=== PATIENT | male | born 1955 | race African-American/Black ===

== ENCOUNTER 2020-11-06 08:32 | Inpatient (IN) | payer MEDICARE ==
--- NOTE | 2020-11-06 08:45 | Emergency Department Report ---
Blank Doc - Documentation Documentation: 65-year-old male that presents with generalized weakness with nausea vomiting. Tachycardia, febrile with low O2 sats in triage. Recently diagnosed with Covid. 1- This initial assessment/diagnostic orders/clinical plan/ treatment(s) is/are subject to change based on pt's health status, clinical progression and re- assessment by fellow clinical providers in the ED. Further treatment and workup at subsequent clinical provers discretion. Patient/guardians urged not to elope from ED as their condition may be serious if not clinically assessed and managed. 2-cardiac work-up
[2020-11-06] MEDS ORDERED: ONDANSETRON 4 MG/2 ML INJ IV ONE (09:10)
[2020-11-06] MEDS ORDERED: SODIUM CHLORIDE 0.9% 1000 ML 1,000 ML IV ONE (09:10)
[2020-11-06] MEDS ORDERED: PANTOPRAZOLE 40 MG INJ IV ONE (09:10)
--- NOTE | 2020-11-06 09:10 | XRay Report ---
CHEST 1 VIEW 11/06/2020 8:40 AM INDICATION / CLINICAL INFORMATION: Chest Pain. COMPARISON: None available. FINDINGS: SUPPORT DEVICES: None. HEART / MEDIASTINUM: Normal-sized cardiac silhouette. Tortuous aorta with mild atherosclerotic calcif ication. Hilar contours demonstrate no significant abnormality. LUNGS / PLEURA: Prominent interstitial lung markings with linear opacities in the midlungs. No pneumo thorax. ADDITIONAL FINDINGS: No significant additional findings. IMPRESSION: 1. Prominent interstitial markings with linear midlung opacities are suggestive of chronic interstiti al lung disease with atelectasis, however mild superimposed acute airspace disease is not excluded. C onsider further follow-up, as warranted. Signer Name: Mehdi Villafana MD Signed: 11/06/2020 9:06 AM Workstation Name: [id number]
--- NOTE | 2020-11-06 09:16 | Emergency Department Report ---
ED General Adult HPI - General Chief complaint: Nausea/Vomiting/Diarrhea Stated complaint: N/V Time Seen by Provider: 11/06/20 08:42 Source: patient, family Mode of arrival: Ambulatory Limitations: Language Barrier - History of Present Illness Initial comments: This is a 65-year-old man with limited Lao capability resenting with most likely his grandson to translate. He has been ill for several days. He received a Covid vaccine (more during) approximately 10 days ago. He has been apparently hiccuping although the family describes this as "dry heaving" for the past 2 days. He has been nauseated and occasionally coughing. He was found to be hypoxic in triage with a saturation as low as the low 80s. He has been complaining of shortness of breath for the last 24 hours. Apparently he has gone to a alternative medicine provider as he has evidence of suction cup candling of both the shoulders. He has history of hypertension. The grandson said he was admitted for a small stroke in the past. He has had no prior surgery. He has no history of diabetes or cardiopulmonary issues otherwise to the knowledge of the grandson. He only takes medications for high blood pressure. -: Gradual, days(s) Quality: other ("Dry heaving") Associated Symptoms: denies other symptoms, cough (Occasional), nausea/vomiting, shortness of breath Treatments Prior to Arrival: other (Cupping) - Related Data Allergies Allergy/AdvReac Type Severity Reaction Status Date / Time No Known Allergies Allergy Unverified 11/06/20 08:32 ED Review of Systems ROS: Stated complaint: N/V Other details as noted in HPI Constitutional: malaise Eyes: denies: eye pain, eye discharge, vision change ENT: denies: ear pain, throat pain Respiratory: cough, shortness of breath Cardiovascular: denies: chest pain, palpitations Endocrine: no symptoms reported Gastrointestinal: denies: nausea, vomiting Genitourinary: denies: urgency, dysuria Musculoskeletal: arthralgia. denies: joint swelling Skin: denies: rash, lesions Neurological: denies: headache, weakness, paresthesias Psychiatric: denies: anxiety, depression Hematological/Lymphatic: denies: easy bleeding, easy bruising ED Past Medical Hx - Past Medical History Previous Medical History?: Yes Hx Hypertension: Yes - Surgical History Past Surgical History?: No - Social History Smoking Status: Former Smoker Substance Use Type: Alcohol ED Physical Exam - General Limitations: Language Barrier General appearance: alert, in no apparent distress - Head Head exam: Present: atraumatic, normocephalic - Eye Eye exam: Present: normal appearance. Absent: scleral icterus - ENT ENT exam: Present: mucous membranes moist - Neck Neck exam: Present: normal inspection - Respiratory Respiratory exam: Present: normal lung sounds bilaterally. Absent: respiratory distress - Cardiovascular Cardiovascular Exam: Present: regular rate, normal rhythm. Absent: systolic murmur, diastolic murmur, rubs, gallop - GI/Abdominal GI/Abdominal exam: Present: soft, normal bowel sounds. Absent: distended, tenderness, guarding, rebound, rigid - Rectal Rectal exam: Present: deferred - Extremities Exam Extremities exam: Present: normal capillary refill. Absent: normal inspection (Bilateral cupping deluca on the shoulders), pedal edema, calf tenderness - Back Exam Back exam: Present: normal inspection - Neurological Exam Neurological exam: Present: alert, oriented X3, CN II-XII intact. Absent: motor sensory deficit - Psychiatric Psychiatric exam: Present: normal affect, normal mood - Skin Skin exam: Present: warm, dry, intact, normal color. Absent: rash ED Course Vital Signs 11/06/20 11/06/20 11/06/20 08:36 08:56 08:57 Temperature 99.9 F H Pulse Rate 95 H 85 87 Respiratory 22 28 H 36 H Rate Blood Pressure 112/79 Blood Pressure 128/83 [Left] O2 Sat by Pulse 82 L 93 94 Oximetry 11/06/20 11/06/20 11/06/20 09:01 09:31 10:01 Temperature Pulse Rate 88 87 84 Respiratory 22 19 36 H Rate Blood Pressure 128/83 133/75 120/71 Blood Pressure [Left] O2 Sat by Pulse 94 94 93 Oximetry 11/06/20 11/06/20 10:31 11:01 Temperature Pulse Rate 79 78 Respiratory 31 H 17 Rate Blood Pressure 121/72 132/77 Blood Pressure [Left] O2 Sat by Pulse 96 94 Oximetry - Reevaluation(s) Reevaluation #1: Discussed with hospitalist. The patient will be admitted on continuous pulse oximetry/telemetry and Covid precautions. 11/06/20 12:27 ED Medical Decision Making - Lab Data Result diagrams: 11/06/20 08:57 11/06/20 09:11 Laboratory Results - last 24 hr 11/06/20 11/06/20 11/06/20 08:57 08:57 08:57 WBC 4.5 RBC 4.74 Hgb 14.9 Hct 42.2 MCV 89 MCH 32 MCHC 35 H RDW 12.8 L Plt Count 131 L Lymph % (Auto) 17.7 [place] % (Auto) 11.4 H Eos % (Auto) 0.0 Baso % (Auto) 0.9 Lymph # (Auto) 0.8 L [place] # (Auto) 0.5 Eos # (Auto) 0.0 Baso # (Auto) 0.0 Seg Neutrophils % 70.0 Seg Neutrophils # 3.1 PT 12.4 INR 0.94 APTT 33.5 D-Dimer 661.18 H Glucose Lactic Acid Magnesium 2.40 H Ferritin Lactate Dehydrogenase Troponin T < 0.010 C-Reactive Protein Lipase 39 11/06/20 11/06/20 11/06/20 08:57 09:11 09:11 WBC RBC Hgb Hct MCV MCH MCHC RDW Plt Count Lymph % (Auto) [place] % (Auto) Eos % (Auto) Baso % (Auto) Lymph # (Auto) [place] # (Auto) Eos # (Auto) Baso # (Auto) Seg Neutrophils % Seg Neutrophils # PT INR APTT D-Dimer 600.32 H Glucose 112 H Lactic Acid 2.20 H* Magnesium Ferritin Lactate Dehydrogenase 509 H Troponin T C-Reactive Protein 8.90 H Lipase 11/06/20 09:11 WBC RBC Hgb Hct MCV MCH MCHC RDW Plt Count Lymph % (Auto) [place] % (Auto) Eos % (Auto) Baso % (Auto) Lymph # (Auto) [place] # (Auto) Eos # (Auto) Baso # (Auto) Seg Neutrophils % Seg Neutrophils # PT INR APTT D-Dimer Glucose Lactic Acid Magnesium Ferritin 3934.0 H Lactate Dehydrogenase Troponin T C-Reactive Protein Lipase Laboratory Results - last 24 hr 11/06/20 11/06/20 11/06/20 08:57 08:57 08:57 WBC 4.5 RBC 4.74 Hgb 14.9 Hct 42.2 MCV 89 MCH 32 MCHC 35 H RDW 12.8 L Plt Count 131 L Lymph % (Auto) 17.7 [place] % (Auto) 11.4 H Eos % (Auto) 0.0 Baso % (Auto) 0.9 Lymph # (Auto) 0.8 L [place] # (Auto) 0.5 Eos # (Auto) 0.0 Baso # (Auto) 0.0 Seg Neutrophils % 70.0 Seg Neutrophils # 3.1 PT 12.4 INR 0.94 APTT 33.5 D-Dimer 661.18 H Sodium Potassium Chloride Carbon Dioxide Anion Gap BUN Creatinine Estimated GFR BUN/Creatinine Ratio Glucose Lactic Acid Calcium Magnesium 2.40 H Ferritin Total Bilirubin Direct Bilirubin Indirect Bilirubin AST ALT Alkaline Phosphatase Lactate Dehydrogenase Troponin T < 0.010 C-Reactive Protein Total Protein Albumin Albumin/Globulin Ratio Lipase 39 Procalcitonin 11/06/20 11/06/20 11/06/20 08:57 09:11 09:11 WBC RBC Hgb Hct MCV MCH MCHC RDW Plt Count Lymph % (Auto) [place] % (Auto) Eos % (Auto) Baso % (Auto) Lymph # (Auto) [place] # (Auto) Eos # (Auto) Baso # (Auto) Seg Neutrophils % Seg Neutrophils # PT INR APTT D-Dimer 600.32 H Sodium Potassium Chloride Carbon Dioxide Anion Gap BUN Creatinine Estimated GFR BUN/Creatinine Ratio Glucose 112 H Lactic Acid 2.20 H* Calcium Magnesium Ferritin Total Bilirubin Direct Bilirubin Indirect Bilirubin AST ALT Alkaline Phosphatase Lactate Dehydrogenase 509 H Troponin T C-Reactive Protein 8.90 H Total Protein Albumin Albumin/Globulin Ratio Lipase Procalcitonin 11/06/20 11/06/20 11/06/20 09:11 09:11 09:11 WBC RBC Hgb Hct MCV MCH MCHC RDW Plt Count Lymph % (Auto) [place] % (Auto) Eos % (Auto) Baso % (Auto) Lymph # (Auto) [place] # (Auto) Eos # (Auto) Baso # (Auto) Seg Neutrophils % Seg Neutrophils # PT INR APTT D-Dimer Sodium 133 L Potassium 3.2 L Chloride 93.3 L Carbon Dioxide 23 Anion Gap 20 BUN 22 H Creatinine 1.0 Estimated GFR > 60 BUN/Creatinine Ratio 22 Glucose 113 H Lactic Acid Calcium 8.2 L Magnesium Ferritin 3934.0 H Total Bilirubin 0.80 Direct Bilirubin 0.3 H Indirect Bilirubin 0.5 AST 69 H ALT 26 Alkaline Phosphatase 30 L Lactate Dehydrogenase Troponin T C-Reactive Protein Total Protein 7.4 Albumin 3.4 L Albumin/Globulin Ratio 0.9 Lipase Procalcitonin < 0.05 - EKG Data -: EKG Interpreted by Me EKG shows normal: axis (Left axis deviation/LAFB) Rate: normal - EKG Data Interpretation: no acute changes - Radiology Data Radiology results: report reviewed, image reviewed Looks like there is likely to be bilateral interstitial infiltrate on a background of chronic lung Critical care attestation.: If time is entered above; I have spent that time in minutes in the direct care of this critically ill patient, excluding procedure time. ED Disposition Clinical Impression: Bilateral interstitial pneumonia, Hypoxia, Person under investigation for COVID-19, Hypokalemia Disposition: OP ADMIT IP TO THIS HOSP Is pt being admited?: Yes Does the pt Need Aspirin: No Condition: Stable Instructions: Bacterial Pneumonia (ED) Referrals: PRIMARY CAREMD [Primary Care Provider] - 3-5 Days Time of Disposition: 11:53
[2020-11-06 09:27] LABS: Basophils % (Auto) 0.9 % (0.0-1.8); Hematocrit 42.2 % (35.5-45.6); Hemoglobin 14.9 gm/dl (11.8-15.2); Lymphocytes # (Auto) 0.8 K/mm3 (1.2-5.4); Lymphocytes % (Auto) 17.7 % (13.4-35.0); Mean Corpuscular HGB Conc 35 % (32-34); Mean Corpuscular Volume 89 fl (84-94); Monocytes # (Auto) 0.5 K/mm3 (0.0-0.8); Monocytes % (Auto) 11.4 % (0.0-7.3); Platelet Count 131 K/mm3 (140-440); Red Blood Count 4.74 M/mm3 (3.65-5.03); Red Cell Distribution Width 12.8 % (13.2-15.2)
[2020-11-06 09:41] LABS: INR 0.94 (0.87-1.13); Partial Thromboplastin Time 33.5 Sec. (24.2-36.6)
[2020-11-06 09:55] LABS: C-Reactive Protein 8.9 mg/dL (0.00-1.30)
[2020-11-06] MEDS ORDERED: cefTRIAXone/NS 1 GM/50 ML 1 GM/50 ML BAG IV ONE (10:03)
[2020-11-06] MEDS ORDERED: AZITHROMYCIN/NS 500 MG/250 ML 500 MG/250 ML BAG IV ONE (10:03)
[2020-11-06] MEDS ORDERED: HYDROCORTISONE SOD SUCC 100 MG/2 ML VIAL IV ONE (10:04)
[2020-11-06 11:31] LABS: Alanine Aminotransferase 26 units/L (7-56); Albumin 3.4 g/dL (3.9-5); BUN/Creatinine Ratio 22; Bilirubin,Direct 0.3 mg/dL (0-0.2); Blood Urea Nitrogen 22 mg/dL (9-20); Calcium 8.2 mg/dL (8.4-10.2); Hemolysis Index 12
[2020-11-06] MEDS ORDERED: POTASSIUM CHLORIDE ER 20 MEQ TAB PO ONE (11:51)
[2020-11-06 17:26] LABS: Bilirubin,Urine NEG (Negative); Blood,Urine SM (Negative); Color,Urine Amber (Yellow); Mucus,Urine FEW /HPF; Urobilinogen,Urine < 2.0 mg/dL (<2.0)
[2020-11-06] MEDS ORDERED: ONDANSETRON 4 MG/2 ML INJ IV PRN (18:32)
[2020-11-06] MEDS ORDERED: ACETAMINOPHEN 325 MG TAB PO PRN (18:32)
--- NOTE | 2020-11-06 22:23 | History and Physical Report ---
History of Present Illness Date of examination: 11/06/20 Date of admission: 11/06/20 14:13 Chief complaint: Shortness of breath for 2 days History of present illness: 65 yuear old male with hx of Htn redieved covid vaccine 10 days ago.Since then patient has been havong malaise and dry heaving.Not feeling well.Cough and SOB for one day,.Was found hypoxic in ED triage area .O2 sats in low 80's.No chest pain .Mo loss of smell.Or taste.Had alternative treatment from a central african person.Suction cup candling on both shoulders. - Past Medical History Previous Medical History?: Yes Hx Hypertension: Yes - Surgical History Past Surgical History?: No - Social History Smoking Status: Former Smoker Substance Use Type: Alcohol Review of Systems ROS: Stated complaint: N/V Other details as noted in HPI Constitutional: malaise Eyes: denies: eye pain, eye discharge, vision change ENT: denies: ear pain, throat pain Respiratory: cough, shortness of breath Cardiovascular: denies: chest pain, palpitations Endocrine: no symptoms reported Gastrointestinal: denies: nausea, vomiting Genitourinary: denies: urgency, dysuria Musculoskeletal: arthralgia. denies: joint swelling Skin: denies: rash, lesions Neurological: denies: headache, weakness, paresthesias Psychiatric: denies: anxiety, depression Hematological/Lymphatic: denies: easy bleeding, easy bruising Medications and Allergies Allergies Allergy/AdvReac Type Severity Reaction Status Date / Time No Known Allergies Allergy Verified 11/06/20 12:32 Active Meds: Active Medications Acetaminophen (Acetaminophen 325 Mg Tab) 650 mg PO Q4H PRN PRN Reason: Pain, Mild (1-3) Guaifenesin (Guaifenesin 100 Mg/5 Ml Oral Liqd) 200 mg PO Q4H PRN PRN Reason: Cough Ondansetron HCl (Ondansetron 4 Mg/2 Ml Inj) 4 mg IV Q8H PRN PRN Reason: Nausea Exam - Constitutional Vitals: Temp Pulse Resp BP Pulse Ox 99.9 F H 67 21 114/70 92 11/06/20 08:36 11/06/20 16:00 11/06/20 16:00 11/06/20 16:00 11/06/20 20:04 General appearance: Present: mild distress, well-nourished - EENT Eyes: Present: PERRL ENT: hearing intact, clear oral mucosa - Neck Neck: Present: supple, normal ROM - Respiratory Respiratory effort: normal Respiratory: bilateral: CTA - Cardiovascular Heart rate: 78 Rhythm: regular Heart Sounds: Present: S1 & S2. Absent: rub, click - Extremities Extremities: no ischemia, pulses intact, pulses symmetrical, No edema Peripheral Pulses: within normal limits - Abdominal General gastrointestinal: Present: soft, non-tender, non-distended, normal bowel sounds Male genitourinary: Present: normal - Integumentary Integumentary: Present: clear, warm, dry - Musculoskeletal Musculoskeletal: gait normal, strength equal bilaterally - Psychiatric Psychiatric: appropriate mood/affect, intact judgment & insight - Neurologic Neurologic: CNII-XII intact, moves all extremities - Allied Health Allied health notes reviewed: nursing, case management HEART Score - HEART Score Troponin: Troponin T < 0.010 ng/mL (0.00-0.029) 11/06/20 11:26 Results - Labs CBC & Chem 7: 11/06/20 08:57 11/06/20 09:11 Labs: Laboratory Last Values WBC 4.5 K/mm3 (4.5-11.0) 11/06/20 08:57 RBC 4.74 M/mm3 (3.65-5.03) 11/06/20 08:57 Hgb 14.9 gm/dl (11.8-15.2) 11/06/20 08:57 Hct 42.2 % (35.5-45.6) 11/06/20 08:57 MCV 89 fl (84-94) 11/06/20 08:57 MCH 32 pg (28-32) 11/06/20 08:57 MCHC 35 % (32-34) H 11/06/20 08:57 RDW 12.8 % (13.2-15.2) L 11/06/20 08:57 Plt Count 131 K/mm3 (140-440) L 11/06/20 08:57 Lymph % (Auto) 17.7 % (13.4-35.0) 11/06/20 08:57 [place] % (Auto) 11.4 % (0.0-7.3) H 11/06/20 08:57 Eos % (Auto) 0.0 % (0.0-4.3) 11/06/20 08:57 Baso % (Auto) 0.9 % (0.0-1.8) 11/06/20 08:57 Lymph # (Auto) 0.8 K/mm3 (1.2-5.4) L 11/06/20 08:57 [place] # (Auto) 0.5 K/mm3 (0.0-0.8) 11/06/20 08:57 Eos # (Auto) 0.0 K/mm3 (0.0-0.4) 11/06/20 08:57 Baso # (Auto) 0.0 K/mm3 (0.0-0.1) 11/06/20 08:57 Seg Neutrophils % 70.0 % (40.0-70.0) 11/06/20 08:57 Seg Neutrophils # 3.1 K/mm3 (1.8-7.7) 11/06/20 08:57 PT 12.4 Sec. (12.2-14.9) 11/06/20 08:57 INR 0.94 (0.87-1.13) 11/06/20 08:57 APTT 33.5 Sec. (24.2-36.6) 11/06/20 08:57 D-Dimer 600.32 ng/mlDDU (0-234) H 11/06/20 09:11 Sodium 133 mmol/L (137-145) L 11/06/20 09:11 Potassium 3.2 mmol/L (3.6-5.0) L 11/06/20 09:11 Chloride 93.3 mmol/L (98-107) L 11/06/20 09:11 Carbon Dioxide 23 mmol/L (22-30) 11/06/20 09:11 Anion Gap 20 mmol/L 11/06/20 09:11 BUN 22 mg/dL (9-20) H 11/06/20 09:11 Creatinine 1.0 mg/dL (0.8-1.3) 11/06/20 09:11 Estimated GFR > 60 ml/min 11/06/20 09:11 BUN/Creatinine Ratio 22 % 11/06/20 09:11 Glucose 112 mg/dL (75-100) H 11/06/20 09:11 Glucose 113 mg/dL (75-100) H 11/06/20 09:11 Lactic Acid 1.50 mmol/L (0.7-2.0) 11/06/20 11:26 Calcium 8.2 mg/dL (8.4-10.2) L 11/06/20 09:11 Magnesium 2.40 mg/dL (1.7-2.3) H 11/06/20 08:57 Ferritin 3934.0 ng/mL (30.0-300.0) H 11/06/20 09:11 Total Bilirubin 0.80 mg/dL (0.1-1.2) 11/06/20 09:11 Direct Bilirubin 0.3 mg/dL (0-0.2) H 11/06/20 09:11 Indirect Bilirubin 0.5 mg/dL 11/06/20 09:11 AST 69 units/L (5-40) H 11/06/20 09:11 ALT 26 units/L (7-56) 11/06/20 09:11 Alkaline Phosphatase 30 units/L (35-129) L 11/06/20 09:11 Lactate Dehydrogenase 509 units/L (91-180) H 11/06/20 09:11 Troponin T < 0.010 ng/mL (0.00-0.029) 11/06/20 11:26 C-Reactive Protein 8.90 mg/dL (0.00-1.30) H 11/06/20 09:11 Total Protein 7.4 g/dL (6.3-8.2) 11/06/20 09:11 Albumin 3.4 g/dL (3.9-5) L 11/06/20 09:11 Albumin/Globulin Ratio 0.9 % 11/06/20 09:11 Lipase 39 units/L (13-60) 11/06/20 08:57 Procalcitonin < 0.05 ng/mL (<0.15) 11/06/20 09:11 Urine Color [place] (Yellow) 11/06/20 17:14 Urine Turbidity Clear (Clear) 11/06/20 17:14 Urine pH 6.0 (5.0-7.0) 11/06/20 17:14 Ur Specific [place] 1.024 (1.003-1.030) 11/06/20 17:14 Urine Protein 100 mg/dl mg/dL (Negative) 11/06/20 17:14 Urine Glucose (UA) Neg mg/dL (Negative) 11/06/20 17:14 Urine Ketones Neg mg/dL (Negative) 11/06/20 17:14 Urine Blood Sm (Negative) 11/06/20 17:14 Urine Nitrite Neg (Negative) 11/06/20 17:14 Urine Bilirubin Neg (Negative) 11/06/20 17:14 Urine Urobilinogen < 2.0 mg/dL (<2.0) 11/06/20 17:14 Ur Leukocyte Esterase Neg (Negative) 11/06/20 17:14 Urine WBC (Auto) 3.0 /HPF (0.0-6.0) 11/06/20 17:14 Urine RBC (Auto) 3.0 /HPF (0.0-6.0) 11/06/20 17:14 Urine Mucus Few /HPF 11/06/20 17:14 Short CBC 11/06/20 Range/Units 08:57 WBC 4.5 (4.5-11.0) K/mm3 Hgb 14.9 (11.8-15.2) gm/dl Hct 42.2 (35.5-45.6) % Plt Count 131 L (140-440) K/mm3 BMP 11/06/20 11/06/20 09:11 09:11 Sodium 133 L Potassium 3.2 L Chloride 93.3 L Carbon Dioxide 23 BUN 22 H Creatinine 1.0 Glucose 112 H 113 H Calcium 8.2 L Cardiac Enzymes 11/06/20 11/06/20 Range/Units 08:57 11:26 Troponin T < 0.010 < 0.010 (0.00-0.029) ng/mL Liver Function 11/06/20 Range/Units 09:11 Total Bilirubin 0.80 (0.1-1.2) mg/dL Direct Bilirubin 0.3 H (0-0.2) mg/dL AST 69 H (5-40) units/L ALT 26 (7-56) units/L Alkaline Phosphatase 30 L (35-129) units/L Albumin 3.4 L (3.9-5) g/dL Urine 11/06/20 Range/Units 17:14 Urine Color [place] (Yellow) Urine pH 6.0 (5.0-7.0) Ur Specific [place] 1.024 (1.003-1.030) Urine Protein 100 mg/dl (Negative) mg/dL Urine Glucose (UA) Neg (Negative) mg/dL Microbiology: Microbiology 11/06/20 08:57 Peripheral/Venous Blood Culture - Preliminary Culture in Progress 11/06/20 08:57 Peripheral/Venous Blood Culture - Preliminary Culture in Progress - Imaging and Cardiology Chest x-ray: report reviewed Imaging and Cardiology: Chest x-ray Prominent interstitial markings with linear midlung opacities are suggestive of chronic interstitial lung disease with atelectasis, however mild superimposed acute airspace disease is not excluded. Consider further follow-up as war ranted. Assessment and Plan Advance Directives: Yes (Full code) VTE prophylaxis?: Chemical Plan of care discussed with patient/family: Yes - Patient Problems (1) Acute respiratory failure with hypoxia Current Visit: Yes Status: Acute Plan to address problem: Cont oxygen supplementation High flow oxygen as necessary Covid work up. (2) Bilateral pneumonia Current Visit: Yes Status: Acute Qualifiers: Pneumonia type: due to unspecified organism Plan to address problem: Treat as community acquires pneumonia for now Will defer to ID regarding continuation/discontinuation of abx (3) Person under investigation for COVID-19 Current Visit: Yes Status: Acute Plan to address problem: IV Decasron Covid pcr in am (4) Hypokalemia Current Visit: Yes Status: Acute Plan to address problem: Supplemented (5) Hyponatremia Current Visit: Yes Status: Acute Plan to address problem: Mild (6) HTN (hypertension) Current Visit: Yes Status: Chronic Qualifiers: Hypertension type: essential hypertension Qualified Code(s): I10 - Essential (primary) hypertension Plan to address problem: Cont antihypertensivesx and adjust meds as necessary (7) Malnutrition Current Visit: Yes Status: Acute Qualifiers: Protein-calorie malnutrition severity: mild Plan to address problem: Dietary supplements (8) Transaminitis Current Visit: Yes Status: Acute Plan to address problem: Mild Sec to Covid (9) Elevated d-dimer Current Visit: Yes Status: Acute Plan to address problem: CTA chest pending Lovenox SQ 40 qd (10) DVT prophylaxis Current Visit: Yes Status: Acute Plan to address problem: On Lovenox and GI prophylaxis
[2020-11-06] MEDS ORDERED: ENOXAPARIN 60 MG/0.6 ML INJ SUB-Q SCH (23:00)
[2020-11-06] MEDS ORDERED: dexAMETHasone 4 MG/ML VIAL IV SCH (23:00)
[2020-11-06] MEDS: ZINC SULFATE 220 MG CAP PO SCH (23:43)
[2020-11-06] MEDS: ASCORBIC ACID 500 MG TAB PO SCH (23:43)
[2020-11-06] MEDS: FAMOTIDINE 20 MG TAB PO SCH (23:44)
[2020-11-06] MEDS: ENOXAPARIN 80 MG/0.8 ML INJ SUB-Q SCH (23:44)
[2020-11-07] MEDS ORDERED: POTASSIUM CHLORIDE ER 20 MEQ TAB PO ONE (01:09)
[2020-11-07] MEDS: oxyCODONE /ACETAMINOPHEN 5-325MG TAB PO PRN (02:07)
[2020-11-07] MEDS: guaiFENesin 100 MG/5 ML ORAL LIQD PO PRN (02:07)
[2020-11-07 08:21] LABS: Alanine Aminotransferase 23 units/L (7-56); Albumin 3.1 g/dL (3.9-5); Blood Urea Nitrogen 19 mg/dL (9-20); Calcium 7.8 mg/dL (8.4-10.2); Hemolysis Index 3
[2020-11-07 08:28] LABS: Basophils % (Auto) 0.2 % (0.0-1.8); Hemoglobin 14.8 gm/dl (11.8-15.2); Lymphocytes # (Auto) 0.5 K/mm3 (1.2-5.4); Lymphocytes % (Auto) 14.4 % (13.4-35.0); Mean Corpuscular HGB Conc 35 % (32-34); Mean Corpuscular Volume 90 fl (84-94); Monocytes # (Auto) 0.3 K/mm3 (0.0-0.8); Monocytes % (Auto) 7.3 % (0.0-7.3); Platelet Count 139 K/mm3 (140-440); Red Blood Count 4.68 M/mm3 (3.65-5.03); Red Cell Distribution Width 12.9 % (13.2-15.2)
[2020-11-07 08:39] LABS: BUN/Creatinine Ratio 32
[2020-11-07] MEDS: AZITHROMYCIN/NS 500 MG/250 ML 500 MG/250 ML BAG IV SCH ×2 (08:49→20:42)
[2020-11-07] MEDS: cefTRIAXone/NS 2 GM/100 ML 2 GM/100 ML BAG IV SCH ×2 (08:49→20:43)
[2020-11-07] MEDS: ASCORBIC ACID 500 MG TAB PO SCH ×3 (08:50→21:51)
[2020-11-07] MEDS: ZINC SULFATE 220 MG CAP PO SCH ×3 (08:50→21:50)
[2020-11-07] MEDS: CHOLECALCIFEROL (VIT D3) 5,000 UNIT TAB PO SCH ×2 (08:50→18:14)
[2020-11-07] MEDS: FAMOTIDINE 20 MG TAB PO SCH ×3 (08:51→21:50)
--- NOTE | 2020-11-07 11:14 | Electrocardiograph Report ---
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
--- NOTE | 2020-11-07 13:36 | Progress Note ---
Assessment and Plan Assessment and plan: 65-year-old male who presents with acute respiratory failure with hypoxia. Patient under investigation for Covid infection. Patient has been vaccinated with return vaccine about 10 days ago Assessment and Plan Advance Directives: Yes (Full code) VTE prophylaxis?: Chemical Plan of care discussed with patient/family: Yes (1) Acute respiratory failure with hypoxia Current Visit: Yes Status: Acute Plan to address problem: Cont oxygen supplementation Patient currently on high flow oxygen Chest x-ray with interstitial opacities Pulmonology consulted (2) Bilateral pneumonia Current Visit: Yes Status: Acute Qualifiers: Pneumonia type: due to unspecified organism Plan to address problem: Azithromycin and ceftriaxone Infectious disease consulted ProCal is normal (3) Person under investigation for COVID-19 Current Visit: Yes Status: Acute Plan to address problem: IV Decadron, zinc, vitamin D, vitamin C Covid PCR pending Infectious disease consulted (4) Hypokalemia Current Visit: Yes Status: Acute Plan to address problem: Supplemented as needed (5) Hyponatremia Current Visit: Yes Status: Acute Plan to address problem: Mild (6) HTN (hypertension) Current Visit: Yes Status: Chronic Qualifiers: Hypertension type: essential hypertension Qualified Code(s): I10 - Essential (primary) hypertension Plan to address problem: IV hydralazine as needed (7) Malnutrition Current Visit: Yes Status: Acute Qualifiers: Protein-calorie malnutrition severity: mild Plan to address problem: Dietary supplements (8) Transaminitis Current Visit: Yes Status: Acute Plan to address problem: Continue to monitor (9) Elevated d-dimer Current Visit: Yes Status: Acute Plan to address problem: CTA chest pending Therapeutic Lovenox (10) DVT prophylaxis Current Visit: Yes Status: Acute Plan to address problem: On Lovenox therapeutic dose and GI prophylaxis Disposition: Continue treatment for PUI Covid, continue high flow oxygen, follow-up on CTA, infectious disease and pulmonology consulted. Please call the son to update him daily. History Interval history: 11/07/2020: Patient seen and examined, on high flow oxygen, continues to have labored respiratory effort. Spoke with the son, updated him on the patient's condition. Hospitalist Physical - Physical exam Narrative exam: General appearance: no acute distress, well-nourished EENT: PERRL, EOM intact, hearing intact, clear oral mucosa, dentition normal Neck: Present: supple, normal ROM Respiratory: Minimal bilateral wheezes, no rales or rhonchi heard, seesaw breathing from the belly Cardiovascular: Regular rate/rhythm, Normal S1 & S2. No gallop, rub Extremities: no ischemia, No edema, normal temperature, normal color, Full ROM Abdominal: soft, non-tender, non-distended, normal bowel sounds Integumentary: Present: clear, warm, dry Neurologic: CNII-XII intact, moves all extremities - Constitutional Vitals: Temp Pulse Resp BP Pulse Ox 98.5 F 56 L 20 175/71 93 11/07/20 05:44 11/07/20 05:44 11/07/20 05:44 11/07/20 05:44 11/07/20 08:00 General appearance: Present: mild distress, well-nourished HEART Score - HEART Score Troponin: Troponin T < 0.010 ng/mL (0.00-0.029) 11/06/20 11:26 Results - Labs CBC & Chem 7: 11/07/20 07:26 11/07/20 07:26 Labs: Laboratory Last Values WBC 3.6 K/mm3 (4.5-11.0) L 11/07/20 07:26 RBC 4.68 M/mm3 (3.65-5.03) 11/07/20 07:26 Hgb 14.8 gm/dl (11.8-15.2) 11/07/20 07:26 Hct 42.0 % (35.5-45.6) 11/07/20 07:26 MCV 90 fl (84-94) 11/07/20 07:26 MCH 32 pg (28-32) 11/07/20 07:26 MCHC 35 % (32-34) H 11/07/20 07:26 RDW 12.9 % (13.2-15.2) L 11/07/20 07:26 Plt Count 139 K/mm3 (140-440) L 11/07/20 07:26 Lymph % (Auto) 14.4 % (13.4-35.0) 11/07/20 07:26 [place] % (Auto) 7.3 % (0.0-7.3) 11/07/20 07:26 Eos % (Auto) 0.0 % (0.0-4.3) 11/07/20 07:26 Baso % (Auto) 0.2 % (0.0-1.8) 11/07/20 07:26 Lymph # (Auto) 0.5 K/mm3 (1.2-5.4) L 11/07/20 07:26 [place] # (Auto) 0.3 K/mm3 (0.0-0.8) 11/07/20 07:26 Eos # (Auto) 0.0 K/mm3 (0.0-0.4) 11/07/20 07:26 Baso # (Auto) 0.0 K/mm3 (0.0-0.1) 11/07/20 07:26 Seg Neutrophils % 78.1 % (40.0-70.0) H 11/07/20 07:26 Seg Neutrophils # 2.8 K/mm3 (1.8-7.7) 11/07/20 07:26 PT 12.4 Sec. (12.2-14.9) 11/06/20 08:57 INR 0.94 (0.87-1.13) 11/06/20 08:57 APTT 33.5 Sec. (24.2-36.6) 11/06/20 08:57 D-Dimer 600.32 ng/mlDDU (0-234) H 11/06/20 09:11 Sodium 137 mmol/L (137-145) 11/07/20 07:26 Potassium 4.1 mmol/L (3.6-5.0) D 11/07/20 07:26 Chloride 100.7 mmol/L (98-107) 11/07/20 07:26 Carbon Dioxide 25 mmol/L (22-30) 11/07/20 07:26 Anion Gap 15 mmol/L 11/07/20 07:26 BUN 19 mg/dL (9-20) 11/07/20 07:26 Creatinine 0.6 mg/dL (0.8-1.3) L 11/07/20 07:26 Estimated GFR > 60 ml/min 11/07/20 07:26 BUN/Creatinine Ratio 32 % 11/07/20 07:26 Glucose 143 mg/dL (75-100) H 11/07/20 07:26 Hemoglobin A1c 5.6 % (4-6) 11/07/20 07:26 Lactic Acid 1.50 mmol/L (0.7-2.0) 11/06/20 11:26 Calcium 7.8 mg/dL (8.4-10.2) L 11/07/20 07:26 Magnesium 2.40 mg/dL (1.7-2.3) H 11/06/20 08:57 Ferritin 3934.0 ng/mL (30.0-300.0) H 11/06/20 09:11 Total Bilirubin 0.50 mg/dL (0.1-1.2) 11/07/20 07:26 Direct Bilirubin 0.3 mg/dL (0-0.2) H 11/06/20 09:11 Indirect Bilirubin 0.5 mg/dL 11/06/20 09:11 AST 55 units/L (5-40) H 11/07/20 07:26 ALT 23 units/L (7-56) 11/07/20 07:26 Alkaline Phosphatase 29 units/L (35-129) L 11/07/20 07:26 Lactate Dehydrogenase 509 units/L (91-180) H 11/06/20 09:11 Troponin T < 0.010 ng/mL (0.00-0.029) 11/06/20 11:26 C-Reactive Protein 8.90 mg/dL (0.00-1.30) H 11/06/20 09:11 Total Protein 6.6 g/dL (6.3-8.2) 11/07/20 07:26 Albumin 3.1 g/dL (3.9-5) L 11/07/20 07:26 Albumin/Globulin Ratio 0.9 % 11/07/20 07:26 Lipase 39 units/L (13-60) 11/06/20 08:57 Procalcitonin < 0.05 ng/mL (<0.15) 11/06/20 09:11 Urine Color [place] (Yellow) 11/06/20 17:14 Urine Turbidity Clear (Clear) 11/06/20 17:14 Urine pH 6.0 (5.0-7.0) 11/06/20 17:14 Ur Specific [place] 1.024 (1.003-1.030) 11/06/20 17:14 Urine Protein 100 mg/dl mg/dL (Negative) 11/06/20 17:14 Urine Glucose (UA) Neg mg/dL (Negative) 11/06/20 17:14 Urine Ketones Neg mg/dL (Negative) 11/06/20 17:14 Urine Blood Sm (Negative) 11/06/20 17:14 Urine Nitrite Neg (Negative) 11/06/20 17:14 Urine Bilirubin Neg (Negative) 11/06/20 17:14 Urine Urobilinogen < 2.0 mg/dL (<2.0) 11/06/20 17:14 Ur Leukocyte Esterase Neg (Negative) 11/06/20 17:14 Urine WBC (Auto) 3.0 /HPF (0.0-6.0) 11/06/20 17:14 Urine RBC (Auto) 3.0 /HPF (0.0-6.0) 11/06/20 17:14 Urine Mucus Few /HPF 11/06/20 17:14 Coronavirus (PCR) Positive (Negative) A 11/06/20 09:57 Microbiology: Microbiology 11/06/20 08:57 Peripheral/Venous Blood Culture - Preliminary NO GROWTH AFTER 24 HOURS 11/06/20 08:57 Peripheral/Venous Blood Culture - Preliminary NO GROWTH AFTER 24 HOURS Holt/IV: Voiding Method Urinal Active Medications - Current Medications Current Medications: Generic Name Dose Route Start Last Admin Trade Name Freq PRN Reason Stop Dose Admin Acetaminophen 650 mg 11/06/20 22:23 Acetaminophen 325 Mg Tab PO Q4H PRN Pain MILD(1-3)/Fever >100.5/CALVILLO Ascorbic Acid 1,000 mg 11/06/20 23:00 11/07/20 08:50 Ascorbic Acid 500 Mg Tab PO 1,000 mg BID BOBBY Administration Cholecalciferol 5,000 unit 11/07/20 10:00 11/07/20 08:50 Cholecalciferol (Vit D3) 5,000 Unit Tab PO 5,000 unit DAILY BOBBY Administration Dexamethasone 6 mg 11/07/20 22:00 Dexamethasone 4 Mg/Ml Vial IV 11/15/20 22:01 Q24HR@2200 BOBBY Enoxaparin Sodium 70 mg 11/06/20 23:00 11/06/20 23:44 Enoxaparin 80 Mg/0.8 Ml Inj SUB-Q 70 mg Q12H BOBBY Administration Protocol Famotidine 20 mg 11/06/20 23:00 11/07/20 08:51 Famotidine 20 Mg Tab PO 20 mg BID BOBBY Administration Guaifenesin 200 mg 11/06/20 18:33 11/07/20 02:07 Guaifenesin 100 Mg/5 Ml Oral Liqd PO 200 mg Q4H PRN Administration Cough Azithromycin 500 mg in 250 mls @ 250 mls/hr 11/07/20 10:00 11/07/20 08:49 Zithromax/Ns IV 250 mls/hr Q24H BOBBY Administration Ceftriaxone Sodium 2 gm in 100 mls @ 200 mls/hr 11/07/20 10:00 11/07/20 08:49 Rocephin/Ns 2 Gm/100 Ml IV 200 mls/hr Q24HR BOBBY Administration Protocol Metoclopramide HCl 10 mg 11/06/20 22:23 Metoclopramide 10 Mg/2 Ml Inj IV Q6H PRN Nausea And Vomiting Morphine Sulfate 2 mg 11/06/20 22:23 Morphine 2 Mg/1 Ml Inj IV Q4H PRN Pain, Moderate (4-6) Ondansetron HCl 4 mg 11/06/20 22:23 Ondansetron 4 Mg/2 Ml Inj IV Q8H PRN Nausea And Vomiting Oxycodone/Acetaminophen 1 tab 11/06/20 22:23 11/07/20 02:07 Oxycodone /Acetaminophen 5-325mg Tab PO 1 tab Q6H PRN Administration Pain, Moderate (4-6) Sodium Chloride 10 ml 11/06/20 23:00 11/06/20 23:44 Sodium Chloride 0.9% 10 Ml Flush Syringe IV 10 ml BID BOBBY Administration Sodium Chloride 10 ml 11/06/20 22:23 Sodium Chloride 0.9% 10 Ml Flush Syringe IV PRN PRN LINE FLUSH Zinc Sulfate 220 mg 11/06/20 23:00 11/07/20 08:50 Zinc Sulfate 220 Mg Cap PO 220 mg BID BOBBY Administration
[2020-11-07] MEDS ORDERED: hydrALAZINE 20 MG/1 ML INJ IV PRN (13:38)
[2020-11-07] MEDS: ENOXAPARIN 80 MG/0.8 ML INJ SUB-Q SCH ×2 (15:00→22:00)
--- NOTE | 2020-11-07 15:59 | Consultation ---
History of Present Illness - Reason for Consult Consult date: 11/07/20 COVID-19 Requesting physician: CLEMENTE BRIZUELA - History of Present Illness 65-year-old male with history of hypertension, follows first dose of COVID-19 vaccine 10 days before admission, admitted on 11/06/2020 secondary to cough, shortness of breath generalized malaise for 48 hours. Patient was receiving cupping Syriac treatment without any improvement. On arrival, temperature 99.9, HR 95, RR 22, O2 sat 82%, blood pressure 112/79. Initial WBC 4.5. Platelets 131. D-dimer 661. CRP 8.9. Ferritin 3934. LDH 509. Lactate 2.2. Procalcitonin<0.05. SARS-CoV-2 PCR positive. Blood culture 11/06/2020 no growth today. Chest x-ray with prominent interstitial markings bilaterally with mild opacities. Review of Systems: positive in bold print General: Malaise, body aches Cutaneous: rash, pruritus Head: headaches or injury Eyes: changes in vision, eye pain, double vision Ears: ear pain, ear discharge, ringing or hearing loss Nose: nose bleeding, stuffiness Mouth & throat: bleeding gums, horseness, no dental problems, or swollen glands Neck: no pain, node enlargement/lumps, tyroid enlargement or tenderness Respiratory: SOB, cough, LANGLEY, wheezing, sputum, hemoptysis, pleuritic chest pain Cardiovascular: chest pain, leg edema, cyanosis, LANG[place], orthopnea Musculoskeletal: edema, deformities, pain Gastrointestinal: nausea, vomiting, hematemesis, diarrhea, constipation, melena, bright red blood in stools, fecal incontinence, jaundice Genitourinary/Reproductive: frequent urination, dysuria, hematuria, incontinence Neurogical: seizures, headaches, weakness, paresthesias, loss of speech or vision; memory loss, vertigo, tremors, numbness Psychiatric: stable mood; excessive anxiety, sadness or moodiness Medications and Allergies Allergies Allergy/AdvReac Type Severity Reaction Status Date / Time No Known Allergies Allergy Verified 11/06/20 12:32 Active Meds: Active Medications Acetaminophen (Acetaminophen 325 Mg Tab) 650 mg PO Q4H PRN PRN Reason: Pain MILD(1-3)/Fever >100.5/[place] Ascorbic Acid (Ascorbic Acid 500 Mg Tab) 1,000 mg PO BID BOBBY Last Admin: 11/07/20 08:50 Dose: 1,000 mg Documented by: Cholecalciferol (Cholecalciferol (Vit D3) 5,000 Unit Tab) 5,000 unit PO DAILY [facility] Last Admin: 11/07/20 08:50 Dose: 5,000 unit Documented by: Dexamethasone (Dexamethasone 4 Mg/Ml Vial) 6 mg IV Q24HR@2200 [facility] Stop: 11/15/20 22:01 Enoxaparin Sodium (Enoxaparin 80 Mg/0.8 Ml Inj) 70 mg SUB-Q Q12H [facility]; Protocol Last Admin: 11/06/20 23:44 Dose: 70 mg Documented by: Famotidine (Famotidine 20 Mg Tab) 20 mg PO BID [facility] Last Admin: 11/07/20 08:51 Dose: 20 mg Documented by: Guaifenesin (Guaifenesin 100 Mg/5 Ml Oral Liqd) 200 mg PO Q4H PRN PRN Reason: Cough Last Admin: 11/07/20 02:07 Dose: 200 mg Documented by: Hydralazine HCl (Hydralazine 20 Mg/1 Ml Inj) 10 mg IV Q4HR PRN PRN Reason: Blood Pressure Azithromycin (Zithromax/Ns) 500 mg in 250 mls @ 250 mls/hr IV Q24H [facility] Last Admin: 11/07/20 08:49 Dose: 250 mls/hr Documented by: Ceftriaxone Sodium (Rocephin/Ns 2 Gm/100 Ml) 2 gm in 100 mls @ 200 mls/hr IV Q24HR [facility]; Protocol Last Admin: 11/07/20 08:49 Dose: 200 mls/hr Documented by: Metoclopramide HCl (Metoclopramide 10 Mg/2 Ml Inj) 10 mg IV Q6H PRN PRN Reason: Nausea And Vomiting Morphine Sulfate (Morphine 2 Mg/1 Ml Inj) 2 mg IV Q4H PRN PRN Reason: Pain, Moderate (4-6) Ondansetron HCl (Ondansetron 4 Mg/2 Ml Inj) 4 mg IV Q8H PRN PRN Reason: Nausea And Vomiting Oxycodone/Acetaminophen (Oxycodone /Acetaminophen 5-325mg Tab) 1 tab PO Q6H PRN PRN Reason: Pain, Moderate (4-6) Last Admin: 11/07/20 02:07 Dose: 1 tab Documented by: Sodium Chloride (Sodium Chloride 0.9% 10 Ml Flush Syringe) 10 ml IV BID [facility] Last Admin: 11/06/20 23:44 Dose: 10 ml Documented by: Sodium Chloride (Sodium Chloride 0.9% 10 Ml Flush Syringe) 10 ml IV PRN PRN PRN Reason: LINE FLUSH Zinc Sulfate (Zinc Sulfate 220 Mg Cap) 220 mg PO BID [facility] Last Admin: 11/07/20 08:50 Dose: 220 mg Documented by: Physical Examination - Physical Exam Narrative exam: General appearance: Alert in NAD pleasant Eyes: anicteric sclerae, moist conjunctivae; no lid-lag; PERRLA HENT: Normocephalic, Atraumatic; normal external ears, nares open, oropharynx clear Neck: supple, tracheal midline, no JVD Lungs: Bilateral rhonchi CV: RRR no murmur Abdomen: Soft, non-tender; no masses or hepatosplenomegaly Extremities: no edema, no cyanosis Skin: Multiple round shaped ecchymoses from cupping therapy Psych: no agitated Neuro: alert and oriented x 3. Moving all extermities - - Constitutional Vitals: Vital Signs Temp Pulse Resp BP Pulse Ox 98.5 F 56 L 20 175/71 92 11/07/20 05:44 11/07/20 05:44 11/07/20 05:44 11/07/20 05:44 11/07/20 13:50 Temperature -Last 24 Hours Temperature 98.5 F Temperature 99.1 F Results - Labs CBC & Chem 7: 11/07/20 07:26 11/07/20 07:26 Labs: Abnormal lab results 11/06/20 11/07/20 11/07/20 Range/Units 09:57 07:26 07:26 WBC 3.6 L (4.5-11.0) K/mm3 MCHC 35 H (32-34) % RDW 12.9 L (13.2-15.2) % Plt Count 139 L (140-440) K/mm3 Lymph # (Auto) 0.5 L (1.2-5.4) K/mm3 Seg Neutrophils % 78.1 H (40.0-70.0) % Creatinine 0.6 L (0.8-1.3) mg/dL Glucose 143 H (75-100) mg/dL Calcium 7.8 L (8.4-10.2) mg/dL AST 55 H (5-40) units/L Alkaline Phosphatase 29 L (35-129) units/L Albumin 3.1 L (3.9-5) g/dL Coronavirus (PCR) Positive A (Negative) Assessment and Plan Cultures: SARS-CoV-2 PCR positive. Blood culture 11/06/2020 no growth today. Assessment: 65-year-old male with history of hypertension, follows first dose of COVID-19 vaccine 10 days before admission, admitted on 11/06/2020 secondary to cough, shortness of breath generalized malaise for 48 hours: #Acute sepsis: Present on admission with mild fever, tachycardia, hypoxia, elevated lactate; likely secondary to COVID-19 infection. #Severe COVID-19 pneumonia: Chest x-ray with bilateral infiltrates. Inflammatory markers elevated. D-dimer 661. CRP 8.9. Ferritin 3934. LDH 509. Procalcitonin is low. #Acute hypoxemic respiratory failure: Dropped to 82%. Patient currently on high flow nasal cannula 15 L, 75%. #Thrombocytopenia: Mild likely secondary to COVID-19 #Transaminitis: Likely due to COVID-19. Recommendations: -Obtain pulmonary consult -Continue dexamethasone 6 mg IV/PO daily for 10 days -Start remdesivir for 5 days -Start Tocilizumab x 1 dose due to rapidly progressive hypoxia and CRP>7.5, order sent to pharmacy for approval -Stop antibiotics, procalcitonin is normal -Prone positioning -Anticoagulation per protocol -Check inflammatory markers every 2 to 3 days Close monitoring, risk for decompensation requiring intubation Will follow. Lashonda Ang MD Infectious Diseases Quality Control Inspector [place] [facility] [phone] O [phone]
[2020-11-07] MEDS ORDERED: TOCILIZUMAB 600 MG in SODIUM CHLORIDE 0.9% 100 ML IV ONE (16:06)
--- NOTE | 2020-11-07 16:52 | Consultation ---
History of Present Illness Consult date: 11/07/20 Requesting physician: CHARMAINE JIMÉNEZ Reason for consult: dyspnea, pneumonia History of present illness: 65 yo admitted with increased SOB, cough, nausea, malaise. Found to be hypoxic in ED with Covid-19 positive PCR. No chest pain or hemoptysis. On 15LPM and 75% HFNC though when I saw him he was on NRB in order to have CTA chest done. Active Medications Acetaminophen (Acetaminophen 325 Mg Tab) 650 mg PO Q4H PRN PRN Reason: Pain MILD(1-3)/Fever >100.5/[place] Ascorbic Acid (Ascorbic Acid 500 Mg Tab) 1,000 mg PO BID [facility] Last Admin: 11/07/20 18:15 Dose: Not Given Documented by: Cholecalciferol (Cholecalciferol (Vit D3) 5,000 Unit Tab) 5,000 unit PO DAILY [facility] Last Admin: 11/07/20 18:14 Dose: Not Given Documented by: Dexamethasone (Dexamethasone 4 Mg/Ml Vial) 6 mg IV Q24HR@2200 [facility] Stop: 11/15/20 22:01 Enoxaparin Sodium (Enoxaparin 80 Mg/0.8 Ml Inj) 70 mg SUB-Q Q12H [facility]; Protocol Last Admin: 11/07/20 15:00 Dose: 70 mg Documented by: Famotidine (Famotidine 20 Mg Tab) 20 mg PO BID [facility] Last Admin: 11/07/20 18:15 Dose: Not Given Documented by: Guaifenesin (Guaifenesin 100 Mg/5 Ml Oral Liqd) 200 mg PO Q4H PRN PRN Reason: Cough Last Admin: 11/07/20 02:07 Dose: 200 mg Documented by: Hydralazine HCl (Hydralazine 20 Mg/1 Ml Inj) 10 mg IV Q4HR PRN PRN Reason: Blood Pressure REMDESIVIR 100 mg/ Sodium (Chloride) 250 mls @ 500 mls/hr IV Q24HR@2100 [facility] Stop: 11/11/20 21:29 TOCILIZUMAB 600 mg/ Sodium (Chloride) 130 mls @ 120 mls/hr IV ONCE ONE Stop: 11/07/20 17:10 Metoclopramide HCl (Metoclopramide 10 Mg/2 Ml Inj) 10 mg IV Q6H PRN PRN Reason: Nausea And Vomiting Morphine Sulfate (Morphine 2 Mg/1 Ml Inj) 2 mg IV Q4H PRN PRN Reason: Pain, Moderate (4-6) Ondansetron HCl (Ondansetron 4 Mg/2 Ml Inj) 4 mg IV Q8H PRN PRN Reason: Nausea And Vomiting Last Admin: 11/07/20 17:02 Dose: 4 mg Documented by: Oxycodone/Acetaminophen (Oxycodone /Acetaminophen 5-325mg Tab) 1 tab PO Q6H PRN PRN Reason: Pain, Moderate (4-6) Last Admin: 11/07/20 02:07 Dose: 1 tab Documented by: Sodium Chloride (Sodium Chloride 0.9% 10 Ml Flush Syringe) 10 ml IV BID [facility] Last Admin: 11/07/20 17:34 Dose: Not Given Documented by: Sodium Chloride (Sodium Chloride 0.9% 10 Ml Flush Syringe) 10 ml IV PRN PRN PRN Reason: LINE FLUSH Sodium Chloride (Sodium Chloride 0.9% 50 Ml Ivpb) 50 ml IV Q24HR@2100 [facility] Stop: 11/11/20 21:01 Zinc Sulfate (Zinc Sulfate 220 Mg Cap) 220 mg PO BID [facility] Last Admin: 11/07/20 18:15 Dose: Not Given Documented by: Past History Past Medical History: other (Unable to obtain due to language barrier) Social history: smoking (prior smoking per chart), full code. denies: prescription drug abuse, IV drug use Family history: no significant family history (No pulm issues reported) Medications and Allergies Allergies Allergy/AdvReac Type Severity Reaction Status Date / Time No Known Allergies Allergy Verified 11/06/20 12:32 Active Meds: Active Medications Acetaminophen (Acetaminophen 325 Mg Tab) 650 mg PO Q4H PRN PRN Reason: Pain MILD(1-3)/Fever >100.5/[place] Ascorbic Acid (Ascorbic Acid 500 Mg Tab) 1,000 mg PO BID [facility] Last Admin: 11/07/20 08:50 Dose: 1,000 mg Documented by: Cholecalciferol (Cholecalciferol (Vit D3) 5,000 Unit Tab) 5,000 unit PO DAILY [facility] Last Admin: 11/07/20 08:50 Dose: 5,000 unit Documented by: Dexamethasone (Dexamethasone 4 Mg/Ml Vial) 6 mg IV Q24HR@2200 [facility] Stop: 11/15/20 22:01 Enoxaparin Sodium (Enoxaparin 80 Mg/0.8 Ml Inj) 70 mg SUB-Q Q12H [facility]; Protocol Last Admin: 11/06/20 23:44 Dose: 70 mg Documented by: Famotidine (Famotidine 20 Mg Tab) 20 mg PO BID [facility] Last Admin: 11/07/20 08:51 Dose: 20 mg Documented by: Guaifenesin (Guaifenesin 100 Mg/5 Ml Oral Liqd) 200 mg PO Q4H PRN PRN Reason: Cough Last Admin: 11/07/20 02:07 Dose: 200 mg Documented by: Hydralazine HCl (Hydralazine 20 Mg/1 Ml Inj) 10 mg IV Q4HR PRN PRN Reason: Blood Pressure REMDESIVIR 200 mg/ Sodium (Chloride) 250 mls @ 500 mls/hr IV ONCE ONE Stop: 11/07/20 18:29 REMDESIVIR 100 mg/ Sodium (Chloride) 250 mls @ 500 mls/hr IV Q24HR@2100 [facility] Stop: 11/11/20 21:29 TOCILIZUMAB 600 mg/ Sodium (Chloride) 130 mls @ 120 mls/hr IV ONCE ONE Stop: 11/07/20 17:10 Metoclopramide HCl (Metoclopramide 10 Mg/2 Ml Inj) 10 mg IV Q6H PRN PRN Reason: Nausea And Vomiting Morphine Sulfate (Morphine 2 Mg/1 Ml Inj) 2 mg IV Q4H PRN PRN Reason: Pain, Moderate (4-6) Ondansetron HCl (Ondansetron 4 Mg/2 Ml Inj) 4 mg IV Q8H PRN PRN Reason: Nausea And Vomiting Oxycodone/Acetaminophen (Oxycodone /Acetaminophen 5-325mg Tab) 1 tab PO Q6H PRN PRN Reason: Pain, Moderate (4-6) Last Admin: 11/07/20 02:07 Dose: 1 tab Documented by: Sodium Chloride (Sodium Chloride 0.9% 10 Ml Flush Syringe) 10 ml IV BID [facility] Last Admin: 11/06/20 23:44 Dose: 10 ml Documented by: Sodium Chloride (Sodium Chloride 0.9% 10 Ml Flush Syringe) 10 ml IV PRN PRN PRN Reason: LINE FLUSH Sodium Chloride (Sodium Chloride 0.9% 50 Ml Ivpb) 50 ml IV Q24HR@2100 [facility] Stop: 11/11/20 21:01 Sodium Chloride (Sodium Chloride 0.9% 50 Ml Ivpb) 50 ml IV ONCE ONE Stop: 11/07/20 18:31 Zinc Sulfate (Zinc Sulfate 220 Mg Cap) 220 mg PO BID [facility] Last Admin: 11/07/20 08:50 Dose: 220 mg Documented by: Review of Systems All systems: negative Physical Examination Vital signs: Vital Signs Temp Pulse Resp BP Pulse Ox 99.9 F H 95 H 22 112/79 82 L 11/06/20 08:36 11/06/20 08:36 11/06/20 08:36 11/06/20 08:36 11/06/20 08:36 Vital Signs - 24 hr 11/06/20 11/07/20 11/07/20 22:54 02:26 05:44 Temperature 99.1 F 98.5 F Pulse Rate 69 56 L Respiratory 20 20 Rate Blood Pressure 123/77 175/71 Blood Pressure [Left] O2 Sat by Pulse 90 92 94 Oximetry 11/07/20 11/07/20 11/07/20 08:00 13:00 13:06 Temperature 97.9 F Pulse Rate 69 65 Respiratory 22 16 Rate Blood Pressure Blood Pressure 128/72 [Left] O2 Sat by Pulse 93 95 96 Oximetry 11/07/20 13:50 Temperature Pulse Rate Respiratory Rate Blood Pressure Blood Pressure [Left] O2 Sat by Pulse 92 Oximetry General appearance: no acute distress, alert Eyes: non-icteric ENT: oropharynx moist Neck: supple Effort: normal Ascultation: Bilateral: clear Cardiovascular: regular rate and rhythm (no mrg) Gastrointestinal: normoactive bowel sounds, soft, non-tender, non-distended Integumentary: normal Extremities: no cyanosis, no edema, pink and warm normal mental status, non-focal exam, pupils equal and round, CN II-XII normal mood appropriate, affect normal Results - Laboratory Findings CBC and BMP: 11/07/20 07:26 11/07/20 19:10 PT/INR, D-dimer PT 12.4 Sec. (12.2-14.9) 11/06/20 08:57 INR 0.94 (0.87-1.13) 11/06/20 08:57 D-Dimer 600.32 ng/mlDDU (0-234) H 11/06/20 09:11 Abnormal lab findings: Abnormal Labs 11/06/20 11/06/20 11/06/20 08:57 08:57 08:57 WBC MCHC 35 H RDW 12.8 L Plt Count 131 L [place] % (Auto) 11.4 H Lymph # (Auto) 0.8 L Seg Neutrophils % D-Dimer 661.18 H Sodium Potassium Chloride BUN Creatinine Glucose Lactic Acid Calcium Magnesium 2.40 H Ferritin Direct Bilirubin AST Alkaline Phosphatase Lactate Dehydrogenase C-Reactive Protein Albumin Coronavirus (PCR) 11/06/20 11/06/20 11/06/20 08:57 09:11 09:11 WBC MCHC RDW Plt Count [place] % (Auto) Lymph # (Auto) Seg Neutrophils % D-Dimer 600.32 H Sodium Potassium Chloride BUN Creatinine Glucose 112 H Lactic Acid 2.20 H* Calcium Magnesium Ferritin Direct Bilirubin AST Alkaline Phosphatase Lactate Dehydrogenase 509 H C-Reactive Protein 8.90 H Albumin Coronavirus (PCR) 11/06/20 11/06/20 11/06/20 09:11 09:11 09:57 WBC MCHC RDW Plt Count [place] % (Auto) Lymph # (Auto) Seg Neutrophils % D-Dimer Sodium 133 L Potassium 3.2 L Chloride 93.3 L BUN 22 H Creatinine Glucose 113 H Lactic Acid Calcium 8.2 L Magnesium Ferritin 3934.0 H Direct Bilirubin 0.3 H AST 69 H Alkaline Phosphatase 30 L Lactate Dehydrogenase C-Reactive Protein Albumin 3.4 L Coronavirus (PCR) Positive A 11/07/20 11/07/20 07:26 07:26 WBC 3.6 L MCHC 35 H RDW 12.9 L Plt Count 139 L [place] % (Auto) Lymph # (Auto) 0.5 L Seg Neutrophils % 78.1 H D-Dimer Sodium Potassium Chloride BUN Creatinine 0.6 L Glucose 143 H Lactic Acid Calcium 7.8 L Magnesium Ferritin Direct Bilirubin AST 55 H Alkaline Phosphatase 29 L Lactate Dehydrogenase C-Reactive Protein Albumin 3.1 L Coronavirus (PCR) - Diagnostic Findings Chest x-ray: report reviewed, image reviewed CT scan - chest: report reviewed, image reviewed Assessment and Plan Imp: 1. Covid-19 2. Viral pneumonia 2/2 #1 3. Acute respiratory failure, hypoxia 2/2 above 4. Centrilobular emphysema 5. Hyponatremia 6. Leukopenia/thrombocytopenia Rec: 1. Agree with Decadron, Remdesivir, therapeutic Lovenox; to receive Actemra per ID 2. Monitor inflammatory markers, sodium, CBC, and liver enzymes 3. Wean HFNC to keep sats 88% or > 4. Outpatient PFTs 5. Prognosis guarded; high complexity Thanks for the consult. Will follow closely with you. No family present.
[2020-11-07] MEDS: ONDANSETRON 4 MG/2 ML INJ IV PRN (17:02)
--- NOTE | 2020-11-07 17:42 | Cat Scan Report ---
CTA CHEST WITH IV CONTRAST INDICATION: Elevated d-dimer, chest pain CONTRAST: 100 cc Omnipaque 350 IV COMPARISON: Portable chest x-ray 11/06/2020 Three-plane MIP reconstructions were produced. All CT scans at this location are performed using CT d ose reduction for ALARA by means of automated exposure control. FINDINGS: No significant axillary or chest wall abnormalities are seen. Mild bilateral symmetric gyne comastia is noted. Visualized portions of the upper abdomen are blurred by motion but show no obvious acute abnormalities. No mediastinal or hilar masses are seen. Mild coronary artery calcifications ar e noted. No pneumothorax or pneumomediastinum are noted. No obvious endobronchial lesions are seen. N o pleural effusions are noted. The lung moody, particularly in the lung bases, are significantly blurred by motion. Prominent bilat eral patchy areas of increased interstitial markings are seen, and some areas with groundglass type p attern, of unclear chronicity. No dense areas of consolidation are seen. Emphysematous changes are no shyann bilaterally, mostly in the upper lobes and more on the right. No discrete pulmonary nodules or ma sses are seen. Aorta is not well opacified but shows no obvious evidence of dissection. The aorta is diffusely ectat ic and there is mild aneurysmal dilatation of the proximal segment with diameter of 4.2 cm in the mid portion. Mid aortic arch diameter is 3.3 cm and mid descending aortic diameter is 3 cm. Good opacification of the pulmonary arterial system was achieved. However, the smaller arteries, baldev cially in the lung bases, are difficult to evaluate well due to significant motion artifact. No centr al PTE is identified. IMPRESSION: 1. Limited study as above due to significant motion artifact. No obvious central PTE is identified. 2. Extensive bilateral patchy increased interstitial markings. Emphysematous changes are also noted. These markings are of unknown chronicity but certainly could include acute interstitial pneumonitis, including viral pneumonitis. Clinical correlation is suggested. Signer Name: Art Bravo MD Signed: 11/07/2020 5:37 PM Workstation Name: [id number]
[2020-11-07] MEDS ORDERED: REMDESIVIR 200 MG in SODIUM CHLORIDE 0.9% 250ML 250 ML IV ONE (18:00)
[2020-11-07] MEDS ORDERED: REMDESIVIR 100 MG VIAL IV ONE (18:00)
[2020-11-07] MEDS ORDERED: SODIUM CHLORIDE 0.9% 50 ML IVPB IV ONE (18:30)
[2020-11-07 19:40] LABS: Alanine Aminotransferase 23 units/L (7-56); Blood Urea Nitrogen 17 mg/dL (9-20); Calcium 7.7 mg/dL (8.4-10.2); Hemolysis Index 15
[2020-11-07 19:50] LABS: BUN/Creatinine Ratio 28
[2020-11-07] MEDS: dexAMETHasone 4 MG/ML VIAL IV SCH (21:50)
[2020-11-08] MEDS: guaiFENesin 100 MG/5 ML ORAL LIQD PO PRN ×2 (03:22→18:54)
[2020-11-08] MEDS: oxyCODONE /ACETAMINOPHEN 5-325MG TAB PO PRN ×2 (03:22→13:55)
[2020-11-08 06:33] LABS: Hemoglobin 14.4 gm/dl (11.8-15.2); Mean Corpuscular HGB Conc 35 % (32-34); Mean Corpuscular Volume 89 fl (84-94); Platelet Count 173 K/mm3 (140-440); Red Blood Count 4.59 M/mm3 (3.65-5.03); Red Cell Distribution Width 12.9 % (13.2-15.2)
[2020-11-08 06:49] LABS: Alanine Aminotransferase 22 units/L (7-56); Blood Urea Nitrogen 17 mg/dL (9-20); Calcium 7.5 mg/dL (8.4-10.2); Hemolysis Index 5
[2020-11-08 06:52] LABS: BUN/Creatinine Ratio 24
[2020-11-08] MEDS: ASCORBIC ACID 500 MG TAB PO SCH ×3 (08:56→22:48)
[2020-11-08] MEDS: FAMOTIDINE 20 MG TAB PO SCH ×3 (08:56→22:48)
[2020-11-08] MEDS: ZINC SULFATE 220 MG CAP PO SCH ×3 (08:56→22:48)
[2020-11-08] MEDS: CHOLECALCIFEROL (VIT D3) 5,000 UNIT TAB PO SCH ×2 (08:56→18:51)
--- NOTE | 2020-11-08 09:03 | Progress Note ---
Assessment and Plan - Patient Problems (1) Acute respiratory failure with hypoxia Current Visit: Yes Status: Acute (2) Bilateral pneumonia Current Visit: Yes Status: Acute Qualifiers: Pneumonia type: due to unspecified organism (3) Hypoxia Current Visit: Yes Status: Acute (4) COVID-19 Current Visit: Yes Status: Acute (5) HTN (hypertension) Current Visit: Yes Status: Chronic Qualifiers: Hypertension type: essential hypertension Qualified Code(s): I10 - Essential (primary) hypertension Subjective Interval history: reports hiccups and reflux Objective Vital Signs - 12hr 11/07/20 11/07/20 11/08/20 21:10 22:42 05:26 Temperature 98.8 F 98.1 F Pulse Rate 71 61 Respiratory 16 16 Rate Blood Pressure 131/66 127/70 O2 Sat by Pulse 93 92 95 Oximetry 11/08/20 11/08/20 05:35 08:19 Temperature Pulse Rate Respiratory Rate Blood Pressure O2 Sat by Pulse 95 95 Oximetry Constitutional: no acute distress, alert Eyes: non-icteric ENT: oropharynx moist Neck: supple Effort: normal Ascultation: Bilateral: clear Cardiovascular: regular rate and rhythm (no mrg) Gastrointestinal: normoactive bowel sounds, soft, non-tender, non-distended Integumentary: normal Extremities: no cyanosis, no edema, pink and warm Neurologic: normal mental status, non-focal exam, pupils equal and round, CN II- XII normal Psychiatric: mood appropriate, affect normal CBC and BMP: 11/08/20 06:02 11/08/20 06:02 ABG, PT/INR, D-dimer: PT/INR, D-dimer PT 12.4 Sec. (12.2-14.9) 11/06/20 08:57 INR 0.94 (0.87-1.13) 11/06/20 08:57 D-Dimer 600.32 ng/mlDDU (0-234) H 11/06/20 09:11 Abnormal lab findings: Abnormal Labs 11/06/20 11/06/20 11/06/20 08:57 08:57 08:57 WBC MCHC 35 H RDW 12.8 L Plt Count 131 L [place] % (Auto) 11.4 H Lymph # (Auto) 0.8 L Seg Neutrophils % D-Dimer 661.18 H Sodium Potassium Chloride BUN Creatinine Glucose Lactic Acid Calcium Magnesium 2.40 H Ferritin Direct Bilirubin AST Alkaline Phosphatase Lactate Dehydrogenase C-Reactive Protein Albumin Coronavirus (PCR) 11/06/20 11/06/20 11/06/20 08:57 09:11 09:11 WBC MCHC RDW Plt Count [place] % (Auto) Lymph # (Auto) Seg Neutrophils % D-Dimer 600.32 H Sodium Potassium Chloride BUN Creatinine Glucose 112 H Lactic Acid 2.20 H* Calcium Magnesium Ferritin Direct Bilirubin AST Alkaline Phosphatase Lactate Dehydrogenase 509 H C-Reactive Protein 8.90 H Albumin Coronavirus (PCR) 11/06/20 11/06/20 11/06/20 09:11 09:11 09:57 WBC MCHC RDW Plt Count [place] % (Auto) Lymph # (Auto) Seg Neutrophils % D-Dimer Sodium 133 L Potassium 3.2 L Chloride 93.3 L BUN 22 H Creatinine Glucose 113 H Lactic Acid Calcium 8.2 L Magnesium Ferritin 3934.0 H Direct Bilirubin 0.3 H AST 69 H Alkaline Phosphatase 30 L Lactate Dehydrogenase C-Reactive Protein Albumin 3.4 L Coronavirus (PCR) Positive A 11/07/20 11/07/20 11/07/20 07:26 07:26 19:10 WBC 3.6 L MCHC 35 H RDW 12.9 L Plt Count 139 L [place] % (Auto) Lymph # (Auto) 0.5 L Seg Neutrophils % 78.1 H D-Dimer Sodium 135 L Potassium Chloride BUN Creatinine 0.6 L 0.6 L Glucose 143 H 117 H Lactic Acid Calcium 7.8 L 7.7 L Magnesium Ferritin Direct Bilirubin AST 55 H 50 H Alkaline Phosphatase 29 L 31 L Lactate Dehydrogenase C-Reactive Protein Albumin 3.1 L 3.0 L Coronavirus (PCR) 11/08/20 11/08/20 06:02 06:02 WBC MCHC 35 H RDW 12.9 L Plt Count [place] % (Auto) Lymph # (Auto) Seg Neutrophils % D-Dimer Sodium 135 L Potassium Chloride BUN Creatinine 0.7 L Glucose 138 H Lactic Acid Calcium 7.5 L Magnesium Ferritin Direct Bilirubin AST 45 H Alkaline Phosphatase 30 L Lactate Dehydrogenase C-Reactive Protein Albumin 3.0 L Coronavirus (PCR)
--- NOTE | 2020-11-08 09:15 | Progress Note ---
Assessment and Plan Assessment and plan: Sepsis. Severe COVID-19 pneumonia. Acute hypoxemic respiratory failure. Thrombocytopenia. Transaminitis. 11/08/2020. Continue dexamethasone and remdesivir. Patient is s/p tocilizumab. Procalcitonin is normal. Therefore, abx discontinued. Prone positioning as possible. Continue to trend inflammatory markers. History Interval history: No new issues overnight Hospitalist Physical - Constitutional Vitals: Temp Pulse Resp BP Pulse Ox 98.1 F 61 16 127/70 95 11/08/20 05:26 11/08/20 05:26 11/08/20 05:26 11/08/20 05:26 11/08/20 08:19 General appearance: Present: mild distress, well-nourished - EENT Eyes: Present: PERRL, EOM intact ENT: hearing intact, clear oral mucosa, dentition normal - Neck Neck: Present: supple, normal ROM - Respiratory Respiratory effort: normal Respiratory: bilateral: CTA - Cardiovascular Rhythm: regular Heart Sounds: Present: S1 & S2. Absent: gallop, rub - Extremities Extremities: no ischemia, No edema, Full ROM - Abdominal General gastrointestinal: soft, non-tender, non-distended, normal bowel sounds - Integumentary Integumentary: Present: clear, warm, dry - Neurologic Neurologic: CNII-XII intact, moves all extremities HEART Score - HEART Score Troponin: Troponin T < 0.010 ng/mL (0.00-0.029) 11/06/20 11:26 Results - Labs CBC & Chem 7: 11/08/20 06:02 11/08/20 06:02 Labs: Laboratory Last Values WBC 6.2 K/mm3 (4.5-11.0) 11/08/20 06:02 RBC 4.59 M/mm3 (3.65-5.03) 11/08/20 06:02 Hgb 14.4 gm/dl (11.8-15.2) 11/08/20 06:02 Hct 41.0 % (35.5-45.6) 11/08/20 06:02 MCV 89 fl (84-94) 11/08/20 06:02 MCH 31 pg (28-32) 11/08/20 06:02 MCHC 35 % (32-34) H 11/08/20 06:02 RDW 12.9 % (13.2-15.2) L 11/08/20 06:02 Plt Count 173 K/mm3 (140-440) 11/08/20 06:02 Lymph % (Auto) 14.4 % (13.4-35.0) 11/07/20 07:26 [place] % (Auto) 7.3 % (0.0-7.3) 11/07/20 07:26 Eos % (Auto) 0.0 % (0.0-4.3) 11/07/20 07:26 Baso % (Auto) 0.2 % (0.0-1.8) 11/07/20 07:26 Lymph # (Auto) 0.5 K/mm3 (1.2-5.4) L 11/07/20 07:26 [place] # (Auto) 0.3 K/mm3 (0.0-0.8) 11/07/20 07:26 Eos # (Auto) 0.0 K/mm3 (0.0-0.4) 11/07/20 07:26 Baso # (Auto) 0.0 K/mm3 (0.0-0.1) 11/07/20 07:26 Seg Neutrophils % 78.1 % (40.0-70.0) H 11/07/20 07:26 Seg Neutrophils # 2.8 K/mm3 (1.8-7.7) 11/07/20 07:26 PT 12.4 Sec. (12.2-14.9) 11/06/20 08:57 INR 0.94 (0.87-1.13) 11/06/20 08:57 APTT 33.5 Sec. (24.2-36.6) 11/06/20 08:57 D-Dimer 600.32 ng/mlDDU (0-234) H 11/06/20 09:11 Sodium 135 mmol/L (137-145) L 11/08/20 06:02 Potassium 3.8 mmol/L (3.6-5.0) 11/08/20 06:02 Chloride 100.3 mmol/L (98-107) 11/08/20 06:02 Carbon Dioxide 26 mmol/L (22-30) 11/08/20 06:02 Anion Gap 13 mmol/L 11/08/20 06:02 BUN 17 mg/dL (9-20) 11/08/20 06:02 Creatinine 0.7 mg/dL (0.8-1.3) L 11/08/20 06:02 Estimated GFR > 60 ml/min 11/08/20 06:02 BUN/Creatinine Ratio 24 % 11/08/20 06:02 Glucose 138 mg/dL (75-100) H 11/08/20 06:02 Hemoglobin A1c 5.6 % (4-6) 11/07/20 07:26 Lactic Acid 1.50 mmol/L (0.7-2.0) 11/06/20 11:26 Calcium 7.5 mg/dL (8.4-10.2) L 11/08/20 06:02 Magnesium 2.40 mg/dL (1.7-2.3) H 11/06/20 08:57 Ferritin 3934.0 ng/mL (30.0-300.0) H 11/06/20 09:11 Total Bilirubin 0.50 mg/dL (0.1-1.2) 11/08/20 06:02 Direct Bilirubin 0.3 mg/dL (0-0.2) H 11/06/20 09:11 Indirect Bilirubin 0.5 mg/dL 11/06/20 09:11 AST 45 units/L (5-40) H 11/08/20 06:02 ALT 22 units/L (7-56) 11/08/20 06:02 Alkaline Phosphatase 30 units/L (35-129) L 11/08/20 06:02 Lactate Dehydrogenase 509 units/L (91-180) H 11/06/20 09:11 Troponin T < 0.010 ng/mL (0.00-0.029) 11/06/20 11:26 C-Reactive Protein 8.90 mg/dL (0.00-1.30) H 11/06/20 09:11 Total Protein 6.5 g/dL (6.3-8.2) 11/08/20 06:02 Albumin 3.0 g/dL (3.9-5) L 11/08/20 06:02 Albumin/Globulin Ratio 0.9 % 11/08/20 06:02 Lipase 39 units/L (13-60) 11/06/20 08:57 Procalcitonin < 0.05 ng/mL (<0.15) 11/06/20 09:11 Urine Color [place] (Yellow) 11/06/20 17:14 Urine Turbidity Clear (Clear) 11/06/20 17:14 Urine pH 6.0 (5.0-7.0) 11/06/20 17:14 Ur Specific [place] 1.024 (1.003-1.030) 11/06/20 17:14 Urine Protein 100 mg/dl mg/dL (Negative) 11/06/20 17:14 Urine Glucose (UA) Neg mg/dL (Negative) 11/06/20 17:14 Urine Ketones Neg mg/dL (Negative) 11/06/20 17:14 Urine Blood Sm (Negative) 11/06/20 17:14 Urine Nitrite Neg (Negative) 11/06/20 17:14 Urine Bilirubin Neg (Negative) 11/06/20 17:14 Urine Urobilinogen < 2.0 mg/dL (<2.0) 11/06/20 17:14 Ur Leukocyte Esterase Neg (Negative) 11/06/20 17:14 Urine WBC (Auto) 3.0 /HPF (0.0-6.0) 11/06/20 17:14 Urine RBC (Auto) 3.0 /HPF (0.0-6.0) 11/06/20 17:14 Urine Mucus Few /HPF 11/06/20 17:14 Coronavirus (PCR) Positive (Negative) A 11/06/20 09:57 Microbiology: Microbiology 11/06/20 08:57 Peripheral/Venous Blood Culture - Preliminary NO GROWTH AFTER 24 HOURS 11/06/20 08:57 Peripheral/Venous Blood Culture - Preliminary NO GROWTH AFTER 24 HOURS Holt/IV: Voiding Method Urinal Active Medications - Current Medications Current Medications: Generic Name Dose Route Start Last Admin Trade Name Freq PRN Reason Stop Dose Admin Acetaminophen 650 mg 11/06/20 22:23 Acetaminophen 325 Mg Tab PO Q4H PRN Pain MILD(1-3)/Fever >100.5/[place]O Ascorbic Acid 1,000 mg 11/06/20 23:00 11/08/20 08:56 Ascorbic Acid 500 Mg Tab PO 1,000 mg BID BOBBY Administration Cholecalciferol 5,000 unit 11/07/20 10:00 11/08/20 08:56 Cholecalciferol (Vit D3) 5,000 Unit Tab PO 5,000 unit DAILY BOBBY Administration Dexamethasone 6 mg 11/07/20 22:00 11/07/20 21:50 Dexamethasone 4 Mg/Ml Vial IV 11/15/20 22:01 6 mg Q24HR@2200 BOBBY Administration Enoxaparin Sodium 70 mg 11/06/20 23:00 11/07/20 22:00 Enoxaparin 80 Mg/0.8 Ml Inj SUB-Q 70 mg Q12H BOBBY Administration Protocol Famotidine 20 mg 11/06/20 23:00 11/08/20 08:56 Famotidine 20 Mg Tab PO 20 mg BID BOBBY Administration Guaifenesin 200 mg 11/06/20 18:33 11/08/20 03:22 Guaifenesin 100 Mg/5 Ml Oral Liqd PO 200 mg Q4H PRN Administration Cough Hydralazine HCl 10 mg 11/07/20 13:38 Hydralazine 20 Mg/1 Ml Inj IV Q4HR PRN Blood Pressure REMDESIVIR 100 mg/ Sodium 250 mls @ 500 mls/hr 11/08/20 21:00 Chloride IV 11/11/20 21:29 Q24HR@2100 [facility] TOCILIZUMAB 600 mg/ Sodium 130 mls @ 120 mls/hr 11/07/20 16:06 Chloride IV 11/07/20 17:10 ONCE ONE Metoclopramide HCl 10 mg 11/06/20 22:23 Metoclopramide 10 Mg/2 Ml Inj IV Q6H PRN Nausea And Vomiting Morphine Sulfate 2 mg 11/06/20 22:23 Morphine 2 Mg/1 Ml Inj IV Q4H PRN Pain, Moderate (4-6) Ondansetron HCl 4 mg 11/06/20 22:23 11/07/20 17:02 Ondansetron 4 Mg/2 Ml Inj IV 4 mg Q8H PRN Administration Nausea And Vomiting Oxycodone/Acetaminophen 1 tab 11/06/20 22:23 11/08/20 03:22 Oxycodone /Acetaminophen 5-325mg Tab PO 1 tab Q6H PRN Administration Pain, Moderate (4-6) Sodium Chloride 10 ml 11/06/20 23:00 11/08/20 08:57 Sodium Chloride 0.9% 10 Ml Flush Syringe IV 10 ml BID BOBBY Administration Sodium Chloride 10 ml 11/06/20 22:23 Sodium Chloride 0.9% 10 Ml Flush Syringe IV PRN PRN LINE FLUSH Sodium Chloride 50 ml 11/08/20 21:00 Sodium Chloride 0.9% 50 Ml Ivpb IV 11/11/20 21:01 Q24HR@2100 BOBBY Zinc Sulfate 220 mg 11/06/20 23:00 11/08/20 08:56 Zinc Sulfate 220 Mg Cap PO 220 mg BID BOBBY Administration
[2020-11-08] MEDS: ENOXAPARIN 80 MG/0.8 ML INJ SUB-Q SCH ×2 (11:00→23:01)
[2020-11-08] MEDS ORDERED: PANTOPRAZOLE 40 MG TAB PO NR (12:00)
--- NOTE | 2020-11-08 16:00 | Progress Note ---
Assessment and Plan Cultures: SARS-CoV-2 PCR positive. Blood culture 11/06/2020 no growth today. Assessment: 65-year-old male with history of hypertension, follows first dose of COVID-19 vaccine 10 days before admission, admitted on 11/06/2020 secondary to cough, shortness of breath generalized malaise for 48 hours: #Acute sepsis: Present on admission with mild fever, tachycardia, hypoxia, elevated lactate; likely secondary to COVID-19 infection. #Severe COVID-19 pneumonia: Chest x-ray with bilateral infiltrates. Inflamma tory markers elevated. D-dimer 661. CRP 8.9. Ferritin 3934. LDH 509. Procalcitonin is low. #Acute hypoxemic respiratory failure: Dropped to 82%. Patient currently on high flow nasal cannula 15 L, 75%. #Thrombocytopenia: Mild likely secondary to COVID-19 #Transaminitis: Likely due to COVID-19. Recommendations: -Pulmonary on board -Continue dexamethasone 6 mg IV/PO daily for 10 days -Continue remdesivir for 5 days -Ordered Tocilizumab x 1 dose due to rapidly progressive hypoxia and CRP>7.5, however system denied, patient has to be in MICU or ICU -No need for antibiotics, procalcitonin is normal -Prone positioning -Anticoagulation per protocol -Check inflammatory markers every 2 to 3 days, ordered Close monitoring, consider IMCU, risk for decompensation requiring intubation Will follow. Lashonda Ang MD Infectious Diseases Hand [employer] [facility] ([facility]) M [phone] O [phone] Subjective Date of service: 11/08/20 Principal diagnosis: COVID Interval history: Remains on high flow nasal cannula, no acute events overnight, no fever, no desaturations Objective - Constitutional Vitals: Vital Signs Temp Pulse Resp BP Pulse Ox 97.4 F L 60 19 122/67 91 11/08/20 12:15 11/08/20 12:15 11/08/20 12:15 11/08/20 12:15 11/08/20 12:15 Temperature -Last 24 Hours Temperature 97.4 F Temperature 98.1 F Temperature 98.8 F - Labs CBC & Chem 7: 11/08/20 06:02 11/08/20 06:02 Labs: Abnormal lab results 11/07/20 11/08/20 11/08/20 Range/Units 19:10 06:02 06:02 MCHC 35 H (32-34) % RDW 12.9 L (13.2-15.2) % Sodium 135 L 135 L (137-145) mmol/L Creatinine 0.6 L 0.7 L (0.8-1.3) mg/dL Glucose 117 H 138 H (75-100) mg/dL Calcium 7.7 L 7.5 L (8.4-10.2) mg/dL AST 50 H 45 H (5-40) units/L Alkaline Phosphatase 31 L 30 L (35-129) units/L Albumin 3.0 L 3.0 L (3.9-5) g/dL
[2020-11-08] MEDS: ACETAMINOPHEN 325 MG TAB PO PRN (19:02)
[2020-11-08] MEDS: REMDESIVIR 100 MG in SODIUM CHLORIDE 0.9% 250ML 250 ML IV SCH (22:47)
[2020-11-08] MEDS: SODIUM CHLORIDE 0.9% 50 ML IVPB IV SCH (22:48)
[2020-11-08] MEDS: dexAMETHasone 4 MG/ML VIAL IV SCH (22:48)
[2020-11-09 06:20] LABS: Alanine Aminotransferase 21 units/L (7-56); Albumin 3.3 g/dL (3.9-5); Blood Urea Nitrogen 16 mg/dL (9-20); Calcium 7.5 mg/dL (8.4-10.2); Hemolysis Index 9
[2020-11-09 06:22] LABS: BUN/Creatinine Ratio 32
[2020-11-09] MEDS: MORPHINE 2 MG/1 ML INJ IV PRN (07:59)
[2020-11-09] MEDS: ONDANSETRON 4 MG/2 ML INJ IV PRN ×2 (07:59→19:49)
[2020-11-09] MEDS: ZINC SULFATE 220 MG CAP PO SCH ×2 (09:51→21:00)
[2020-11-09] MEDS: FAMOTIDINE 20 MG TAB PO SCH ×2 (09:51→21:01)
[2020-11-09] MEDS: ASCORBIC ACID 500 MG TAB PO SCH ×2 (09:51→21:01)
[2020-11-09] MEDS: CHOLECALCIFEROL (VIT D3) 5,000 UNIT TAB PO SCH (09:52)
--- NOTE | 2020-11-09 10:56 | Progress Note ---
Assessment and Plan - Patient Problems (1) Acute respiratory failure with hypoxia Current Visit: Yes Status: Acute (2) Bilateral pneumonia Current Visit: Yes Status: Acute Qualifiers: Pneumonia type: due to unspecified organism (3) Hypoxia Current Visit: Yes Status: Acute (4) COVID-19 Current Visit: Yes Status: Acute (5) HTN (hypertension) Current Visit: Yes Status: Chronic Qualifiers: Hypertension type: essential hypertension Qualified Code(s): I10 - Essential (primary) hypertension Subjective Principal diagnosis: COVID Interval history: no gerd symptoms feels about the same still sob Objective Vital Signs - 12hr 11/09/20 11/09/20 02:50 05:55 Temperature 98.6 F Pulse Rate 63 Respiratory 25 H Rate Blood Pressure 119/73 O2 Sat by Pulse 91 91 Oximetry Constitutional: no acute distress, alert, other (on hiflo o2) Eyes: non-icteric ENT: oropharynx moist Neck: supple Effort: normal Ascultation: Bilateral: clear Cardiovascular: regular rate and rhythm (no mrg) Gastrointestinal: normoactive bowel sounds, soft, non-tender, non-distended Integumentary: normal Extremities: no cyanosis, no edema, pink and warm Neurologic: normal mental status, non-focal exam, pupils equal and round, CN II-XII normal Psychiatric: mood appropriate, affect normal CBC and BMP: 11/08/20 06:02 11/09/20 05:44 ABG, PT/INR, D-dimer: PT/INR, D-dimer PT 12.4 Sec. (12.2-14.9) 11/06/20 08:57 INR 0.94 (0.87-1.13) 11/06/20 08:57 D-Dimer 201.60 ng/mlDDU (0-234) 11/08/20 18:25 Abnormal lab findings: Abnormal Labs 11/06/20 11/06/20 11/06/20 08:57 08:57 08:57 WBC MCHC 35 H RDW 12.8 L Plt Count 131 L [place] % (Auto) 11.4 H Lymph # (Auto) 0.8 L Seg Neutrophils % D-Dimer 661.18 H Sodium Potassium Chloride BUN Creatinine Glucose Lactic Acid Calcium Magnesium 2.40 H Ferritin Direct Bilirubin AST Alkaline Phosphatase Lactate Dehydrogenase C-Reactive Protein Total Protein Albumin Coronavirus (PCR) 11/06/20 11/06/20 11/06/20 08:57 09:11 09:11 WBC MCHC RDW Plt Count [place] % (Auto) Lymph # (Auto) Seg Neutrophils % D-Dimer 600.32 H Sodium Potassium Chloride BUN Creatinine Glucose 112 H Lactic Acid 2.20 H* Calcium Magnesium Ferritin Direct Bilirubin AST Alkaline Phosphatase Lactate Dehydrogenase 509 H C-Reactive Protein 8.90 H Total Protein Albumin Coronavirus (PCR) 11/06/20 11/06/20 11/06/20 09:11 09:11 09:57 WBC MCHC RDW Plt Count [place] % (Auto) Lymph # (Auto) Seg Neutrophils % D-Dimer Sodium 133 L Potassium 3.2 L Chloride 93.3 L BUN 22 H Creatinine Glucose 113 H Lactic Acid Calcium 8.2 L Magnesium Ferritin 3934.0 H Direct Bilirubin 0.3 H AST 69 H Alkaline Phosphatase 30 L Lactate Dehydrogenase C-Reactive Protein Total Protein Albumin 3.4 L Coronavirus (PCR) Positive A 11/07/20 11/07/20 11/07/20 07:26 07:26 19:10 WBC 3.6 L MCHC 35 H RDW 12.9 L Plt Count 139 L [place] % (Auto) Lymph # (Auto) 0.5 L Seg Neutrophils % 78.1 H D-Dimer Sodium 135 L Potassium Chloride BUN Creatinine 0.6 L 0.6 L Glucose 143 H 117 H Lactic Acid Calcium 7.8 L 7.7 L Magnesium Ferritin Direct Bilirubin AST 55 H 50 H Alkaline Phosphatase 29 L 31 L Lactate Dehydrogenase C-Reactive Protein Total Protein Albumin 3.1 L 3.0 L Coronavirus (PCR) 11/08/20 11/08/20 11/08/20 06:02 06:02 18:25 WBC MCHC 35 H RDW 12.9 L Plt Count [place] % (Auto) Lymph # (Auto) Seg Neutrophils % D-Dimer Sodium 135 L Potassium Chloride BUN Creatinine 0.7 L Glucose 138 H Lactic Acid Calcium 7.5 L Magnesium Ferritin 2864.0 H Direct Bilirubin AST 45 H Alkaline Phosphatase 30 L Lactate Dehydrogenase C-Reactive Protein Total Protein Albumin 3.0 L Coronavirus (PCR) 11/08/20 11/09/20 18:25 05:44 WBC MCHC RDW Plt Count [place] % (Auto) Lymph # (Auto) Seg Neutrophils % D-Dimer Sodium Potassium Chloride BUN Creatinine 0.5 L Glucose 150 H Lactic Acid Calcium 7.5 L Magnesium Ferritin Direct Bilirubin AST Alkaline Phosphatase Lactate Dehydrogenase 538 H C-Reactive Protein 3.00 H Total Protein 6.1 L Albumin 3.3 L Coronavirus (PCR)
--- NOTE | 2020-11-09 11:21 | Progress Note ---
Assessment and Plan Assessment and plan: Sepsis. Severe COVID-19 pneumonia. Acute hypoxemic respiratory failure. Thrombocytopenia. Transaminitis. Nausea and vomiting. 11/08/2020. Continue dexamethasone and remdesivir. Patient is s/p tocilizumab. Procalcitonin is normal. Therefore, abx discontinued. Prone positioning as possible. Continue to trend inflammatory markers. 11/09/2020. Nurse reports patient with nausea vomiting this morning that resolved with Zofran. Continue dexamethasone and remdesivir. Patient is s/p tocilizumab. Procalcitonin is normal. Patient currently requiring high flow nasal cannula 15 L/min at 75% FiO2. Continue to wean oxygen as tolerated. History Interval history: No new issues overnight Hospitalist Physical - Constitutional Vitals: Temp Pulse Resp BP Pulse Ox 98.6 F 63 25 H 119/73 91 11/09/20 05:55 11/09/20 05:55 11/09/20 05:55 11/09/20 05:55 11/09/20 05:55 General appearance: Present: no acute distress, well-nourished - EENT Eyes: Present: PERRL, EOM intact ENT: hearing intact, clear oral mucosa, dentition normal - Neck Neck: Present: supple, normal ROM - Respiratory Respiratory effort: normal Respiratory: bilateral: CTA - Cardiovascular Rhythm: regular Heart Sounds: Present: S1 & S2. Absent: gallop, rub - Extremities Extremities: no ischemia, No edema, Full ROM - Abdominal General gastrointestinal: soft, non-tender, non-distended, normal bowel sounds - Integumentary Integumentary: Present: clear, warm, dry - Neurologic Neurologic: CNII-XII intact, moves all extremities HEART Score - HEART Score Troponin: Troponin T < 0.010 ng/mL (0.00-0.029) 11/06/20 11:26 Results - Labs CBC & Chem 7: 11/08/20 06:02 11/09/20 05:44 Labs: Laboratory Last Values WBC 6.2 K/mm3 (4.5-11.0) 11/08/20 06:02 RBC 4.59 M/mm3 (3.65-5.03) 11/08/20 06:02 Hgb 14.4 gm/dl (11.8-15.2) 11/08/20 06:02 Hct 41.0 % (35.5-45.6) 11/08/20 06:02 MCV 89 fl (84-94) 11/08/20 06:02 MCH 31 pg (28-32) 11/08/20 06:02 MCHC 35 % (32-34) H 11/08/20 06:02 RDW 12.9 % (13.2-15.2) L 11/08/20 06:02 Plt Count 173 K/mm3 (140-440) 11/08/20 06:02 Lymph % (Auto) 14.4 % (13.4-35.0) 11/07/20 07:26 [place] % (Auto) 7.3 % (0.0-7.3) 11/07/20 07:26 Eos % (Auto) 0.0 % (0.0-4.3) 11/07/20 07:26 Baso % (Auto) 0.2 % (0.0-1.8) 11/07/20 07:26 Lymph # (Auto) 0.5 K/mm3 (1.2-5.4) L 11/07/20 07:26 [place] # (Auto) 0.3 K/mm3 (0.0-0.8) 11/07/20 07:26 Eos # (Auto) 0.0 K/mm3 (0.0-0.4) 11/07/20 07:26 Baso # (Auto) 0.0 K/mm3 (0.0-0.1) 11/07/20 07:26 Seg Neutrophils % 78.1 % (40.0-70.0) H 11/07/20 07:26 Seg Neutrophils # 2.8 K/mm3 (1.8-7.7) 11/07/20 07:26 PT 12.4 Sec. (12.2-14.9) 11/06/20 08:57 INR 0.94 (0.87-1.13) 11/06/20 08:57 APTT 33.5 Sec. (24.2-36.6) 11/06/20 08:57 D-Dimer 201.60 ng/mlDDU (0-234) 11/08/20 18:25 Sodium 139 mmol/L (137-145) 11/09/20 05:44 Potassium 4.0 mmol/L (3.6-5.0) 11/09/20 05:44 Chloride 103.5 mmol/L (98-107) 11/09/20 05:44 Carbon Dioxide 27 mmol/L (22-30) 11/09/20 05:44 Anion Gap 13 mmol/L 11/09/20 05:44 BUN 16 mg/dL (9-20) 11/09/20 05:44 Creatinine 0.5 mg/dL (0.8-1.3) L 11/09/20 05:44 Estimated GFR > 60 ml/min 11/09/20 05:44 BUN/Creatinine Ratio 32 % 11/09/20 05:44 Glucose 150 mg/dL (75-100) H 11/09/20 05:44 Hemoglobin A1c 5.6 % (4-6) 11/07/20 07:26 Lactic Acid 1.50 mmol/L (0.7-2.0) 11/06/20 11:26 Calcium 7.5 mg/dL (8.4-10.2) L 11/09/20 05:44 Magnesium 2.40 mg/dL (1.7-2.3) H 11/06/20 08:57 Ferritin 2864.0 ng/mL (30.0-300.0) H 11/08/20 18:25 Total Bilirubin 0.50 mg/dL (0.1-1.2) 11/09/20 05:44 Direct Bilirubin 0.3 mg/dL (0-0.2) H 11/06/20 09:11 Indirect Bilirubin 0.5 mg/dL 11/06/20 09:11 AST 37 units/L (5-40) 11/09/20 05:44 ALT 21 units/L (7-56) 11/09/20 05:44 Alkaline Phosphatase 36 units/L (35-129) 11/09/20 05:44 Lactate Dehydrogenase 538 units/L (91-180) H 11/08/20 18:25 Troponin T < 0.010 ng/mL (0.00-0.029) 11/06/20 11:26 C-Reactive Protein 3.00 mg/dL (0.00-1.30) H 11/08/20 18:25 Total Protein 6.1 g/dL (6.3-8.2) L 11/09/20 05:44 Albumin 3.3 g/dL (3.9-5) L 11/09/20 05:44 Albumin/Globulin Ratio 1.2 % 11/09/20 05:44 Lipase 39 units/L (13-60) 11/06/20 08:57 Procalcitonin < 0.05 ng/mL (<0.15) 11/06/20 09:11 Urine Color [place] (Yellow) 11/06/20 17:14 Urine Turbidity Clear (Clear) 11/06/20 17:14 Urine pH 6.0 (5.0-7.0) 11/06/20 17:14 Ur Specific [place] 1.024 (1.003-1.030) 11/06/20 17:14 Urine Protein 100 mg/dl mg/dL (Negative) 11/06/20 17:14 Urine Glucose (UA) Neg mg/dL (Negative) 11/06/20 17:14 Urine Ketones Neg mg/dL (Negative) 11/06/20 17:14 Urine Blood Sm (Negative) 11/06/20 17:14 Urine Nitrite Neg (Negative) 11/06/20 17:14 Urine Bilirubin Neg (Negative) 11/06/20 17:14 Urine Urobilinogen < 2.0 mg/dL (<2.0) 11/06/20 17:14 Ur Leukocyte Esterase Neg (Negative) 11/06/20 17:14 Urine WBC (Auto) 3.0 /HPF (0.0-6.0) 11/06/20 17:14 Urine RBC (Auto) 3.0 /HPF (0.0-6.0) 11/06/20 17:14 Urine Mucus Few /HPF 11/06/20 17:14 Coronavirus (PCR) Positive (Negative) A 11/06/20 09:57 Microbiology: Microbiology 11/06/20 08:57 Peripheral/Venous Blood Culture - Preliminary NO GROWTH AFTER 48 HOURS 11/06/20 08:57 Peripheral/Venous Blood Culture - Preliminary NO GROWTH AFTER 48 HOURS Holt/IV: Voiding Method Urinal Active Medications - Current Medications Current Medications: Generic Name Dose Route Start Last Admin Trade Name Freq PRN Reason Stop Dose Admin Acetaminophen 650 mg 11/06/20 22:23 11/08/20 19:02 Acetaminophen 325 Mg Tab PO 650 mg Q4H PRN Administration Pain MILD(1-3)/Fever >100.5/CALVILLO Ascorbic Acid 1,000 mg 11/06/20 23:00 11/09/20 09:51 Ascorbic Acid 500 Mg Tab PO 1,000 mg BID BOBBY Administration Cholecalciferol 5,000 unit 11/07/20 10:00 11/09/20 09:52 Cholecalciferol (Vit D3) 5,000 Unit Tab PO 5,000 unit DAILY BOBBY Administration Dexamethasone 6 mg 11/07/20 22:00 11/08/20 22:48 Dexamethasone 4 Mg/Ml Vial IV 11/15/20 22:01 6 mg Q24HR@2200 BOBBY Administration Enoxaparin Sodium 70 mg 11/06/20 23:00 11/08/20 23:01 Enoxaparin 80 Mg/0.8 Ml Inj SUB-Q 70 mg Q12H [facility] Administration Protocol Famotidine 20 mg 11/06/20 23:00 11/09/20 09:51 Famotidine 20 Mg Tab PO 20 mg BID BOBBY Administration Guaifenesin 200 mg 11/06/20 18:33 11/08/20 18:54 Guaifenesin 100 Mg/5 Ml Oral Liqd PO 200 mg Q4H PRN Administration Cough Hydralazine HCl 10 mg 11/07/20 13:38 Hydralazine 20 Mg/1 Ml Inj IV Q4HR PRN Blood Pressure REMDESIVIR 100 mg/ Sodium 250 mls @ 500 mls/hr 11/08/20 21:00 11/08/20 22:47 Chloride IV 11/11/20 21:29 500 mls/hr Q24HR@2100 BOBBY Administration Metoclopramide HCl 10 mg 11/06/20 22:23 Metoclopramide 10 Mg/2 Ml Inj IV Q6H PRN Nausea And Vomiting Morphine Sulfate 2 mg 11/06/20 22:23 11/09/20 07:59 Morphine 2 Mg/1 Ml Inj IV 2 mg Q4H PRN Administration Pain, Moderate (4-6) Ondansetron HCl 4 mg 11/06/20 22:23 11/09/20 07:59 Ondansetron 4 Mg/2 Ml Inj IV 4 mg Q8H PRN Administration Nausea And Vomiting Oxycodone/Acetaminophen 1 tab 11/06/20 22:23 11/08/20 13:55 Oxycodone /Acetaminophen 5-325mg Tab PO 1 tab Q6H PRN Administration Pain, Moderate (4-6) Sodium Chloride 10 ml 11/06/20 23:00 11/09/20 09:53 Sodium Chloride 0.9% 10 Ml Flush Syringe IV 10 ml BID BOBBY Administration Sodium Chloride 10 ml 11/06/20 22:23 Sodium Chloride 0.9% 10 Ml Flush Syringe IV PRN PRN LINE FLUSH Sodium Chloride 50 ml 11/08/20 21:00 11/08/20 22:48 Sodium Chloride 0.9% 50 Ml Ivpb IV 11/11/20 21:01 50 ml Q24HR@2100 BOBBY Administration Zinc Sulfate 220 mg 11/06/20 23:00 11/09/20 09:51 Zinc Sulfate 220 Mg Cap PO 220 mg BID BOBBY Administration
[2020-11-09] MEDS: ENOXAPARIN 80 MG/0.8 ML INJ SUB-Q SCH ×3 (12:52→22:46)
--- NOTE | 2020-11-09 15:09 | Progress Note ---
Assessment and Plan Cultures: SARS-CoV-2 PCR positive. Blood culture 11/06/2020 no growth today. Assessment: 65-year-old male with history of hypertension, follows first dose of COVID-19 vaccine 10 days before admission, admitted on 11/06/2020 secondary to cough, shortness of breath generalized malaise for 48 hours: #Acute sepsis: Present on admission with mild fever, tachycardia, hypoxia, elevated lactate; likely secondary to COVID-19 infection. #Severe COVID-19 pneumonia: Chest x-ray with bilateral infiltrates. Inflamma tory markers elevated. Markers improving. #Acute hypoxemic respiratory failure: Dropped to 82%. Remains high flow nasal cannula 15 L, 75%. #Thrombocytopenia: Mild likely secondary to COVID-19, resolved. #Transaminitis: Likely due to COVID-19. Resolved. Recommendations: -Pulmonary on board -Continue dexamethasone 6 mg IV/PO daily for 10 days -Continue remdesivir D2 of 4 -Ordered Tocilizumab x 1 dose due to rapidly progressive hypoxia and CRP>7.5, however system denied, patient has to be in MICU or ICU -No need for antibiotics, procalcitonin is normal -Prone positioning -Anticoagulation per protocol -Check inflammatory markers every 2 to 3 days, ordered Close monitoring, consider IMCU, risk for decompensation requiring intubation Will follow. Lashonda Ang MD Infectious Diseases Conference Coordinator [facility] ([facility]) M [phone] O [phone] Subjective Date of service: 11/09/20 Principal diagnosis: COVID Interval history: Remains on high flow nasal cannula 75%, sats down to 90%. Objective - Constitutional Vitals: Vital Signs Temp Pulse Resp BP Pulse Ox 98.6 F 63 25 H 119/73 91 11/09/20 05:55 11/09/20 05:55 11/09/20 05:55 11/09/20 05:55 11/09/20 05:55 Temperature -Last 24 Hours Temperature 98.6 F Temperature 98.9 F Temperature 97.9 F - Labs CBC & Chem 7: 11/08/20 06:02 11/09/20 05:44 Labs: Abnormal lab results 11/08/20 11/08/20 11/09/20 Range/Units 18:25 18:25 05:44 Creatinine 0.5 L (0.8-1.3) mg/dL Glucose 150 H (75-100) mg/dL Calcium 7.5 L (8.4-10.2) mg/dL Ferritin 2864.0 H (30.0-300.0) ng/mL Lactate Dehydrogenase 538 H (91-180) units/L C-Reactive Protein 3.00 H (0.00-1.30) mg/dL Total Protein 6.1 L (6.3-8.2) g/dL Albumin 3.3 L (3.9-5) g/dL
[2020-11-09] MEDS: dexAMETHasone 4 MG/ML VIAL IV SCH (21:00)
[2020-11-09] MEDS: ALPRAZolam 0.25 MG TAB PO PRN (21:01)
[2020-11-09] MEDS: REMDESIVIR 100 MG in SODIUM CHLORIDE 0.9% 250ML 250 ML IV SCH (21:16)
[2020-11-09] MEDS: SODIUM CHLORIDE 0.9% 50 ML IVPB IV SCH (21:16)
[2020-11-10] MEDS: ALPRAZolam 0.25 MG TAB PO PRN ×3 (04:46→20:12)
[2020-11-10] MEDS: BACLOFEN 10 MG TAB PO PRN ×2 (04:47→20:12)
[2020-11-10 08:19] LABS: Alanine Aminotransferase 21 units/L (7-56); Albumin 2.9 g/dL (3.9-5); Blood Urea Nitrogen 17 mg/dL (9-20); Calcium 7.7 mg/dL (8.4-10.2); Hemolysis Index 12
--- NOTE | 2020-11-10 08:19 | Progress Note ---
Assessment and Plan Assessment and plan: Sepsis. Severe COVID-19 pneumonia. Acute hypoxemic respiratory failure. Thrombocytopenia. Transaminitis. Nausea and vomiting. 11/08/2020. Continue dexamethasone and remdesivir. Patient is s/p tocilizumab. Procalcitonin is normal. Therefore, abx discontinued. Prone positioning as possible. Continue to trend inflammatory markers. 11/09/2020. Nurse reports patient with nausea vomiting this morning that resolved with Zofran. Continue dexamethasone and remdesivir. Patient is s/p tocilizumab. Procalcitonin is normal. Patient currently requiring high flow nasal cannula 15 L/min at 75% FiO2. Continue to wean oxygen as tolerated. 11/10/2020. Patient's oxygen requirements have improved with high flow nasal cannula 20 L/min O2 with FiO2 of 70%. Continue dexamethasone and remdesivir. C ontinue to wean oxygen as tolerated. History Interval history: No new issues overnight Hospitalist Physical - Constitutional Vitals: Temp Pulse Resp BP Pulse Ox 97.6 F 71 22 131/73 92 11/10/20 04:43 11/10/20 04:43 11/10/20 04:43 11/10/20 04:43 11/10/20 07:57 General appearance: Present: no acute distress, well-nourished - EENT Eyes: Present: PERRL, EOM intact ENT: hearing intact, clear oral mucosa, dentition normal - Neck Neck: Present: supple, normal ROM - Respiratory Respiratory effort: normal Respiratory: bilateral: CTA - Cardiovascular Rhythm: regular Heart Sounds: Present: S1 & S2. Absent: gallop, rub - Extremities Extremities: no ischemia, No edema, Full ROM - Abdominal General gastrointestinal: soft, non-tender, non-distended, normal bowel sounds - Integumentary Integumentary: Present: clear, warm, dry - Neurologic Neurologic: CNII-XII intact, moves all extremities HEART Score - HEART Score Troponin: Troponin T < 0.010 ng/mL (0.00-0.029) 11/06/20 11:26 Results - Labs CBC & Chem 7: 11/08/20 06:02 11/09/20 05:44 Labs: Laboratory Last Values WBC 6.2 K/mm3 (4.5-11.0) 11/08/20 06:02 RBC 4.59 M/mm3 (3.65-5.03) 11/08/20 06:02 Hgb 14.4 gm/dl (11.8-15.2) 11/08/20 06:02 Hct 41.0 % (35.5-45.6) 11/08/20 06:02 MCV 89 fl (84-94) 11/08/20 06:02 MCH 31 pg (28-32) 11/08/20 06:02 MCHC 35 % (32-34) H 11/08/20 06:02 RDW 12.9 % (13.2-15.2) L 11/08/20 06:02 Plt Count 173 K/mm3 (140-440) 11/08/20 06:02 Lymph % (Auto) 14.4 % (13.4-35.0) 11/07/20 07:26 [place] % (Auto) 7.3 % (0.0-7.3) 11/07/20 07:26 Eos % (Auto) 0.0 % (0.0-4.3) 11/07/20 07:26 Baso % (Auto) 0.2 % (0.0-1.8) 11/07/20 07:26 Lymph # (Auto) 0.5 K/mm3 (1.2-5.4) L 11/07/20 07:26 [place] # (Auto) 0.3 K/mm3 (0.0-0.8) 11/07/20 07:26 Eos # (Auto) 0.0 K/mm3 (0.0-0.4) 11/07/20 07:26 Baso # (Auto) 0.0 K/mm3 (0.0-0.1) 11/07/20 07:26 Seg Neutrophils % 78.1 % (40.0-70.0) H 11/07/20 07:26 Seg Neutrophils # 2.8 K/mm3 (1.8-7.7) 11/07/20 07:26 PT 12.4 Sec. (12.2-14.9) 11/06/20 08:57 INR 0.94 (0.87-1.13) 11/06/20 08:57 APTT 33.5 Sec. (24.2-36.6) 11/06/20 08:57 D-Dimer 201.60 ng/mlDDU (0-234) 11/08/20 18:25 Sodium 139 mmol/L (137-145) 11/09/20 05:44 Potassium 4.0 mmol/L (3.6-5.0) 11/09/20 05:44 Chloride 103.5 mmol/L (98-107) 11/09/20 05:44 Carbon Dioxide 27 mmol/L (22-30) 11/09/20 05:44 Anion Gap 13 mmol/L 11/09/20 05:44 BUN 16 mg/dL (9-20) 11/09/20 05:44 Creatinine 0.5 mg/dL (0.8-1.3) L 11/09/20 05:44 Estimated GFR > 60 ml/min 11/09/20 05:44 BUN/Creatinine Ratio 32 % 11/09/20 05:44 Glucose 150 mg/dL (75-100) H 11/09/20 05:44 Hemoglobin A1c 5.6 % (4-6) 11/07/20 07:26 Lactic Acid 1.50 mmol/L (0.7-2.0) 11/06/20 11:26 Calcium 7.5 mg/dL (8.4-10.2) L 11/09/20 05:44 Magnesium 2.40 mg/dL (1.7-2.3) H 11/06/20 08:57 Ferritin 2864.0 ng/mL (30.0-300.0) H 11/08/20 18:25 Total Bilirubin 0.50 mg/dL (0.1-1.2) 11/09/20 05:44 Direct Bilirubin 0.3 mg/dL (0-0.2) H 11/06/20 09:11 Indirect Bilirubin 0.5 mg/dL 11/06/20 09:11 AST 37 units/L (5-40) 11/09/20 05:44 ALT 21 units/L (7-56) 11/09/20 05:44 Alkaline Phosphatase 36 units/L (35-129) 11/09/20 05:44 Lactate Dehydrogenase 538 units/L (91-180) H 11/08/20 18:25 Troponin T < 0.010 ng/mL (0.00-0.029) 11/06/20 11:26 C-Reactive Protein 3.00 mg/dL (0.00-1.30) H 11/08/20 18:25 Total Protein 6.1 g/dL (6.3-8.2) L 11/09/20 05:44 Albumin 3.3 g/dL (3.9-5) L 11/09/20 05:44 Albumin/Globulin Ratio 1.2 % 11/09/20 05:44 Lipase 39 units/L (13-60) 11/06/20 08:57 Procalcitonin < 0.05 ng/mL (<0.15) 11/06/20 09:11 Urine Color [place] (Yellow) 11/06/20 17:14 Urine Turbidity Clear (Clear) 11/06/20 17:14 Urine pH 6.0 (5.0-7.0) 11/06/20 17:14 Ur Specific [place] 1.024 (1.003-1.030) 11/06/20 17:14 Urine Protein 100 mg/dl mg/dL (Negative) 11/06/20 17:14 Urine Glucose (UA) Neg mg/dL (Negative) 11/06/20 17:14 Urine Ketones Neg mg/dL (Negative) 11/06/20 17:14 Urine Blood Sm (Negative) 11/06/20 17:14 Urine Nitrite Neg (Negative) 11/06/20 17:14 Urine Bilirubin Neg (Negative) 11/06/20 17:14 Urine Urobilinogen < 2.0 mg/dL (<2.0) 11/06/20 17:14 Ur Leukocyte Esterase Neg (Negative) 11/06/20 17:14 Urine WBC (Auto) 3.0 /HPF (0.0-6.0) 11/06/20 17:14 Urine RBC (Auto) 3.0 /HPF (0.0-6.0) 11/06/20 17:14 Urine Mucus Few /HPF 11/06/20 17:14 Coronavirus (PCR) Positive (Negative) A 11/06/20 09:57 Microbiology: Microbiology 11/06/20 08:57 Peripheral/Venous Blood Culture - Preliminary NO GROWTH AFTER 72 HOURS 11/06/20 08:57 Peripheral/Venous Blood Culture - Preliminary NO GROWTH AFTER 72 HOURS Holt/IV: Voiding Method Urinal Active Medications - Current Medications Current Medications: Generic Name Dose Route Start Last Admin Trade Name Freq PRN Reason Stop Dose Admin Acetaminophen 650 mg 11/06/20 22:23 11/08/20 19:02 Acetaminophen 325 Mg Tab PO 650 mg Q4H PRN Administration Pain MILD(1-3)/Fever >100.5/[place] Alprazolam 0.25 mg 11/09/20 20:07 11/10/20 04:46 Alprazolam 0.25 Mg Tab PO 0.25 mg Q8H PRN Administration Anxiety Ascorbic Acid 1,000 mg 11/06/20 23:00 11/09/20 21:01 Ascorbic Acid 500 Mg Tab PO 1,000 mg BID BOBBY Administration Baclofen 5 mg 11/09/20 20:11 11/10/20 04:47 Baclofen 10 Mg Tab PO 5 mg TID PRN Administration Hiccups Cholecalciferol 5,000 unit 11/07/20 10:00 11/09/20 09:52 Cholecalciferol (Vit D3) 5,000 Unit Tab PO 5,000 unit DAILY BOBBY Administration Dexamethasone 6 mg 11/07/20 22:00 11/09/20 21:00 Dexamethasone 4 Mg/Ml Vial IV 11/15/20 22:01 6 mg Q24HR@2200 BOBBY Administration Enoxaparin Sodium 70 mg 11/06/20 23:00 11/09/20 22:46 Enoxaparin 80 Mg/0.8 Ml Inj SUB-Q Not Given Q12H [facility] Protocol Famotidine 20 mg 11/06/20 23:00 11/09/20 21:01 Famotidine 20 Mg Tab PO 20 mg BID BOBBY Administration Guaifenesin 200 mg 11/06/20 18:33 11/08/20 18:54 Guaifenesin 100 Mg/5 Ml Oral Liqd PO 200 mg Q4H PRN Administration Cough Hydralazine HCl 10 mg 11/07/20 13:38 Hydralazine 20 Mg/1 Ml Inj IV Q4HR PRN Blood Pressure REMDESIVIR 100 mg/ Sodium 250 mls @ 500 mls/hr 11/08/20 21:00 11/09/20 21:16 Chloride IV 11/11/20 21:29 500 mls/hr Q24HR@2100 BOBBY Administration Metoclopramide HCl 10 mg 11/06/20 22:23 Metoclopramide 10 Mg/2 Ml Inj IV Q6H PRN Nausea And Vomiting Morphine Sulfate 2 mg 11/06/20 22:23 11/09/20 07:59 Morphine 2 Mg/1 Ml Inj IV 2 mg Q4H PRN Administration Pain, Moderate (4-6) Ondansetron HCl 4 mg 11/06/20 22:23 11/09/20 19:49 Ondansetron 4 Mg/2 Ml Inj IV 4 mg Q8H PRN Administration Nausea And Vomiting Oxycodone/Acetaminophen 1 tab 11/06/20 22:23 11/08/20 13:55 Oxycodone /Acetaminophen 5-325mg Tab PO 1 tab Q6H PRN Administration Pain, Moderate (4-6) Sodium Chloride 10 ml 11/06/20 23:00 11/09/20 21:18 Sodium Chloride 0.9% 10 Ml Flush Syringe IV 10 ml BID BOBBY Administration Sodium Chloride 10 ml 11/06/20 22:23 Sodium Chloride 0.9% 10 Ml Flush Syringe IV PRN PRN LINE FLUSH Sodium Chloride 50 ml 11/08/20 21:00 11/09/20 21:16 Sodium Chloride 0.9% 50 Ml Ivpb IV 11/11/20 21:01 50 ml Q24HR@2100 BOBBY Administration Zinc Sulfate 220 mg 11/06/20 23:00 11/09/20 21:00 Zinc Sulfate 220 Mg Cap PO 220 mg BID BOBBY Administration
[2020-11-10 08:20] LABS: BUN/Creatinine Ratio 34
[2020-11-10] MEDS: CHOLECALCIFEROL (VIT D3) 5,000 UNIT TAB PO SCH (09:55)
[2020-11-10] MEDS: FAMOTIDINE 20 MG TAB PO SCH ×2 (09:55→21:13)
[2020-11-10] MEDS: ASCORBIC ACID 500 MG TAB PO SCH ×2 (09:55→21:13)
[2020-11-10] MEDS: ZINC SULFATE 220 MG CAP PO SCH ×2 (09:55→21:13)
[2020-11-10] MEDS: ENOXAPARIN 80 MG/0.8 ML INJ SUB-Q SCH (11:00)
--- NOTE | 2020-11-10 15:35 | Progress Note ---
Assessment and Plan Cultures: SARS-CoV-2 PCR positive. Blood culture 11/06/2020 no growth today. Assessment: 65-year-old male with history of hypertension, follows first dose of COVID-19 vaccine 10 days before admission, admitted on 11/06/2020 secondary to cough, shortness of breath generalized malaise for 48 hours: #Acute sepsis: Present on admission with mild fever, tachycardia, hypoxia, elevated lactate; likely secondary to COVID-19 infection. #Severe COVID-19 pneumonia: Chest x-ray with bilateral infiltrates. Inflamma tory markers elevated. Markers improving. #Acute hypoxemic respiratory failure: Dropped to 82%. Remains high flow nasal cannula 15 L, 75%. #Thrombocytopenia: Mild likely secondary to COVID-19, resolved. #Transaminitis: Likely due to COVID-19. Resolved. Recommendations: -Pulmonary on board -Continue dexamethasone 6 mg IV/PO daily for 10 days -Continue remdesivir D3 of 4 -No need for antibiotics, procalcitonin is normal -Prone positioning -Anticoagulation per protocol -Check inflammatory markers every 2 to 3 days, ordered Close monitoring, consider IMCU, risk for decompensation requiring intubation Will follow. Lashonda Ang MD Infectious Diseases [employer] [facility] ([facility]) M [phone] O [phone] Subjective Date of service: 11/10/20 Principal diagnosis: COVID Interval history: Sats dropped to 89%, c/o hiccups, remains on high flow nasal cannula 75%, sats down to 90%. Objective - Exam Narrative Exam: Physical exam deferred to minimize COVID-19 transmission during pandemic. - - Constitutional Vitals: Vital Signs Temp Pulse Resp BP Pulse Ox 97.6 F 71 22 131/73 93 11/10/20 04:43 11/10/20 04:43 11/10/20 04:43 11/10/20 04:43 11/10/20 14:27 Temperature -Last 24 Hours Temperature 97.6 F Temperature 98.3 F Temperature 98.0 F - Labs CBC & Chem 7: 11/08/20 06:02 11/10/20 06:46 Labs: Abnormal lab results 11/10/20 Range/Units 06:46 Creatinine 0.5 L (0.8-1.3) mg/dL Glucose 140 H (75-100) mg/dL Calcium 7.7 L (8.4-10.2) mg/dL Albumin 2.9 L (3.9-5) g/dL
[2020-11-10] MEDS: METOCLOPRAMIDE 10 MG/2 ML INJ IV PRN ×2 (16:20→20:11)
[2020-11-10 17:31] LABS: C-Reactive Protein 1.5 mg/dL (0.00-1.30)
--- NOTE | 2020-11-10 18:12 | Progress Note ---
Assessment and Plan Imp: 1. Covid-19 2. Viral pneumonia 2/2 #1 3. Acute respiratory failure, hypoxia 2/2 above 4. Centrilobular emphysema 5. Hyponatremia 6. Leukopenia/thrombocytopenia Rec: 1. Agree with Decadron, Remdesivir, therapeutic Lovenox 2. Monitor inflammatory markers, sodium, CBC, and liver enzymes 3. Wean HFNC to keep sats 88% or > 4. Outpatient PFTs 5. Prognosis guarded; high complexity/critically ill due to Covid-19 No family present Subjective Date of service: 11/10/20 Principal diagnosis: COVID Interval history: Sleeping but arousable. + SOB. On 20LPM and 70% FiO2. Active Medications Acetaminophen (Acetaminophen 325 Mg Tab) 650 mg PO Q4H PRN PRN Reason: Pain MILD(1-3)/Fever >100.5/[place]O Last Admin: 11/08/20 19:02 Dose: 650 mg Documented by: Alprazolam (Alprazolam 0.25 Mg Tab) 0.25 mg PO Q8H PRN PRN Reason: Anxiety Last Admin: 11/10/20 20:12 Dose: 0.25 mg Documented by: Ascorbic Acid (Ascorbic Acid 500 Mg Tab) 1,000 mg PO BID [facility] Last Admin: 11/10/20 21:13 Dose: 1,000 mg Documented by: Baclofen (Baclofen 10 Mg Tab) 5 mg PO TID PRN PRN Reason: Hiccups Last Admin: 11/10/20 20:12 Dose: 5 mg Documented by: Cholecalciferol (Cholecalciferol (Vit D3) 5,000 Unit Tab) 5,000 unit PO DAILY [facility] Last Admin: 11/10/20 09:55 Dose: 5,000 unit Documented by: Dexamethasone (Dexamethasone 4 Mg/Ml Vial) 6 mg IV Q24HR@2200 [facility] Stop: 11/15/20 22:01 Last Admin: 11/10/20 21:12 Dose: 6 mg Documented by: Enoxaparin Sodium (Enoxaparin 80 Mg/0.8 Ml Inj) 70 mg SUB-Q Q12H [facility]; Protocol Last Admin: 11/10/20 11:00 Dose: 70 mg Documented by: Famotidine (Famotidine 20 Mg Tab) 20 mg PO BID [facility] Last Admin: 11/10/20 21:13 Dose: 20 mg Documented by: Guaifenesin (Guaifenesin 100 Mg/5 Ml Oral Liqd) 200 mg PO Q4H PRN PRN Reason: Cough Last Admin: 11/08/20 18:54 Dose: 200 mg Documented by: Hydralazine HCl (Hydralazine 20 Mg/1 Ml Inj) 10 mg IV Q4HR PRN PRN Reason: Blood Pressure REMDESIVIR 100 mg/ Sodium (Chloride) 250 mls @ 500 mls/hr IV Q24HR@2100 [facility] Stop: 11/11/20 21:29 Last Admin: 11/10/20 21:12 Dose: 500 mls/hr Documented by: Metoclopramide HCl (Metoclopramide 10 Mg/2 Ml Inj) 10 mg IV Q6HR [facility] Last Admin: 11/10/20 21:19 Dose: Not Given Documented by: Morphine Sulfate (Morphine 2 Mg/1 Ml Inj) 2 mg IV Q4H PRN PRN Reason: Pain, Moderate (4-6) Last Admin: 11/10/20 20:11 Dose: 2 mg Documented by: Ondansetron HCl (Ondansetron 4 Mg/2 Ml Inj) 4 mg IV Q8H PRN PRN Reason: Nausea And Vomiting Last Admin: 11/09/20 19:49 Dose: 4 mg Documented by: Oxycodone/Acetaminophen (Oxycodone /Acetaminophen 5-325mg Tab) 1 tab PO Q6H PRN PRN Reason: Pain, Moderate (4-6) Last Admin: 11/08/20 13:55 Dose: 1 tab Documented by: Sodium Chloride (Sodium Chloride 0.9% 10 Ml Flush Syringe) 10 ml IV BID [facility] Last Admin: 11/10/20 21:20 Dose: 10 ml Documented by: Sodium Chloride (Sodium Chloride 0.9% 10 Ml Flush Syringe) 10 ml IV PRN PRN PRN Reason: LINE FLUSH Sodium Chloride (Sodium Chloride 0.9% 50 Ml Ivpb) 50 ml IV Q24HR@2100 [facility] Stop: 11/11/20 21:01 Last Admin: 11/10/20 21:12 Dose: 50 ml Documented by: Zinc Sulfate (Zinc Sulfate 220 Mg Cap) 220 mg PO BID [facility] Last Admin: 11/10/20 21:13 Dose: 220 mg Documented by: Objective Vital Signs - 12hr 11/10/20 11/10/20 07:57 14:27 O2 Sat by Pulse 92 93 Oximetry Constitutional: no acute distress, alert, other (on hiflo o2) Eyes: non-icteric ENT: oropharynx moist Neck: supple Effort: normal Ascultation: Bilateral: clear Cardiovascular: regular rate and rhythm (no mrg) Gastrointestinal: normoactive bowel sounds, soft, non-tender, non-distended Integumentary: normal Extremities: no cyanosis, no edema, pink and warm Neurologic: normal mental status, non-focal exam, pupils equal and round, CN II- XII normal Psychiatric: mood appropriate, affect normal CBC and BMP: 11/08/20 06:02 11/10/20 06:46 ABG, PT/INR, D-dimer: PT/INR, D-dimer PT 12.4 Sec. (12.2-14.9) 11/06/20 08:57 INR 0.94 (0.87-1.13) 11/06/20 08:57 D-Dimer 136.73 ng/mlDDU (0-234) 11/10/20 16:09 Abnormal lab findings: Abnormal Labs 11/06/20 11/06/20 11/06/20 08:57 08:57 08:57 WBC MCHC 35 H RDW 12.8 L Plt Count 131 L [place] % (Auto) 11.4 H Lymph # (Auto) 0.8 L Seg Neutrophils % D-Dimer 661.18 H Sodium Potassium Chloride BUN Creatinine Glucose Lactic Acid Calcium Magnesium 2.40 H Ferritin Direct Bilirubin AST Alkaline Phosphatase Lactate Dehydrogenase C-Reactive Protein Total Protein Albumin Coronavirus (PCR) 11/06/20 11/06/20 11/06/20 08:57 09:11 09:11 WBC MCHC RDW Plt Count [place] % (Auto) Lymph # (Auto) Seg Neutrophils % D-Dimer 600.32 H Sodium Potassium Chloride BUN Creatinine Glucose 112 H Lactic Acid 2.20 H* Calcium Magnesium Ferritin Direct Bilirubin AST Alkaline Phosphatase Lactate Dehydrogenase 509 H C-Reactive Protein 8.90 H Total Protein Albumin Coronavirus (PCR) 11/06/20 11/06/20 11/06/20 09:11 09:11 09:57 WBC MCHC RDW Plt Count [place] % (Auto) Lymph # (Auto) Seg Neutrophils % D-Dimer Sodium 133 L Potassium 3.2 L Chloride 93.3 L BUN 22 H Creatinine Glucose 113 H Lactic Acid Calcium 8.2 L Magnesium Ferritin 3934.0 H Direct Bilirubin 0.3 H AST 69 H Alkaline Phosphatase 30 L Lactate Dehydrogenase C-Reactive Protein Total Protein Albumin 3.4 L Coronavirus (PCR) Positive A 11/07/20 11/07/20 11/07/20 07:26 07:26 19:10 WBC 3.6 L MCHC 35 H RDW 12.9 L Plt Count 139 L [place] % (Auto) Lymph # (Auto) 0.5 L Seg Neutrophils % 78.1 H D-Dimer Sodium 135 L Potassium Chloride BUN Creatinine 0.6 L 0.6 L Glucose 143 H 117 H Lactic Acid Calcium 7.8 L 7.7 L Magnesium Ferritin Direct Bilirubin AST 55 H 50 H Alkaline Phosphatase 29 L 31 L Lactate Dehydrogenase C-Reactive Protein Total Protein Albumin 3.1 L 3.0 L Coronavirus (PCR) 11/08/20 11/08/20 11/08/20 06:02 06:02 18:25 WBC MCHC 35 H RDW 12.9 L Plt Count [place] % (Auto) Lymph # (Auto) Seg Neutrophils % D-Dimer Sodium 135 L Potassium Chloride BUN Creatinine 0.7 L Glucose 138 H Lactic Acid Calcium 7.5 L Magnesium Ferritin 2864.0 H Direct Bilirubin AST 45 H Alkaline Phosphatase 30 L Lactate Dehydrogenase C-Reactive Protein Total Protein Albumin 3.0 L Coronavirus (PCR) 11/08/20 11/09/20 11/10/20 18:25 05:44 06:46 WBC MCHC RDW Plt Count [place] % (Auto) Lymph # (Auto) Seg Neutrophils % D-Dimer Sodium Potassium Chloride BUN Creatinine 0.5 L 0.5 L Glucose 150 H 140 H Lactic Acid Calcium 7.5 L 7.7 L Magnesium Ferritin Direct Bilirubin AST Alkaline Phosphatase Lactate Dehydrogenase 538 H C-Reactive Protein 3.00 H Total Protein 6.1 L Albumin 3.3 L 2.9 L Coronavirus (PCR) 11/10/20 11/10/20 16:09 16:09 WBC MCHC RDW Plt Count [place] % (Auto) Lymph # (Auto) Seg Neutrophils % D-Dimer Sodium Potassium Chloride BUN Creatinine Glucose Lactic Acid Calcium Magnesium Ferritin 2483.0 H Direct Bilirubin AST Alkaline Phosphatase Lactate Dehydrogenase 586 H C-Reactive Protein 1.50 H Total Protein Albumin Coronavirus (PCR) Chest x-ray: report reviewed, image reviewed (bilateral infiltrates)
[2020-11-10] MEDS: MORPHINE 2 MG/1 ML INJ IV PRN (20:11)
[2020-11-10] MEDS: dexAMETHasone 4 MG/ML VIAL IV SCH (21:12)
[2020-11-10] MEDS: REMDESIVIR 100 MG in SODIUM CHLORIDE 0.9% 250ML 250 ML IV SCH (21:12)
[2020-11-10] MEDS: SODIUM CHLORIDE 0.9% 50 ML IVPB IV SCH (21:12)
[2020-11-10] MEDS: METOCLOPRAMIDE 10 MG/2 ML INJ IV SCH (21:19)
[2020-11-10] MEDS ORDERED: LORazepam 2 MG/ML VIAL IV ONE (21:25)
[2020-11-11] MEDS: ENOXAPARIN 80 MG/0.8 ML INJ SUB-Q SCH ×3 (00:21→23:53)
[2020-11-11] MEDS: METOCLOPRAMIDE 10 MG/2 ML INJ IV SCH ×3 (05:07→17:58)
--- NOTE | 2020-11-11 08:19 | Progress Note ---
Assessment and Plan Assessment and plan: Sepsis. Severe COVID-19 pneumonia. Acute hypoxemic respiratory failure. Thrombocytopenia. Transaminitis. Nausea and vomiting. 11/08/2020. Continue dexamethasone and remdesivir. Patient is s/p tocilizumab. Procalcitonin is normal. Therefore, abx discontinued. Prone positioning as possible. Continue to trend inflammatory markers. 11/09/2020. Nurse reports patient with nausea vomiting this morning that resolved with Zofran. Continue dexamethasone and remdesivir. Patient is s/p tocilizumab. Procalcitonin is normal. Patient currently requiring high flow nasal cannula 15 L/min at 75% FiO2. Continue to wean oxygen as tolerated. 11/10/2020. Patient's oxygen requirements have improved with high flow nasal cannula 20 L/min O2 with FiO2 of 70%. Continue dexamethasone and remdesivir. C ontinue to wean oxygen as tolerated. 11/11/2020. Patient's oxygen requirements are worse high flow nasal cannula 40 L/min with FiO2 of 100%. Consider BiPAP if continues to worsen. Pulmonary following. Continue dexamethasone and remdesivir. Remdesivir completes today. Continue to trend inflammatory markers. Prone positioning as possible. History Interval history: No new issues overnight Hospitalist Physical - Constitutional Vitals: Temp Pulse Resp BP Pulse Ox 97.2 F L 69 20 132/59 94 11/11/20 04:11 11/11/20 04:11 11/11/20 04:11 11/11/20 04:11 11/11/20 08:10 General appearance: Present: no acute distress, well-nourished - EENT Eyes: Present: PERRL, EOM intact ENT: hearing intact, clear oral mucosa, dentition normal - Neck Neck: Present: supple, normal ROM - Respiratory Respiratory effort: normal Respiratory: bilateral: CTA - Cardiovascular Rhythm: regular Heart Sounds: Present: S1 & S2. Absent: gallop, rub - Extremities Extremities: no ischemia, No edema, Full ROM - Abdominal General gastrointestinal: soft, non-tender, non-distended, normal bowel sounds - Integumentary Integumentary: Present: clear, warm, dry - Neurologic Neurologic: CNII-XII intact, moves all extremities HEART Score - HEART Score Troponin: Troponin T < 0.010 ng/mL (0.00-0.029) 11/06/20 11:26 Results - Labs CBC & Chem 7: 11/08/20 06:02 11/10/20 06:46 Labs: Laboratory Last Values WBC 6.2 K/mm3 (4.5-11.0) 11/08/20 06:02 RBC 4.59 M/mm3 (3.65-5.03) 11/08/20 06:02 Hgb 14.4 gm/dl (11.8-15.2) 11/08/20 06:02 Hct 41.0 % (35.5-45.6) 11/08/20 06:02 MCV 89 fl (84-94) 11/08/20 06:02 MCH 31 pg (28-32) 11/08/20 06:02 MCHC 35 % (32-34) H 11/08/20 06:02 RDW 12.9 % (13.2-15.2) L 11/08/20 06:02 Plt Count 173 K/mm3 (140-440) 11/08/20 06:02 Lymph % (Auto) 14.4 % (13.4-35.0) 11/07/20 07:26 [place] % (Auto) 7.3 % (0.0-7.3) 11/07/20 07:26 Eos % (Auto) 0.0 % (0.0-4.3) 11/07/20 07:26 Baso % (Auto) 0.2 % (0.0-1.8) 11/07/20 07:26 Lymph # (Auto) 0.5 K/mm3 (1.2-5.4) L 11/07/20 07:26 [place] # (Auto) 0.3 K/mm3 (0.0-0.8) 11/07/20 07:26 Eos # (Auto) 0.0 K/mm3 (0.0-0.4) 11/07/20 07:26 Baso # (Auto) 0.0 K/mm3 (0.0-0.1) 11/07/20 07:26 Seg Neutrophils % 78.1 % (40.0-70.0) H 11/07/20 07:26 Seg Neutrophils # 2.8 K/mm3 (1.8-7.7) 11/07/20 07:26 PT 12.4 Sec. (12.2-14.9) 11/06/20 08:57 INR 0.94 (0.87-1.13) 11/06/20 08:57 APTT 33.5 Sec. (24.2-36.6) 11/06/20 08:57 D-Dimer 136.73 ng/mlDDU (0-234) 11/10/20 16:09 Sodium 139 mmol/L (137-145) 11/10/20 06:46 Potassium 3.9 mmol/L (3.6-5.0) 11/10/20 06:46 Chloride 102.5 mmol/L (98-107) 11/10/20 06:46 Carbon Dioxide 25 mmol/L (22-30) 11/10/20 06:46 Anion Gap 15 mmol/L 11/10/20 06:46 BUN 17 mg/dL (9-20) 11/10/20 06:46 Creatinine 0.5 mg/dL (0.8-1.3) L 11/10/20 06:46 Estimated GFR > 60 ml/min 11/10/20 06:46 BUN/Creatinine Ratio 34 % 11/10/20 06:46 Glucose 140 mg/dL (75-100) H 11/10/20 06:46 Hemoglobin A1c 5.6 % (4-6) 11/07/20 07:26 Lactic Acid 1.50 mmol/L (0.7-2.0) 11/06/20 11:26 Calcium 7.7 mg/dL (8.4-10.2) L 11/10/20 06:46 Magnesium 2.40 mg/dL (1.7-2.3) H 11/06/20 08:57 Ferritin 2483.0 ng/mL (30.0-300.0) H 11/10/20 16:09 Total Bilirubin 0.50 mg/dL (0.1-1.2) 11/10/20 06:46 Direct Bilirubin 0.3 mg/dL (0-0.2) H 11/06/20 09:11 Indirect Bilirubin 0.5 mg/dL 11/06/20 09:11 AST 34 units/L (5-40) 11/10/20 06:46 ALT 21 units/L (7-56) 11/10/20 06:46 Alkaline Phosphatase 35 units/L (35-129) 11/10/20 06:46 Lactate Dehydrogenase 586 units/L (91-180) H 11/10/20 16:09 Troponin T < 0.010 ng/mL (0.00-0.029) 11/06/20 11:26 C-Reactive Protein 1.50 mg/dL (0.00-1.30) H 11/10/20 16:09 Total Protein 6.3 g/dL (6.3-8.2) 11/10/20 06:46 Albumin 2.9 g/dL (3.9-5) L 11/10/20 06:46 Albumin/Globulin Ratio 0.9 % 11/10/20 06:46 Lipase 39 units/L (13-60) 11/06/20 08:57 Procalcitonin < 0.05 ng/mL (<0.15) 11/06/20 09:11 Urine Color [place] (Yellow) 11/06/20 17:14 Urine Turbidity Clear (Clear) 11/06/20 17:14 Urine pH 6.0 (5.0-7.0) 11/06/20 17:14 Ur Specific [place] 1.024 (1.003-1.030) 11/06/20 17:14 Urine Protein 100 mg/dl mg/dL (Negative) 11/06/20 17:14 Urine Glucose (UA) Neg mg/dL (Negative) 11/06/20 17:14 Urine Ketones Neg mg/dL (Negative) 11/06/20 17:14 Urine Blood Sm (Negative) 11/06/20 17:14 Urine Nitrite Neg (Negative) 11/06/20 17:14 Urine Bilirubin Neg (Negative) 11/06/20 17:14 Urine Urobilinogen < 2.0 mg/dL (<2.0) 11/06/20 17:14 Ur Leukocyte Esterase Neg (Negative) 11/06/20 17:14 Urine WBC (Auto) 3.0 /HPF (0.0-6.0) 11/06/20 17:14 Urine RBC (Auto) 3.0 /HPF (0.0-6.0) 11/06/20 17:14 Urine Mucus Few /HPF 11/06/20 17:14 Coronavirus (PCR) Positive (Negative) A 11/06/20 09:57 Microbiology: Microbiology 11/06/20 08:57 Peripheral/Venous Blood Culture - Preliminary NO GROWTH AFTER 4 DAYS 11/06/20 08:57 Peripheral/Venous Blood Culture - Preliminary NO GROWTH AFTER 4 DAYS Hotl/IV: Voiding Method Urinal Active Medications - Current Medications Current Medications: Generic Name Dose Route Start Last Admin Trade Name Freq PRN Reason Stop Dose Admin Acetaminophen 650 mg 11/06/20 22:23 11/08/20 19:02 Acetaminophen 325 Mg Tab PO 650 mg Q4H PRN Administration Pain MILD(1-3)/Fever >100.5/[place] Alprazolam 0.25 mg 11/09/20 20:07 11/10/20 20:12 Alprazolam 0.25 Mg Tab PO 0.25 mg Q8H PRN Administration Anxiety Ascorbic Acid 1,000 mg 11/06/20 23:00 11/10/20 21:13 Ascorbic Acid 500 Mg Tab PO 1,000 mg BID [facility] Administration Baclofen 5 mg 11/09/20 20:11 11/10/20 20:12 Baclofen 10 Mg Tab PO 5 mg TID PRN Administration Hiccups Cholecalciferol 5,000 unit 11/07/20 10:00 11/10/20 09:55 Cholecalciferol (Vit D3) 5,000 Unit Tab PO 5,000 unit DAILY [facility] Administration Dexamethasone 6 mg 11/07/20 22:00 11/10/20 21:12 Dexamethasone 4 Mg/Ml Vial IV 11/15/20 22:01 6 mg Q24HR@2200 [facility] Administration Enoxaparin Sodium 70 mg 11/06/20 23:00 11/11/20 00:21 Enoxaparin 80 Mg/0.8 Ml Inj SUB-Q 70 mg Q12H [facility] Administration Protocol Famotidine 20 mg 11/06/20 23:00 11/10/20 21:13 Famotidine 20 Mg Tab PO 20 mg BID [facility] Administration Guaifenesin 200 mg 11/06/20 18:33 11/08/20 18:54 Guaifenesin 100 Mg/5 Ml Oral Liqd PO 200 mg Q4H PRN Administration Cough Hydralazine HCl 10 mg 11/07/20 13:38 Hydralazine 20 Mg/1 Ml Inj IV Q4HR PRN Blood Pressure REMDESIVIR 100 mg/ Sodium 250 mls @ 500 mls/hr 11/08/20 21:00 11/10/20 21:12 Chloride IV 11/11/20 21:29 500 mls/hr Q24HR@2100 [facility] Administration Metoclopramide HCl 10 mg 11/10/20 21:00 11/11/20 05:07 Metoclopramide 10 Mg/2 Ml Inj IV 10 mg Q6HR [facility] Administration Morphine Sulfate 2 mg 11/06/20 22:23 11/10/20 20:11 Morphine 2 Mg/1 Ml Inj IV 2 mg Q4H PRN Administration Pain, Moderate (4-6) Ondansetron HCl 4 mg 11/06/20 22:23 11/09/20 19:49 Ondansetron 4 Mg/2 Ml Inj IV 4 mg Q8H PRN Administration Nausea And Vomiting Oxycodone/Acetaminophen 1 tab 11/06/20 22:23 11/08/20 13:55 Oxycodone /Acetaminophen 5-325mg Tab PO 1 tab Q6H PRN Administration Pain, Moderate (4-6) Sodium Chloride 10 ml 11/06/20 23:00 11/10/20 21:20 Sodium Chloride 0.9% 10 Ml Flush Syringe IV 10 ml BID [facility] Administration Sodium Chloride 10 ml 11/06/20 22:23 Sodium Chloride 0.9% 10 Ml Flush Syringe IV PRN PRN LINE FLUSH Sodium Chloride 50 ml 11/08/20 21:00 11/10/20 21:12 Sodium Chloride 0.9% 50 Ml Ivpb IV 11/11/20 21:01 50 ml Q24HR@2100 [facility] Administration Zinc Sulfate 220 mg 11/06/20 23:00 11/10/20 21:13 Zinc Sulfate 220 Mg Cap PO 220 mg BID [facility] Administration
[2020-11-11] MEDS: ZINC SULFATE 220 MG CAP PO SCH ×2 (09:37→21:36)
[2020-11-11] MEDS: CHOLECALCIFEROL (VIT D3) 5,000 UNIT TAB PO SCH (09:37)
[2020-11-11] MEDS: ASCORBIC ACID 500 MG TAB PO SCH ×2 (09:37→21:34)
[2020-11-11] MEDS: FAMOTIDINE 20 MG TAB PO SCH ×2 (09:38→21:36)
[2020-11-11] MEDS: ALPRAZolam 0.25 MG TAB PO PRN (10:07)
[2020-11-11] MEDS: MORPHINE 2 MG/1 ML INJ IV PRN (11:10)
[2020-11-11 12:02] LABS: C-Reactive Protein 4.3 mg/dL (0.00-1.30)
--- NOTE | 2020-11-11 13:52 | Progress Note ---
Assessment and Plan Cultures: SARS-CoV-2 PCR positive. Blood culture 11/06/2020 no growth today. Assessment: 65-year-old male with history of hypertension, follows first dose of COVID-19 vaccine 10 days before admission, admitted on 11/06/2020 secondary to cough, shortness of breath generalized malaise for 48 hours: #Acute sepsis: Present on admission with mild fever, tachycardia, hypoxia, elevated lactate; likely secondary to COVID-19 infection. #Severe COVID-19 pneumonia: Chest x-ray with bilateral infiltrates. Inflamma tory markers elevated. Markers worsening. #Acute hypoxemic respiratory failure: Dropped to 82%. Worsening, now on high flow nasal cannula 100%. #Thrombocytopenia: Mild likely secondary to COVID-19, resolved. #Transaminitis: Likely due to COVID-19. Resolved. #Acute encephalopathy: Patient is now lethargic likely due to hypoxia Recommendations: -Close monitoring, transfer to IMCU, patient is now lethargic 100% FiO2 -Check markers today if patient is transferred to IMCU on CRP>7.5 we will start Tocilizumab -Continue dexamethasone 6 mg IV/PO daily for 10 days -Continue remdesivir D4 of 5 -No need for antibiotics, procalcitonin is normal -Prone positioning -Anticoagulation per protocol Close monitoring, consider IMCU, risk for decompensation requiring intubation Will follow. Lashonda Ang MD Infectious Diseases [employer] [facility], [place], [facility] ([facility]) M [phone] O [phone] Subjective Date of service: 11/11/20 Principal diagnosis: COVID Interval history: Patient is on high flow nasal cannula 100%, currently lethargic, not following commands, no fever Objective - Exam Narrative Exam: General appearance: Lethargic in mild respiratory distress Eyes: anicteric sclerae, moist conjunctivae; no lid-lag; PERRLA HENT: Normocephalic, Atraumatic; normal external ears, nares open, oropharynx limited Neck: supple, tracheal midline, no JVD Lungs: Bilateral crackles CV: RRR no murmur Abdomen: Soft, non-tender; no masses or hepatosplenomegaly Extremities: no edema, no cyanosis Skin: No rash. Psych: Lethargic Neuro: Lethargic - - Constitutional Vitals: Vital Signs Temp Pulse Resp BP Pulse Ox 97.2 F L 69 20 132/59 94 11/11/20 04:11 11/11/20 04:11 11/11/20 04:11 11/11/20 04:11 11/11/20 08:10 Temperature -Last 24 Hours Temperature 97.2 F Temperature 97.9 F - Labs CBC & Chem 7: 11/08/20 06:02 11/11/20 10:51 Labs: Abnormal lab results 11/10/20 11/10/20 11/11/20 Range/Units 16:09 16:09 10:51 Glucose (75-100) mg/dL Ferritin 2483.0 H (30.0-300.0) ng/mL Lactate Dehydrogenase 586 H 624 H (91-180) units/L C-Reactive Protein 1.50 H 4.30 H (0.00-1.30) mg/dL 11/11/20 Range/Units 10:51 Glucose 149 H (75-100) mg/dL Ferritin (30.0-300.0) ng/mL Lactate Dehydrogenase (91-180) units/L C-Reactive Protein (0.00-1.30) mg/dL
--- NOTE | 2020-11-11 15:42 | Progress Note ---
Assessment and Plan Imp: 1. Covid-19 2. Viral pneumonia 2/2 #1 3. Acute respiratory failure, hypoxia 2/2 above 4. Centrilobular emphysema 5. Hyponatremia 6. Leukopenia/thrombocytopenia Rec: 1. Agree with Decadron, Remdesivir, therapeutic Lovenox 2. Monitor inflammatory markers, sodium, CBC, and liver enzymes 3. Wean HFNC to keep sats 88% or > 4. Outpatient PFTs 5. D/c sedating meds from AUG 6. Prognosis guarded; high complexity/critically ill due to Covid-19 No family present Subjective Date of service: 11/11/20 Principal diagnosis: COVID Interval history: Sleeping but arousable. + SOB. On 40LPM and 100% FiO2. Moved to [facility] b/c he was removing O2 + increased requirements. Active Medications Acetaminophen (Acetaminophen 325 Mg Tab) 650 mg PO Q4H PRN PRN Reason: Pain MILD(1-3)/Fever >100.5/[place] Last Admin: 11/08/20 19:02 Dose: 650 mg Documented by: Alprazolam (Alprazolam 0.25 Mg Tab) 0.25 mg PO Q8H PRN PRN Reason: Anxiety Last Admin: 11/11/20 10:07 Dose: 0.25 mg Documented by: Ascorbic Acid (Ascorbic Acid 500 Mg Tab) 1,000 mg PO BID [facility] Last Admin: 11/11/20 09:37 Dose: 1,000 mg Documented by: Baclofen (Baclofen 10 Mg Tab) 5 mg PO TID PRN PRN Reason: Hiccups Last Admin: 11/10/20 20:12 Dose: 5 mg Documented by: Cholecalciferol (Cholecalciferol (Vit D3) 5,000 Unit Tab) 5,000 unit PO DAILY [facility] Last Admin: 11/11/20 09:37 Dose: 5,000 unit Documented by: Dexamethasone (Dexamethasone 4 Mg/Ml Vial) 6 mg IV Q24HR@2200 [facility] Stop: 11/15/20 22:01 Last Admin: 11/10/20 21:12 Dose: 6 mg Documented by: Enoxaparin Sodium (Enoxaparin 80 Mg/0.8 Ml Inj) 70 mg SUB-Q Q12H [facility]; Protocol Last Admin: 11/11/20 11:06 Dose: 70 mg Documented by: Famotidine (Famotidine 20 Mg Tab) 20 mg PO BID [facility] Last Admin: 11/11/20 09:38 Dose: 20 mg Documented by: Guaifenesin (Guaifenesin 100 Mg/5 Ml Oral Liqd) 200 mg PO Q4H PRN PRN Reason: Cough Last Admin: 11/08/20 18:54 Dose: 200 mg Documented by: Hydralazine HCl (Hydralazine 20 Mg/1 Ml Inj) 10 mg IV Q4HR PRN PRN Reason: Blood Pressure REMDESIVIR 100 mg/ Sodium (Chloride) 250 mls @ 500 mls/hr IV Q24HR@2100 [facility] Stop: 11/11/20 21:29 Last Admin: 11/10/20 21:12 Dose: 500 mls/hr Documented by: Metoclopramide HCl (Metoclopramide 10 Mg/2 Ml Inj) 10 mg IV Q6HR [facility] Last Admin: 11/11/20 11:19 Dose: 10 mg Documented by: Morphine Sulfate (Morphine 2 Mg/1 Ml Inj) 2 mg IV Q4H PRN PRN Reason: Pain, Moderate (4-6) Last Admin: 11/11/20 11:10 Dose: 2 mg Documented by: Ondansetron HCl (Ondansetron 4 Mg/2 Ml Inj) 4 mg IV Q8H PRN PRN Reason: Nausea And Vomiting Last Admin: 11/09/20 19:49 Dose: 4 mg Documented by: Oxycodone/Acetaminophen (Oxycodone /Acetaminophen 5-325mg Tab) 1 tab PO Q6H PRN PRN Reason: Pain, Moderate (4-6) Last Admin: 11/08/20 13:55 Dose: 1 tab Documented by: Sodium Chloride (Sodium Chloride 0.9% 10 Ml Flush Syringe) 10 ml IV BID [facility] Last Admin: 11/11/20 09:37 Dose: 10 ml Documented by: Sodium Chloride (Sodium Chloride 0.9% 10 Ml Flush Syringe) 10 ml IV PRN PRN PRN Reason: LINE FLUSH Sodium Chloride (Sodium Chloride 0.9% 50 Ml Ivpb) 50 ml IV Q24HR@2100 [facility] Stop: 11/11/20 21:01 Last Admin: 11/10/20 21:12 Dose: 50 ml Documented by: Zinc Sulfate (Zinc Sulfate 220 Mg Cap) 220 mg PO BID [facility] Last Admin: 11/11/20 09:37 Dose: 220 mg Documented by: Objective Vital Signs - 12hr 11/11/20 11/11/20 11/11/20 04:11 04:33 08:10 Temperature 97.2 F L Pulse Rate 69 Respiratory 20 Rate Blood Pressure 132/59 O2 Sat by Pulse 87 90 94 Oximetry 11/11/20 15:26 Temperature Pulse Rate Respiratory Rate Blood Pressure O2 Sat by Pulse 94 Oximetry Constitutional: no acute distress, alert, other (on hiflo o2) Eyes: non-icteric ENT: oropharynx moist Neck: supple Effort: normal Ascultation: Bilateral: clear Cardiovascular: regular rate and rhythm (no mrg) Gastrointestinal: normoactive bowel sounds, soft, non-tender, non-distended Integumentary: normal Extremities: no cyanosis, no edema, pink and warm Neurologic: non-focal exam, pupils equal and round, CN II-XII normal, other (sleepy but arousable) Psychiatric: mood appropriate, affect normal CBC and BMP: 11/08/20 06:02 11/11/20 10:51 ABG, PT/INR, D-dimer: PT/INR, D-dimer PT 12.4 Sec. (12.2-14.9) 11/06/20 08:57 INR 0.94 (0.87-1.13) 11/06/20 08:57 D-Dimer 159.26 ng/mlDDU (0-234) 11/11/20 10:51 Abnormal lab findings: Abnormal Labs 11/06/20 11/06/20 11/06/20 08:57 08:57 08:57 WBC MCHC 35 H RDW 12.8 L Plt Count 131 L [place] % (Auto) 11.4 H Lymph # (Auto) 0.8 L Seg Neutrophils % D-Dimer 661.18 H Sodium Potassium Chloride BUN Creatinine Glucose Lactic Acid Calcium Magnesium 2.40 H Ferritin Direct Bilirubin AST Alkaline Phosphatase Lactate Dehydrogenase C-Reactive Protein Total Protein Albumin Coronavirus (PCR) 11/06/20 11/06/20 11/06/20 08:57 09:11 09:11 WBC MCHC RDW Plt Count [place] % (Auto) Lymph # (Auto) Seg Neutrophils % D-Dimer 600.32 H Sodium Potassium Chloride BUN Creatinine Glucose 112 H Lactic Acid 2.20 H* Calcium Magnesium Ferritin Direct Bilirubin AST Alkaline Phosphatase Lactate Dehydrogenase 509 H C-Reactive Protein 8.90 H Total Protein Albumin Coronavirus (PCR) 11/06/20 11/06/20 11/06/20 09:11 09:11 09:57 WBC MCHC RDW Plt Count [place] % (Auto) Lymph # (Auto) Seg Neutrophils % D-Dimer Sodium 133 L Potassium 3.2 L Chloride 93.3 L BUN 22 H Creatinine Glucose 113 H Lactic Acid Calcium 8.2 L Magnesium Ferritin 3934.0 H Direct Bilirubin 0.3 H AST 69 H Alkaline Phosphatase 30 L Lactate Dehydrogenase C-Reactive Protein Total Protein Albumin 3.4 L Coronavirus (PCR) Positive A 11/07/20 11/07/20 11/07/20 07:26 07:26 19:10 WBC 3.6 L MCHC 35 H RDW 12.9 L Plt Count 139 L [place] % (Auto) Lymph # (Auto) 0.5 L Seg Neutrophils % 78.1 H D-Dimer Sodium 135 L Potassium Chloride BUN Creatinine 0.6 L 0.6 L Glucose 143 H 117 H Lactic Acid Calcium 7.8 L 7.7 L Magnesium Ferritin Direct Bilirubin AST 55 H 50 H Alkaline Phosphatase 29 L 31 L Lactate Dehydrogenase C-Reactive Protein Total Protein Albumin 3.1 L 3.0 L Coronavirus (PCR) 11/08/20 11/08/20 11/08/20 06:02 06:02 18:25 WBC MCHC 35 H RDW 12.9 L Plt Count [place] % (Auto) Lymph # (Auto) Seg Neutrophils % D-Dimer Sodium 135 L Potassium Chloride BUN Creatinine 0.7 L Glucose 138 H Lactic Acid Calcium 7.5 L Magnesium Ferritin 2864.0 H Direct Bilirubin AST 45 H Alkaline Phosphatase 30 L Lactate Dehydrogenase C-Reactive Protein Total Protein Albumin 3.0 L Coronavirus (PCR) 11/08/20 11/09/20 11/10/20 18:25 05:44 06:46 WBC MCHC RDW Plt Count [place] % (Auto) Lymph # (Auto) Seg Neutrophils % D-Dimer Sodium Potassium Chloride BUN Creatinine 0.5 L 0.5 L Glucose 150 H 140 H Lactic Acid Calcium 7.5 L 7.7 L Magnesium Ferritin Direct Bilirubin AST Alkaline Phosphatase Lactate Dehydrogenase 538 H C-Reactive Protein 3.00 H Total Protein 6.1 L Albumin 3.3 L 2.9 L Coronavirus (PCR) 11/10/20 11/10/20 11/11/20 16:09 16:09 10:51 WBC MCHC RDW Plt Count [place] % (Auto) Lymph # (Auto) Seg Neutrophils % D-Dimer Sodium Potassium Chloride BUN Creatinine Glucose Lactic Acid Calcium Magnesium Ferritin 2483.0 H 2486.0 H Direct Bilirubin AST Alkaline Phosphatase Lactate Dehydrogenase 586 H C-Reactive Protein 1.50 H Total Protein Albumin Coronavirus (PCR) 11/11/20 11/11/20 10:51 10:51 WBC MCHC RDW Plt Count [place] % (Auto) Lymph # (Auto) Seg Neutrophils % D-Dimer Sodium Potassium Chloride BUN Creatinine Glucose 149 H Lactic Acid Calcium Magnesium Ferritin Direct Bilirubin AST Alkaline Phosphatase Lactate Dehydrogenase 624 H C-Reactive Protein 4.30 H Total Protein Albumin Coronavirus (PCR) Chest x-ray: report reviewed, image reviewed CT scan - chest: report reviewed, image reviewed
[2020-11-11 16:31] LABS: C-Reactive Protein 4.9 mg/dL (0.00-1.30)
[2020-11-11] MEDS: ACETAMINOPHEN 325 MG TAB PO PRN (17:58)
[2020-11-11] MEDS: guaiFENesin 100 MG/5 ML ORAL LIQD PO PRN (17:59)
[2020-11-11] MEDS: REMDESIVIR 100 MG in SODIUM CHLORIDE 0.9% 250ML 250 ML IV SCH (21:21)
[2020-11-11] MEDS: SODIUM CHLORIDE 0.9% 50 ML IVPB IV SCH (21:22)
[2020-11-11] MEDS: dexAMETHasone 4 MG/ML VIAL IV SCH (21:26)
[2020-11-12] MEDS: METOCLOPRAMIDE 10 MG/2 ML INJ IV SCH ×4 (00:03→18:21)
[2020-11-12] MEDS: ALPRAZolam 0.25 MG TAB PO PRN ×2 (00:36→18:22)
--- NOTE | 2020-11-12 09:00 | Progress Note ---
Assessment and Plan Assessment and plan: Sepsis. Severe COVID-19 pneumonia. Acute hypoxemic respiratory failure. Thrombocytopenia. Transaminitis. Nausea and vomiting. 11/08/2020. Continue dexamethasone and remdesivir. Patient is s/p tocilizumab. Procalcitonin is normal. Therefore, abx discontinued. Prone positioning as possible. Continue to trend inflammatory markers. 11/09/2020. Nurse reports patient with nausea vomiting this morning that resolved with Zofran. Continue dexamethasone and remdesivir. Patient is s/p tocilizumab. Procalcitonin is normal. Patient currently requiring high flow nasal cannula 15 L/min at 75% FiO2. Continue to wean oxygen as tolerated. 11/10/2020. Patient's oxygen requirements have improved with high flow nasal cannula 20 L/min O2 with FiO2 of 70%. Continue dexamethasone and remdesivir. C ontinue to wean oxygen as tolerated. 11/11/2020. Patient's oxygen requirements are worse high flow nasal cannula 40 L/min with FiO2 of 100%. Consider BiPAP if continues to worsen. Pulmonary following. Continue dexamethasone and remdesivir. Remdesivir completes today. Continue to trend inflammatory markers. Prone positioning as possible. 11/12/2020. Patient remains on high flow nasal cannula with 40 L/min O2 and FiO2 100%. Continue Decadron, remdesivir and therapeutic Lovenox. Continue to trend inflammatory markers. Wean oxygen to maintain sats greater than 92%. Prone positioning as possible. Prognosis remains guarded. History Interval history: No new issues overnight Hospitalist Physical - Constitutional Vitals: Temp Pulse Resp BP Pulse Ox 98.4 F 95 H 18 146/87 84 11/11/20 16:38 11/12/20 08:41 11/12/20 08:41 11/12/20 08:41 11/12/20 08:41 General appearance: Present: no acute distress, well-nourished - EENT Eyes: Present: PERRL, EOM intact ENT: hearing intact, clear oral mucosa, dentition normal - Neck Neck: Present: supple, normal ROM - Respiratory Respiratory effort: normal Respiratory: bilateral: CTA - Cardiovascular Rhythm: regular Heart Sounds: Present: S1 & S2. Absent: gallop, rub - Extremities Extremities: no ischemia, No edema, Full ROM - Abdominal General gastrointestinal: soft, non-tender, non-distended, normal bowel sounds - Integumentary Integumentary: Present: clear, warm, dry - Neurologic Neurologic: CNII-XII intact, moves all extremities HEART Score - HEART Score Troponin: Troponin T < 0.010 ng/mL (0.00-0.029) 11/06/20 11:26 Results - Labs CBC & Chem 7: 11/08/20 06:02 11/11/20 10:51 Labs: Laboratory Last Values WBC 6.2 K/mm3 (4.5-11.0) 11/08/20 06:02 RBC 4.59 M/mm3 (3.65-5.03) 11/08/20 06:02 Hgb 14.4 gm/dl (11.8-15.2) 11/08/20 06:02 Hct 41.0 % (35.5-45.6) 11/08/20 06:02 MCV 89 fl (84-94) 11/08/20 06:02 MCH 31 pg (28-32) 11/08/20 06:02 MCHC 35 % (32-34) H 11/08/20 06:02 RDW 12.9 % (13.2-15.2) L 11/08/20 06:02 Plt Count 173 K/mm3 (140-440) 11/08/20 06:02 Lymph % (Auto) 14.4 % (13.4-35.0) 11/07/20 07:26 [place] % (Auto) 7.3 % (0.0-7.3) 11/07/20 07:26 Eos % (Auto) 0.0 % (0.0-4.3) 11/07/20 07:26 Baso % (Auto) 0.2 % (0.0-1.8) 11/07/20 07:26 Lymph # (Auto) 0.5 K/mm3 (1.2-5.4) L 11/07/20 07:26 [place] # (Auto) 0.3 K/mm3 (0.0-0.8) 11/07/20 07:26 Eos # (Auto) 0.0 K/mm3 (0.0-0.4) 11/07/20 07:26 Baso # (Auto) 0.0 K/mm3 (0.0-0.1) 11/07/20 07:26 Seg Neutrophils % 78.1 % (40.0-70.0) H 11/07/20 07:26 Seg Neutrophils # 2.8 K/mm3 (1.8-7.7) 11/07/20 07:26 PT 12.4 Sec. (12.2-14.9) 11/06/20 08:57 INR 0.94 (0.87-1.13) 11/06/20 08:57 APTT 33.5 Sec. (24.2-36.6) 11/06/20 08:57 D-Dimer 211.55 ng/mlDDU (0-234) 11/11/20 15:45 Sodium 139 mmol/L (137-145) 11/10/20 06:46 Potassium 3.9 mmol/L (3.6-5.0) 11/10/20 06:46 Chloride 102.5 mmol/L (98-107) 11/10/20 06:46 Carbon Dioxide 25 mmol/L (22-30) 11/10/20 06:46 Anion Gap 15 mmol/L 11/10/20 06:46 BUN 17 mg/dL (9-20) 11/10/20 06:46 Creatinine 0.5 mg/dL (0.8-1.3) L 11/10/20 06:46 Estimated GFR > 60 ml/min 11/10/20 06:46 BUN/Creatinine Ratio 34 % 11/10/20 06:46 Glucose 149 mg/dL (75-100) H 11/11/20 10:51 Hemoglobin A1c 5.6 % (4-6) 11/07/20 07:26 Lactic Acid 1.50 mmol/L (0.7-2.0) 11/06/20 11:26 Calcium 7.7 mg/dL (8.4-10.2) L 11/10/20 06:46 Magnesium 2.40 mg/dL (1.7-2.3) H 11/06/20 08:57 Ferritin 2573.0 ng/mL (30.0-300.0) H 11/11/20 15:45 Total Bilirubin 0.50 mg/dL (0.1-1.2) 11/10/20 06:46 Direct Bilirubin 0.3 mg/dL (0-0.2) H 11/06/20 09:11 Indirect Bilirubin 0.5 mg/dL 11/06/20 09:11 AST 34 units/L (5-40) 11/10/20 06:46 ALT 21 units/L (7-56) 11/10/20 06:46 Alkaline Phosphatase 35 units/L (35-129) 11/10/20 06:46 Lactate Dehydrogenase 627 units/L (91-180) H 11/11/20 15:45 Troponin T < 0.010 ng/mL (0.00-0.029) 11/06/20 11:26 C-Reactive Protein 4.90 mg/dL (0.00-1.30) H 11/11/20 15:45 Total Protein 6.3 g/dL (6.3-8.2) 11/10/20 06:46 Albumin 2.9 g/dL (3.9-5) L 11/10/20 06:46 Albumin/Globulin Ratio 0.9 % 11/10/20 06:46 Lipase 39 units/L (13-60) 11/06/20 08:57 Procalcitonin < 0.05 ng/mL (<0.15) 11/11/20 15:45 Urine Color [place] (Yellow) 11/06/20 17:14 Urine Turbidity Clear (Clear) 11/06/20 17:14 Urine pH 6.0 (5.0-7.0) 11/06/20 17:14 Ur Specific [place] 1.024 (1.003-1.030) 11/06/20 17:14 Urine Protein 100 mg/dl mg/dL (Negative) 11/06/20 17:14 Urine Glucose (UA) Neg mg/dL (Negative) 11/06/20 17:14 Urine Ketones Neg mg/dL (Negative) 11/06/20 17:14 Urine Blood Sm (Negative) 11/06/20 17:14 Urine Nitrite Neg (Negative) 11/06/20 17:14 Urine Bilirubin Neg (Negative) 11/06/20 17:14 Urine Urobilinogen < 2.0 mg/dL (<2.0) 11/06/20 17:14 Ur Leukocyte Esterase Neg (Negative) 11/06/20 17:14 Urine WBC (Auto) 3.0 /HPF (0.0-6.0) 11/06/20 17:14 Urine RBC (Auto) 3.0 /HPF (0.0-6.0) 11/06/20 17:14 Urine Mucus Few /HPF 11/06/20 17:14 Coronavirus (PCR) Positive (Negative) A 11/06/20 09:57 Microbiology: Microbiology 11/06/20 08:57 Peripheral/Venous Blood Culture - Final NO GROWTH AFTER 5 DAYS 11/06/20 08:57 Peripheral/Venous Blood Culture - Final NO GROWTH AFTER 5 DAYS Holt/IV: Voiding Method Urinal Active Medications - Current Medications Current Medications: Generic Name Dose Route Start Last Admin Trade Name Freq PRN Reason Stop Dose Admin Acetaminophen 650 mg 11/06/20 22:23 11/11/20 17:58 Acetaminophen 325 Mg Tab PO 650 mg Q4H PRN Administration Pain MILD(1-3)/Fever >100.5/[place] Alprazolam 0.25 mg 11/09/20 20:07 11/12/20 00:36 Alprazolam 0.25 Mg Tab PO 0.25 mg Q8H PRN Administration Anxiety Ascorbic Acid 1,000 mg 11/06/20 23:00 11/11/20 21:34 Ascorbic Acid 500 Mg Tab PO 1,000 mg BID BOBBY Administration Cholecalciferol 5,000 unit 11/07/20 10:00 11/11/20 09:37 Cholecalciferol (Vit D3) 5,000 Unit Tab PO 5,000 unit DAILY [facility] Administration Dexamethasone 6 mg 11/07/20 22:00 11/11/20 21:26 Dexamethasone 4 Mg/Ml Vial IV 11/15/20 22:01 6 mg Q24HR@2200 [facility] Administration Enoxaparin Sodium 70 mg 11/06/20 23:00 11/11/20 23:53 Enoxaparin 80 Mg/0.8 Ml Inj SUB-Q 70 mg Q12H [facility] Administration Protocol Famotidine 20 mg 11/06/20 23:00 11/11/20 21:36 Famotidine 20 Mg Tab PO 20 mg BID BOBBY Administration Guaifenesin 200 mg 11/06/20 18:33 11/11/20 17:59 Guaifenesin 100 Mg/5 Ml Oral Liqd PO 200 mg Q4H PRN Administration Cough Hydralazine HCl 10 mg 11/07/20 13:38 Hydralazine 20 Mg/1 Ml Inj IV Q4HR PRN Blood Pressure Metoclopramide HCl 10 mg 11/10/20 21:00 11/12/20 06:16 Metoclopramide 10 Mg/2 Ml Inj IV 10 mg Q6HR [facility]OBBY Administration Ondansetron HCl 4 mg 11/06/20 22:23 11/09/20 19:49 Ondansetron 4 Mg/2 Ml Inj IV 4 mg Q8H PRN Administration Nausea And Vomiting Sodium Chloride 10 ml 11/06/20 23:00 11/11/20 21:29 Sodium Chloride 0.9% 10 Ml Flush Syringe IV 10 ml BID BOBBY Administration Sodium Chloride 10 ml 11/06/20 22:23 Sodium Chloride 0.9% 10 Ml Flush Syringe IV PRN PRN LINE FLUSH Zinc Sulfate 220 mg 11/06/20 23:00 11/11/20 21:36 Zinc Sulfate 220 Mg Cap PO 220 mg BID BOBBY Administration Nutrition/Malnutrition Assess - Dietary Evaluation Nutrition/Malnutrition Findings: Nutrition Notes Start: 11/11/20 09:00 Freq: Status: Active Protocol: Document 11/11/20 09:00 AT (Rec: 11/11/20 09:01 AT [id number]) Co-Sign 11/11/20 09:00 MK Nutrition Notes Need for Assessment generated from: LOS Initial or Follow up Assessment Current Diagnosis Hypertension,Respiratory Failure Other Pertinent Diagnosis SOB, Bilat pneu, COVID-19(+), Centrilobular Emphysema Current Diet Cardiac Diet Labs/Tests 11/10 Cr 0.5 BG 140 Ca 7.7 Pertinent Medications Reglan Zinc Sulfate Vitamin C Vitamin D3 Decadron Zofran Height 5 ft 4 in Weight 68.7 kg [place] Body Weight (kg) 59.09 BMI 25.9 Weight Status Appropriate Subjective/Other Information Screen for LOS. Unable to reach pt by phone x3. Per chart, pt consuming 38% of meals on average over the course of 4 days. Per chart, pt consumed 100% of breakfast and lunch yesterday. Per chart , pt had an episode of emesis last night. Will continue to follow for stable intakes. Percent of energy/protein needs met: 47%/47% Burn Absent Trauma Absent GI Symptoms Nausea,Vomiting Current % PO Poor (25-49%) Minimum of two criteria No physical signs of malnutrition #1 Nutrition Diagnosis Inadequate oral intake Etiology COVID-19 As Evidenced by Signs and Symptoms pt meeting 47% EER and 47% protein needs Is patient on ventilator? No Is Patient Ambulatory and/or Out of Bed Yes REE-([facility]-ambulatory/OOB) [ 1797.900 [id number]] Calculation Used for Recommendations [facility] Additional Notes PRO needs: 69-82g (1-1.2g/kg) Fluid needs: 1 mL/kcal or per MD Nutrition Intervention Change Diet Order: Continue diet as ordered Add Supplement/Snack (indicate name/kcal Ensure High Protein TID /protein ) Provides kCal: 480 Provides Protein (gm) 48 Goal #1 Meet at least 80% of EER and protein needs via diet and ONS Anticipated Discharge Needs: Cardiac Diet Follow-Up By: 11/15/20 Additional Comments F/U for stable intakes and ONS tolerance
[2020-11-12] MEDS: ZINC SULFATE 220 MG CAP PO SCH ×2 (10:47→21:01)
[2020-11-12] MEDS: FAMOTIDINE 20 MG TAB PO SCH ×2 (10:47→21:01)
[2020-11-12] MEDS: ASCORBIC ACID 500 MG TAB PO SCH ×2 (10:47→21:01)
[2020-11-12] MEDS ORDERED: CHOLECALCIFEROL (VIT D3) 5,000 UNIT TAB PO SCH (11:00)
--- NOTE | 2020-11-12 11:27 | Progress Note ---
Assessment and Plan - Patient Problems (1) Acute respiratory failure with hypoxia Current Visit: Yes Status: Acute (2) Bilateral pneumonia Current Visit: Yes Status: Acute Qualifiers: Pneumonia type: due to unspecified organism (3) Hypoxia Current Visit: Yes Status: Acute (4) COVID-19 Current Visit: Yes Status: Acute (5) HTN (hypertension) Current Visit: Yes Status: Chronic Qualifiers: Hypertension type: essential hypertension Qualified Code(s): I10 - Essential (primary) hypertension Subjective Principal diagnosis: COVID Interval history: awake. Positioned on his side. Still on hiflo at 100% Objective Vital Signs - 12hr 11/11/20 11/11/20 11/11/20 22:51 23:01 23:11 Temperature Pulse Rate 109 H 86 Pulse Rate [ From Monitor] Respiratory 18 31 H Rate Blood Pressure 125/77 125/77 161/93 O2 Sat by Pulse 77 L 64 L 90 Oximetry 11/11/20 11/11/20 11/11/20 23:21 23:30 23:41 Temperature Pulse Rate 86 93 H 85 Pulse Rate [ From Monitor] Respiratory 30 H 19 28 H Rate Blood Pressure 123/85 120/83 120/83 O2 Sat by Pulse 93 95 Oximetry 11/11/20 11/12/20 11/12/20 23:51 00:00 00:11 Temperature Pulse Rate 92 H 91 H 87 Pulse Rate [ From Monitor] Respiratory 29 H 27 H 30 H Rate Blood Pressure 120/83 102/74 102/74 O2 Sat by Pulse 93 100 93 Oximetry 11/12/20 11/12/20 11/12/20 00:21 00:30 00:37 Temperature Pulse Rate 107 H 90 Pulse Rate [ 92 H From Monitor] Respiratory 16 16 24 Rate Blood Pressure 102/74 141/87 O2 Sat by Pulse 87 86 93 Oximetry 11/12/20 11/12/20 11/12/20 00:41 00:51 01:00 Temperature Pulse Rate 81 84 80 Pulse Rate [ From Monitor] Respiratory 22 27 H 24 Rate Blood Pressure 141/87 141/87 98/57 O2 Sat by Pulse 94 97 97 Oximetry 11/12/20 11/12/20 11/12/20 01:11 01:21 01:30 Temperature Pulse Rate 106 H 84 81 Pulse Rate [ From Monitor] Respiratory 13 15 26 H Rate Blood Pressure 98/57 98/57 110/69 O2 Sat by Pulse 78 L 94 89 Oximetry 11/12/20 11/12/20 11/12/20 01:41 01:51 02:00 Temperature Pulse Rate 85 81 95 H Pulse Rate [ From Monitor] Respiratory 28 H 29 H 34 H Rate Blood Pressure 110/69 110/69 128/93 O2 Sat by Pulse 95 97 91 Oximetry 11/12/20 11/12/20 11/12/20 02:11 02:21 02:30 Temperature Pulse Rate 80 80 90 Pulse Rate [ From Monitor] Respiratory 27 H 30 H 24 Rate Blood Pressure 128/93 128/93 115/81 O2 Sat by Pulse 98 97 96 Oximetry 11/12/20 11/12/20 11/12/20 02:41 02:51 03:00 Temperature Pulse Rate 84 82 78 Pulse Rate [ From Monitor] Respiratory 26 H 26 H 29 H Rate Blood Pressure 115/81 115/81 99/70 O2 Sat by Pulse 97 97 93 Oximetry 11/12/20 11/12/20 11/12/20 03:11 03:21 03:30 Temperature Pulse Rate 75 75 80 Pulse Rate [ From Monitor] Respiratory 27 H 29 H 30 H Rate Blood Pressure 99/70 99/70 105/70 O2 Sat by Pulse 95 95 94 Oximetry 11/12/20 11/12/20 11/12/20 03:41 03:51 04:00 Temperature Pulse Rate 85 88 82 Pulse Rate [ 82 From Monitor] Respiratory 26 H 12 13 Rate Blood Pressure 105/70 105/70 O2 Sat by Pulse 96 93 98 Oximetry 11/12/20 11/12/20 11/12/20 04:01 04:09 04:11 Temperature Pulse Rate 101 H 84 Pulse Rate [ From Monitor] Respiratory 49 H 17 Rate Blood Pressure 43/15 120/87 O2 Sat by Pulse 94 92 Oximetry 11/12/20 11/12/20 11/12/20 04:21 04:31 04:41 Temperature Pulse Rate 81 78 Pulse Rate [ From Monitor] Respiratory 25 H 26 H Rate Blood Pressure 120/87 120/87 120/87 O2 Sat by Pulse 93 71 L 91 Oximetry 11/12/20 11/12/20 11/12/20 04:51 05:00 05:11 Temperature Pulse Rate 77 82 86 Pulse Rate [ From Monitor] Respiratory 24 27 H 30 H Rate Blood Pressure 120/87 100/68 100/68 O2 Sat by Pulse 91 90 91 Oximetry 11/12/20 11/12/20 11/12/20 05:21 05:31 05:41 Temperature Pulse Rate 76 84 97 H Pulse Rate [ From Monitor] Respiratory 26 H 29 H 19 Rate Blood Pressure 100/68 103/77 103/77 O2 Sat by Pulse 94 92 Oximetry 11/12/20 11/12/20 11/12/20 05:51 06:01 06:11 Temperature Pulse Rate 112 H 101 H 105 H Pulse Rate [ From Monitor] Respiratory 23 22 26 H Rate Blood Pressure 103/77 103/77 103/77 O2 Sat by Pulse 100 99 Oximetry 11/12/20 11/12/20 11/12/20 06:20 06:31 06:41 Temperature Pulse Rate 83 91 H Pulse Rate [ From Monitor] Respiratory 16 14 Rate Blood Pressure 103/77 103/77 146/87 O2 Sat by Pulse 95 89 90 Oximetry 11/12/20 11/12/20 11/12/20 06:51 07:01 07:11 Temperature Pulse Rate 88 88 76 Pulse Rate [ From Monitor] Respiratory 21 38 H 26 H Rate Blood Pressure 146/87 146/87 146/87 O2 Sat by Pulse 94 93 95 Oximetry 11/12/20 11/12/20 11/12/20 07:21 07:31 07:41 Temperature Pulse Rate 83 81 91 H Pulse Rate [ From Monitor] Respiratory 24 27 H 24 Rate Blood Pressure 146/87 146/87 146/87 O2 Sat by Pulse 93 90 91 Oximetry 11/12/20 11/12/20 11/12/20 07:51 08:00 08:01 Temperature Pulse Rate 91 H 79 90 Pulse Rate [ 90 From Monitor] Respiratory 24 17 32 H Rate Blood Pressure 146/87 146/87 O2 Sat by Pulse 90 91 89 Oximetry 11/12/20 11/12/20 11/12/20 08:11 08:21 08:31 Temperature Pulse Rate 86 80 88 Pulse Rate [ From Monitor] Respiratory 32 H 31 H 17 Rate Blood Pressure 146/87 146/87 146/87 O2 Sat by Pulse 87 88 87 Oximetry 11/12/20 11/12/20 08:41 09:00 Temperature 97.9 F Pulse Rate 95 H Pulse Rate [ From Monitor] Respiratory 18 Rate Blood Pressure 146/87 O2 Sat by Pulse 84 Oximetry Constitutional: no acute distress, alert, other (on hiflo o2) Eyes: non-icteric ENT: oropharynx moist Neck: supple Effort: normal Ascultation: Bilateral: clear Cardiovascular: regular rate and rhythm (no mrg) Gastrointestinal: normoactive bowel sounds, soft, non-tender, non-distended Integumentary: normal Extremities: no cyanosis, no edema, pink and warm Neurologic: non-focal exam, pupils equal and round, CN II-XII normal, other (sleepy but arousable) Psychiatric: mood appropriate, affect normal CBC and BMP: 11/08/20 06:02 11/11/20 10:51 ABG, PT/INR, D-dimer: PT/INR, D-dimer PT 12.4 Sec. (12.2-14.9) 11/06/20 08:57 INR 0.94 (0.87-1.13) 11/06/20 08:57 D-Dimer 211.55 ng/mlDDU (0-234) 11/11/20 15:45 Abnormal lab findings: Abnormal Labs 11/06/20 11/06/20 11/06/20 08:57 08:57 08:57 WBC MCHC 35 H RDW 12.8 L Plt Count 131 L [place] % (Auto) 11.4 H Lymph # (Auto) 0.8 L Seg Neutrophils % D-Dimer 661.18 H Sodium Potassium Chloride BUN Creatinine Glucose POC Glucose Lactic Acid Calcium Magnesium 2.40 H Ferritin Direct Bilirubin AST Alkaline Phosphatase Lactate Dehydrogenase C-Reactive Protein Total Protein Albumin Coronavirus (PCR) 11/06/20 11/06/20 11/06/20 08:57 09:11 09:11 WBC MCHC RDW Plt Count [place] % (Auto) Lymph # (Auto) Seg Neutrophils % D-Dimer 600.32 H Sodium Potassium Chloride BUN Creatinine Glucose 112 H POC Glucose Lactic Acid 2.20 H* Calcium Magnesium Ferritin Direct Bilirubin AST Alkaline Phosphatase Lactate Dehydrogenase 509 H C-Reactive Protein 8.90 H Total Protein Albumin Coronavirus (PCR) 11/06/20 11/06/20 11/06/20 09:11 09:11 09:57 WBC MCHC RDW Plt Count [place] % (Auto) Lymph # (Auto) Seg Neutrophils % D-Dimer Sodium 133 L Potassium 3.2 L Chloride 93.3 L BUN 22 H Creatinine Glucose 113 H POC Glucose Lactic Acid Calcium 8.2 L Magnesium Ferritin 3934.0 H Direct Bilirubin 0.3 H AST 69 H Alkaline Phosphatase 30 L Lactate Dehydrogenase C-Reactive Protein Total Protein Albumin 3.4 L Coronavirus (PCR) Positive A 11/07/20 11/07/20 11/07/20 07:26 07:26 19:10 WBC 3.6 L MCHC 35 H RDW 12.9 L Plt Count 139 L [place] % (Auto) Lymph # (Auto) 0.5 L Seg Neutrophils % 78.1 H D-Dimer Sodium 135 L Potassium Chloride BUN Creatinine 0.6 L 0.6 L Glucose 143 H 117 H POC Glucose Lactic Acid Calcium 7.8 L 7.7 L Magnesium Ferritin Direct Bilirubin AST 55 H 50 H Alkaline Phosphatase 29 L 31 L Lactate Dehydrogenase C-Reactive Protein Total Protein Albumin 3.1 L 3.0 L Coronavirus (PCR) 11/08/20 11/08/20 11/08/20 06:02 06:02 18:25 WBC MCHC 35 H RDW 12.9 L Plt Count [place] % (Auto) Lymph # (Auto) Seg Neutrophils % D-Dimer Sodium 135 L Potassium Chloride BUN Creatinine 0.7 L Glucose 138 H POC Glucose Lactic Acid Calcium 7.5 L Magnesium Ferritin 2864.0 H Direct Bilirubin AST 45 H Alkaline Phosphatase 30 L Lactate Dehydrogenase C-Reactive Protein Total Protein Albumin 3.0 L Coronavirus (PCR) 11/08/20 11/09/20 11/10/20 18:25 05:44 06:46 WBC MCHC RDW Plt Count [place] % (Auto) Lymph # (Auto) Seg Neutrophils % D-Dimer Sodium Potassium Chloride BUN Creatinine 0.5 L 0.5 L Glucose 150 H 140 H POC Glucose Lactic Acid Calcium 7.5 L 7.7 L Magnesium Ferritin Direct Bilirubin AST Alkaline Phosphatase Lactate Dehydrogenase 538 H C-Reactive Protein 3.00 H Total Protein 6.1 L Albumin 3.3 L 2.9 L Coronavirus (PCR) 11/10/20 11/10/20 11/11/20 16:09 16:09 10:51 WBC MCHC RDW Plt Count [place] % (Auto) Lymph # (Auto) Seg Neutrophils % D-Dimer Sodium Potassium Chloride BUN Creatinine Glucose POC Glucose Lactic Acid Calcium Magnesium Ferritin 2483.0 H 2486.0 H Direct Bilirubin AST Alkaline Phosphatase Lactate Dehydrogenase 586 H C-Reactive Protein 1.50 H Total Protein Albumin Coronavirus (PCR) 11/11/20 11/11/20 11/11/20 10:51 10:51 15:45 WBC MCHC RDW Plt Count [place] % (Auto) Lymph # (Auto) Seg Neutrophils % D-Dimer Sodium Potassium Chloride BUN Creatinine Glucose 149 H POC Glucose Lactic Acid Calcium Magnesium Ferritin 2573.0 H Direct Bilirubin AST Alkaline Phosphatase Lactate Dehydrogenase 624 H C-Reactive Protein 4.30 H Total Protein Albumin Coronavirus (PCR) 11/11/20 11/12/20 15:45 07:52 WBC MCHC RDW Plt Count [place] % (Auto) Lymph # (Auto) Seg Neutrophils % D-Dimer Sodium Potassium Chloride BUN Creatinine Glucose POC Glucose 147 H Lactic Acid Calcium Magnesium Ferritin Direct Bilirubin AST Alkaline Phosphatase Lactate Dehydrogenase 627 H C-Reactive Protein 4.90 H Total Protein Albumin Coronavirus (PCR)
[2020-11-12] MEDS: ENOXAPARIN 80 MG/0.8 ML INJ SUB-Q SCH ×2 (13:04→22:31)
[2020-11-12] MEDS: CHOLECALCIFEROL (VIT D3) 5,000 UNIT TAB PO SCH (16:33)
[2020-11-12] MEDS: ONDANSETRON 4 MG/2 ML INJ IV PRN (20:29)
[2020-11-12] MEDS: dexAMETHasone 4 MG/ML VIAL IV SCH (21:15)
[2020-11-12] MEDS ORDERED: LORazepam 2 MG/ML VIAL IV ONE (21:28)
[2020-11-13] MEDS: METOCLOPRAMIDE 10 MG/2 ML INJ IV SCH ×5 (00:31→23:58)
[2020-11-13] MEDS ORDERED: LORazepam 2 MG/ML VIAL IV ONE (06:45)
[2020-11-13] MEDS ORDERED: LORazepam 2 MG/ML VIAL ONE (06:48)
--- NOTE | 2020-11-13 08:24 | Progress Note ---
Assessment and Plan Assessment and plan: Sepsis. Severe COVID-19 pneumonia. Acute hypoxemic respiratory failure. Thrombocytopenia. Transaminitis. Nausea and vomiting. 11/08/2020. Continue dexamethasone and remdesivir. Patient is s/p tocilizumab. Procalcitonin is normal. Therefore, abx discontinued. Prone positioning as possible. Continue to trend inflammatory markers. 11/09/2020. Nurse reports patient with nausea vomiting this morning that resolved with Zofran. Continue dexamethasone and remdesivir. Patient is s/p tocilizumab. Procalcitonin is normal. Patient currently requiring high flow nasal cannula 15 L/min at 75% FiO2. Continue to wean oxygen as tolerated. 11/10/2020. Patient's oxygen requirements have improved with high flow nasal cannula 20 L/min O2 with FiO2 of 70%. Continue dexamethasone and remdesivir. C ontinue to wean oxygen as tolerated. 11/11/2020. Patient's oxygen requirements are worse high flow nasal cannula 40 L/min with FiO2 of 100%. Consider BiPAP if continues to worsen. Pulmonary following. Continue dexamethasone and remdesivir. Remdesivir completes today. Continue to trend inflammatory markers. Prone positioning as possible. 11/12/2020. Patient remains on high flow nasal cannula with 40 L/min O2 and FiO2 100%. Continue Decadron, remdesivir and therapeutic Lovenox. Continue to trend inflammatory markers. Wean oxygen to maintain sats greater than 92%. Prone positioning as possible. Prognosis remains guarded. 11/13/2020. Nurse reports patient is agitated this morning not improved with Ativan. Continue restraints for safety. Consider Precedex drip. Patient remains on high flow nasal cannula with 40 L/min O2 and FiO2 100%. Continue Decadron, remdesivir and therapeutic Lovenox. Continue to trend inflammatory markers. Wean oxygen to maintain sats greater than 92%. Prone positioning as possible. Prognosis remains guarded. History Interval history: No new issues overnight Hospitalist Physical - Constitutional Vitals: Temp Pulse Resp BP Pulse Ox 97.9 F 93 H 24 112/82 92 11/13/20 08:00 11/13/20 07:41 11/13/20 07:41 11/13/20 07:41 11/13/20 07:41 General appearance: Present: no acute distress, well-nourished - EENT Eyes: Present: PERRL, EOM intact ENT: hearing intact, clear oral mucosa, dentition normal - Neck Neck: Present: supple, normal ROM - Respiratory Respiratory effort: normal Respiratory: bilateral: CTA - Cardiovascular Rhythm: regular Heart Sounds: Present: S1 & S2. Absent: gallop, rub - Extremities Extremities: no ischemia, No edema, Full ROM - Abdominal General gastrointestinal: soft, non-tender, non-distended, normal bowel sounds - Integumentary Integumentary: Present: clear, warm, dry - Neurologic Neurologic: CNII-XII intact, moves all extremities HEART Score - HEART Score Troponin: Troponin T < 0.010 ng/mL (0.00-0.029) 11/06/20 11:26 Results - Labs CBC & Chem 7: 11/08/20 06:02 11/11/20 10:51 Labs: Laboratory Last Values WBC 6.2 K/mm3 (4.5-11.0) 11/08/20 06:02 RBC 4.59 M/mm3 (3.65-5.03) 11/08/20 06:02 Hgb 14.4 gm/dl (11.8-15.2) 11/08/20 06:02 Hct 41.0 % (35.5-45.6) 11/08/20 06:02 MCV 89 fl (84-94) 11/08/20 06:02 MCH 31 pg (28-32) 11/08/20 06:02 MCHC 35 % (32-34) H 11/08/20 06:02 RDW 12.9 % (13.2-15.2) L 11/08/20 06:02 Plt Count 173 K/mm3 (140-440) 11/08/20 06:02 Lymph % (Auto) 14.4 % (13.4-35.0) 11/07/20 07:26 [place] % (Auto) 7.3 % (0.0-7.3) 11/07/20 07:26 Eos % (Auto) 0.0 % (0.0-4.3) 11/07/20 07:26 Baso % (Auto) 0.2 % (0.0-1.8) 11/07/20 07:26 Lymph # (Auto) 0.5 K/mm3 (1.2-5.4) L 11/07/20 07:26 [place] # (Auto) 0.3 K/mm3 (0.0-0.8) 11/07/20 07:26 Eos # (Auto) 0.0 K/mm3 (0.0-0.4) 11/07/20 07:26 Baso # (Auto) 0.0 K/mm3 (0.0-0.1) 11/07/20 07:26 Seg Neutrophils % 78.1 % (40.0-70.0) H 11/07/20 07:26 Seg Neutrophils # 2.8 K/mm3 (1.8-7.7) 11/07/20 07:26 PT 12.4 Sec. (12.2-14.9) 11/06/20 08:57 INR 0.94 (0.87-1.13) 11/06/20 08:57 APTT 33.5 Sec. (24.2-36.6) 11/06/20 08:57 D-Dimer 211.55 ng/mlDDU (0-234) 11/11/20 15:45 Sodium 139 mmol/L (137-145) 11/10/20 06:46 Potassium 3.9 mmol/L (3.6-5.0) 11/10/20 06:46 Chloride 102.5 mmol/L (98-107) 11/10/20 06:46 Carbon Dioxide 25 mmol/L (22-30) 11/10/20 06:46 Anion Gap 15 mmol/L 11/10/20 06:46 BUN 17 mg/dL (9-20) 11/10/20 06:46 Creatinine 0.5 mg/dL (0.8-1.3) L 11/10/20 06:46 Estimated GFR > 60 ml/min 11/10/20 06:46 BUN/Creatinine Ratio 34 % 11/10/20 06:46 Glucose 149 mg/dL (75-100) H 11/11/20 10:51 POC Glucose 166 mg/dL (70-105) H 11/13/20 05:28 Hemoglobin A1c 5.6 % (4-6) 11/07/20 07:26 Lactic Acid 1.50 mmol/L (0.7-2.0) 11/06/20 11:26 Calcium 7.7 mg/dL (8.4-10.2) L 11/10/20 06:46 Magnesium 2.40 mg/dL (1.7-2.3) H 11/06/20 08:57 Ferritin 2573.0 ng/mL (30.0-300.0) H 11/11/20 15:45 Total Bilirubin 0.50 mg/dL (0.1-1.2) 11/10/20 06:46 Direct Bilirubin 0.3 mg/dL (0-0.2) H 11/06/20 09:11 Indirect Bilirubin 0.5 mg/dL 11/06/20 09:11 AST 34 units/L (5-40) 11/10/20 06:46 ALT 21 units/L (7-56) 11/10/20 06:46 Alkaline Phosphatase 35 units/L (35-129) 11/10/20 06:46 Lactate Dehydrogenase 627 units/L (91-180) H 11/11/20 15:45 Troponin T < 0.010 ng/mL (0.00-0.029) 11/06/20 11:26 C-Reactive Protein 4.90 mg/dL (0.00-1.30) H 11/11/20 15:45 Total Protein 6.3 g/dL (6.3-8.2) 11/10/20 06:46 Albumin 2.9 g/dL (3.9-5) L 11/10/20 06:46 Albumin/Globulin Ratio 0.9 % 11/10/20 06:46 Lipase 39 units/L (13-60) 11/06/20 08:57 Procalcitonin < 0.05 ng/mL (<0.15) 11/11/20 15:45 Urine Color [place] (Yellow) 11/06/20 17:14 Urine Turbidity Clear (Clear) 11/06/20 17:14 Urine pH 6.0 (5.0-7.0) 11/06/20 17:14 Ur Specific [place] 1.024 (1.003-1.030) 11/06/20 17:14 Urine Protein 100 mg/dl mg/dL (Negative) 11/06/20 17:14 Urine Glucose (UA) Neg mg/dL (Negative) 11/06/20 17:14 Urine Ketones Neg mg/dL (Negative) 11/06/20 17:14 Urine Blood Sm (Negative) 11/06/20 17:14 Urine Nitrite Neg (Negative) 11/06/20 17:14 Urine Bilirubin Neg (Negative) 11/06/20 17:14 Urine Urobilinogen < 2.0 mg/dL (<2.0) 11/06/20 17:14 Ur Leukocyte Esterase Neg (Negative) 11/06/20 17:14 Urine WBC (Auto) 3.0 /HPF (0.0-6.0) 11/06/20 17:14 Urine RBC (Auto) 3.0 /HPF (0.0-6.0) 11/06/20 17:14 Urine Mucus Few /HPF 11/06/20 17:14 Coronavirus (PCR) Positive (Negative) A 11/06/20 09:57 [place]/IV: Voiding Method Urinal Active Medications - Current Medications Current Medications: Generic Name Dose Route Start Last Admin Trade Name Freq PRN Reason Stop Dose Admin Acetaminophen 650 mg 11/06/20 22:23 11/11/20 17:58 Acetaminophen 325 Mg Tab PO 650 mg Q4H PRN Administration Pain MILD(1-3)/Fever >100.5/[place] Alprazolam 0.25 mg 11/09/20 20:07 11/12/20 18:22 Alprazolam 0.25 Mg Tab PO 0.25 mg Q8H PRN Administration Anxiety Ascorbic Acid 1,000 mg 11/06/20 23:00 11/12/20 21:01 Ascorbic Acid 500 Mg Tab PO Not Given BID BOBBY Cholecalciferol 5,000 unit 11/12/20 11:00 11/12/20 16:33 Cholecalciferol (Vit D3) 5,000 Unit Tab PO 5,000 unit QDAY BOBBY Administration Dexamethasone 6 mg 11/07/20 22:00 11/12/20 21:15 Dexamethasone 4 Mg/Ml Vial IV 11/15/20 22:01 6 mg Q24HR@2200 BOBBY Administration Enoxaparin Sodium 70 mg 11/06/20 23:00 11/12/20 22:31 Enoxaparin 80 Mg/0.8 Ml Inj SUB-Q 70 mg Q12H BOBBY Administration Protocol Famotidine 20 mg 11/06/20 23:00 11/12/20 21:01 Famotidine 20 Mg Tab PO Not Given BID [facility] Guaifenesin 200 mg 11/06/20 18:33 11/11/20 17:59 Guaifenesin 100 Mg/5 Ml Oral Liqd PO 200 mg Q4H PRN Administration Cough Hydralazine HCl 10 mg 11/07/20 13:38 Hydralazine 20 Mg/1 Ml Inj IV Q4HR PRN Blood Pressure Metoclopramide HCl 10 mg 11/10/20 21:00 11/13/20 05:51 Metoclopramide 10 Mg/2 Ml Inj IV 10 mg Q6HR BOBBY Administration Ondansetron HCl 4 mg 11/06/20 22:23 11/12/20 20:29 Ondansetron 4 Mg/2 Ml Inj IV 4 mg Q8H PRN Administration Nausea And Vomiting Sodium Chloride 10 ml 11/06/20 23:00 11/12/20 21:01 Sodium Chloride 0.9% 10 Ml Flush Syringe IV 10 ml BID BOBBY Administration Sodium Chloride 10 ml 11/06/20 22:23 Sodium Chloride 0.9% 10 Ml Flush Syringe IV PRN PRN LINE FLUSH Zinc Sulfate 220 mg 11/06/20 23:00 11/12/20 21:01 Zinc Sulfate 220 Mg Cap PO Not Given BID BOBBY Nutrition/Malnutrition Assess - Dietary Evaluation Nutrition/Malnutrition Findings: Nutrition Notes Start: 11/11/20 09:00 Freq: Status: Active Protocol: Document 11/11/20 09:00 AT (Rec: 11/11/20 09:01 AT [id number]) Co-Sign 11/11/20 09:00 MK Nutrition Notes Need for Assessment generated from: LOS Initial or Follow up Assessment Current Diagnosis Hypertension,Respiratory Failure Other Pertinent Diagnosis SOB, Bilat pneu, COVID-19(+), Centrilobular Emphysema Current Diet Cardiac Diet Labs/Tests 11/10 Cr 0.5 BG 140 Ca 7.7 Pertinent Medications Reglan Zinc Sulfate Vitamin C Vitamin D3 Decadron Zofran Height 5 ft 4 in Weight 68.7 kg [place] Body Weight (kg) 59.09 BMI 25.9 Weight Status Appropriate Subjective/Other Information Screen for LOS. Unable to reach pt by phone x3. Per chart, pt consuming 38% of meals on average over the course of 4 days. Per chart, pt consumed 100% of breakfast and lunch yesterday. Per chart , pt had an episode of emesis last night. Will continue to follow for stable intakes. Percent of energy/protein needs met: 47%/47% Burn Absent Trauma Absent GI Symptoms Nausea,Vomiting Current % PO Poor (25-49%) Minimum of two criteria No physical signs of malnutrition #1 Nutrition Diagnosis Inadequate oral intake Etiology COVID-19 As Evidenced by Signs and Symptoms pt meeting 47% EER and 47% protein needs Is patient on ventilator? No Is Patient Ambulatory and/or Out of Bed Yes REE-([facility]-ambulatory/OOB) [ 1797.900 [id number]] Calculation Used for Recommendations [facility] Additional Notes PRO needs: 69-82g (1-1.2g/kg) Fluid needs: 1 mL/kcal or per MD Nutrition Intervention Change Diet Order: Continue diet as ordered Add Supplement/Snack (indicate name/kcal Ensure High Protein TID /protein ) Provides kCal: 480 Provides Protein (gm) 48 Goal #1 Meet at least 80% of EER and protein needs via diet and ONS Anticipated Discharge Needs: Cardiac Diet Follow-Up By: 11/15/20 Additional Comments F/U for stable intakes and ONS tolerance
[2020-11-13] MEDS ORDERED: TOCILIZUMAB 800 MG in SODIUM CHLORIDE 0.9% 100 ML IV ONE (09:45)
[2020-11-13] MEDS: ZINC SULFATE 220 MG CAP PO SCH ×2 (09:55→21:35)
[2020-11-13] MEDS: ASCORBIC ACID 500 MG TAB PO SCH ×2 (09:55→21:35)
[2020-11-13] MEDS: FAMOTIDINE 20 MG TAB PO SCH ×2 (09:55→21:35)
[2020-11-13] MEDS: CHOLECALCIFEROL (VIT D3) 5,000 UNIT TAB PO SCH (09:55)
[2020-11-13] MEDS ORDERED: TOCILIZUMAB 600 MG in SODIUM CHLORIDE 0.9% 100 ML IV ONE (11:00)
[2020-11-13] MEDS: ENOXAPARIN 80 MG/0.8 ML INJ SUB-Q SCH ×2 (11:04→23:58)
[2020-11-13] MEDS: dexAMETHasone 4 MG/ML VIAL IV SCH ×2 (11:05→21:35)
--- NOTE | 2020-11-13 12:18 | Progress Note ---
Assessment and Plan - Patient Problems (1) Acute respiratory failure with hypoxia Current Visit: Yes Status: Acute (2) Bilateral pneumonia Current Visit: Yes Status: Acute Qualifiers: Pneumonia type: due to unspecified organism (3) Hypoxia Current Visit: Yes Status: Acute (4) COVID-19 Current Visit: Yes Status: Acute (5) HTN (hypertension) Current Visit: Yes Status: Chronic Qualifiers: Hypertension type: essential hypertension Qualified Code(s): I10 - Essential (primary) hypertension Subjective Principal diagnosis: COVID Interval history: sedated on hiflo Objective Vital Signs - 12hr 11/13/20 11/13/20 11/13/20 00:21 00:30 00:41 Temperature Pulse Rate 100 H 96 H 90 Pulse Rate [ From Monitor] Respiratory 17 32 H 27 H Rate Blood Pressure 126/82 125/80 125/80 O2 Sat by Pulse 96 92 93 Oximetry 11/13/20 11/13/20 11/13/20 00:51 01:00 01:10 Temperature Pulse Rate 93 H 88 87 Pulse Rate [ From Monitor] Respiratory 29 H 26 H 27 H Rate Blood Pressure 125/80 117/78 117/78 O2 Sat by Pulse 92 92 Oximetry 11/13/20 11/13/20 11/13/20 01:20 01:30 01:41 Temperature Pulse Rate 97 H 90 89 Pulse Rate [ From Monitor] Respiratory 28 H 29 H 28 H Rate Blood Pressure 117/78 117/78 O2 Sat by Pulse 92 93 91 Oximetry 11/13/20 11/13/20 11/13/20 01:51 02:00 02:11 Temperature Pulse Rate 97 H 95 H 96 H Pulse Rate [ From Monitor] Respiratory 24 20 26 H Rate Blood Pressure 122/87 109/73 109/73 O2 Sat by Pulse 91 91 94 Oximetry 11/13/20 11/13/20 11/13/20 02:21 02:30 02:41 Temperature Pulse Rate 102 H 81 93 H Pulse Rate [ From Monitor] Respiratory 41 H 21 21 Rate Blood Pressure 109/73 105/75 105/75 O2 Sat by Pulse 72 L 94 95 Oximetry 11/13/20 11/13/20 11/13/20 02:51 03:00 03:11 Temperature Pulse Rate 86 82 84 Pulse Rate [ From Monitor] Respiratory 32 H 25 H 25 H Rate Blood Pressure 109/73 114/74 114/74 O2 Sat by Pulse 96 94 96 Oximetry 11/13/20 11/13/20 11/13/20 03:21 03:30 03:41 Temperature Pulse Rate 86 90 71 Pulse Rate [ From Monitor] Respiratory 24 28 H 16 Rate Blood Pressure 114/74 113/77 113/77 O2 Sat by Pulse 94 89 87 Oximetry 11/13/20 11/13/20 11/13/20 03:51 04:00 04:11 Temperature 98.1 F Pulse Rate 82 75 89 Pulse Rate [ 85 From Monitor] Respiratory 25 H 28 H 24 Rate Blood Pressure 113/77 111/68 111/68 O2 Sat by Pulse 94 89 87 Oximetry 11/13/20 11/13/20 11/13/20 04:21 04:30 04:41 Temperature Pulse Rate 82 80 87 Pulse Rate [ From Monitor] Respiratory 29 H 28 H 28 H Rate Blood Pressure 111/68 94/68 94/68 O2 Sat by Pulse 91 96 95 Oximetry 11/13/20 11/13/20 11/13/20 04:51 05:00 05:11 Temperature Pulse Rate 81 76 78 Pulse Rate [ From Monitor] Respiratory 26 H 27 H 26 H Rate Blood Pressure 94/68 101/72 101/72 O2 Sat by Pulse 95 95 95 Oximetry 11/13/20 11/13/20 11/13/20 05:21 05:30 05:41 Temperature Pulse Rate 78 74 80 Pulse Rate [ From Monitor] Respiratory 28 H 25 H 16 Rate Blood Pressure 101/72 98/72 98/72 O2 Sat by Pulse 95 96 98 Oximetry 11/13/20 11/13/20 11/13/20 05:51 06:01 06:11 Temperature Pulse Rate 82 97 H 83 Pulse Rate [ From Monitor] Respiratory 25 H 37 H 28 H Rate Blood Pressure 98/72 113/80 113/80 O2 Sat by Pulse 96 75 L 95 Oximetry 11/13/20 11/13/20 11/13/20 06:21 06:30 06:41 Temperature Pulse Rate 83 90 101 H Pulse Rate [ From Monitor] Respiratory 26 H 19 19 Rate Blood Pressure 113/80 111/72 111/72 O2 Sat by Pulse 95 96 78 L Oximetry 11/13/20 11/13/20 11/13/20 06:51 07:01 07:11 Temperature Pulse Rate 89 101 H 84 Pulse Rate [ From Monitor] Respiratory 16 20 23 Rate Blood Pressure 111/72 111/72 111/72 O2 Sat by Pulse 87 86 Oximetry 11/13/20 11/13/20 11/13/20 07:21 07:31 07:41 Temperature Pulse Rate 90 90 93 H Pulse Rate [ From Monitor] Respiratory 15 22 24 Rate Blood Pressure 111/72 112/82 112/82 O2 Sat by Pulse 83 L 89 92 Oximetry 11/13/20 11/13/20 11/13/20 07:51 08:00 08:11 Temperature 97.9 F Pulse Rate 92 H 86 85 Pulse Rate [ 74 From Monitor] Respiratory 28 H 28 H 27 H Rate Blood Pressure 112/82 120/75 120/75 O2 Sat by Pulse 94 95 95 Oximetry 11/13/20 11/13/20 11/13/20 08:21 08:30 08:41 Temperature Pulse Rate 84 88 80 Pulse Rate [ From Monitor] Respiratory 27 H 28 H 27 H Rate Blood Pressure 120/75 118/81 118/81 O2 Sat by Pulse 94 90 93 Oximetry 11/13/20 11/13/20 11/13/20 08:51 09:00 09:11 Temperature Pulse Rate 77 76 73 Pulse Rate [ From Monitor] Respiratory 26 H 27 H 27 H Rate Blood Pressure 118/81 97/68 97/68 O2 Sat by Pulse 93 94 96 Oximetry 11/13/20 11/13/20 11/13/20 09:21 09:30 09:41 Temperature Pulse Rate 79 76 73 Pulse Rate [ From Monitor] Respiratory 26 H 25 H 24 Rate Blood Pressure 97/68 103/78 103/78 O2 Sat by Pulse 95 95 Oximetry 11/13/20 11/13/20 11/13/20 09:51 10:00 10:11 Temperature Pulse Rate 77 71 78 Pulse Rate [ From Monitor] Respiratory 26 H 25 H 26 H Rate Blood Pressure 103/78 109/75 109/75 O2 Sat by Pulse 98 97 98 Oximetry 11/13/20 11/13/20 10:21 10:30 Temperature Pulse Rate 85 78 Pulse Rate [ From Monitor] Respiratory 26 H 17 Rate Blood Pressure 109/75 108/75 O2 Sat by Pulse 97 90 Oximetry Constitutional: no acute distress, alert, other (on hiflo o2) Eyes: non-icteric ENT: oropharynx moist Neck: supple Effort: normal Ascultation: Bilateral: clear Cardiovascular: regular rate and rhythm (no mrg) Gastrointestinal: normoactive bowel sounds, soft, non-tender, non-distended Integumentary: normal Extremities: no cyanosis, no edema, pink and warm Neurologic: non-focal exam, pupils equal and round, CN II-XII normal, other (sleepy but arousable) Psychiatric: mood appropriate, affect normal CBC and BMP: 11/08/20 06:02 11/11/20 10:51 ABG, PT/INR, D-dimer: PT/INR, D-dimer PT 12.4 Sec. (12.2-14.9) 11/06/20 08:57 INR 0.94 (0.87-1.13) 11/06/20 08:57 D-Dimer 370.02 ng/mlDDU (0-234) H 11/13/20 10:59 Abnormal lab findings: Abnormal Labs 11/06/20 11/06/20 11/06/20 08:57 08:57 08:57 WBC MCHC 35 H RDW 12.8 L Plt Count 131 L [place] % (Auto) 11.4 H Lymph # (Auto) 0.8 L Seg Neutrophils % D-Dimer 661.18 H Sodium Potassium Chloride BUN Creatinine Glucose POC Glucose Lactic Acid Calcium Magnesium 2.40 H Ferritin Direct Bilirubin AST Alkaline Phosphatase Lactate Dehydrogenase C-Reactive Protein Total Protein Albumin Coronavirus (PCR) 11/06/20 11/06/20 11/06/20 08:57 09:11 09:11 WBC MCHC RDW Plt Count [place] % (Auto) Lymph # (Auto) Seg Neutrophils % D-Dimer 600.32 H Sodium Potassium Chloride BUN Creatinine Glucose 112 H POC Glucose Lactic Acid 2.20 H* Calcium Magnesium Ferritin Direct Bilirubin AST Alkaline Phosphatase Lactate Dehydrogenase 509 H C-Reactive Protein 8.90 H Total Protein Albumin Coronavirus (PCR) 11/06/20 11/06/20 11/06/20 09:11 09:11 09:57 WBC MCHC RDW Plt Count [place] % (Auto) Lymph # (Auto) Seg Neutrophils % D-Dimer Sodium 133 L Potassium 3.2 L Chloride 93.3 L BUN 22 H Creatinine Glucose 113 H POC Glucose Lactic Acid Calcium 8.2 L Magnesium Ferritin 3934.0 H Direct Bilirubin 0.3 H AST 69 H Alkaline Phosphatase 30 L Lactate Dehydrogenase C-Reactive Protein Total Protein Albumin 3.4 L Coronavirus (PCR) Positive A 11/07/20 11/07/20 11/07/20 07:26 07:26 19:10 WBC 3.6 L MCHC 35 H RDW 12.9 L Plt Count 139 L [place] % (Auto) Lymph # (Auto) 0.5 L Seg Neutrophils % 78.1 H D-Dimer Sodium 135 L Potassium Chloride BUN Creatinine 0.6 L 0.6 L Glucose 143 H 117 H POC Glucose Lactic Acid Calcium 7.8 L 7.7 L Magnesium Ferritin Direct Bilirubin AST 55 H 50 H Alkaline Phosphatase 29 L 31 L Lactate Dehydrogenase C-Reactive Protein Total Protein Albumin 3.1 L 3.0 L Coronavirus (PCR) 11/08/20 11/08/20 11/08/20 06:02 06:02 18:25 WBC MCHC 35 H RDW 12.9 L Plt Count [place] % (Auto) Lymph # (Auto) Seg Neutrophils % D-Dimer Sodium 135 L Potassium Chloride BUN Creatinine 0.7 L Glucose 138 H POC Glucose Lactic Acid Calcium 7.5 L Magnesium Ferritin 2864.0 H Direct Bilirubin AST 45 H Alkaline Phosphatase 30 L Lactate Dehydrogenase C-Reactive Protein Total Protein Albumin 3.0 L Coronavirus (PCR) 11/08/20 11/09/20 11/10/20 18:25 05:44 06:46 WBC MCHC RDW Plt Count [place] % (Auto) Lymph # (Auto) Seg Neutrophils % D-Dimer Sodium Potassium Chloride BUN Creatinine 0.5 L 0.5 L Glucose 150 H 140 H POC Glucose Lactic Acid Calcium 7.5 L 7.7 L Magnesium Ferritin Direct Bilirubin AST Alkaline Phosphatase Lactate Dehydrogenase 538 H C-Reactive Protein 3.00 H Total Protein 6.1 L Albumin 3.3 L 2.9 L Coronavirus (PCR) 11/10/20 11/10/20 11/11/20 16:09 16:09 10:51 WBC MCHC RDW Plt Count [place] % (Auto) Lymph # (Auto) Seg Neutrophils % D-Dimer Sodium Potassium Chloride BUN Creatinine Glucose POC Glucose Lactic Acid Calcium Magnesium Ferritin 2483.0 H 2486.0 H Direct Bilirubin AST Alkaline Phosphatase Lactate Dehydrogenase 586 H C-Reactive Protein 1.50 H Total Protein Albumin Coronavirus (PCR) 11/11/20 11/11/20 11/11/20 10:51 10:51 15:45 WBC MCHC RDW Plt Count [place] % (Auto) Lymph # (Auto) Seg Neutrophils % D-Dimer Sodium Potassium Chloride BUN Creatinine Glucose 149 H POC Glucose Lactic Acid Calcium Magnesium Ferritin 2573.0 H Direct Bilirubin AST Alkaline Phosphatase Lactate Dehydrogenase 624 H C-Reactive Protein 4.30 H Total Protein Albumin Coronavirus (PCR) 11/11/20 11/12/20 11/12/20 15:45 07:52 11:33 WBC MCHC RDW Plt Count [place] % (Auto) Lymph # (Auto) Seg Neutrophils % D-Dimer Sodium Potassium Chloride BUN Creatinine Glucose POC Glucose 147 H 120 H Lactic Acid Calcium Magnesium Ferritin Direct Bilirubin AST Alkaline Phosphatase Lactate Dehydrogenase 627 H C-Reactive Protein 4.90 H Total Protein Albumin Coronavirus (PCR) 11/12/20 11/13/20 11/13/20 15:40 05:28 10:59 WBC MCHC RDW Plt Count [place] % (Auto) Lymph # (Auto) Seg Neutrophils % D-Dimer 370.02 H Sodium Potassium Chloride BUN Creatinine Glucose POC Glucose 119 H 166 H Lactic Acid Calcium Magnesium Ferritin Direct Bilirubin AST Alkaline Phosphatase Lactate Dehydrogenase C-Reactive Protein Total Protein Albumin Coronavirus (PCR) 11/13/20 11/13/20 10:59 10:59 WBC MCHC RDW Plt Count [place] % (Auto) Lymph # (Auto) Seg Neutrophils % D-Dimer Sodium Potassium Chloride BUN Creatinine Glucose POC Glucose Lactic Acid Calcium Magnesium Ferritin 1996.0 H Direct Bilirubin AST Alkaline Phosphatase Lactate Dehydrogenase 535 H C-Reactive Protein 13.00 H Total Protein Albumin Coronavirus (PCR)
--- NOTE | 2020-11-13 12:48 | Progress Note ---
Assessment and Plan Cultures: SARS-CoV-2 PCR positive. Blood culture 11/06/2020 no growth today. Assessment: 65-year-old male with history of hypertension, follows first dose of COVID-19 vaccine 10 days before admission, admitted on 11/06/2020 secondary to cough, shortness of breath generalized malaise for 48 hours: #Acute sepsis: Present on admission with mild fever, tachycardia, hypoxia, elevated lactate; likely secondary to COVID-19 infection. #Severe COVID-19 pneumonia: Chest x-ray with bilateral infiltrates. Inflamma tory markers elevated. Markers worsening. #Acute hypoxemic respiratory failure: Worsening, now on high flow nasal cannula 100%, impending intubation #Thrombocytopenia: Mild likely secondary to COVID-19, resolved. #Transaminitis: Likely due to COVID-19. Resolved. #Acute encephalopathy: Patient is now lethargic likely due to hypoxia Recommendations: -Start tocilizumab 600 mg IV x 1 due to rapidly progressive hypoxia on HFNC 100%, impending intubation -Increase dexamethasone 10 mg IV bid x 5 days then 5 mg IV bid for 5 days, impending intubation -Completed remdesivir -No need for antibiotics, procalcitonin is normal -Prone positioning -Anticoagulation per protocol Close monitoring, risk for decompensation requiring intubation Will follow. Lashonda Ang MD Infectious Diseases [employer] [facility] M [phone] O [phone] Subjective Date of service: 11/13/20 Principal diagnosis: COVID Interval history: Patient is now on the IMCU on high flow 100%, remains lethargic, no fever. Objective - Exam Narrative Exam: General appearance: Lethargic in mild respiratory distress Eyes: anicteric sclerae, moist conjunctivae; no lid-lag; PERRLA HENT: Normocephalic, Atraumatic; normal external ears, nares open, oropharynx limited Neck: supple, tracheal midline, no JVD Lungs: Bilateral crackles CV: RRR no murmur Abdomen: Soft, non-tender; no masses or hepatosplenomegaly Extremities: no edema, no cyanosis Skin: No rash. Psych: Lethargic Neuro: Lethargic - - Constitutional Vitals: Vital Signs Temp Pulse Resp BP Pulse Ox 97.9 F 93 H 24 112/82 96 11/13/20 08:00 11/13/20 07:41 11/13/20 07:41 11/13/20 07:41 11/13/20 08:00 Temperature -Last 24 Hours Temperature 97.9 F Temperature 98.1 F Temperature 99.3 F Temperature 98.7 F Temperature 98.1 F Temperature 98.0 F - Labs CBC & Chem 7: 11/08/20 06:02 11/11/20 10:51 Labs: Abnormal lab results 11/12/20 11/12/20 11/13/20 Range/Units 11:33 15:40 05:28 POC Glucose 120 H 119 H 166 H (70-105) mg/dL
[2020-11-14] MEDS: ALPRAZolam 0.25 MG TAB PO PRN ×2 (04:39→22:30)
[2020-11-14] MEDS: METOCLOPRAMIDE 10 MG/2 ML INJ IV SCH ×4 (05:41→23:15)
--- NOTE | 2020-11-14 08:36 | Progress Note ---
Assessment and Plan Assessment and plan: Sepsis. Severe COVID-19 pneumonia. Acute hypoxemic respiratory failure. Thrombocytopenia. Transaminitis. Nausea and vomiting. 11/08/2020. Continue dexamethasone and remdesivir. Patient is s/p tocilizumab. Procalcitonin is normal. Therefore, abx discontinued. Prone positioning as possible. Continue to trend inflammatory markers. 11/09/2020. Nurse reports patient with nausea vomiting this morning that resolved with Zofran. Continue dexamethasone and remdesivir. Patient is s/p tocilizumab. Procalcitonin is normal. Patient currently requiring high flow nasal cannula 15 L/min at 75% FiO2. Continue to wean oxygen as tolerated. 11/10/2020. Patient's oxygen requirements have improved with high flow nasal cannula 20 L/min O2 with FiO2 of 70%. Continue dexamethasone and remdesivir. C ontinue to wean oxygen as tolerated. 11/11/2020. Patient's oxygen requirements are worse high flow nasal cannula 40 L/min with FiO2 of 100%. Consider BiPAP if continues to worsen. Pulmonary following. Continue dexamethasone and remdesivir. Remdesivir completes today. Continue to trend inflammatory markers. Prone positioning as possible. 11/12/2020. Patient remains on high flow nasal cannula with 40 L/min O2 and FiO2 100%. Continue Decadron, remdesivir and therapeutic Lovenox. Continue to trend inflammatory markers. Wean oxygen to maintain sats greater than 92%. Prone positioning as possible. Prognosis remains guarded. 11/13/2020. Nurse reports patient is agitated this morning not improved with Ativan. Continue restraints for safety. Consider Precedex drip. Patient remains on high flow nasal cannula with 40 L/min O2 and FiO2 100%. Continue Decadron, remdesivir and therapeutic Lovenox. Continue to trend inflammatory markers. Wean oxygen to maintain sats greater than 92%. Prone positioning as possible. Prognosis remains guarded. 11/14/2020. Patient remains on high flow nasal cannula with 40 L/min O2 and FiO2 100%. Continue Decadron, remdesivir and therapeutic Lovenox. Continue Ativan as needed for agitation. Continue to trend inflammatory markers. Wean oxygen to maintain sats greater than 92%. Prone positioning as possible. Prognosis remains guarded. History Interval history: No new issues overnight Hospitalist Physical - Constitutional Vitals: Temp Pulse Resp BP Pulse Ox 97.0 F L 74 25 H 109/77 98 11/14/20 04:00 11/14/20 07:30 11/14/20 07:30 11/14/20 07:30 11/14/20 07:00 General appearance: Present: mild distress, well-nourished - EENT Eyes: Present: PERRL, EOM intact ENT: hearing intact, clear oral mucosa, dentition normal - Neck Neck: Present: supple, normal ROM - Respiratory Respiratory effort: normal Respiratory: bilateral: CTA - Cardiovascular Rhythm: regular Heart Sounds: Present: S1 & S2. Absent: gallop, rub - Extremities Extremities: no ischemia, No edema, Full ROM - Abdominal General gastrointestinal: soft, non-tender, non-distended, normal bowel sounds - Integumentary Integumentary: Present: clear, warm, dry - Neurologic Neurologic: CNII-XII intact, moves all extremities HEART Score - HEART Score Troponin: Troponin T < 0.010 ng/mL (0.00-0.029) 11/06/20 11:26 Results - Labs CBC & Chem 7: 11/08/20 06:02 11/11/20 10:51 Labs: Laboratory Last Values WBC 6.2 K/mm3 (4.5-11.0) 11/08/20 06:02 RBC 4.59 M/mm3 (3.65-5.03) 11/08/20 06:02 Hgb 14.4 gm/dl (11.8-15.2) 11/08/20 06:02 Hct 41.0 % (35.5-45.6) 11/08/20 06:02 MCV 89 fl (84-94) 11/08/20 06:02 MCH 31 pg (28-32) 11/08/20 06:02 MCHC 35 % (32-34) H 11/08/20 06:02 RDW 12.9 % (13.2-15.2) L 11/08/20 06:02 Plt Count 173 K/mm3 (140-440) 11/08/20 06:02 Lymph % (Auto) 14.4 % (13.4-35.0) 11/07/20 07:26 [place] % (Auto) 7.3 % (0.0-7.3) 11/07/20 07:26 Eos % (Auto) 0.0 % (0.0-4.3) 11/07/20 07:26 Baso % (Auto) 0.2 % (0.0-1.8) 11/07/20 07:26 Lymph # (Auto) 0.5 K/mm3 (1.2-5.4) L 11/07/20 07:26 [place] # (Auto) 0.3 K/mm3 (0.0-0.8) 11/07/20 07:26 Eos # (Auto) 0.0 K/mm3 (0.0-0.4) 11/07/20 07:26 Baso # (Auto) 0.0 K/mm3 (0.0-0.1) 11/07/20 07:26 Seg Neutrophils % 78.1 % (40.0-70.0) H 11/07/20 07:26 Seg Neutrophils # 2.8 K/mm3 (1.8-7.7) 11/07/20 07:26 PT 12.4 Sec. (12.2-14.9) 11/06/20 08:57 INR 0.94 (0.87-1.13) 11/06/20 08:57 APTT 33.5 Sec. (24.2-36.6) 11/06/20 08:57 D-Dimer 370.02 ng/mlDDU (0-234) H 11/13/20 10:59 Sodium 139 mmol/L (137-145) 11/10/20 06:46 Potassium 3.9 mmol/L (3.6-5.0) 11/10/20 06:46 Chloride 102.5 mmol/L (98-107) 11/10/20 06:46 Carbon Dioxide 25 mmol/L (22-30) 11/10/20 06:46 Anion Gap 15 mmol/L 11/10/20 06:46 BUN 17 mg/dL (9-20) 11/10/20 06:46 Creatinine 0.5 mg/dL (0.8-1.3) L 11/10/20 06:46 Estimated GFR > 60 ml/min 11/10/20 06:46 BUN/Creatinine Ratio 34 % 11/10/20 06:46 Glucose 149 mg/dL (75-100) H 11/11/20 10:51 POC Glucose 166 mg/dL (70-105) H 11/13/20 05:28 Hemoglobin A1c 5.6 % (4-6) 11/07/20 07:26 Lactic Acid 1.50 mmol/L (0.7-2.0) 11/06/20 11:26 Calcium 7.7 mg/dL (8.4-10.2) L 11/10/20 06:46 Magnesium 2.40 mg/dL (1.7-2.3) H 11/06/20 08:57 Ferritin 1996.0 ng/mL (30.0-300.0) H 11/13/20 10:59 Total Bilirubin 0.50 mg/dL (0.1-1.2) 11/10/20 06:46 Direct Bilirubin 0.3 mg/dL (0-0.2) H 11/06/20 09:11 Indirect Bilirubin 0.5 mg/dL 11/06/20 09:11 AST 34 units/L (5-40) 11/10/20 06:46 ALT 21 units/L (7-56) 11/10/20 06:46 Alkaline Phosphatase 35 units/L (35-129) 11/10/20 06:46 Lactate Dehydrogenase 535 units/L (91-180) H 11/13/20 10:59 Troponin T < 0.010 ng/mL (0.00-0.029) 11/06/20 11:26 C-Reactive Protein 13.00 mg/dL (0.00-1.30) H 11/13/20 10:59 Total Protein 6.3 g/dL (6.3-8.2) 11/10/20 06:46 Albumin 2.9 g/dL (3.9-5) L 11/10/20 06:46 Albumin/Globulin Ratio 0.9 % 11/10/20 06:46 Lipase 39 units/L (13-60) 11/06/20 08:57 Procalcitonin 0.07 ng/mL (<0.15) 11/13/20 10:59 Urine Color [place] (Yellow) 11/06/20 17:14 Urine Turbidity Clear (Clear) 11/06/20 17:14 Urine pH 6.0 (5.0-7.0) 11/06/20 17:14 Ur Specific [place] 1.024 (1.003-1.030) 11/06/20 17:14 Urine Protein 100 mg/dl mg/dL (Negative) 11/06/20 17:14 Urine Glucose (UA) Neg mg/dL (Negative) 11/06/20 17:14 Urine Ketones Neg mg/dL (Negative) 11/06/20 17:14 Urine Blood Sm (Negative) 11/06/20 17:14 Urine Nitrite Neg (Negative) 11/06/20 17:14 Urine Bilirubin Neg (Negative) 11/06/20 17:14 Urine Urobilinogen < 2.0 mg/dL (<2.0) 11/06/20 17:14 Ur Leukocyte Esterase Neg (Negative) 11/06/20 17:14 Urine WBC (Auto) 3.0 /HPF (0.0-6.0) 11/06/20 17:14 Urine RBC (Auto) 3.0 /HPF (0.0-6.0) 11/06/20 17:14 Urine Mucus Few /HPF 11/06/20 17:14 Coronavirus (PCR) Positive (Negative) A 11/06/20 09:57 [place]/IV: Voiding Method Urinal Active Medications - Current Medications Current Medications: Generic Name Dose Route Start Last Admin Trade Name Freq PRN Reason Stop Dose Admin Acetaminophen 650 mg 11/06/20 22:23 11/11/20 17:58 Acetaminophen 325 Mg Tab PO 650 mg Q4H PRN Administration Pain MILD(1-3)/Fever >100.5/[place] Alprazolam 0.25 mg 11/09/20 20:07 11/14/20 04:39 Alprazolam 0.25 Mg Tab PO 0.25 mg Q8H PRN Administration Anxiety Ascorbic Acid 1,000 mg 11/06/20 23:00 11/13/20 21:35 Ascorbic Acid 500 Mg Tab PO 1,000 mg BID BOBBY Administration Cholecalciferol 5,000 unit 11/12/20 11:00 11/13/20 09:55 Cholecalciferol (Vit D3) 5,000 Unit Tab PO 5,000 unit QDAY BOBBY Administration Dexamethasone 10 mg 11/13/20 10:00 11/13/20 21:35 Dexamethasone 4 Mg/Ml Vial IV 11/18/20 09:59 10 mg Q12HR BOBBY Administration Enoxaparin Sodium 70 mg 11/06/20 23:00 11/13/20 23:58 Enoxaparin 80 Mg/0.8 Ml Inj SUB-Q 70 mg Q12H BOBBY Administration Protocol Famotidine 20 mg 11/06/20 23:00 11/13/20 21:35 Famotidine 20 Mg Tab PO 20 mg BID BOBBY Administration Guaifenesin 200 mg 11/06/20 18:33 11/11/20 17:59 Guaifenesin 100 Mg/5 Ml Oral Liqd PO 200 mg Q4H PRN Administration Cough Hydralazine HCl 10 mg 11/07/20 13:38 Hydralazine 20 Mg/1 Ml Inj IV Q4HR PRN Blood Pressure Metoclopramide HCl 10 mg 11/10/20 21:00 11/14/20 05:41 Metoclopramide 10 Mg/2 Ml Inj IV 10 mg Q6HR BOBBY Administration Ondansetron HCl 4 mg 11/06/20 22:23 11/12/20 20:29 Ondansetron 4 Mg/2 Ml Inj IV 4 mg Q8H PRN Administration Nausea And Vomiting Sodium Chloride 10 ml 11/06/20 23:00 11/13/20 21:35 Sodium Chloride 0.9% 10 Ml Flush Syringe IV 10 ml BID BOBBY Administration Sodium Chloride 10 ml 11/06/20 22:23 Sodium Chloride 0.9% 10 Ml Flush Syringe IV PRN PRN LINE FLUSH Zinc Sulfate 220 mg 11/06/20 23:00 11/13/20 21:35 Zinc Sulfate 220 Mg Cap PO 220 mg BID BOBBY Administration Nutrition/Malnutrition Assess - Dietary Evaluation Nutrition/Malnutrition Findings: Nutrition Notes Start: 11/11/20 09:00 Freq: Status: Active Protocol: Document 11/11/20 09:00 AT (Rec: 11/11/20 09:01 AT [id number]) Co-Sign 11/11/20 09:00 MK Nutrition Notes Need for Assessment generated from: LOS Initial or Follow up Assessment Current Diagnosis Hypertension,Respiratory Failure Other Pertinent Diagnosis SOB, Bilat pneu, COVID-19(+), Centrilobular Emphysema Current Diet Cardiac Diet Labs/Tests 11/10 Cr 0.5 BG 140 Ca 7.7 Pertinent Medications Reglan Zinc Sulfate Vitamin C Vitamin D3 Decadron Zofran Height 5 ft 4 in Weight 68.7 kg [place] Body Weight (kg) 59.09 BMI 25.9 Weight Status Appropriate Subjective/Other Information Screen for LOS. Unable to reach pt by phone x3. Per chart, pt consuming 38% of meals on average over the course of 4 days. Per chart, pt consumed 100% of breakfast and lunch yesterday. Per chart , pt had an episode of emesis last night. Will continue to follow for stable intakes. Percent of energy/protein needs met: 47%/47% Burn Absent Trauma Absent GI Symptoms Nausea,Vomiting Current % PO Poor (25-49%) Minimum of two criteria No physical signs of malnutrition #1 Nutrition Diagnosis Inadequate oral intake Etiology COVID-19 As Evidenced by Signs and Symptoms pt meeting 47% EER and 47% protein needs Is patient on ventilator? No Is Patient Ambulatory and/or Out of Bed Yes REE-([facility]-ambulatory/OOB) [ 1797.900 [id number]] Calculation Used for Recommendations [facility] Additional Notes PRO needs: 69-82g (1-1.2g/kg) Fluid needs: 1 mL/kcal or per MD Nutrition Intervention Change Diet Order: Continue diet as ordered Add Supplement/Snack (indicate name/kcal Ensure High Protein TID /protein ) Provides kCal: 480 Provides Protein (gm) 48 Goal #1 Meet at least 80% of EER and protein needs via diet and ONS Anticipated Discharge Needs: Cardiac Diet Follow-Up By: 11/15/20 Additional Comments F/U for stable intakes and ONS tolerance
[2020-11-14] MEDS: CHOLECALCIFEROL (VIT D3) 5,000 UNIT TAB PO SCH (09:00)
[2020-11-14] MEDS: ZINC SULFATE 220 MG CAP PO SCH ×2 (09:00→22:31)
[2020-11-14] MEDS: dexAMETHasone 4 MG/ML VIAL IV SCH ×2 (09:00→22:32)
[2020-11-14] MEDS: ASCORBIC ACID 500 MG TAB PO SCH ×2 (09:00→22:31)
[2020-11-14] MEDS: FAMOTIDINE 20 MG TAB PO SCH ×2 (09:13→22:31)
--- NOTE | 2020-11-14 11:21 | Progress Note ---
Assessment and Plan 65 y/o male with acute respiratory failure secondary to COVID 19 1. Will give lasix 40mg IV x1 today 2. Prone as tolerated during the day and sleep prone at night 3. Finished Remdesivir and got Actemra 4. Wean FiO2 for sats >88% 5. Daily net negative state 6. Guarded prognosis. Subjective Date of service: 11/14/20 Principal diagnosis: COVID Interval history: Remains on HFNC at 40 and 100%. Sat at 93%. BP stable. Remains on steroids. Objective Vital Signs - 12hr 11/13/20 11/14/20 11/14/20 23:30 00:00 00:31 Temperature 98.6 F Pulse Rate 65 70 59 L Pulse Rate [ From Monitor] Respiratory 24 16 24 Rate Blood Pressure 105/70 94/73 123/77 O2 Sat by Pulse 84 88 Oximetry 11/14/20 11/14/20 11/14/20 01:00 01:30 02:00 Temperature Pulse Rate 71 77 62 Pulse Rate [ From Monitor] Respiratory 24 0 L 24 Rate Blood Pressure 123/77 96/63 122/76 O2 Sat by Pulse 92 88 87 Oximetry 11/14/20 11/14/20 11/14/20 02:30 03:00 03:11 Temperature Pulse Rate 70 59 L Pulse Rate [ From Monitor] Respiratory 23 14 Rate Blood Pressure 119/79 114/77 O2 Sat by Pulse 89 85 90 Oximetry 11/14/20 11/14/20 11/14/20 03:30 04:00 04:30 Temperature 97.0 F L Pulse Rate 56 L 60 66 Pulse Rate [ From Monitor] Respiratory 23 20 16 Rate Blood Pressure 124/79 115/75 121/70 O2 Sat by Pulse 92 95 85 Oximetry 11/14/20 11/14/20 11/14/20 05:00 05:30 06:00 Temperature Pulse Rate 74 73 65 Pulse Rate [ From Monitor] Respiratory 19 32 H 22 Rate Blood Pressure 127/78 121/79 121/72 O2 Sat by Pulse 93 86 85 Oximetry 11/14/20 11/14/20 11/14/20 06:30 07:00 07:30 Temperature Pulse Rate 61 66 74 Pulse Rate [ From Monitor] Respiratory 29 H 20 25 H Rate Blood Pressure 137/80 105/69 109/77 O2 Sat by Pulse 90 98 Oximetry 11/14/20 11/14/20 11/14/20 08:00 08:30 09:00 Temperature 97.3 F L Pulse Rate 68 67 69 Pulse Rate [ 78 From Monitor] Respiratory 12 26 H 18 Rate Blood Pressure 117/76 113/73 121/81 O2 Sat by Pulse 89 86 Oximetry 11/14/20 11/14/20 11/14/20 09:30 10:00 10:11 Temperature Pulse Rate 64 73 Pulse Rate [ From Monitor] Respiratory 23 30 H Rate Blood Pressure 116/74 124/77 O2 Sat by Pulse 90 93 Oximetry Constitutional: no acute distress, alert, other (on hiflo o2) Eyes: non-icteric ENT: oropharynx moist Neck: supple Effort: normal Ascultation: Bilateral: clear Cardiovascular: regular rate and rhythm (no mrg) Gastrointestinal: normoactive bowel sounds, soft, non-tender, non-distended Integumentary: normal Extremities: no cyanosis, no edema, pink and warm Neurologic: non-focal exam, pupils equal and round, CN II-XII normal, other (sleepy but arousable) Psychiatric: mood appropriate, affect normal CBC and BMP: 11/08/20 06:02 11/11/20 10:51 ABG, PT/INR, D-dimer: PT/INR, D-dimer PT 12.4 Sec. (12.2-14.9) 11/06/20 08:57 INR 0.94 (0.87-1.13) 11/06/20 08:57 D-Dimer 370.02 ng/mlDDU (0-234) H 11/13/20 10:59 Abnormal lab findings: Abnormal Labs 11/06/20 11/06/20 11/06/20 08:57 08:57 08:57 WBC MCHC 35 H RDW 12.8 L Plt Count 131 L Power % (Auto) 11.4 H Lymph # (Auto) 0.8 L Seg Neutrophils % D-Dimer 661.18 H Sodium Potassium Chloride BUN Creatinine Glucose POC Glucose Lactic Acid Calcium Magnesium 2.40 H Ferritin Direct Bilirubin AST Alkaline Phosphatase Lactate Dehydrogenase C-Reactive Protein Total Protein Albumin Coronavirus (PCR) 11/06/20 11/06/20 11/06/20 08:57 09:11 09:11 WBC MCHC RDW Plt Count Power % (Auto) Lymph # (Auto) Seg Neutrophils % D-Dimer 600.32 H Sodium Potassium Chloride BUN Creatinine Glucose 112 H POC Glucose Lactic Acid 2.20 H* Calcium Magnesium Ferritin Direct Bilirubin AST Alkaline Phosphatase Lactate Dehydrogenase 509 H C-Reactive Protein 8.90 H Total Protein Albumin Coronavirus (PCR) 11/06/20 11/06/20 11/06/20 09:11 09:11 09:57 WBC MCHC RDW Plt Count Power % (Auto) Lymph # (Auto) Seg Neutrophils % D-Dimer Sodium 133 L Potassium 3.2 L Chloride 93.3 L BUN 22 H Creatinine Glucose 113 H POC Glucose Lactic Acid Calcium 8.2 L Magnesium Ferritin 3934.0 H Direct Bilirubin 0.3 H AST 69 H Alkaline Phosphatase 30 L Lactate Dehydrogenase C-Reactive Protein Total Protein Albumin 3.4 L Coronavirus (PCR) Positive A 11/07/20 11/07/20 11/07/20 07:26 07:26 19:10 WBC 3.6 L MCHC 35 H RDW 12.9 L Plt Count 139 L Power % (Auto) Lymph # (Auto) 0.5 L Seg Neutrophils % 78.1 H D-Dimer Sodium 135 L Potassium Chloride BUN Creatinine 0.6 L 0.6 L Glucose 143 H 117 H POC Glucose Lactic Acid Calcium 7.8 L 7.7 L Magnesium Ferritin Direct Bilirubin AST 55 H 50 H Alkaline Phosphatase 29 L 31 L Lactate Dehydrogenase C-Reactive Protein Total Protein Albumin 3.1 L 3.0 L Coronavirus (PCR) 11/08/20 11/08/20 11/08/20 06:02 06:02 18:25 WBC MCHC 35 H RDW 12.9 L Plt Count Power % (Auto) Lymph # (Auto) Seg Neutrophils % D-Dimer Sodium 135 L Potassium Chloride BUN Creatinine 0.7 L Glucose 138 H POC Glucose Lactic Acid Calcium 7.5 L Magnesium Ferritin 2864.0 H Direct Bilirubin AST 45 H Alkaline Phosphatase 30 L Lactate Dehydrogenase C-Reactive Protein Total Protein Albumin 3.0 L Coronavirus (PCR) 11/08/20 11/09/20 11/10/20 18:25 05:44 06:46 WBC MCHC RDW Plt Count Power % (Auto) Lymph # (Auto) Seg Neutrophils % D-Dimer Sodium Potassium Chloride BUN Creatinine 0.5 L 0.5 L Glucose 150 H 140 H POC Glucose Lactic Acid Calcium 7.5 L 7.7 L Magnesium Ferritin Direct Bilirubin AST Alkaline Phosphatase Lactate Dehydrogenase 538 H C-Reactive Protein 3.00 H Total Protein 6.1 L Albumin 3.3 L 2.9 L Coronavirus (PCR) 11/10/20 11/10/20 11/11/20 16:09 16:09 10:51 WBC MCHC RDW Plt Count Power % (Auto) Lymph # (Auto) Seg Neutrophils % D-Dimer Sodium Potassium Chloride BUN Creatinine Glucose POC Glucose Lactic Acid Calcium Magnesium Ferritin 2483.0 H 2486.0 H Direct Bilirubin AST Alkaline Phosphatase Lactate Dehydrogenase 586 H C-Reactive Protein 1.50 H Total Protein Albumin Coronavirus (PCR) 11/11/20 11/11/20 11/11/20 10:51 10:51 15:45 WBC MCHC RDW Plt Count Power % (Auto) Lymph # (Auto) Seg Neutrophils % D-Dimer Sodium Potassium Chloride BUN Creatinine Glucose 149 H POC Glucose Lactic Acid Calcium Magnesium Ferritin 2573.0 H Direct Bilirubin AST Alkaline Phosphatase Lactate Dehydrogenase 624 H C-Reactive Protein 4.30 H Total Protein Albumin Coronavirus (PCR) 11/11/20 11/12/20 11/12/20 15:45 07:52 11:33 WBC MCHC RDW Plt Count Power % (Auto) Lymph # (Auto) Seg Neutrophils % D-Dimer Sodium Potassium Chloride BUN Creatinine Glucose POC Glucose 147 H 120 H Lactic Acid Calcium Magnesium Ferritin Direct Bilirubin AST Alkaline Phosphatase Lactate Dehydrogenase 627 H C-Reactive Protein 4.90 H Total Protein Albumin Coronavirus (PCR) 11/12/20 11/13/20 11/13/20 15:40 05:28 10:59 WBC MCHC RDW Plt Count Power % (Auto) Lymph # (Auto) Seg Neutrophils % D-Dimer 370.02 H Sodium Potassium Chloride BUN Creatinine Glucose POC Glucose 119 H 166 H Lactic Acid Calcium Magnesium Ferritin Direct Bilirubin AST Alkaline Phosphatase Lactate Dehydrogenase C-Reactive Protein Total Protein Albumin Coronavirus (PCR) 11/13/20 11/13/20 10:59 10:59 WBC MCHC RDW Plt Count Power % (Auto) Lymph # (Auto) Seg Neutrophils % D-Dimer Sodium Potassium Chloride BUN Creatinine Glucose POC Glucose Lactic Acid Calcium Magnesium Ferritin 1996.0 H Direct Bilirubin AST Alkaline Phosphatase Lactate Dehydrogenase 535 H C-Reactive Protein 13.00 H Total Protein Albumin Coronavirus (PCR)
[2020-11-14] MEDS ORDERED: FUROSEMIDE 40 MG/4 ML INJ IV ONE (11:30)
[2020-11-14] MEDS: ENOXAPARIN 80 MG/0.8 ML INJ SUB-Q SCH ×2 (12:26→23:29)
--- NOTE | 2020-11-14 17:17 | Progress Note ---
Assessment and Plan Cultures: SARS-CoV-2 PCR positive. Blood culture 11/06/2020 no growth today. Assessment: 65-year-old male with history of hypertension, follows first dose of COVID-19 vaccine 10 days before admission, admitted on 11/06/2020 secondary to cough, shortness of breath generalized malaise for 48 hours: #Acute sepsis: Present on admission with mild fever, tachycardia, hypoxia, elevated lactate; likely secondary to COVID-19 infection. #Severe COVID-19 pneumonia: Chest x-ray with bilateral infiltrates. Inflammatory markers elevated. Markers worsening. #Acute hypoxemic respiratory failure: Worsening, now on high flow nasal cannula 100%, impending intubation #Thrombocytopenia: Mild likely secondary to COVID-19, resolved. #Transaminitis: Likely due to COVID-19. Resolved. #Acute encephalopathy: Patient is now lethargic likely due to hypoxia Recommendations: -s/p tocilizumab -Increase dexamethasone 10 mg IV bid x 5 days then 5 mg IV bid for 5 days. -Completed remdesivir -No need for antibiotics, procalcitonin is normal -Prone positioning -Anticoagulation per protocol Close monitoring, risk for decompensation requiring intubation Will follow. Cj Webster MD [facility] ([facility] O: [phone] F: [phone] Subjective Date of service: 11/14/20 Principal diagnosis: COVID Interval history: Afebrile, no acute change. Blood cultures no growth so far. Objective - Exam Narrative Exam: General appearance: On high flow nasal cannula Eyes: anicteric sclerae, moist conjunctivae; no lid-lag; PERRLA HENT: Normocephalic, Atraumatic; normal external ears, nares open, oropharynx limited Neck: supple, tracheal midline, no JVD Lungs: Bilateral crackles CV: RRR no murmur Abdomen: Soft, non-tender; no masses or hepatosplenomegaly Extremities: no edema, no cyanosis Skin: No rash. Psych: Lethargic Neuro: Lethargic - Constitutional Vitals: Vital Signs Temp Pulse Resp BP Pulse Ox 97.6 F 67 25 H 118/85 100 11/14/20 12:00 11/14/20 16:30 11/14/20 16:30 11/14/20 16:30 11/14/20 16:30 Temperature -Last 24 Hours Temperature 97.6 F Temperature 97.3 F Temperature 97.0 F Temperature 98.6 F Temperature 98.7 F - Labs CBC & Chem 7: 11/08/20 06:02 11/11/20 10:51 Labs: Abnormal lab results 11/14/20 Range/Units 11:52 POC Glucose 259 H (70-105) mg/dL
[2020-11-15] MEDS ORDERED: ZOLPIDEM 5 MG TAB PO ONE (03:22)
[2020-11-15] MEDS: METOCLOPRAMIDE 10 MG/2 ML INJ IV SCH ×3 (05:50→17:41)
[2020-11-15 05:58] LABS: Mean Corpuscular HGB Conc 37 % (32-34); Mean Corpuscular Volume 90 fl (84-94); Platelet Count 322 K/mm3 (140-440); Red Blood Count 4.72 M/mm3 (3.65-5.03)
[2020-11-15 06:01] LABS: Hematocrit 42.6 % (35.5-45.6); Hemoglobin 15.5 gm/dl (11.8-15.2)
[2020-11-15 06:16] LABS: Blood Urea Nitrogen 27 mg/dL (9-20); Calcium 8.6 mg/dL (8.4-10.2); Hemolysis Index 7
[2020-11-15 06:21] LABS: BUN/Creatinine Ratio 45
[2020-11-15 07:02] LABS: Platelet Estimate Consistent w Auto; RBC Morphology Normal; Total Cells Counted 100
[2020-11-15 07:03] LABS: Large Platelets Few
--- NOTE | 2020-11-15 08:21 | Progress Note ---
Assessment and Plan Assessment and plan: --Acute sepsis; due to COVID-19 pneumonia Fever, tachycardia, lactic acidosis, hypoxia, and pneumonia Procalcitonin normal range, patient did not need antibiotics Treat the underlying cause, follow cultures --Severe COVID-19 infection On high flow oxygen oxygen s/p tocilizumab Completed remdesivir High dose of dexamethasone 10 mg IV twice daily for 5 days 5 mg IV twice daily for the next 5 days Recommended by ID Advised prone positioning as tolerated --Acute hypoxemic respiratory failure. Due to severe COVID-19 pneumonia bilateral Requiring high flow oxygen. 40 L/100% FiO2/O2 sats 96% Wean as tolerated Prone positioning ID and pulmonary following --Metabolic encephalopathy/lethargy Probably due to underlying disease process and hypoxia Supportive care --Transaminitis; present on admission probably Covid related. Resolved --Thrombocytopenia; probably Covid related Gradually improving, monitor platelet count --Elevated D-dimers; CTA chest negative Currently on empiric full dose anticoagulation with Lovenox Covid related, check lower extremity venous Doppler Follow inflammatory markers --DVT prophylaxis; on Lovenox Closely monitor patient and adjust management as needed Platemaker recommendations noted and appreciated Critical care time 35 minutes Daily patient care; 11/08/2020. Continue dexamethasone and remdesivir. Patient is s/p tocilizumab. Procalcitonin is normal. Therefore, abx discontinued. Prone positioning as possible. Continue to trend inflammatory markers. 11/09/2020. Nurse reports patient with nausea vomiting this morning that resolved with Zofran. Continue dexamethasone and remdesivir. Patient is s/p tocilizumab. Procalcitonin is normal. Patient currently requiring high flow nasal cannula 15 L/min at 75% FiO2. Continue to wean oxygen as tolerated. 11/10/2020. Patient's oxygen requirements have improved with high flow nasal cannula 20 L/min O2 with FiO2 of 70%. Continue dexamethasone and remdesivir. Continue to wean oxygen as tolerated. 11/11/2020. Patient's oxygen requirements are worse high flow nasal cannula 40 L/min with FiO2 of 100%. Consider BiPAP if continues to worsen. Pulmonary following. Continue dexamethasone and remdesivir. Remdesivir completes today. Continue to trend inflammatory markers. Prone positioning as possible. 11/12/2020. Patient remains on high flow nasal cannula with 40 L/min O2 and FiO2 100%. Continue Decadron, remdesivir and therapeutic Lovenox. Continue to trend inflammatory markers. Wean oxygen to maintain sats greater than 92%. Prone positioning as possible. Prognosis remains guarded. 11/13/2020. Nurse reports patient is agitated this morning not improved with Ativan. Continue restraints for safety. Consider Precedex drip. Patient remains on high flow nasal cannula with 40 L/min O2 and FiO2 100%. Continue Decadron, remdesivir and therapeutic Lovenox. Continue to trend inflammatory markers. Wean oxygen to maintain sats greater than 92%. Prone positioning as possible. Prognosis remains guarded. 11/14/2020. Patient remains on high flow nasal cannula with 40 L/min O2 and FiO2 100%. Continue Decadron, remdesivir and therapeutic Lovenox. Continue Ativan as needed for agitation. Continue to trend inflammatory markers. Wean oxygen to maintain sats greater than 92%. Prone positioning as possible. Prognosis remains guarded. 11/15/2020; patient remains on high flow oxygen 40 L/100% FiO2 with O2 sats of 96% Wean as tolerated, advised prone positioning, prognosis guarded Consults and recommendations noted History Interval history: I have seen and examined the patient in IMCU this morning COVID-19 positive patient, strict isolation precautions and PPE protocols followed per COVID-19 guidelines Patient is on high flow oxygen with 40 L, in mild distress Vital signs reviewed Hospitalist Physical - Constitutional Vitals: Temp Pulse Resp BP Pulse Ox 97.7 F 67 14 135/81 92 11/15/20 00:00 11/15/20 07:00 11/15/20 07:00 11/15/20 07:00 11/15/20 07:00 General appearance: Present: mild distress, well-nourished, other (On high flow oxygen) - EENT Eyes: Present: PERRL, EOM intact - Neck Neck: Present: supple, normal ROM - Respiratory Respiratory effort: labored Respiratory: bilateral: diminished, rhonchi, negative: rales, wheezing - Cardiovascular Rhythm: regular Heart Sounds: Present: S1 & S2 - Extremities Extremities: no ischemia, No edema - Abdominal General gastrointestinal: soft, non-tender, non-distended, normal bowel sounds - Integumentary Integumentary: Present: clear, warm - Psychiatric Psychiatric: appropriate mood/affect, cooperative - Neurologic Neurologic: moves all extremities HEART Score - HEART Score Troponin: Troponin T < 0.010 ng/mL (0.00-0.029) 11/06/20 11:26 Results - Labs CBC & Chem 7: 11/15/20 04:41 11/15/20 04:41 Labs: Laboratory Last Values WBC 9.6 K/mm3 (4.5-11.0) 11/15/20 04:41 RBC 4.72 M/mm3 (3.65-5.03) 11/15/20 04:41 Hgb 15.5 gm/dl (11.8-15.2) H 11/15/20 04:41 Hct 42.6 % (35.5-45.6) 11/15/20 04:41 MCV 90 fl (84-94) 11/15/20 04:41 MCH 33 pg (28-32) H 11/15/20 04:41 MCHC 37 % (32-34) H 11/15/20 04:41 RDW 13.0 % (13.2-15.2) L 11/15/20 04:41 Plt Count 322 K/mm3 (140-440) 11/15/20 04:41 Lymph % (Auto) 14.4 % (13.4-35.0) 11/07/20 07:26 [place] % (Auto) 7.3 % (0.0-7.3) 11/07/20 07:26 Eos % (Auto) 0.0 % (0.0-4.3) 11/07/20 07:26 Baso % (Auto) 0.2 % (0.0-1.8) 11/07/20 07:26 Lymph # (Auto) 0.5 K/mm3 (1.2-5.4) L 11/07/20 07:26 [place] # (Auto) 0.3 K/mm3 (0.0-0.8) 11/07/20 07:26 Eos # (Auto) 0.0 K/mm3 (0.0-0.4) 11/07/20 07:26 Baso # (Auto) 0.0 K/mm3 (0.0-0.1) 11/07/20 07:26 Add Manual Diff Complete 11/15/20 04:41 Total Counted 100 11/15/20 04:41 Seg Neutrophils % Road Advisor 11/15/20 04:41 Seg Neuts % (Manual) 95.0 % (40.0-70.0) H 11/15/20 04:41 Lymphocytes % (Manual) 1.0 % (13.4-35.0) L 11/15/20 04:41 Monocytes % (Manual) 4.0 % (0.0-7.3) 11/15/20 04:41 Nucleated RBC % Not Reportable 11/15/20 04:41 Seg Neutrophils # 2.8 K/mm3 (1.8-7.7) 11/07/20 07:26 Seg Neutrophils # Man 9.1 K/mm3 (1.8-7.7) H 11/15/20 04:41 Band Neutrophils # 0.0 K/mm3 11/15/20 04:41 Lymphocytes # (Manual) 0.1 K/mm3 (1.2-5.4) L 11/15/20 04:41 Abs React Lymphs (Man) 0.0 K/mm3 11/15/20 04:41 Monocytes # (Manual) 0.4 K/mm3 (0.0-0.8) 11/15/20 04:41 Eosinophils # (Manual) 0.0 K/mm3 (0.0-0.4) 11/15/20 04:41 Basophils # (Manual) 0.0 K/mm3 (0.0-0.1) 11/15/20 04:41 Metamyelocytes # 0.0 K/mm3 11/15/20 04:41 Myelocytes # 0.0 K/mm3 11/15/20 04:41 Promyelocytes # 0.0 K/mm3 11/15/20 04:41 Blast Cells # 0.0 K/mm3 11/15/20 04:41 WBC Morphology Not Reportable 11/15/20 04:41 Hypersegmented Neuts Not Reportable 11/15/20 04:41 Hyposegmented Neuts Not Reportable 11/15/20 04:41 Hypogranular Neuts Not Reportable 11/15/20 04:41 Smudge Cells Not Reportable 11/15/20 04:41 Toxic Granulation Not Reportable 11/15/20 04:41 Toxic Vacuolation Not Reportable 11/15/20 04:41 Dohle Bodies Not Reportable 11/15/20 04:41 Pelger-Huet Anomaly Not Reportable 11/15/20 04:41 [place] Rods Not Reportable 11/15/20 04:41 Platelet Estimate Consistent w auto 11/15/20 04:41 Clumped Platelets Not Reportable 11/15/20 04:41 Plt Clumps, EDTA Not Reportable 11/15/20 04:41 Large Platelets Few 11/15/20 04:41 Giant Platelets Not Reportable 11/15/20 04:41 Platelet Satelliting Not Reportable 11/15/20 04:41 Plt Morphology Comment Not Reportable 11/15/20 04:41 RBC Morphology Normal 11/15/20 04:41 Dimorphic RBCs Not Reportable 11/15/20 04:41 Polychromasia Not Reportable 11/15/20 04:41 Hypochromasia Not Reportable 11/15/20 04:41 Poikilocytosis Not Reportable 11/15/20 04:41 Anisocytosis Not Reportable 11/15/20 04:41 Microcytosis Not Reportable 11/15/20 04:41 Macrocytosis Not Reportable 11/15/20 04:41 Spherocytes Not Reportable 11/15/20 04:41 Pappenheimer Bodies Not Reportable 11/15/20 04:41 Sickle Cells Not Reportable 11/15/20 04:41 Target Cells Not Reportable 11/15/20 04:41 Tear Drop Cells Not Reportable 11/15/20 04:41 Ovalocytes Not Reportable 11/15/20 04:41 Helmet Cells Not Reportable 11/15/20 04:41 Delgado-Zwingle Bodies Not Reportable 11/15/20 04:41 [place] Rings Not Reportable 11/15/20 04:41 Scarlet Cells Not Reportable 11/15/20 04:41 Bite Cells Not Reportable 11/15/20 04:41 Crenated Cell Not Reportable 11/15/20 04:41 Elliptocytes Not Reportable 11/15/20 04:41 Acanthocytes (Spur) Not Reportable 11/15/20 04:41 Rouleaux Not Reportable 11/15/20 04:41 Hemoglobin C Crystals Not Reportable 11/15/20 04:41 Schistocytes Not Reportable 11/15/20 04:41 Malaria parasites Not Reportable 11/15/20 04:41 Devonte Bodies Not Reportable 11/15/20 04:41 Hem Pathologist Commnt No 11/15/20 04:41 PT 12.4 Sec. (12.2-14.9) 11/06/20 08:57 INR 0.94 (0.87-1.13) 11/06/20 08:57 APTT 33.5 Sec. (24.2-36.6) 11/06/20 08:57 D-Dimer 370.02 ng/mlDDU (0-234) H 11/13/20 10:59 Sodium 134 mmol/L (137-145) L 11/15/20 04:41 Potassium 4.1 mmol/L (3.6-5.0) 11/15/20 04:41 Chloride 95.2 mmol/L (98-107) L 11/15/20 04:41 Carbon Dioxide 26 mmol/L (22-30) 11/15/20 04:41 Anion Gap 17 mmol/L 11/15/20 04:41 BUN 27 mg/dL (9-20) H 11/15/20 04:41 Creatinine 0.6 mg/dL (0.8-1.3) L 11/15/20 04:41 Estimated GFR > 60 ml/min 11/15/20 04:41 BUN/Creatinine Ratio 45 % 11/15/20 04:41 Glucose 165 mg/dL (75-100) H 11/15/20 04:41 POC Glucose 166 mg/dL (70-105) H 11/14/20 17:15 Hemoglobin A1c 5.6 % (4-6) 11/07/20 07:26 Lactic Acid 1.50 mmol/L (0.7-2.0) 11/06/20 11:26 Calcium 8.6 mg/dL (8.4-10.2) 11/15/20 04:41 Magnesium 2.40 mg/dL (1.7-2.3) H 11/06/20 08:57 Ferritin 1996.0 ng/mL (30.0-300.0) H 11/13/20 10:59 Total Bilirubin 0.50 mg/dL (0.1-1.2) 11/10/20 06:46 Direct Bilirubin 0.3 mg/dL (0-0.2) H 11/06/20 09:11 Indirect Bilirubin 0.5 mg/dL 11/06/20 09:11 AST 34 units/L (5-40) 11/10/20 06:46 ALT 21 units/L (7-56) 11/10/20 06:46 Alkaline Phosphatase 35 units/L (35-129) 11/10/20 06:46 Lactate Dehydrogenase 535 units/L (91-180) H 11/13/20 10:59 Troponin T < 0.010 ng/mL (0.00-0.029) 11/06/20 11:26 C-Reactive Protein 13.00 mg/dL (0.00-1.30) H 11/13/20 10:59 Total Protein 6.3 g/dL (6.3-8.2) 11/10/20 06:46 Albumin 2.9 g/dL (3.9-5) L 11/10/20 06:46 Albumin/Globulin Ratio 0.9 % 11/10/20 06:46 Lipase 39 units/L (13-60) 11/06/20 08:57 Procalcitonin 0.07 ng/mL (<0.15) 11/13/20 10:59 Urine Color [place] (Yellow) 11/06/20 17:14 Urine Turbidity Clear (Clear) 11/06/20 17:14 Urine pH 6.0 (5.0-7.0) 11/06/20 17:14 Ur Specific [place] 1.024 (1.003-1.030) 11/06/20 17:14 Urine Protein 100 mg/dl mg/dL (Negative) 11/06/20 17:14 Urine Glucose (UA) Neg mg/dL (Negative) 11/06/20 17:14 Urine Ketones Neg mg/dL (Negative) 11/06/20 17:14 Urine Blood Sm (Negative) 11/06/20 17:14 Urine Nitrite Neg (Negative) 11/06/20 17:14 Urine Bilirubin Neg (Negative) 11/06/20 17:14 Urine Urobilinogen < 2.0 mg/dL (<2.0) 11/06/20 17:14 Ur Leukocyte Esterase Neg (Negative) 11/06/20 17:14 Urine WBC (Auto) 3.0 /HPF (0.0-6.0) 11/06/20 17:14 Urine RBC (Auto) 3.0 /HPF (0.0-6.0) 11/06/20 17:14 Urine Mucus Few /HPF 11/06/20 17:14 Coronavirus (PCR) Positive (Negative) A 11/06/20 09:57 Holt/IV: Voiding Method Urinal Active Medications - Current Medications Current Medications: Generic Name Dose Route Start Last Admin Trade Name Freq PRN Reason Stop Dose Admin Acetaminophen 650 mg 11/06/20 22:23 11/11/20 17:58 Acetaminophen 325 Mg Tab PO 650 mg Q4H PRN Administration Pain MILD(1-3)/Fever >100.5/[place] Alprazolam 0.25 mg 11/09/20 20:07 11/14/20 22:30 Alprazolam 0.25 Mg Tab PO 0.25 mg Q8H PRN Administration Anxiety Ascorbic Acid 1,000 mg 11/06/20 23:00 11/14/20 22:31 Ascorbic Acid 500 Mg Tab PO 1,000 mg BID BOBBY Administration Cholecalciferol 5,000 unit 11/12/20 11:00 11/14/20 09:00 Cholecalciferol (Vit D3) 5,000 Unit Tab PO 5,000 unit QDAY BOBBY Administration Dexamethasone 10 mg 11/13/20 10:00 11/14/20 22:32 Dexamethasone 4 Mg/Ml Vial IV 11/18/20 09:59 10 mg Q12HR BOBBY Administration Dexamethasone 5 mg 11/18/20 10:00 Dexamethasone 4 Mg/Ml Vial IV 11/22/20 22:01 BID BOBBY Enoxaparin Sodium 70 mg 11/06/20 23:00 11/14/20 23:29 Enoxaparin 80 Mg/0.8 Ml Inj SUB-Q 70 mg Q12H BOBBY Administration Protocol Famotidine 20 mg 11/06/20 23:00 11/14/20 22:31 Famotidine 20 Mg Tab PO 20 mg BID BOBBY Administration Guaifenesin 200 mg 11/06/20 18:33 11/11/20 17:59 Guaifenesin 100 Mg/5 Ml Oral Liqd PO 200 mg Q4H PRN Administration Cough Hydralazine HCl 10 mg 11/07/20 13:38 Hydralazine 20 Mg/1 Ml Inj IV Q4HR PRN Blood Pressure Metoclopramide HCl 10 mg 11/10/20 21:00 11/15/20 05:50 Metoclopramide 10 Mg/2 Ml Inj IV 10 mg Q6HR BOBBY Administration Ondansetron HCl 4 mg 11/06/20 22:23 11/12/20 20:29 Ondansetron 4 Mg/2 Ml Inj IV 4 mg Q8H PRN Administration Nausea And Vomiting Sodium Chloride 10 ml 11/06/20 23:00 11/14/20 22:32 Sodium Chloride 0.9% 10 Ml Flush Syringe IV 10 ml BID BOBBY Administration Sodium Chloride 10 ml 11/06/20 22:23 Sodium Chloride 0.9% 10 Ml Flush Syringe IV PRN PRN LINE FLUSH Zinc Sulfate 220 mg 11/06/20 23:00 11/14/20 22:31 Zinc Sulfate 220 Mg Cap PO 220 mg BID BOBBY Administration Nutrition/Malnutrition Assess - Dietary Evaluation Nutrition/Malnutrition Findings: Nutrition Notes Start: 11/11/20 09:00 Freq: Status: Active Protocol: Document 11/11/20 09:00 AT (Rec: 11/11/20 09:01 AT [id number]) Co-Sign 11/11/20 09:00 MK Nutrition Notes Need for Assessment generated from: LOS Initial or Follow up Assessment Current Diagnosis Hypertension,Respiratory Failure Other Pertinent Diagnosis SOB, Bilat pneu, COVID-19(+), Centrilobular Emphysema Current Diet Cardiac Diet Labs/Tests 11/10 Cr 0.5 BG 140 Ca 7.7 Pertinent Medications Reglan Zinc Sulfate Vitamin C Vitamin D3 Decadron Zofran Height 5 ft 4 in Weight 68.7 kg [place] Body Weight (kg) 59.09 BMI 25.9 Weight Status Appropriate Subjective/Other Information Screen for LOS. Unable to reach pt by phone x3. Per chart, pt consuming 38% of meals on average over the course of 4 days. Per chart, pt consumed 100% of breakfast and lunch yesterday. Per chart , pt had an episode of emesis last night. Will continue to follow for stable intakes. Percent of energy/protein needs met: 47%/47% Burn Absent Trauma Absent GI Symptoms Nausea,Vomiting Current % PO Poor (25-49%) Minimum of two criteria No physical signs of malnutrition #1 Nutrition Diagnosis Inadequate oral intake Etiology COVID-19 As Evidenced by Signs and Symptoms pt meeting 47% EER and 47% protein needs Is patient on ventilator? No Is Patient Ambulatory and/or Out of Bed Yes REE-([place]-. Jeor-ambulatory/OOB) [ 9537.900 [id number]] Calculation Used for Recommendations [place]-St Jeor Additional Notes PRO needs: 69-82g (1-1.2g/kg) Fluid needs: 1 mL/kcal or per MD Nutrition Intervention Change Diet Order: Continue diet as ordered Add Supplement/Snack (indicate name/kcal Ensure High Protein TID /protein ) Provides kCal: 480 Provides Protein (gm) 48 Goal #1 Meet at least 80% of EER and protein needs via diet and ONS Anticipated Discharge Needs: Cardiac Diet Follow-Up By: 11/15/20 Additional Comments F/U for stable intakes and ONS tolerance
--- NOTE | 2020-11-15 08:45 | Progress Note ---
Assessment and Plan 65 y/o male with acute respiratory failure secondary to COVID 19 11/15/20: Lasix 40mg IV x1 again today. Will ask for strict i/O. Prone as tolerated. Will speak with RT about weaning attempts today. Prognosis remains guarded. Continue steroids 1. Will give lasix 40mg IV x1 today 2. Prone as tolerated during the day and sleep prone at night 3. Finished Remdesivir and got Actemra 4. Wean FiO2 for sats >88% 5. Daily net negative state 6. Guarded prognosis. Subjective Date of service: 11/15/20 Principal diagnosis: COVID Interval history: No acute events. Still on HFNC at 40 and 100. Sats in the mid to high 90's. No weaning attempts yesterday or last night. Objective Vital Signs - 12hr 11/14/20 11/14/20 11/14/20 21:00 21:30 22:00 Temperature Pulse Rate 64 70 83 Pulse Rate [ From Monitor] Respiratory 22 14 17 Rate Blood Pressure 120/82 120/81 120/81 O2 Sat by Pulse 93 91 Oximetry 11/14/20 11/14/20 11/14/20 22:24 22:30 23:00 Temperature Pulse Rate 76 58 L 66 Pulse Rate [ From Monitor] Respiratory 16 14 23 Rate Blood Pressure 125/83 134/80 116/86 O2 Sat by Pulse 94 Oximetry 11/14/20 11/15/20 11/15/20 23:30 00:00 00:30 Temperature 97.7 F Pulse Rate 68 71 65 Pulse Rate [ 75 From Monitor] Respiratory 25 H 23 22 Rate Blood Pressure 114/76 119/84 119/79 O2 Sat by Pulse 95 92 98 Oximetry 11/15/20 11/15/20 11/15/20 01:00 01:30 01:31 Temperature Pulse Rate 65 73 Pulse Rate [ From Monitor] Respiratory 21 17 Rate Blood Pressure 115/83 122/83 O2 Sat by Pulse 96 Oximetry 11/15/20 11/15/20 11/15/20 02:01 02:31 03:00 Temperature Pulse Rate 75 68 69 Pulse Rate [ From Monitor] Respiratory 14 22 22 Rate Blood Pressure 113/84 113/84 113/75 O2 Sat by Pulse 98 93 97 Oximetry 11/15/20 11/15/20 11/15/20 03:31 04:00 04:01 Temperature Pulse Rate 82 74 69 Pulse Rate [ 74 From Monitor] Respiratory 12 17 12 Rate Blood Pressure 125/90 117/87 O2 Sat by Pulse 97 97 Oximetry 11/15/20 11/15/20 11/15/20 04:30 05:01 05:31 Temperature Pulse Rate 62 83 67 Pulse Rate [ From Monitor] Respiratory 21 13 10 L Rate Blood Pressure 113/72 127/73 152/88 O2 Sat by Pulse 97 72 L Oximetry 11/15/20 11/15/20 11/15/20 06:01 06:31 07:00 Temperature Pulse Rate 78 97 H 67 Pulse Rate [ From Monitor] Respiratory 18 14 14 Rate Blood Pressure 115/77 90/60 135/81 O2 Sat by Pulse 92 89 92 Oximetry Constitutional: no acute distress, alert, other (on hiflo o2) Eyes: non-icteric ENT: oropharynx moist Neck: supple Effort: normal Ascultation: Bilateral: clear Cardiovascular: regular rate and rhythm (no mrg) Gastrointestinal: normoactive bowel sounds, soft, non-tender, non-distended Integumentary: normal Extremities: no cyanosis, no edema, pink and warm Neurologic: non-focal exam, pupils equal and round, CN II-XII normal, other (sleepy but arousable) Psychiatric: mood appropriate, affect normal CBC and BMP: 11/15/20 04:41 11/15/20 04:41 ABG, PT/INR, D-dimer: PT/INR, D-dimer PT 12.4 Sec. (12.2-14.9) 11/06/20 08:57 INR 0.94 (0.87-1.13) 11/06/20 08:57 D-Dimer 370.02 ng/mlDDU (0-234) H 11/13/20 10:59 Abnormal lab findings: Abnormal Labs 11/06/20 11/06/20 11/06/20 08:57 08:57 08:57 WBC Hgb MCH MCHC 35 H RDW 12.8 L Plt Count 131 L [place] % (Auto) 11.4 H Lymph # (Auto) 0.8 L Seg Neutrophils % Seg Neuts % (Manual) Lymphocytes % (Manual) Seg Neutrophils # Man Lymphocytes # (Manual) D-Dimer 661.18 H Sodium Potassium Chloride BUN Creatinine Glucose POC Glucose Lactic Acid Calcium Magnesium 2.40 H Ferritin Direct Bilirubin AST Alkaline Phosphatase Lactate Dehydrogenase C-Reactive Protein Total Protein Albumin Coronavirus (PCR) 11/06/20 11/06/20 11/06/20 08:57 09:11 09:11 WBC Hgb MCH MCHC RDW Plt Count [place] % (Auto) Lymph # (Auto) Seg Neutrophils % Seg Neuts % (Manual) Lymphocytes % (Manual) Seg Neutrophils # Man Lymphocytes # (Manual) D-Dimer 600.32 H Sodium Potassium Chloride BUN Creatinine Glucose 112 H POC Glucose Lactic Acid 2.20 H* Calcium Magnesium Ferritin Direct Bilirubin AST Alkaline Phosphatase Lactate Dehydrogenase 509 H C-Reactive Protein 8.90 H Total Protein Albumin Coronavirus (PCR) 11/06/20 11/06/20 11/06/20 09:11 09:11 09:57 WBC Hgb MCH MCHC RDW Plt Count [place] % (Auto) Lymph # (Auto) Seg Neutrophils % Seg Neuts % (Manual) Lymphocytes % (Manual) Seg Neutrophils # Man Lymphocytes # (Manual) D-Dimer Sodium 133 L Potassium 3.2 L Chloride 93.3 L BUN 22 H Creatinine Glucose 113 H POC Glucose Lactic Acid Calcium 8.2 L Magnesium Ferritin 3934.0 H Direct Bilirubin 0.3 H AST 69 H Alkaline Phosphatase 30 L Lactate Dehydrogenase C-Reactive Protein Total Protein Albumin 3.4 L Coronavirus (PCR) Positive A 11/07/20 11/07/20 11/07/20 07:26 07:26 19:10 WBC 3.6 L Hgb MCH MCHC 35 H RDW 12.9 L Plt Count 139 L [place] % (Auto) Lymph # (Auto) 0.5 L Seg Neutrophils % 78.1 H Seg Neuts % (Manual) Lymphocytes % (Manual) Seg Neutrophils # Man Lymphocytes # (Manual) D-Dimer Sodium 135 L Potassium Chloride BUN Creatinine 0.6 L 0.6 L Glucose 143 H 117 H POC Glucose Lactic Acid Calcium 7.8 L 7.7 L Magnesium Ferritin Direct Bilirubin AST 55 H 50 H Alkaline Phosphatase 29 L 31 L Lactate Dehydrogenase C-Reactive Protein Total Protein Albumin 3.1 L 3.0 L Coronavirus (PCR) 11/08/20 11/08/20 11/08/20 06:02 06:02 18:25 WBC Hgb MCH MCHC 35 H RDW 12.9 L Plt Count [place] % (Auto) Lymph # (Auto) Seg Neutrophils % Seg Neuts % (Manual) Lymphocytes % (Manual) Seg Neutrophils # Man Lymphocytes # (Manual) D-Dimer Sodium 135 L Potassium Chloride BUN Creatinine 0.7 L Glucose 138 H POC Glucose Lactic Acid Calcium 7.5 L Magnesium Ferritin 2864.0 H Direct Bilirubin AST 45 H Alkaline Phosphatase 30 L Lactate Dehydrogenase C-Reactive Protein Total Protein Albumin 3.0 L Coronavirus (PCR) 11/08/20 11/09/20 11/10/20 18:25 05:44 06:46 WBC Hgb MCH MCHC RDW Plt Count [place] % (Auto) Lymph # (Auto) Seg Neutrophils % Seg Neuts % (Manual) Lymphocytes % (Manual) Seg Neutrophils # Man Lymphocytes # (Manual) D-Dimer Sodium Potassium Chloride BUN Creatinine 0.5 L 0.5 L Glucose 150 H 140 H POC Glucose Lactic Acid Calcium 7.5 L 7.7 L Magnesium Ferritin Direct Bilirubin AST Alkaline Phosphatase Lactate Dehydrogenase 538 H C-Reactive Protein 3.00 H Total Protein 6.1 L Albumin 3.3 L 2.9 L Coronavirus (PCR) 11/10/20 11/10/20 11/11/20 16:09 16:09 10:51 WBC Hgb MCH MCHC RDW Plt Count [place] % (Auto) Lymph # (Auto) Seg Neutrophils % Seg Neuts % (Manual) Lymphocytes % (Manual) Seg Neutrophils # Man Lymphocytes # (Manual) D-Dimer Sodium Potassium Chloride BUN Creatinine Glucose POC Glucose Lactic Acid Calcium Magnesium Ferritin 2483.0 H 2486.0 H Direct Bilirubin AST Alkaline Phosphatase Lactate Dehydrogenase 586 H C-Reactive Protein 1.50 H Total Protein Albumin Coronavirus (PCR) 11/11/20 11/11/20 11/11/20 10:51 10:51 15:45 WBC Hgb MCH MCHC RDW Plt Count [place] % (Auto) Lymph # (Auto) Seg Neutrophils % Seg Neuts % (Manual) Lymphocytes % (Manual) Seg Neutrophils # Man Lymphocytes # (Manual) D-Dimer Sodium Potassium Chloride BUN Creatinine Glucose 149 H POC Glucose Lactic Acid Calcium Magnesium Ferritin 2573.0 H Direct Bilirubin AST Alkaline Phosphatase Lactate Dehydrogenase 624 H C-Reactive Protein 4.30 H Total Protein Albumin Coronavirus (PCR) 11/11/20 11/12/20 11/12/20 15:45 07:52 11:33 WBC Hgb MCH MCHC RDW Plt Count [place] % (Auto) Lymph # (Auto) Seg Neutrophils % Seg Neuts % (Manual) Lymphocytes % (Manual) Seg Neutrophils # Man Lymphocytes # (Manual) D-Dimer Sodium Potassium Chloride BUN Creatinine Glucose POC Glucose 147 H 120 H Lactic Acid Calcium Magnesium Ferritin Direct Bilirubin AST Alkaline Phosphatase Lactate Dehydrogenase 627 H C-Reactive Protein 4.90 H Total Protein Albumin Coronavirus (PCR) 11/12/20 11/13/20 11/13/20 15:40 05:28 10:59 WBC Hgb MCH MCHC RDW Plt Count [place] % (Auto) Lymph # (Auto) Seg Neutrophils % Seg Neuts % (Manual) Lymphocytes % (Manual) Seg Neutrophils # Man Lymphocytes # (Manual) D-Dimer 370.02 H Sodium Potassium Chloride BUN Creatinine Glucose POC Glucose 119 H 166 H Lactic Acid Calcium Magnesium Ferritin Direct Bilirubin AST Alkaline Phosphatase Lactate Dehydrogenase C-Reactive Protein Total Protein Albumin Coronavirus (PCR) 11/13/20 11/13/20 11/14/20 10:59 10:59 11:52 WBC Hgb MCH MCHC RDW Plt Count [place] % (Auto) Lymph # (Auto) Seg Neutrophils % Seg Neuts % (Manual) Lymphocytes % (Manual) Seg Neutrophils # Man Lymphocytes # (Manual) D-Dimer Sodium Potassium Chloride BUN Creatinine Glucose POC Glucose 259 H Lactic Acid Calcium Magnesium Ferritin 1996.0 H Direct Bilirubin AST Alkaline Phosphatase Lactate Dehydrogenase 535 H C-Reactive Protein 13.00 H Total Protein Albumin Coronavirus (PCR) 11/14/20 11/15/20 11/15/20 17:15 04:41 04:41 WBC Hgb 15.5 H MCH 33 H MCHC 37 H RDW 13.0 L Plt Count [place] % (Auto) Lymph # (Auto) Seg Neutrophils % Seg Neuts % (Manual) 95.0 H Lymphocytes % (Manual) 1.0 L Seg Neutrophils # Man 9.1 H Lymphocytes # (Manual) 0.1 L D-Dimer Sodium 134 L Potassium Chloride 95.2 L BUN 27 H Creatinine 0.6 L Glucose 165 H POC Glucose 166 H Lactic Acid Calcium Magnesium Ferritin Direct Bilirubin AST Alkaline Phosphatase Lactate Dehydrogenase C-Reactive Protein Total Protein Albumin Coronavirus (PCR)
[2020-11-15] MEDS ORDERED: FUROSEMIDE 40 MG/4 ML INJ IV ONE (09:00)
[2020-11-15] MEDS: FAMOTIDINE 20 MG TAB PO SCH ×2 (09:01→21:24)
[2020-11-15] MEDS: dexAMETHasone 4 MG/ML VIAL IV SCH ×2 (09:01→21:24)
[2020-11-15] MEDS: ASCORBIC ACID 500 MG TAB PO SCH ×2 (09:01→21:24)
[2020-11-15] MEDS: CHOLECALCIFEROL (VIT D3) 5,000 UNIT TAB PO SCH ×2 (09:01→20:28)
[2020-11-15] MEDS: ZINC SULFATE 220 MG CAP PO SCH ×2 (09:02→21:24)
[2020-11-15] MEDS: ENOXAPARIN 80 MG/0.8 ML INJ SUB-Q SCH (11:17)
--- NOTE | 2020-11-15 15:59 | Progress Note ---
Assessment and Plan Cultures: SARS-CoV-2 PCR positive. Blood culture 11/06/2020 no growth today. Assessment: 65-year-old male with history of hypertension, follows first dose of COVID-19 vaccine 10 days before admission, admitted on 11/06/2020 secondary to cough, shortness of breath generalized malaise for 48 hours: #Acute sepsis: Present on admission with mild fever, tachycardia, hypoxia, elevated lactate; likely secondary to COVID-19 infection. #Severe COVID-19 pneumonia: Chest x-ray with bilateral infiltrates. Inflammatory markers elevated. Markers worsening. #Acute hypoxemic respiratory failure: Worsening, now on high flow nasal cannula 100%, impending intubation #Thrombocytopenia: Mild likely secondary to COVID-19, resolved. #Transaminitis: Likely due to COVID-19. Resolved. #Acute encephalopathy: Patient is now lethargic likely due to hypoxia Recommendations: -s/p tocilizumab -Increase dexamethasone 10 mg IV bid x 5 days then 5 mg IV bid for 5 days. -Completed remdesivir -No need for antibiotics, procalcitonin is normal -Prone positioning -Anticoagulation per protocol Close monitoring, risk for decompensation requiring intubation Will follow. Cj Webster MD [facility] ([facility] O: [phone] F: [phone] Subjective Date of service: 11/15/20 Principal diagnosis: COVID Interval history: Afebrile, normal white count. Remains on high flow nasal cannula. Objective - Exam Narrative Exam: General appearance: On high flow nasal cannula Eyes: anicteric sclerae, moist conjunctivae; no lid-lag; PERRLA HENT: Normocephalic, Atraumatic; normal external ears, nares open, oropharynx limited Neck: supple, tracheal midline, no JVD Lungs: Bilateral crackles CV: RRR no murmur Abdomen: Soft, non-tender; no masses or hepatosplenomegaly Extremities: no edema, no cyanosis Skin: No rash. Psych: Lethargic Neuro: Lethargic - Constitutional Vitals: Vital Signs Temp Pulse Resp BP Pulse Ox 97.7 F 78 26 H 126/86 92 11/15/20 00:00 11/15/20 15:00 11/15/20 12:30 11/15/20 15:00 11/15/20 14:30 Temperature -Last 24 Hours Temperature 97.7 F Temperature 97.5 F - Labs CBC & Chem 7: 11/15/20 04:41 11/15/20 04:41 Labs: Abnormal lab results 11/14/20 11/15/20 11/15/20 Range/Units 17:15 04:41 04:41 Hgb 15.5 H (11.8-15.2) gm/dl MCH 33 H (28-32) pg MCHC 37 H (32-34) % RDW 13.0 L (13.2-15.2) % Seg Neuts % (Manual) 95.0 H (40.0-70.0) % Lymphocytes % (Manual) 1.0 L (13.4-35.0) % Seg Neutrophils # Man 9.1 H (1.8-7.7) K/mm3 Lymphocytes # (Manual) 0.1 L (1.2-5.4) K/mm3 Sodium 134 L (137-145) mmol/L Chloride 95.2 L (98-107) mmol/L BUN 27 H (9-20) mg/dL Creatinine 0.6 L (0.8-1.3) mg/dL Glucose 165 H (75-100) mg/dL POC Glucose 166 H (70-105) mg/dL
[2020-11-15] MEDS: guaiFENesin 100 MG/5 ML ORAL LIQD PO PRN (21:24)
[2020-11-15] MEDS: ALPRAZolam 0.25 MG TAB PO PRN (21:24)
[2020-11-15] MEDS: ACETAMINOPHEN 325 MG TAB PO PRN (21:29)
[2020-11-15] MEDS ORDERED: TEMAZEPAM 15 MG CAP PO SCH (22:00)
[2020-11-16] MEDS: ENOXAPARIN 80 MG/0.8 ML INJ SUB-Q SCH ×2 (00:18→11:47)
[2020-11-16] MEDS: METOCLOPRAMIDE 10 MG/2 ML INJ IV SCH ×2 (00:18→05:58)
[2020-11-16] MEDS: guaiFENesin 100 MG/5 ML ORAL LIQD PO PRN ×2 (05:59→23:19)
[2020-11-16] MEDS: ALPRAZolam 0.25 MG TAB PO PRN ×2 (05:59→23:19)
--- NOTE | 2020-11-16 08:12 | Progress Note ---
Assessment and Plan Assessment and plan: --Acute hypoxemic respiratory failure. Patient continues to require high flow nasal cannula oxygen 40 L FiO2 of 100% with O2 sats 97%, and nonrebreather mask Due to severe COVID-19 pneumonia bilateral Wean as tolerated, Prone positioning ID and pulmonary following --Acute sepsis; due to COVID-19 pneumonia Fever, tachycardia, lactic acidosis, hypoxia, and pneumonia Procalcitonin normal range, no antibiotics Treat the underlying cause, follow cultures --Severe COVID-19 infection On high flow oxygen s/p tocilizumab Completed remdesivir High dose of dexamethasone 10 mg IV twice daily for 5 days 5 mg IV twice daily for the next 5 days per ID Advised prone positioning as tolerated --Metabolic encephalopathy/lethargy Probably due to underlying disease process and hypoxia Supportive care --Transaminitis; present on admission probably Covid related. Resolved --Thrombocytopenia; probably Covid related Gradually improving, monitor platelet count --Elevated D-dimers; on empiric therapeutic dose of Lovenox CTA chest negative, check lower extremity venous Doppler to evaluate for DVT --DVT prophylaxis; on Lovenox Closely monitor patient and adjust management as needed Weekday Babysitter recommendations noted and appreciated Patient is critically ill with very poor prognosis Will update family today Critical care time 32 minutes Daily patient care; 11/08/2020. Continue dexamethasone and remdesivir. Patient is s/p tocilizumab. Procalcitonin is normal. Therefore, abx discontinued. Prone positioning as possible. Continue to trend inflammatory markers. 11/09/2020. Nurse reports patient with nausea vomiting this morning that resolved with Zofran. Continue dexamethasone and remdesivir. Patient is s/p tocilizumab. Procalcitonin is normal. Patient currently requiring high flow na alvaro cannula 15 L/min at 75% FiO2. Continue to wean oxygen as tolerated. 11/10/2020. Patient's oxygen requirements have improved with high flow nasal cannula 20 L/min O2 with FiO2 of 70%. Continue dexamethasone and remdesivir. Continue to wean oxygen as tolerated. 11/11/2020. Patient's oxygen requirements are worse high flow nasal cannula 40 L/min with FiO2 of 100%. Consider BiPAP if continues to worsen. Pulmonary following. Continue dexamethasone and remdesivir. Remdesivir completes today. Continue to trend inflammatory markers. Prone positioning as possible. 11/12/2020. Patient remains on high flow nasal cannula with 40 L/min O2 and FiO2 100%. Continue Decadron, remdesivir and therapeutic Lovenox. Continue to trend inflammatory markers. Wean oxygen to maintain sats greater than 92%. Prone positioning as possible. Prognosis remains guarded. 11/13/2020. Nurse reports patient is agitated this morning not improved with Ativan. Continue restraints for safety. Consider Precedex drip. Patient remains on high flow nasal cannula with 40 L/min O2 and FiO2 100%. Continue Decadron, remdesivir and therapeutic Lovenox. Continue to trend inflammatory markers. Wean oxygen to maintain sats greater than 92%. Prone positioning as possible. Prognosis remains guarded. 11/14/2020. Patient remains on high flow nasal cannula with 40 L/min O2 and FiO2 100%. Continue Decadron, remdesivir and therapeutic Lovenox. Continue Ativan as needed for agitation. Continue to trend inflammatory markers. Wean oxygen to maintain sats greater than 92%. Prone positioning as possible. Prognosis remains guarded. 11/15/2020; patient remains on high flow oxygen 40 L/100% FiO2 with O2 sats of 96% Wean as tolerated, advised prone positioning, prognosis guarded Consults and recommendations noted 11/16/2020; patient is on therapeutic Lovenox due to elevated D-dimers and Covid and respiratory failure CTA chest negative for PE, will check lower extremity venous Doppler to rule out DVT, if negative may DC therapeutic Lovenox And start prophylactic Lovenox per protocol Remains on high flow nasal cannula oxygen 100% nonrebreather, wean as tolerated, Pulmonary following. Guarded prognosis, will discuss with family History Interval history: I have seen and examined the patient at the bedside and I am seeing her this morning Patient remains on high flow nasal cannula oxygen 40 L 100% nonrebreather O2 sats 97% In mild distress Vital signs reviewed Hospitalist Physical - Constitutional Vitals: Temp Pulse Resp BP Pulse Ox 97.9 F 68 22 118/79 94 11/16/20 07:27 11/16/20 06:30 11/16/20 06:30 11/16/20 06:30 11/16/20 06:30 General appearance: Present: mild distress, well-nourished, other (On high flow oxygen) - EENT Eyes: Present: PERRL, EOM intact - Neck Neck: Present: supple, normal ROM - Respiratory Respiratory effort: normal Respiratory: bilateral: diminished, rales, rhonchi, negative: wheezing - Cardiovascular Rhythm: regular Heart Sounds: Present: S1 & S2 - Extremities Extremities: no ischemia, No edema - Abdominal General gastrointestinal: soft, non-tender, non-distended, normal bowel sounds - Integumentary Integumentary: Present: clear, warm - Psychiatric Psychiatric: appropriate mood/affect, cooperative - Neurologic Neurologic: CNII-XII intact, moves all extremities HEART Score - HEART Score Troponin: Troponin T < 0.010 ng/mL (0.00-0.029) 11/06/20 11:26 Results - Labs CBC & Chem 7: 11/15/20 04:41 11/15/20 04:41 Labs: Laboratory Last Values WBC 9.6 K/mm3 (4.5-11.0) 11/15/20 04:41 RBC 4.72 M/mm3 (3.65-5.03) 11/15/20 04:41 Hgb 15.5 gm/dl (11.8-15.2) H 11/15/20 04:41 Hct 42.6 % (35.5-45.6) 11/15/20 04:41 MCV 90 fl (84-94) 11/15/20 04:41 MCH 33 pg (28-32) H 11/15/20 04:41 MCHC 37 % (32-34) H 11/15/20 04:41 RDW 13.0 % (13.2-15.2) L 11/15/20 04:41 Plt Count 322 K/mm3 (140-440) 11/15/20 04:41 Lymph % (Auto) 14.4 % (13.4-35.0) 11/07/20 07:26 [place]borne % (Auto) 7.3 % (0.0-7.3) 11/07/20 07:26 Eos % (Auto) 0.0 % (0.0-4.3) 11/07/20 07:26 Baso % (Auto) 0.2 % (0.0-1.8) 11/07/20 07:26 Lymph # (Auto) 0.5 K/mm3 (1.2-5.4) L 11/07/20 07:26 [place]borne # (Auto) 0.3 K/mm3 (0.0-0.8) 11/07/20 07:26 Eos # (Auto) 0.0 K/mm3 (0.0-0.4) 11/07/20 07:26 Baso # (Auto) 0.0 K/mm3 (0.0-0.1) 11/07/20 07:26 Add Manual Diff Complete 11/15/20 04:41 Total Counted 100 11/15/20 04:41 Seg Neutrophils % End Finder Forming Department 11/15/20 04:41 Seg Neuts % (Manual) 95.0 % (40.0-70.0) H 11/15/20 04:41 Lymphocytes % (Manual) 1.0 % (13.4-35.0) L 11/15/20 04:41 Monocytes % (Manual) 4.0 % (0.0-7.3) 11/15/20 04:41 Nucleated RBC % Not Reportable 11/15/20 04:41 Seg Neutrophils # 2.8 K/mm3 (1.8-7.7) 11/07/20 07:26 Seg Neutrophils # Man 9.1 K/mm3 (1.8-7.7) H 11/15/20 04:41 Band Neutrophils # 0.0 K/mm3 11/15/20 04:41 Lymphocytes # (Manual) 0.1 K/mm3 (1.2-5.4) L 11/15/20 04:41 Abs React Lymphs (Man) 0.0 K/mm3 11/15/20 04:41 Monocytes # (Manual) 0.4 K/mm3 (0.0-0.8) 11/15/20 04:41 Eosinophils # (Manual) 0.0 K/mm3 (0.0-0.4) 11/15/20 04:41 Basophils # (Manual) 0.0 K/mm3 (0.0-0.1) 11/15/20 04:41 Metamyelocytes # 0.0 K/mm3 11/15/20 04:41 Myelocytes # 0.0 K/mm3 11/15/20 04:41 Promyelocytes # 0.0 K/mm3 11/15/20 04:41 Blast Cells # 0.0 K/mm3 11/15/20 04:41 WBC Morphology Not Reportable 11/15/20 04:41 Hypersegmented Neuts Not Reportable 11/15/20 04:41 Hyposegmented Neuts Not Reportable 11/15/20 04:41 Hypogranular Neuts Not Reportable 11/15/20 04:41 Smudge Cells Not Reportable 11/15/20 04:41 Toxic Granulation Not Reportable 11/15/20 04:41 Toxic Vacuolation Not Reportable 11/15/20 04:41 Dohle Bodies Not Reportable 11/15/20 04:41 Pelger-Huet Anomaly Not Reportable 11/15/20 04:41 Shelby Rods Not Reportable 11/15/20 04:41 Platelet Estimate Consistent w auto 11/15/20 04:41 Clumped Platelets Not Reportable 11/15/20 04:41 Plt Clumps, EDTA Not Reportable 11/15/20 04:41 Large Platelets Few 11/15/20 04:41 Giant Platelets Not Reportable 11/15/20 04:41 Platelet Satelliting Not Reportable 11/15/20 04:41 Plt Morphology Comment Not Reportable 11/15/20 04:41 RBC Morphology Normal 11/15/20 04:41 Dimorphic RBCs Not Reportable 11/15/20 04:41 Polychromasia Not Reportable 11/15/20 04:41 Hypochromasia Not Reportable 11/15/20 04:41 Poikilocytosis Not Reportable 11/15/20 04:41 Anisocytosis Not Reportable 11/15/20 04:41 Microcytosis Not Reportable 11/15/20 04:41 Macrocytosis Not Reportable 11/15/20 04:41 Spherocytes Not Reportable 11/15/20 04:41 Pappenheimer Bodies Not Reportable 11/15/20 04:41 Sickle Cells Not Reportable 11/15/20 04:41 Target Cells Not Reportable 11/15/20 04:41 Tear Drop Cells Not Reportable 11/15/20 04:41 Ovalocytes Not Reportable 11/15/20 04:41 Helmet Cells Not Reportable 11/15/20 04:41 Delgado-Kingsford Bodies Not Reportable 11/15/20 04:41 Sanborn Rings Not Reportable 11/15/20 04:41 Philadelphia Cells Not Reportable 11/15/20 04:41 Bite Cells Not Reportable 11/15/20 04:41 Crenated Cell Not Reportable 11/15/20 04:41 Elliptocytes Not Reportable 11/15/20 04:41 Acanthocytes (Spur) Not Reportable 11/15/20 04:41 Rouleaux Not Reportable 11/15/20 04:41 Hemoglobin C Crystals Not Reportable 11/15/20 04:41 Schistocytes Not Reportable 11/15/20 04:41 Malaria parasites Not Reportable 11/15/20 04:41 Devonte Bodies Not Reportable 11/15/20 04:41 Hem Pathologist Commnt No 11/15/20 04:41 PT 12.4 Sec. (12.2-14.9) 11/06/20 08:57 INR 0.94 (0.87-1.13) 11/06/20 08:57 APTT 33.5 Sec. (24.2-36.6) 11/06/20 08:57 D-Dimer 370.02 ng/mlDDU (0-234) H 11/13/20 10:59 Sodium 134 mmol/L (137-145) L 11/15/20 04:41 Potassium 4.1 mmol/L (3.6-5.0) 11/15/20 04:41 Chloride 95.2 mmol/L (98-107) L 11/15/20 04:41 Carbon Dioxide 26 mmol/L (22-30) 11/15/20 04:41 Anion Gap 17 mmol/L 11/15/20 04:41 BUN 27 mg/dL (9-20) H 11/15/20 04:41 Creatinine 0.6 mg/dL (0.8-1.3) L 11/15/20 04:41 Estimated GFR > 60 ml/min 11/15/20 04:41 BUN/Creatinine Ratio 45 % 11/15/20 04:41 Glucose 165 mg/dL (75-100) H 11/15/20 04:41 POC Glucose 166 mg/dL (70-105) H 11/14/20 17:15 Hemoglobin A1c 5.6 % (4-6) 11/07/20 07:26 Lactic Acid 1.50 mmol/L (0.7-2.0) 11/06/20 11:26 Calcium 8.6 mg/dL (8.4-10.2) 11/15/20 04:41 Magnesium 2.40 mg/dL (1.7-2.3) H 11/06/20 08:57 Ferritin 1996.0 ng/mL (30.0-300.0) H 11/13/20 10:59 Total Bilirubin 0.50 mg/dL (0.1-1.2) 11/10/20 06:46 Direct Bilirubin 0.3 mg/dL (0-0.2) H 11/06/20 09:11 Indirect Bilirubin 0.5 mg/dL 11/06/20 09:11 AST 34 units/L (5-40) 11/10/20 06:46 ALT 21 units/L (7-56) 11/10/20 06:46 Alkaline Phosphatase 35 units/L (35-129) 11/10/20 06:46 Lactate Dehydrogenase 535 units/L (91-180) H 11/13/20 10:59 Troponin T < 0.010 ng/mL (0.00-0.029) 11/06/20 11:26 C-Reactive Protein 13.00 mg/dL (0.00-1.30) H 11/13/20 10:59 Total Protein 6.3 g/dL (6.3-8.2) 11/10/20 06:46 Albumin 2.9 g/dL (3.9-5) L 11/10/20 06:46 Albumin/Globulin Ratio 0.9 % 11/10/20 06:46 Lipase 39 units/L (13-60) 11/06/20 08:57 Procalcitonin 0.07 ng/mL (<0.15) 11/13/20 10:59 Urine Color [place] (Yellow) 11/06/20 17:14 Urine Turbidity Clear (Clear) 11/06/20 17:14 Urine pH 6.0 (5.0-7.0) 11/06/20 17:14 Ur Specific [place] 1.024 (1.003-1.030) 11/06/20 17:14 Urine Protein 100 mg/dl mg/dL (Negative) 11/06/20 17:14 Urine Glucose (UA) Neg mg/dL (Negative) 11/06/20 17:14 Urine Ketones Neg mg/dL (Negative) 11/06/20 17:14 Urine Blood Sm (Negative) 11/06/20 17:14 Urine Nitrite Neg (Negative) 11/06/20 17:14 Urine Bilirubin Neg (Negative) 11/06/20 17:14 Urine Urobilinogen < 2.0 mg/dL (<2.0) 11/06/20 17:14 Ur Leukocyte Esterase Neg (Negative) 11/06/20 17:14 Urine WBC (Auto) 3.0 /HPF (0.0-6.0) 11/06/20 17:14 Urine RBC (Auto) 3.0 /HPF (0.0-6.0) 11/06/20 17:14 Urine Mucus Few /HPF 11/06/20 17:14 Coronavirus (PCR) Positive (Negative) A 11/06/20 09:57 Holt/IV: Voiding Method Condom Catheter Active Medications - Current Medications Current Medications: Generic Name Dose Route Start Last Admin Trade Name Freq PRN Reason Stop Dose Admin Acetaminophen 650 mg 11/06/20 22:23 11/15/20 21:29 Acetaminophen 325 Mg Tab PO 650 mg Q4H PRN Administration Pain MILD(1-3)/Fever >100.5/CALVILLO Alprazolam 0.25 mg 11/09/20 20:07 11/16/20 05:59 Alprazolam 0.25 Mg Tab PO 0.25 mg Q8H PRN Administration Anxiety Ascorbic Acid 1,000 mg 11/06/20 23:00 11/15/20 21:24 Ascorbic Acid 500 Mg Tab PO 1,000 mg BID BOBBY Administration Cholecalciferol 5,000 unit 11/12/20 11:00 11/15/20 09:01 Cholecalciferol (Vit D3) 5,000 Unit Tab PO 5,000 unit QDAY BOBBY Administration Dexamethasone 10 mg 11/13/20 10:00 11/15/20 21:24 Dexamethasone 4 Mg/Ml Vial IV 11/18/20 09:59 10 mg Q12HR BOBBY Administration Dexamethasone 5 mg 11/18/20 10:00 Dexamethasone 4 Mg/Ml Vial IV 11/22/20 22:01 BID BOBBY Enoxaparin Sodium 70 mg 11/06/20 23:00 11/16/20 00:18 Enoxaparin 80 Mg/0.8 Ml Inj SUB-Q 70 mg Q12H BOBBY Administration Protocol Famotidine 20 mg 11/06/20 23:00 11/15/20 21:24 Famotidine 20 Mg Tab PO 20 mg BID BOBBY Administration Guaifenesin 200 mg 11/06/20 18:33 11/16/20 05:59 Guaifenesin 100 Mg/5 Ml Oral Liqd PO 200 mg Q4H PRN Administration Cough Hydralazine HCl 10 mg 11/07/20 13:38 Hydralazine 20 Mg/1 Ml Inj IV Q4HR PRN Blood Pressure Ondansetron HCl 4 mg 11/06/20 22:23 11/12/20 20:29 Ondansetron 4 Mg/2 Ml Inj IV 4 mg Q8H PRN Administration Nausea And Vomiting Sodium Chloride 10 ml 11/06/20 23:00 11/15/20 21:25 Sodium Chloride 0.9% 10 Ml Flush Syringe IV 10 ml BID BOBBY Administration Sodium Chloride 10 ml 11/06/20 22:23 Sodium Chloride 0.9% 10 Ml Flush Syringe IV PRN PRN LINE FLUSH Zinc Sulfate 220 mg 11/06/20 23:00 11/15/20 21:24 Zinc Sulfate 220 Mg Cap PO 220 mg BID BOBBY Administration Nutrition/Malnutrition Assess - Dietary Evaluation Nutrition/Malnutrition Findings: Nutrition Notes Start: 11/11/20 09:00 Freq: Status: Active Protocol: Document 11/15/20 12:36 MARLENY (Rec: 11/15/20 12:40 MARLENY [id number]) Co-Sign 11/15/20 12:36 HALIMA Nutrition Notes Initial or Follow up Reassessment Current Diagnosis Hypertension,Respiratory Failure Other Pertinent Diagnosis SOB, Bilat pneu, COVID-19(+), Centrilobular Emphysema Current Diet Cardiac Diet Labs/Tests Na 134 BUN 27 Cr 0.6 BG 165 Pertinent Medications Reglan Zinc Sulfate Vitamin C Vitamin D3 Decadron Height 5 ft 4 in Weight 68.7 kg [place] Body Weight (kg) 59.09 BMI 25.9 Weight Status Appropriate Subjective/Other Information F/U for stable intakes and ONS tolerance. Per RN, pt is consuming 100% PO/ONS. Percent of energy/protein needs met: 100%/100% (PO only) Burn Absent Trauma Absent GI Symptoms Nausea,Vomiting Current % PO Good (75-100%) Minimum of two criteria No physical signs of malnutrition #1 Nutrition Diagnosis Inadequate oral intake As Evidenced by Signs and Symptoms pt meeting 100% energy/protein needs Diagnosis Progress(for reassessment Improved documentation) Is patient on ventilator? No Is Patient Ambulatory and/or Out of Bed Yes REE-([facility]-ambulatory/OOB) [ [id number]] Calculation Used for Recommendations [facility] Additional Notes PRO needs: 69-82g (1-1.2g/kg) Fluid needs: 1 mL/kcal or per MD Nutrition Intervention Change Diet Order: Continue diet as ordered Add Supplement/Snack (indicate name/kcal Ensure High Protein daily /protein ) Provides kCal: 160 Provides Protein (gm) 16 Goal #1 Meet at least 80% of EER and protein needs via diet and ONS Anticipated Discharge Needs: Cardiac Diet Follow-Up By: 11/22/20 Additional Comments F/U for stable intakes
[2020-11-16] MEDS: dexAMETHasone 4 MG/ML VIAL IV SCH ×2 (09:00→23:19)
[2020-11-16] MEDS: FAMOTIDINE 20 MG TAB PO SCH ×2 (09:00→23:20)
[2020-11-16] MEDS: ASCORBIC ACID 500 MG TAB PO SCH ×2 (09:02→23:19)
[2020-11-16] MEDS: ZINC SULFATE 220 MG CAP PO SCH ×2 (09:03→23:19)
[2020-11-16] MEDS: CHOLECALCIFEROL (VIT D3) 5,000 UNIT TAB PO SCH (09:03)
--- NOTE | 2020-11-16 13:07 | Progress Note ---
Assessment and Plan 65 y/o male with acute respiratory failure secondary to COVID 19 11/16/20: LTACH agreeable to take patient as he will be a residential wean. Suggest another dosing of lasix today. 11/15/20: Lasix 40mg IV x1 again today. Will ask for strict i/O. Prone as tolerated. Will speak with RT about weaning attempts today. Prognosis remains guarded. Continue steroids 1. Will give lasix 40mg IV x1 today 2. Prone as tolerated during the day and sleep prone at night 3. Finished Remdesivir and got Actemra 4. Wean FiO2 for sats >88% 5. Daily net negative state 6. Guarded prognosis. Subjective Date of service: 11/16/20 Principal diagnosis: COVID Interval history: No acute events. Remains on HFNC, noncompliant at times. Objective Vital Signs - 12hr 11/16/20 11/16/20 11/16/20 01:30 02:00 02:30 Temperature Pulse Rate 74 64 60 Respiratory 22 19 19 Rate Blood Pressure 105/77 120/86 117/77 O2 Sat by Pulse 96 96 Oximetry 11/16/20 11/16/20 11/16/20 03:00 03:30 03:35 Temperature 97.1 F L Pulse Rate 69 61 Respiratory 22 19 Rate Blood Pressure 115/82 114/80 O2 Sat by Pulse 97 94 Oximetry 11/16/20 11/16/20 11/16/20 04:00 04:28 04:30 Temperature Pulse Rate 64 64 62 Respiratory 21 20 Rate Blood Pressure 117/80 102/74 O2 Sat by Pulse 95 95 Oximetry 11/16/20 11/16/20 11/16/20 04:45 05:00 05:30 Temperature Pulse Rate 66 67 Respiratory 15 21 Rate Blood Pressure 113/81 107/77 O2 Sat by Pulse 97 96 96 Oximetry 11/16/20 11/16/20 11/16/20 06:00 06:30 07:00 Temperature Pulse Rate 70 68 70 Respiratory 29 H 22 20 Rate Blood Pressure 127/79 118/79 111/78 O2 Sat by Pulse 88 94 96 Oximetry 11/16/20 11/16/20 11/16/20 07:27 07:30 08:00 Temperature 97.9 F Pulse Rate 64 79 Respiratory 21 21 Rate Blood Pressure 112/77 122/76 O2 Sat by Pulse 91 89 Oximetry 11/16/20 11/16/20 11/16/20 08:30 09:00 09:30 Temperature Pulse Rate 78 69 78 Respiratory 24 21 21 Rate Blood Pressure 122/83 106/76 109/80 O2 Sat by Pulse 87 93 96 Oximetry 11/16/20 11/16/20 11/16/20 10:00 10:30 11:01 Temperature Pulse Rate 66 82 79 Respiratory 20 29 H 20 Rate Blood Pressure 106/75 108/81 116/84 O2 Sat by Pulse 97 85 89 Oximetry 11/16/20 11/16/20 11/16/20 11:30 12:00 12:30 Temperature Pulse Rate 77 85 75 Respiratory 30 H 18 25 H Rate Blood Pressure 119/79 112/81 113/76 O2 Sat by Pulse 95 97 98 Oximetry Constitutional: no acute distress, alert, other (on hiflo o2) Eyes: non-icteric ENT: oropharynx moist Neck: supple Effort: normal Ascultation: Bilateral: clear Cardiovascular: regular rate and rhythm (no mrg) Gastrointestinal: normoactive bowel sounds, soft, non-tender, non-distended Integumentary: normal Extremities: no cyanosis, no edema, pink and warm Neurologic: non-focal exam, pupils equal and round, CN II-XII normal, other (sleepy but arousable) Psychiatric: mood appropriate, affect normal CBC and BMP: 11/15/20 04:41 11/15/20 04:41 ABG, PT/INR, D-dimer: PT/INR, D-dimer PT 12.4 Sec. (12.2-14.9) 11/06/20 08:57 INR 0.94 (0.87-1.13) 11/06/20 08:57 D-Dimer 370.02 ng/mlDDU (0-234) H 11/13/20 10:59 Abnormal lab findings: Abnormal Labs 11/06/20 11/06/20 11/06/20 08:57 08:57 08:57 WBC Hgb MCH MCHC 35 H RDW 12.8 L Plt Count 131 L Baker % (Auto) 11.4 H Lymph # (Auto) 0.8 L Seg Neutrophils % Seg Neuts % (Manual) Lymphocytes % (Manual) Seg Neutrophils # Man Lymphocytes # (Manual) D-Dimer 661.18 H Sodium Potassium Chloride BUN Creatinine Glucose POC Glucose Lactic Acid Calcium Magnesium 2.40 H Ferritin Direct Bilirubin AST Alkaline Phosphatase Lactate Dehydrogenase C-Reactive Protein Total Protein Albumin Coronavirus (PCR) 11/06/20 11/06/20 11/06/20 08:57 09:11 09:11 WBC Hgb MCH MCHC RDW Plt Count Baker % (Auto) Lymph # (Auto) Seg Neutrophils % Seg Neuts % (Manual) Lymphocytes % (Manual) Seg Neutrophils # Man Lymphocytes # (Manual) D-Dimer 600.32 H Sodium Potassium Chloride BUN Creatinine Glucose 112 H POC Glucose Lactic Acid 2.20 H* Calcium Magnesium Ferritin Direct Bilirubin AST Alkaline Phosphatase Lactate Dehydrogenase 509 H C-Reactive Protein 8.90 H Total Protein Albumin Coronavirus (PCR) 11/06/20 11/06/20 11/06/20 09:11 09:11 09:57 WBC Hgb MCH MCHC RDW Plt Count Baker % (Auto) Lymph # (Auto) Seg Neutrophils % Seg Neuts % (Manual) Lymphocytes % (Manual) Seg Neutrophils # Man Lymphocytes # (Manual) D-Dimer Sodium 133 L Potassium 3.2 L Chloride 93.3 L BUN 22 H Creatinine Glucose 113 H POC Glucose Lactic Acid Calcium 8.2 L Magnesium Ferritin 3934.0 H Direct Bilirubin 0.3 H AST 69 H Alkaline Phosphatase 30 L Lactate Dehydrogenase C-Reactive Protein Total Protein Albumin 3.4 L Coronavirus (PCR) Positive A 11/07/20 11/07/20 11/07/20 07:26 07:26 19:10 WBC 3.6 L Hgb MCH MCHC 35 H RDW 12.9 L Plt Count 139 L Baker % (Auto) Lymph # (Auto) 0.5 L Seg Neutrophils % 78.1 H Seg Neuts % (Manual) Lymphocytes % (Manual) Seg Neutrophils # Man Lymphocytes # (Manual) D-Dimer Sodium 135 L Potassium Chloride BUN Creatinine 0.6 L 0.6 L Glucose 143 H 117 H POC Glucose Lactic Acid Calcium 7.8 L 7.7 L Magnesium Ferritin Direct Bilirubin AST 55 H 50 H Alkaline Phosphatase 29 L 31 L Lactate Dehydrogenase C-Reactive Protein Total Protein Albumin 3.1 L 3.0 L Coronavirus (PCR) 11/08/20 11/08/20 11/08/20 06:02 06:02 18:25 WBC Hgb MCH MCHC 35 H RDW 12.9 L Plt Count Baker % (Auto) Lymph # (Auto) Seg Neutrophils % Seg Neuts % (Manual) Lymphocytes % (Manual) Seg Neutrophils # Man Lymphocytes # (Manual) D-Dimer Sodium 135 L Potassium Chloride BUN Creatinine 0.7 L Glucose 138 H POC Glucose Lactic Acid Calcium 7.5 L Magnesium Ferritin 2864.0 H Direct Bilirubin AST 45 H Alkaline Phosphatase 30 L Lactate Dehydrogenase C-Reactive Protein Total Protein Albumin 3.0 L Coronavirus (PCR) 11/08/20 11/09/20 11/10/20 18:25 05:44 06:46 WBC Hgb MCH MCHC RDW Plt Count Baker % (Auto) Lymph # (Auto) Seg Neutrophils % Seg Neuts % (Manual) Lymphocytes % (Manual) Seg Neutrophils # Man Lymphocytes # (Manual) D-Dimer Sodium Potassium Chloride BUN Creatinine 0.5 L 0.5 L Glucose 150 H 140 H POC Glucose Lactic Acid Calcium 7.5 L 7.7 L Magnesium Ferritin Direct Bilirubin AST Alkaline Phosphatase Lactate Dehydrogenase 538 H C-Reactive Protein 3.00 H Total Protein 6.1 L Albumin 3.3 L 2.9 L Coronavirus (PCR) 11/10/20 11/10/20 11/11/20 16:09 16:09 10:51 WBC Hgb MCH MCHC RDW Plt Count Baker % (Auto) Lymph # (Auto) Seg Neutrophils % Seg Neuts % (Manual) Lymphocytes % (Manual) Seg Neutrophils # Man Lymphocytes # (Manual) D-Dimer Sodium Potassium Chloride BUN Creatinine Glucose POC Glucose Lactic Acid Calcium Magnesium Ferritin 2483.0 H 2486.0 H Direct Bilirubin AST Alkaline Phosphatase Lactate Dehydrogenase 586 H C-Reactive Protein 1.50 H Total Protein Albumin Coronavirus (PCR) 11/11/20 11/11/20 11/11/20 10:51 10:51 15:45 WBC Hgb MCH MCHC RDW Plt Count Baker % (Auto) Lymph # (Auto) Seg Neutrophils % Seg Neuts % (Manual) Lymphocytes % (Manual) Seg Neutrophils # Man Lymphocytes # (Manual) D-Dimer Sodium Potassium Chloride BUN Creatinine Glucose 149 H POC Glucose Lactic Acid Calcium Magnesium Ferritin 2573.0 H Direct Bilirubin AST Alkaline Phosphatase Lactate Dehydrogenase 624 H C-Reactive Protein 4.30 H Total Protein Albumin Coronavirus (PCR) 11/11/20 11/12/20 11/12/20 15:45 07:52 11:33 WBC Hgb MCH MCHC RDW Plt Count Baker % (Auto) Lymph # (Auto) Seg Neutrophils % Seg Neuts % (Manual) Lymphocytes % (Manual) Seg Neutrophils # Man Lymphocytes # (Manual) D-Dimer Sodium Potassium Chloride BUN Creatinine Glucose POC Glucose 147 H 120 H Lactic Acid Calcium Magnesium Ferritin Direct Bilirubin AST Alkaline Phosphatase Lactate Dehydrogenase 627 H C-Reactive Protein 4.90 H Total Protein Albumin Coronavirus (PCR) 11/12/20 11/13/20 11/13/20 15:40 05:28 10:59 WBC Hgb MCH MCHC RDW Plt Count Baker % (Auto) Lymph # (Auto) Seg Neutrophils % Seg Neuts % (Manual) Lymphocytes % (Manual) Seg Neutrophils # Man Lymphocytes # (Manual) D-Dimer 370.02 H Sodium Potassium Chloride BUN Creatinine Glucose POC Glucose 119 H 166 H Lactic Acid Calcium Magnesium Ferritin Direct Bilirubin AST Alkaline Phosphatase Lactate Dehydrogenase C-Reactive Protein Total Protein Albumin Coronavirus (PCR) 11/13/20 11/13/20 11/14/20 10:59 10:59 11:52 WBC Hgb MCH MCHC RDW Plt Count Baker % (Auto) Lymph # (Auto) Seg Neutrophils % Seg Neuts % (Manual) Lymphocytes % (Manual) Seg Neutrophils # Man Lymphocytes # (Manual) D-Dimer Sodium Potassium Chloride BUN Creatinine Glucose POC Glucose 259 H Lactic Acid Calcium Magnesium Ferritin 1996.0 H Direct Bilirubin AST Alkaline Phosphatase Lactate Dehydrogenase 535 H C-Reactive Protein 13.00 H Total Protein Albumin Coronavirus (PCR) 11/14/20 11/15/20 11/15/20 17:15 04:41 04:41 WBC Hgb 15.5 H MCH 33 H MCHC 37 H RDW 13.0 L Plt Count Baker % (Auto) Lymph # (Auto) Seg Neutrophils % Seg Neuts % (Manual) 95.0 H Lymphocytes % (Manual) 1.0 L Seg Neutrophils # Man 9.1 H Lymphocytes # (Manual) 0.1 L D-Dimer Sodium 134 L Potassium Chloride 95.2 L BUN 27 H Creatinine 0.6 L Glucose 165 H POC Glucose 166 H Lactic Acid Calcium Magnesium Ferritin Direct Bilirubin AST Alkaline Phosphatase Lactate Dehydrogenase C-Reactive Protein Total Protein Albumin Coronavirus (PCR) 11/16/20 11/16/20 08:58 08:58 WBC Hgb MCH MCHC RDW Plt Count Baker % (Auto) Lymph # (Auto) Seg Neutrophils % Seg Neuts % (Manual) Lymphocytes % (Manual) Seg Neutrophils # Man Lymphocytes # (Manual) D-Dimer Sodium Potassium Chloride BUN Creatinine Glucose POC Glucose Lactic Acid Calcium Magnesium Ferritin 2413.0 H Direct Bilirubin AST Alkaline Phosphatase Lactate Dehydrogenase 407 H C-Reactive Protein 2.00 H Total Protein Albumin Coronavirus (PCR)
--- NOTE | 2020-11-16 13:27 | Vascular Lab Report ---
DUPLEX DOPPLER LOWER EXTREMITY VEINS, BILATERAL INDICATION / CLINICAL INFORMATION: Elevated D-dimers/COVID-19/evaluate for DVT. TECHNIQUE: Duplex doppler imaging was performed through the veins of both lower extremities using venous carito ping and other maneuvers. COMPARISON: None available. FINDINGS: RIGHT COMMON FEMORAL VEIN: Negative. RIGHT FEMORAL VEIN: Negative. RIGHT POPLITEAL VEIN: Negative. RIGHT CALF VEINS: Negative. LEFT COMMON FEMORAL VEIN: Negative. LEFT FEMORAL VEIN: Negative. LEFT POPLITEAL VEIN: Negative. LEFT CALF VEINS: Negative. ADDITIONAL FINDINGS: None. IMPRESSION: 1. No sonographic evidence for DVT in either lower extremity. Signer Name: Philip Phelps MD Signed: 11/16/2020 1:23 PM Workstation Name: [id number]
--- NOTE | 2020-11-16 15:55 | Progress Note ---
Assessment and Plan Cultures: SARS-CoV-2 PCR positive. Blood culture 11/06/2020 no growth today. Assessment: 65-year-old male with history of hypertension, follows first dose of COVID-19 vaccine 10 days before admission, admitted on 11/06/2020 secondary to cough, shortness of breath generalized malaise for 48 hours: #Acute sepsis: Present on admission with mild fever, tachycardia, hypoxia, elevated lactate; likely secondary to COVID-19 infection. #Severe COVID-19 pneumonia: Chest x-ray with bilateral infiltrates. Inflammatory markers elevated. Markers worsening. #Acute hypoxemic respiratory failure: Worsening, now on high flow nasal cannula 100%, impending intubation #Thrombocytopenia: Mild likely secondary to COVID-19, resolved. #Transaminitis: Likely due to COVID-19. Resolved. #Acute encephalopathy: Patient is now lethargic likely due to hypoxia Recommendations: -s/p tocilizumab -Increase dexamethasone 10 mg IV bid x 5 days then 5 mg IV bid for 5 days. -Completed remdesivir -No need for antibiotics, procalcitonin is normal -Prone positioning -Anticoagulation per protocol Will follow. Cj Webster MD [facility] O: [phone] F: [phone] Subjective Date of service: 11/16/20 Principal diagnosis: COVID Interval history: Afebrile with low temperatures, normal white count. Remains on high flow nasal cannula. Imaging personally reviewed: Dopplers: No evidence of DVT. Objective - Exam Narrative Exam: General appearance: On high flow nasal cannula Eyes: anicteric sclerae, moist conjunctivae; no lid-lag; PERRLA HENT: Normocephalic, Atraumatic; normal external ears, nares open, oropharynx limited Neck: supple, tracheal midline, no JVD Lungs: Bilateral crackles CV: RRR no murmur Abdomen: Soft, non-tender; no masses or hepatosplenomegaly Extremities: no edema, no cyanosis Skin: No rash. Psych: Lethargic Neuro: Lethargic - Constitutional Vitals: Vital Signs Temp Pulse Resp BP Pulse Ox 97.6 F 84 19 111/77 98 11/16/20 13:00 11/16/20 13:31 11/16/20 13:31 11/16/20 13:31 11/16/20 14:00 Temperature -Last 24 Hours Temperature 97.6 F Temperature 97.9 F Temperature 97.1 F Temperature 97.2 F Temperature 97.5 F - Labs CBC & Chem 7: 11/15/20 04:41 11/15/20 04:41 Labs: Abnormal lab results 11/16/20 11/16/20 11/16/20 Range/Units 08:58 08:58 12:13 D-Dimer 353.41 H (0-234) ng/mlDDU Ferritin 2413.0 H (30.0-300.0) ng/mL Lactate Dehydrogenase 407 H (91-180) units/L C-Reactive Protein 2.00 H (0.00-1.30) mg/dL
[2020-11-16] MEDS: ACETAMINOPHEN 325 MG TAB PO PRN (23:26)
[2020-11-17] MEDS: ZINC SULFATE 220 MG CAP PO SCH ×2 (09:19→22:33)
[2020-11-17] MEDS: ASCORBIC ACID 500 MG TAB PO SCH ×2 (09:19→22:20)
[2020-11-17] MEDS: CHOLECALCIFEROL (VIT D3) 5,000 UNIT TAB PO SCH (09:20)
[2020-11-17] MEDS: FAMOTIDINE 20 MG TAB PO SCH ×2 (09:20→22:19)
[2020-11-17] MEDS: dexAMETHasone 4 MG/ML VIAL IV SCH ×2 (09:21→22:17)
[2020-11-17] MEDS ORDERED: FUROSEMIDE 40 MG/4 ML INJ IV ONE (10:51)
--- NOTE | 2020-11-17 13:14 | Progress Note ---
Assessment and Plan Assessment and plan: --Acute hypoxic respiratory failure; Requiring high flow nasal cannula oxygen 40 L/FiO2 100% nonrebreather Continue supportive care wean as tolerated pulmonary ID following Prone positioning as tolerated Pulmonary and ID following --Elevated D-dimers; due to COVID-19 CTA chest negative for PE lower extremity venous Doppler negative for DVT --Sepsis due to COVID-19 pneumonia Procalcitonin low, no need for antibiotics --Severe, COVID-19 infection; Completed remdesivir Received Tocilizumab Continue IV steroids Monitor inflammatory markers Home oxygen evaluation prior to discharge Guarded prognosis --Diabetes mellitus type 2; moderate control today,A1c 10.3 Accu-Chek sliding scale coverage ADA diet and long-acting insulin Diabetic education,diet education when patient is more stable --Elevated LFTs probably Covid related; Present on admission, resolved today --DVT prophylaxis; Lovenox Closely monitor the patient and adjust the management as needed Glass Washer recommendations noted and appreciated Critical care time 32 minutes 11/08/2020. Follow-up COVID-19 testing. Continue to trend inflammatory markers. Continue dexamethasone. ID and pulmonary consultation pending. Patient cu rrently with 6 L/min O2 FiO2 44%. 11/09/2020. COVID-19 testing found to be positive. Continue to trend inflammatory markers. Continue dexamethasone. Patient requiring more oxygen with high flow nasal cannula 30 L/min and FiO2 100%. ID and pulmonary following. 11/10/2020. Patient with increasing oxygen requirements with high flow nasal cannula 40 L/min with FiO2 100%. Continue dexamethasone per ID recommendations. We will transfer to IM for closer monitoring. 11/11/2020. Patient was transferred to IMCU for closer monitoring yesterday. Patient currently requiring BiPAP with IPAP 16 and EPAP of 8 with FiO2 100%. Continue dexamethasone and remdesivir. Continue to trend inflammatory markers. Continue anticoagulation. Prone position as possible. Continue ceftriaxone and azithromycin per ID recommendations. 11/12/2020. Patient currently requiring BiPAP with IPAP 16 and EPAP of 8 with FiO2 100%. Continue IV steroids of Solu-Medrol 60 mg every 8 hour and remdesivir. Continue to trend inflammatory markers. Continue anticoagulation with Lovenox. Prone position as possible. Continue ceftriaxone and azithromycin per ID recommendations. Prognosis is guarded. 11/13/2020 BG not controlled with glipizide. Start Lantus at bedtime for BG control. Elevated BG likely secondary to IV steroid. Patient currently requiring BiPAP with IPAP 18 and EPAP of 10 with FiO2 100%. Continue IV steroids of Solu-Medrol 60 mg every 8 hour and remdesivir. Continue to trend inflammatory markers. Continue anticoagulation with Lovenox. Prone position as possible. Continue ceftriaxone and azithromycin per ID recommendations. Prognosis is guarded. 11/14/2020. Blood glucose is improved but not optimal. Therefore, increase Lantus to 14 units at bedtime. Elevated BG likely secondary to IV steroid. Patient currently requiring BiPAP with IPAP 18 and EPAP of 10 with FiO2 100%. C ontinue IV steroids of Solu-Medrol 60 mg every 8 hour and remdesivir. Continue to trend inflammatory markers. Continue anticoagulation with Lovenox. Prone position as possible. Continue ceftriaxone and azithromycin per ID recommendations. Prognosis is guarded. 11/15/2020; patient's blood sugars are uncontrolled, secondary to noncompliance, partly due to high-dose steroids Band[place] hypoxic on continuous BiPAP Will DC Lantus patient does not have resources had 70/30 Novolin 20 units twice a day adjust as needed Patient's A1c 10.3, diabetic education nutrition education 11/16/2020; patient continues to be hypoxemic requiring continuous BiPAP Worsening D-dimers, CTA negative for PE, venous Doppler negative DVT 11/17/2020; patient is agitated and trying to remove the oxygen mask, already on Xanax Consider low-dose IV Ativan as needed Patient continues to require high flow oxygen, 100% nonrebreather ID pulmonary following, poor prognosis History Interval history: I have seen and examined the patient this morning at the bedside in [facility] Patient is Covid positive, on contact and droplet isolation Patient is severely hypoxemic requiring high flow nasal cannula oxygen and BiPAP Patient is agitated requiring restraints for safety Patient is in mild distress, most removed oxygen mask Vital signs reviewed Hospitalist Physical - Constitutional Vitals: Temp Pulse Resp BP Pulse Ox 97.9 F 90 44 H 99/73 93 11/17/20 12:00 11/17/20 12:01 11/17/20 12:01 11/17/20 12:01 11/17/20 12:25 General appearance: Present: mild distress, well-nourished, other (On high flow oxygen) - EENT Eyes: Present: PERRL, EOM intact - Respiratory Respiratory effort: labored Respiratory: bilateral: diminished, rhonchi, negative: rales, wheezing - Cardiovascular Rhythm: regular Heart Sounds: Present: S1 & S2 - Extremities Extremities: no ischemia, pulses intact - Abdominal General gastrointestinal: soft, non-tender, non-distended, normal bowel sounds - Integumentary Integumentary: Present: clear, warm - Psychiatric Psychiatric: appropriate mood/affect, cooperative - Neurologic Neurologic: CNII-XII intact, moves all extremities HEART Score - HEART Score Troponin: Troponin T < 0.010 ng/mL (0.00-0.029) 11/06/20 11:26 Results - Labs CBC & Chem 7: 11/15/20 04:41 11/15/20 04:41 Labs: Laboratory Last Values WBC 9.6 K/mm3 (4.5-11.0) 11/15/20 04:41 RBC 4.72 M/mm3 (3.65-5.03) 11/15/20 04:41 Hgb 15.5 gm/dl (11.8-15.2) H 11/15/20 04:41 Hct 42.6 % (35.5-45.6) 11/15/20 04:41 MCV 90 fl (84-94) 11/15/20 04:41 MCH 33 pg (28-32) H 11/15/20 04:41 MCHC 37 % (32-34) H 11/15/20 04:41 RDW 13.0 % (13.2-15.2) L 11/15/20 04:41 Plt Count 322 K/mm3 (140-440) 11/15/20 04:41 Lymph % (Auto) 14.4 % (13.4-35.0) 11/07/20 07:26 [place] % (Auto) 7.3 % (0.0-7.3) 11/07/20 07:26 Eos % (Auto) 0.0 % (0.0-4.3) 11/07/20 07:26 Baso % (Auto) 0.2 % (0.0-1.8) 11/07/20 07:26 Lymph # (Auto) 0.5 K/mm3 (1.2-5.4) L 11/07/20 07:26 [place] # (Auto) 0.3 K/mm3 (0.0-0.8) 11/07/20 07:26 Eos # (Auto) 0.0 K/mm3 (0.0-0.4) 11/07/20 07:26 Baso # (Auto) 0.0 K/mm3 (0.0-0.1) 11/07/20 07:26 Add Manual Diff Complete 11/15/20 04:41 Total Counted 100 11/15/20 04:41 Seg Neutrophils % Children'S Counselor 11/15/20 04:41 Seg Neuts % (Manual) 95.0 % (40.0-70.0) H 11/15/20 04:41 Lymphocytes % (Manual) 1.0 % (13.4-35.0) L 11/15/20 04:41 Monocytes % (Manual) 4.0 % (0.0-7.3) 11/15/20 04:41 Nucleated RBC % Not Reportable 11/15/20 04:41 Seg Neutrophils # 2.8 K/mm3 (1.8-7.7) 11/07/20 07:26 Seg Neutrophils # Man 9.1 K/mm3 (1.8-7.7) H 11/15/20 04:41 Band Neutrophils # 0.0 K/mm3 11/15/20 04:41 Lymphocytes # (Manual) 0.1 K/mm3 (1.2-5.4) L 11/15/20 04:41 Abs React Lymphs (Man) 0.0 K/mm3 11/15/20 04:41 Monocytes # (Manual) 0.4 K/mm3 (0.0-0.8) 11/15/20 04:41 Eosinophils # (Manual) 0.0 K/mm3 (0.0-0.4) 11/15/20 04:41 Basophils # (Manual) 0.0 K/mm3 (0.0-0.1) 11/15/20 04:41 Metamyelocytes # 0.0 K/mm3 11/15/20 04:41 Myelocytes # 0.0 K/mm3 11/15/20 04:41 Promyelocytes # 0.0 K/mm3 11/15/20 04:41 Blast Cells # 0.0 K/mm3 11/15/20 04:41 WBC Morphology Not Reportable 11/15/20 04:41 Hypersegmented Neuts Not Reportable 11/15/20 04:41 Hyposegmented Neuts Not Reportable 11/15/20 04:41 Hypogranular Neuts Not Reportable 11/15/20 04:41 Smudge Cells Not Reportable 11/15/20 04:41 Toxic Granulation Not Reportable 11/15/20 04:41 Toxic Vacuolation Not Reportable 11/15/20 04:41 Dohle Bodies Not Reportable 11/15/20 04:41 Pelger-Huet Anomaly Not Reportable 11/15/20 04:41 [place] Rods Not Reportable 11/15/20 04:41 Platelet Estimate Consistent w auto 11/15/20 04:41 Clumped Platelets Not Reportable 11/15/20 04:41 Plt Clumps, EDTA Not Reportable 11/15/20 04:41 Large Platelets Few 11/15/20 04:41 Giant Platelets Not Reportable 11/15/20 04:41 Platelet Satelliting Not Reportable 11/15/20 04:41 Plt Morphology Comment Not Reportable 11/15/20 04:41 RBC Morphology Normal 11/15/20 04:41 Dimorphic RBCs Not Reportable 11/15/20 04:41 Polychromasia Not Reportable 11/15/20 04:41 Hypochromasia Not Reportable 11/15/20 04:41 Poikilocytosis Not Reportable 11/15/20 04:41 Anisocytosis Not Reportable 11/15/20 04:41 Microcytosis Not Reportable 11/15/20 04:41 Macrocytosis Not Reportable 11/15/20 04:41 Spherocytes Not Reportable 11/15/20 04:41 Pappenheimer Bodies Not Reportable 11/15/20 04:41 Sickle Cells Not Reportable 11/15/20 04:41 Target Cells Not Reportable 11/15/20 04:41 Tear Drop Cells Not Reportable 11/15/20 04:41 Ovalocytes Not Reportable 11/15/20 04:41 Helmet Cells Not Reportable 11/15/20 04:41 [place] Bodies Not Reportable 11/15/20 04:41 [place] Rings Not Reportable 11/15/20 04:41 [place] Cells Not Reportable 11/15/20 04:41 Bite Cells Not Reportable 11/15/20 04:41 Crenated Cell Not Reportable 11/15/20 04:41 Elliptocytes Not Reportable 11/15/20 04:41 Acanthocytes (Spur) Not Reportable 11/15/20 04:41 Rouleaux Not Reportable 11/15/20 04:41 Hemoglobin C Crystals Not Reportable 11/15/20 04:41 Schistocytes Not Reportable 11/15/20 04:41 Malaria parasites Not Reportable 11/15/20 04:41 [place] Bodies Not Reportable 11/15/20 04:41 Hem Pathologist Commnt No 11/15/20 04:41 PT 12.4 Sec. (12.2-14.9) 11/06/20 08:57 INR 0.94 (0.87-1.13) 11/06/20 08:57 APTT 33.5 Sec. (24.2-36.6) 11/06/20 08:57 D-Dimer 353.41 ng/mlDDU (0-234) H 11/16/20 12:13 Sodium 134 mmol/L (137-145) L 11/15/20 04:41 Potassium 4.1 mmol/L (3.6-5.0) 11/15/20 04:41 Chloride 95.2 mmol/L (98-107) L 11/15/20 04:41 Carbon Dioxide 26 mmol/L (22-30) 11/15/20 04:41 Anion Gap 17 mmol/L 11/15/20 04:41 BUN 27 mg/dL (9-20) H 11/15/20 04:41 Creatinine 0.6 mg/dL (0.8-1.3) L 11/15/20 04:41 Estimated GFR > 60 ml/min 11/15/20 04:41 BUN/Creatinine Ratio 45 % 11/15/20 04:41 Glucose 165 mg/dL (75-100) H 11/15/20 04:41 POC Glucose 166 mg/dL (70-105) H 11/14/20 17:15 Hemoglobin A1c 5.6 % (4-6) 11/07/20 07:26 Lactic Acid 1.50 mmol/L (0.7-2.0) 11/06/20 11:26 Calcium 8.6 mg/dL (8.4-10.2) 11/15/20 04:41 Magnesium 2.40 mg/dL (1.7-2.3) H 11/06/20 08:57 Ferritin 2413.0 ng/mL (30.0-300.0) H 11/16/20 08:58 Total Bilirubin 0.50 mg/dL (0.1-1.2) 11/10/20 06:46 Direct Bilirubin 0.3 mg/dL (0-0.2) H 11/06/20 09:11 Indirect Bilirubin 0.5 mg/dL 11/06/20 09:11 AST 34 units/L (5-40) 11/10/20 06:46 ALT 21 units/L (7-56) 11/10/20 06:46 Alkaline Phosphatase 35 units/L (35-129) 11/10/20 06:46 Lactate Dehydrogenase 407 units/L (91-180) H 11/16/20 08:58 Troponin T < 0.010 ng/mL (0.00-0.029) 11/06/20 11:26 C-Reactive Protein 2.00 mg/dL (0.00-1.30) H 11/16/20 08:58 Total Protein 6.3 g/dL (6.3-8.2) 11/10/20 06:46 Albumin 2.9 g/dL (3.9-5) L 11/10/20 06:46 Albumin/Globulin Ratio 0.9 % 11/10/20 06:46 Lipase 39 units/L (13-60) 11/06/20 08:57 Procalcitonin 0.07 ng/mL (<0.15) 11/13/20 10:59 Urine Color [place] (Yellow) 11/06/20 17:14 Urine Turbidity Clear (Clear) 11/06/20 17:14 Urine pH 6.0 (5.0-7.0) 11/06/20 17:14 Ur Specific [place] 1.024 (1.003-1.030) 11/06/20 17:14 Urine Protein 100 mg/dl mg/dL (Negative) 11/06/20 17:14 Urine Glucose (UA) Neg mg/dL (Negative) 11/06/20 17:14 Urine Ketones Neg mg/dL (Negative) 11/06/20 17:14 Urine Blood Sm (Negative) 11/06/20 17:14 Urine Nitrite Neg (Negative) 11/06/20 17:14 Urine Bilirubin Neg (Negative) 11/06/20 17:14 Urine Urobilinogen < 2.0 mg/dL (<2.0) 11/06/20 17:14 Ur Leukocyte Esterase Neg (Negative) 11/06/20 17:14 Urine WBC (Auto) 3.0 /HPF (0.0-6.0) 11/06/20 17:14 Urine RBC (Auto) 3.0 /HPF (0.0-6.0) 11/06/20 17:14 Urine Mucus Few /HPF 11/06/20 17:14 Coronavirus (PCR) Positive (Negative) A 11/06/20 09:57 Holt/IV: Voiding Method Incontinent Active Medications - Current Medications Current Medications: Generic Name Dose Route Start Last Admin Trade Name Freq PRN Reason Stop Dose Admin Acetaminophen 650 mg 11/06/20 22:23 11/16/20 23:26 Acetaminophen 325 Mg Tab PO 650 mg Q4H PRN Administration Pain MILD(1-3)/Fever >100.5/[place] Alprazolam 0.25 mg 11/09/20 20:07 11/16/20 23:19 Alprazolam 0.25 Mg Tab PO 0.25 mg Q8H PRN Administration Anxiety Ascorbic Acid 1,000 mg 11/06/20 23:00 11/17/20 09:19 Ascorbic Acid 500 Mg Tab PO 1,000 mg BID BOBBY Administration Cholecalciferol 5,000 unit 11/12/20 11:00 11/17/20 09:20 Cholecalciferol (Vit D3) 5,000 Unit Tab PO 5,000 unit QDAY BOBBY Administration Dexamethasone 10 mg 11/13/20 10:00 11/17/20 09:21 Dexamethasone 4 Mg/Ml Vial IV 11/18/20 09:59 10 mg Q12HR BOBBY Administration Dexamethasone 5 mg 11/18/20 10:00 Dexamethasone 4 Mg/Ml Vial IV 11/22/20 22:01 BID BOBBY Enoxaparin Sodium 40 mg 11/17/20 22:00 Enoxaparin 40 Mg/0.4 Ml Inj SUB-Q QDAY@2200 [facility] Protocol Famotidine 20 mg 11/06/20 23:00 11/17/20 09:20 Famotidine 20 Mg Tab PO 20 mg BID BOBBY Administration Guaifenesin 200 mg 11/06/20 18:33 11/16/20 23:19 Guaifenesin 100 Mg/5 Ml Oral Liqd PO 200 mg Q4H PRN Administration Cough Hydralazine HCl 10 mg 11/07/20 13:38 Hydralazine 20 Mg/1 Ml Inj IV Q4HR PRN Blood Pressure Ondansetron HCl 4 mg 11/06/20 22:23 11/12/20 20:29 Ondansetron 4 Mg/2 Ml Inj IV 4 mg Q8H PRN Administration Nausea And Vomiting Sodium Chloride 10 ml 11/06/20 23:00 11/17/20 09:21 Sodium Chloride 0.9% 10 Ml Flush Syringe IV 10 ml BID BOBBY Administration Sodium Chloride 10 ml 11/06/20 22:23 Sodium Chloride 0.9% 10 Ml Flush Syringe IV PRN PRN LINE FLUSH Zinc Sulfate 220 mg 11/06/20 23:00 11/17/20 09:19 Zinc Sulfate 220 Mg Cap PO 220 mg BID BOBBY Administration Nutrition/Malnutrition Assess - Dietary Evaluation Nutrition/Malnutrition Findings: Nutrition Notes Start: 11/11/20 09:00 Freq: Status: Active Protocol: Document 11/15/20 12:36 MARLENY (Rec: 11/15/20 12:40 MARLENY [id number]) Co-Sign 11/15/20 12:36 HALIMA Nutrition Notes Initial or Follow up Reassessment Current Diagnosis Hypertension,Respiratory Failure Other Pertinent Diagnosis SOB, Bilat pneu, COVID-19(+), Centrilobular Emphysema Current Diet Cardiac Diet Labs/Tests Na 134 BUN 27 Cr 0.6 BG 165 Pertinent Medications Reglan Zinc Sulfate Vitamin C Vitamin D3 Decadron Height 5 ft 4 in Weight 68.7 kg [place] Body Weight (kg) 59.09 BMI 25.9 Weight Status Appropriate Subjective/Other Information F/U for stable intakes and ONS tolerance. Per RN, pt is consuming 100% PO/ONS. Percent of energy/protein needs met: 100%/100% (PO only) Burn Absent Trauma Absent GI Symptoms Nausea,Vomiting Current % PO Good (75-100%) Minimum of two criteria No physical signs of malnutrition #1 Nutrition Diagnosis Inadequate oral intake As Evidenced by Signs and Symptoms pt meeting 100% energy/protein needs Diagnosis Progress(for reassessment Improved documentation) Is patient on ventilator? No Is Patient Ambulatory and/or Out of Bed Yes REE-([facility]-ambulatory/OOB) [ 1907.900 [id number]] Calculation Used for Recommendations [facility] Additional Notes PRO needs: 69-82g (1-1.2g/kg) Fluid needs: 1 mL/kcal or per MD Nutrition Intervention Change Diet Order: Continue diet as ordered Add Supplement/Snack (indicate name/kcal Ensure High Protein daily /protein ) Provides kCal: 160 Provides Protein (gm) 16 Goal #1 Meet at least 80% of EER and protein needs via diet and ONS Anticipated Discharge Needs: Cardiac Diet Follow-Up By: 11/22/20 Additional Comments F/U for stable intakes
[2020-11-17] MEDS: LORazepam 2 MG/ML VIAL IV PRN ×2 (13:52→17:10)
--- NOTE | 2020-11-17 13:57 | Progress Note ---
Assessment and Plan 65 y/o male with acute respiratory failure secondary to COVID 19 11/17/20: LTACH today, continue supportive management 11/16/20: LTACH agreeable to take patient as he will be a custodial wean. Suggest another dosing of lasix today. 11/15/20: Lasix 40mg IV x1 again today. Will ask for strict i/O. Prone as tolerated. Will speak with RT about weaning attempts today. Prognosis remains guarded. Continue steroids 1. Will give lasix 40mg IV x1 today 2. Prone as tolerated during the day and sleep prone at night 3. Finished Remdesivir and got Actemra 4. Wean FiO2 for sats >88% 5. Daily net negative state 6. Guarded prognosis. Subjective Date of service: 11/17/20 Principal diagnosis: COVID Interval history: Remains on HFNC with NRB. Sats in the low 90's. Possible transfer to LTACH today. Objective Vital Signs - 12hr 11/16/20 11/16/20 11/16/20 23:00 23:25 23:27 Temperature 97.5 F L Pulse Rate 78 Pulse Rate [ From Monitor] Respiratory 19 Rate Respiratory 22 Rate [ Generalized] Blood Pressure 109/74 O2 Sat by Pulse 98 Oximetry 11/16/20 11/17/20 11/17/20 23:30 00:01 00:21 Temperature Pulse Rate 71 83 92 H Pulse Rate [ 71 From Monitor] Respiratory 19 14 Rate Respiratory Rate [ Generalized] Blood Pressure 122/80 151/90 O2 Sat by Pulse 98 88 Oximetry 11/17/20 11/17/20 11/17/20 00:26 00:30 01:01 Temperature Pulse Rate 83 82 Pulse Rate [ From Monitor] Respiratory 22 24 26 H Rate Respiratory Rate [ Generalized] Blood Pressure 125/80 114/78 O2 Sat by Pulse 96 100 Oximetry 11/17/20 11/17/20 11/17/20 02:00 02:30 03:00 Temperature Pulse Rate 74 75 77 Pulse Rate [ From Monitor] Respiratory 18 33 H 18 Rate Respiratory Rate [ Generalized] Blood Pressure 114/80 116/82 113/78 O2 Sat by Pulse 96 96 96 Oximetry 11/17/20 11/17/20 11/17/20 03:30 03:55 04:00 Temperature 97.6 F Pulse Rate 70 73 77 Pulse Rate [ From Monitor] Respiratory 15 21 Rate Respiratory Rate [ Generalized] Blood Pressure 112/73 113/82 O2 Sat by Pulse 92 97 Oximetry 11/17/20 11/17/20 11/17/20 04:30 05:30 06:00 Temperature Pulse Rate 76 77 77 Pulse Rate [ From Monitor] Respiratory 25 H 19 30 H Rate Respiratory Rate [ Generalized] Blood Pressure 115/65 106/77 120/77 O2 Sat by Pulse 98 79 L 99 Oximetry 11/17/20 11/17/20 11/17/20 06:30 07:00 07:30 Temperature Pulse Rate 65 75 76 Pulse Rate [ From Monitor] Respiratory 23 27 H 26 H Rate Respiratory Rate [ Generalized] Blood Pressure 127/82 108/71 119/82 O2 Sat by Pulse 100 100 100 Oximetry 11/17/20 11/17/20 11/17/20 08:00 08:28 08:31 Temperature 97.4 F L Pulse Rate 65 Pulse Rate [ From Monitor] Respiratory 19 Rate Respiratory Rate [ Generalized] Blood Pressure 109/78 168/101 O2 Sat by Pulse 100 91 78 L Oximetry 11/17/20 11/17/20 11/17/20 09:00 09:30 10:00 Temperature Pulse Rate 77 73 Pulse Rate [ From Monitor] Respiratory 41 H 29 H Rate Respiratory Rate [ Generalized] Blood Pressure 110/74 127/89 118/84 O2 Sat by Pulse 96 93 93 Oximetry Constitutional: no acute distress, alert, other (on hiflo o2) Eyes: non-icteric ENT: oropharynx moist Neck: supple Effort: normal Ascultation: Bilateral: clear Cardiovascular: regular rate and rhythm (no mrg) Gastrointestinal: normoactive bowel sounds, soft, non-tender, non-distended Integumentary: normal Extremities: no cyanosis, no edema, pink and warm Neurologic: non-focal exam, pupils equal and round, CN II-XII normal, other (sleepy but arousable) Psychiatric: mood appropriate, affect normal CBC and BMP: 11/15/20 04:41 11/15/20 04:41 ABG, PT/INR, D-dimer: PT/INR, D-dimer PT 12.4 Sec. (12.2-14.9) 11/06/20 08:57 INR 0.94 (0.87-1.13) 11/06/20 08:57 D-Dimer 353.41 ng/mlDDU (0-234) H 11/16/20 12:13 Abnormal lab findings: Abnormal Labs 11/06/20 11/06/20 11/06/20 08:57 08:57 08:57 WBC Hgb MCH MCHC 35 H RDW 12.8 L Plt Count 131 L [place] % (Auto) 11.4 H Lymph # (Auto) 0.8 L Seg Neutrophils % Seg Neuts % (Manual) Lymphocytes % (Manual) Seg Neutrophils # Man Lymphocytes # (Manual) D-Dimer 661.18 H Sodium Potassium Chloride BUN Creatinine Glucose POC Glucose Lactic Acid Calcium Magnesium 2.40 H Ferritin Direct Bilirubin AST Alkaline Phosphatase Lactate Dehydrogenase C-Reactive Protein Total Protein Albumin Coronavirus (PCR) 11/06/20 11/06/20 11/06/20 08:57 09:11 09:11 WBC Hgb MCH MCHC RDW Plt Count [place] % (Auto) Lymph # (Auto) Seg Neutrophils % Seg Neuts % (Manual) Lymphocytes % (Manual) Seg Neutrophils # Man Lymphocytes # (Manual) D-Dimer 600.32 H Sodium Potassium Chloride BUN Creatinine Glucose 112 H POC Glucose Lactic Acid 2.20 H* Calcium Magnesium Ferritin Direct Bilirubin AST Alkaline Phosphatase Lactate Dehydrogenase 509 H C-Reactive Protein 8.90 H Total Protein Albumin Coronavirus (PCR) 11/06/20 11/06/20 11/06/20 09:11 09:11 09:57 WBC Hgb MCH MCHC RDW Plt Count [place] % (Auto) Lymph # (Auto) Seg Neutrophils % Seg Neuts % (Manual) Lymphocytes % (Manual) Seg Neutrophils # Man Lymphocytes # (Manual) D-Dimer Sodium 133 L Potassium 3.2 L Chloride 93.3 L BUN 22 H Creatinine Glucose 113 H POC Glucose Lactic Acid Calcium 8.2 L Magnesium Ferritin 3934.0 H Direct Bilirubin 0.3 H AST 69 H Alkaline Phosphatase 30 L Lactate Dehydrogenase C-Reactive Protein Total Protein Albumin 3.4 L Coronavirus (PCR) Positive A 11/07/20 11/07/20 11/07/20 07:26 07:26 19:10 WBC 3.6 L Hgb MCH MCHC 35 H RDW 12.9 L Plt Count 139 L [place] % (Auto) Lymph # (Auto) 0.5 L Seg Neutrophils % 78.1 H Seg Neuts % (Manual) Lymphocytes % (Manual) Seg Neutrophils # Man Lymphocytes # (Manual) D-Dimer Sodium 135 L Potassium Chloride BUN Creatinine 0.6 L 0.6 L Glucose 143 H 117 H POC Glucose Lactic Acid Calcium 7.8 L 7.7 L Magnesium Ferritin Direct Bilirubin AST 55 H 50 H Alkaline Phosphatase 29 L 31 L Lactate Dehydrogenase C-Reactive Protein Total Protein Albumin 3.1 L 3.0 L Coronavirus (PCR) 11/08/20 11/08/20 11/08/20 06:02 06:02 18:25 WBC Hgb MCH MCHC 35 H RDW 12.9 L Plt Count [place] % (Auto) Lymph # (Auto) Seg Neutrophils % Seg Neuts % (Manual) Lymphocytes % (Manual) Seg Neutrophils # Man Lymphocytes # (Manual) D-Dimer Sodium 135 L Potassium Chloride BUN Creatinine 0.7 L Glucose 138 H POC Glucose Lactic Acid Calcium 7.5 L Magnesium Ferritin 2864.0 H Direct Bilirubin AST 45 H Alkaline Phosphatase 30 L Lactate Dehydrogenase C-Reactive Protein Total Protein Albumin 3.0 L Coronavirus (PCR) 11/08/20 11/09/20 11/10/20 18:25 05:44 06:46 WBC Hgb MCH MCHC RDW Plt Count [place] % (Auto) Lymph # (Auto) Seg Neutrophils % Seg Neuts % (Manual) Lymphocytes % (Manual) Seg Neutrophils # Man Lymphocytes # (Manual) D-Dimer Sodium Potassium Chloride BUN Creatinine 0.5 L 0.5 L Glucose 150 H 140 H POC Glucose Lactic Acid Calcium 7.5 L 7.7 L Magnesium Ferritin Direct Bilirubin AST Alkaline Phosphatase Lactate Dehydrogenase 538 H C-Reactive Protein 3.00 H Total Protein 6.1 L Albumin 3.3 L 2.9 L Coronavirus (PCR) 11/10/20 11/10/20 11/11/20 16:09 16:09 10:51 WBC Hgb MCH MCHC RDW Plt Count [place] % (Auto) Lymph # (Auto) Seg Neutrophils % Seg Neuts % (Manual) Lymphocytes % (Manual) Seg Neutrophils # Man Lymphocytes # (Manual) D-Dimer Sodium Potassium Chloride BUN Creatinine Glucose POC Glucose Lactic Acid Calcium Magnesium Ferritin 2483.0 H 2486.0 H Direct Bilirubin AST Alkaline Phosphatase Lactate Dehydrogenase 586 H C-Reactive Protein 1.50 H Total Protein Albumin Coronavirus (PCR) 11/11/20 11/11/20 11/11/20 10:51 10:51 15:45 WBC Hgb MCH MCHC RDW Plt Count [place] % (Auto) Lymph # (Auto) Seg Neutrophils % Seg Neuts % (Manual) Lymphocytes % (Manual) Seg Neutrophils # Man Lymphocytes # (Manual) D-Dimer Sodium Potassium Chloride BUN Creatinine Glucose 149 H POC Glucose Lactic Acid Calcium Magnesium Ferritin 2573.0 H Direct Bilirubin AST Alkaline Phosphatase Lactate Dehydrogenase 624 H C-Reactive Protein 4.30 H Total Protein Albumin Coronavirus (PCR) 11/11/20 11/12/20 11/12/20 15:45 07:52 11:33 WBC Hgb MCH MCHC RDW Plt Count [place] % (Auto) Lymph # (Auto) Seg Neutrophils % Seg Neuts % (Manual) Lymphocytes % (Manual) Seg Neutrophils # Man Lymphocytes # (Manual) D-Dimer Sodium Potassium Chloride BUN Creatinine Glucose POC Glucose 147 H 120 H Lactic Acid Calcium Magnesium Ferritin Direct Bilirubin AST Alkaline Phosphatase Lactate Dehydrogenase 627 H C-Reactive Protein 4.90 H Total Protein Albumin Coronavirus (PCR) 11/12/20 11/13/20 11/13/20 15:40 05:28 10:59 WBC Hgb MCH MCHC RDW Plt Count [place] % (Auto) Lymph # (Auto) Seg Neutrophils % Seg Neuts % (Manual) Lymphocytes % (Manual) Seg Neutrophils # Man Lymphocytes # (Manual) D-Dimer 370.02 H Sodium Potassium Chloride BUN Creatinine Glucose POC Glucose 119 H 166 H Lactic Acid Calcium Magnesium Ferritin Direct Bilirubin AST Alkaline Phosphatase Lactate Dehydrogenase C-Reactive Protein Total Protein Albumin Coronavirus (PCR) 11/13/20 11/13/20 11/14/20 10:59 10:59 11:52 WBC Hgb MCH MCHC RDW Plt Count [place] % (Auto) Lymph # (Auto) Seg Neutrophils % Seg Neuts % (Manual) Lymphocytes % (Manual) Seg Neutrophils # Man Lymphocytes # (Manual) D-Dimer Sodium Potassium Chloride BUN Creatinine Glucose POC Glucose 259 H Lactic Acid Calcium Magnesium Ferritin 1996.0 H Direct Bilirubin AST Alkaline Phosphatase Lactate Dehydrogenase 535 H C-Reactive Protein 13.00 H Total Protein Albumin Coronavirus (PCR) 11/14/20 11/15/20 11/15/20 17:15 04:41 04:41 WBC Hgb 15.5 H MCH 33 H MCHC 37 H RDW 13.0 L Plt Count [place] % (Auto) Lymph # (Auto) Seg Neutrophils % Seg Neuts % (Manual) 95.0 H Lymphocytes % (Manual) 1.0 L Seg Neutrophils # Man 9.1 H Lymphocytes # (Manual) 0.1 L D-Dimer Sodium 134 L Potassium Chloride 95.2 L BUN 27 H Creatinine 0.6 L Glucose 165 H POC Glucose 166 H Lactic Acid Calcium Magnesium Ferritin Direct Bilirubin AST Alkaline Phosphatase Lactate Dehydrogenase C-Reactive Protein Total Protein Albumin Coronavirus (PCR) 11/16/20 11/16/20 11/16/20 08:58 08:58 12:13 WBC Hgb MCH MCHC RDW Plt Count [place] % (Auto) Lymph # (Auto) Seg Neutrophils % Seg Neuts % (Manual) Lymphocytes % (Manual) Seg Neutrophils # Man Lymphocytes # (Manual) D-Dimer 353.41 H Sodium Potassium Chloride BUN Creatinine Glucose POC Glucose Lactic Acid Calcium Magnesium Ferritin 2413.0 H Direct Bilirubin AST Alkaline Phosphatase Lactate Dehydrogenase 407 H C-Reactive Protein 2.00 H Total Protein Albumin Coronavirus (PCR)
--- NOTE | 2020-11-17 14:10 | Discharge Summary ---
Providers - Providers Date of Admission: 11/06/20 14:13 Date of discharge: 11/18/20 Attending physician: HILDA POLK 11/06/20 22:23 Consult to Physician [CONS] Routine Comment: Consulting Provider: WANDA AMADOR Physician Instructions: Reason For Exam: Covid PUI 11/07/20 12:23 Consult to Physician [CONS] Routine Comment: Consulting Provider: NASIR MALCOLM Physician Instructions: Reason For Exam: acute respiratory failure with hypoxia. PUI COVID Primary care physician: BUNG REMOVER Hospitalization Reason for admission: Acute hypoxic respiratory failure, generalized weakness, PUI Condition: Undetermined Pertinent studies: Multiple chest x-rays CTA chest Lower extremity venous Doppler Hospital course: 65-year-old patient male patient with significant past medical history of hypertension, received vaccination 10 days prior to admission was admitted to [facility] on 11/06/2020 with a complaints of worsening shortness of breath and generalized weakness of 2 days duration. Initial evaluation in the ED was consistent with acute respiratory failure with hypoxia O2 sats of 82% elevated D-dimers elevated ferritin. Patient was admitted at this [facility] high suspicion for Covid placed in isolation subsequently braga PCR test came back positive on 11/06/2020 Patient was evaluated by ID received all the treatment per COVID-19 guidelines, evaluated by pulmonary critical, respiratory status closely monitored Patient continues to require high flow nasal cannula oxygen as well as 100% nonrebreather. Case management has set up evaluation for LTAC placement, and patient was accepted by this point LTAC, Today patient remained hypoxemic requiring high flow nasal cannula oxygen and 100% nonrebreather with barely saturating 89 to 92% Patient is being transferred to LTAC today for further evaluation and management. Patient is hemodynamically stable with very poor and guarded prognosis. Plan of care discussed with the patient, his nurse, case management. And patient's son was already informed by the CM who agreed with the plan Disposition: DC-20 Final Discharge Diagnosis (Prints w/discharge instructions): Severe COVID-19 infection. Acute hypoxic respiratory failure. Elevated D-dimers. Sepsis due to COVID-19 pneumonia. Type 2 diabetes mellitus. Transaminitis Time spent for discharge: 45 min Core Measure Documentation - Palliative Care Palliative Care/ Comfort Measures: Not Applicable - Core Measures Any of the following diagnoses?: none Exam - Constitutional Vitals: Temp Pulse Resp BP Pulse Ox 97.9 F 94 H 35 H 114/81 91 11/17/20 12:00 11/17/20 13:30 11/17/20 13:30 11/17/20 13:30 11/17/20 13:30 General appearance: Present: mild distress, well-nourished, other (High flow oxygen and 100% nonrebreather) - EENT Eyes: Present: PERRL, EOM intact - Neck Neck: Present: supple, normal ROM - Respiratory Respiratory effort: normal Respiratory: bilateral: diminished, rhonchi, negative: rales, wheezing - Cardiovascular Rhythm: regular Heart Sounds: Present: S1 & S2 - Extremities Extremities: no ischemia, No edema - Abdominal General gastrointestinal: Present: soft, non-distended, normal bowel sounds - Integumentary Integumentary: Present: clear, warm - Musculoskeletal Musculoskeletal: strength equal bilaterally - Psychiatric Psychiatric: appropriate mood/affect, agitated (And restless) - Neurologic Neurologic: moves all extremities Plan Activity: fall precautions, other (Bedrest) Diet: other (Cardiac diet as tolerated) Additional Instructions: Continue contact and droplet isolation. Continue high flow nasal cannula oxygen/nonrebreather/BiPAP as needed. Wean as tolerated, prone positioning. Further evaluation management per LTAC team. Patient hemodynamically stable with very poor and guarded prognosis. Patient's son is aware of this discharge planning to LTAC and patient's poor prognosis Follow up with: PRIMARY CARE, [Primary Care Provider] - 3-5 Days NASIR MALCOLM MD [Staff Physician] - 14 Days
--- NOTE | 2020-11-17 15:10 | Progress Note ---
Assessment and Plan Cultures: SARS-CoV-2 PCR positive. Blood culture 11/06/2020 no growth today. Assessment: 65-year-old male with history of hypertension, follows first dose of COVID-19 vaccine 10 days before admission, admitted on 11/06/2020 secondary to cough, shortness of breath generalized malaise for 48 hours: #Acute sepsis: Present on admission with mild fever, tachycardia, hypoxia, elevated lactate; likely secondary to COVID-19 infection. #Severe COVID-19 pneumonia: Chest x-ray with bilateral infiltrates. Inflammatory markers elevated. Markers worsening. #Acute hypoxemic respiratory failure: Worsening, now on high flow nasal cannula 100%, impending intubation #Thrombocytopenia: Mild likely secondary to COVID-19, resolved. #Transaminitis: Likely due to COVID-19. Resolved. #Acute encephalopathy: Patient is now lethargic likely due to hypoxia Recommendations: -s/p tocilizumab -Increase dexamethasone 10 mg IV bid x 5 days then 5 mg IV bid for 5 days. -Completed remdesivir -No need for antibiotics, procalcitonin is normal -Prone positioning -Anticoagulation per protocol Will follow. Cj Webster MD [facility] O: [phone] F: [phone] Subjective Date of service: 11/17/20 Principal diagnosis: COVID Interval history: Afebrile, normal white count. On high flow nasal cannula. Objective - Exam Narrative Exam: General appearance: On high flow nasal cannula Eyes: anicteric sclerae, moist conjunctivae; no lid-lag; PERRLA HENT: Normocephalic, Atraumatic; normal external ears, nares open, oropharynx limited Neck: supple, tracheal midline, no JVD Lungs: Bilateral crackles CV: RRR no murmur Abdomen: Soft, non-tender; no masses or hepatosplenomegaly Extremities: no edema, no cyanosis Skin: No rash. Psych: Lethargic Neuro: Lethargic - Constitutional Vitals: Vital Signs Temp Pulse Resp BP Pulse Ox 97.9 F 94 H 35 H 114/81 91 11/17/20 12:00 11/17/20 13:30 11/17/20 13:30 11/17/20 13:30 11/17/20 13:30 Temperature -Last 24 Hours Temperature 97.9 F Temperature 97.4 F Temperature 97.6 F Temperature 97.5 F Temperature 97.8 F Temperature 97.4 F - Labs CBC & Chem 7: 11/15/20 04:41 11/15/20 04:41
[2020-11-17] MEDS: ENOXAPARIN 40 MG/0.4 ML INJ SUB-Q SCH (22:19)
[2020-11-18] MEDS: LORazepam 2 MG/ML VIAL IV PRN ×2 (05:42→21:09)
[2020-11-18] MEDS: FAMOTIDINE 20 MG TAB PO SCH ×2 (09:01→21:08)
[2020-11-18] MEDS: dexAMETHasone 4 MG/ML VIAL IV SCH ×2 (09:01→21:07)
[2020-11-18] MEDS: ASCORBIC ACID 500 MG TAB PO SCH ×2 (09:02→21:09)
[2020-11-18] MEDS: CHOLECALCIFEROL (VIT D3) 5,000 UNIT TAB PO SCH (09:02)
[2020-11-18] MEDS: ZINC SULFATE 220 MG CAP PO SCH ×2 (09:02→21:09)
--- NOTE | 2020-11-18 09:43 | Progress Note ---
Assessment and Plan 65 y/o male with acute respiratory failure secondary to COVID 19 11/18/20: Hopeful LTACH today, continue anxiolytic therapy to help with c ompliance. Lasix again today. 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 Suggest another dosing of lasix today. 11/15/20: Lasix 40mg IV x1 again today. Will ask for strict i/O. Prone as tolerated. Will speak with RT about weaning attempts today. Prognosis remains guarded. Continue steroids 1. Will give lasix 40mg IV x1 today 2. Prone as tolerated during the day and sleep prone at night 3. Finished Remdesivir and got Actemra 4. Wean FiO2 for sats >88% 5. Daily net negative state 6. Guarded prognosis. Subjective Date of service: 11/18/20 Principal diagnosis: COVID Interval history: No acute events. Did not go to LTACH secondary to staffing. Objective Vital Signs - 12hr 11/17/20 11/17/20 11/17/20 22:00 22:30 23:00 Temperature Pulse Rate 83 85 84 Pulse Rate [ From Monitor] Respiratory 24 29 H 28 H Rate Blood Pressure 100/75 110/78 92/67 O2 Sat by Pulse 96 94 93 Oximetry 11/17/20 11/17/20 11/18/20 23:16 23:30 00:00 Temperature Pulse Rate 82 83 82 Pulse Rate [ 83 From Monitor] Respiratory 25 H 25 H 26 H Rate Blood Pressure 92/67 98/71 113/82 O2 Sat by Pulse 93 93 95 Oximetry 11/18/20 11/18/20 11/18/20 00:30 00:59 01:00 Temperature Pulse Rate 83 83 Pulse Rate [ From Monitor] Respiratory 25 H 25 H Rate Blood Pressure 93/66 101/71 O2 Sat by Pulse 93 92 92 Oximetry 11/18/20 11/18/20 11/18/20 01:30 02:00 02:30 Temperature Pulse Rate 92 H 88 90 Pulse Rate [ From Monitor] Respiratory 33 H 25 H 27 H Rate Blood Pressure 106/79 114/82 104/75 O2 Sat by Pulse 91 91 93 Oximetry 11/18/20 11/18/20 11/18/20 03:00 03:30 04:00 Temperature Pulse Rate 93 H 89 91 H Pulse Rate [ 91 H From Monitor] Respiratory 28 H 28 H 31 H Rate Blood Pressure 115/82 120/77 107/79 O2 Sat by Pulse 91 94 92 Oximetry 11/18/20 11/18/20 11/18/20 04:30 05:00 05:30 Temperature Pulse Rate 85 82 75 Pulse Rate [ From Monitor] Respiratory 23 23 23 Rate Blood Pressure 117/78 117/78 141/99 O2 Sat by Pulse 91 90 85 Oximetry 11/18/20 11/18/20 11/18/20 06:00 06:30 07:27 Temperature 98.1 F Pulse Rate 82 90 Pulse Rate [ From Monitor] Respiratory 19 20 Rate Blood Pressure 108/81 126/84 O2 Sat by Pulse 90 87 Oximetry 11/18/20 07:43 Temperature Pulse Rate Pulse Rate [ From Monitor] Respiratory Rate Blood Pressure O2 Sat by Pulse 93 Oximetry Constitutional: no acute distress, alert, other (on hiflo o2) Eyes: non-icteric ENT: oropharynx moist Neck: supple Effort: normal Ascultation: Bilateral: clear Cardiovascular: regular rate and rhythm (no mrg) Gastrointestinal: normoactive bowel sounds, soft, non-tender, non-distended Integumentary: normal Extremities: no cyanosis, no edema, pink and warm Neurologic: non-focal exam, pupils equal and round, CN II-XII normal, other (sleepy but arousable) Psychiatric: mood appropriate, affect normal CBC and BMP: 11/15/20 04:41 11/15/20 04:41 ABG, PT/INR, D-dimer: ABG ABG pH 7.433 (7.320-7.450) 11/17/20 17:48 POC ABG pCO2 33.1 mmHg (32.0-48.0) 11/17/20 17:48 POC ABG pO2 93.9 mmHg (83-108) 11/17/20 17:48 POC ABG HCO3 21.6 11/17/20 17:48 ABG O2 Saturation 97.1 (0-100) 11/17/20 17:48 PT/INR, D-dimer PT 12.4 Sec. (12.2-14.9) 11/06/20 08:57 INR 0.94 (0.87-1.13) 11/06/20 08:57 D-Dimer 353.41 ng/mlDDU (0-234) H 11/16/20 12:13 Abnormal lab findings: Abnormal Labs 11/06/20 11/06/20 11/06/20 08:57 08:57 08:57 WBC Hgb MCH MCHC 35 H RDW 12.8 L Plt Count 131 L [place] % (Auto) 11.4 H Lymph # (Auto) 0.8 L Seg Neutrophils % Seg Neuts % (Manual) Lymphocytes % (Manual) Seg Neutrophils # Man Lymphocytes # (Manual) D-Dimer 661.18 H ABG Sodium ABG Potassium ABG Chloride ABG Glucose Carboxyhemoglobin Sodium Potassium Chloride BUN Creatinine Glucose POC Glucose Lactic Acid Calcium Magnesium 2.40 H Ferritin Direct Bilirubin AST Alkaline Phosphatase Lactate Dehydrogenase C-Reactive Protein Total Protein Albumin Arterial Blood Glucose Coronavirus (PCR) 11/06/20 11/06/20 11/06/20 08:57 09:11 09:11 WBC Hgb MCH MCHC RDW Plt Count [place] % (Auto) Lymph # (Auto) Seg Neutrophils % Seg Neuts % (Manual) Lymphocytes % (Manual) Seg Neutrophils # Man Lymphocytes # (Manual) D-Dimer 600.32 H ABG Sodium ABG Potassium ABG Chloride ABG Glucose Carboxyhemoglobin Sodium Potassium Chloride BUN Creatinine Glucose 112 H POC Glucose Lactic Acid 2.20 H* Calcium Magnesium Ferritin Direct Bilirubin AST Alkaline Phosphatase Lactate Dehydrogenase 509 H C-Reactive Protein 8.90 H Total Protein Albumin Arterial Blood Glucose Coronavirus (PCR) 11/06/20 11/06/20 11/06/20 09:11 09:11 09:57 WBC Hgb MCH MCHC RDW Plt Count [place] % (Auto) Lymph # (Auto) Seg Neutrophils % Seg Neuts % (Manual) Lymphocytes % (Manual) Seg Neutrophils # Man Lymphocytes # (Manual) D-Dimer ABG Sodium ABG Potassium ABG Chloride ABG Glucose Carboxyhemoglobin Sodium 133 L Potassium 3.2 L Chloride 93.3 L BUN 22 H Creatinine Glucose 113 H POC Glucose Lactic Acid Calcium 8.2 L Magnesium Ferritin 3934.0 H Direct Bilirubin 0.3 H AST 69 H Alkaline Phosphatase 30 L Lactate Dehydrogenase C-Reactive Protein Total Protein Albumin 3.4 L Arterial Blood Glucose Coronavirus (PCR) Positive A 11/07/20 11/07/20 11/07/20 07:26 07:26 19:10 WBC 3.6 L Hgb MCH MCHC 35 H RDW 12.9 L Plt Count 139 L [place] % (Auto) Lymph # (Auto) 0.5 L Seg Neutrophils % 78.1 H Seg Neuts % (Manual) Lymphocytes % (Manual) Seg Neutrophils # Man Lymphocytes # (Manual) D-Dimer ABG Sodium ABG Potassium ABG Chloride ABG Glucose Carboxyhemoglobin Sodium 135 L Potassium Chloride BUN Creatinine 0.6 L 0.6 L Glucose 143 H 117 H POC Glucose Lactic Acid Calcium 7.8 L 7.7 L Magnesium Ferritin Direct Bilirubin AST 55 H 50 H Alkaline Phosphatase 29 L 31 L Lactate Dehydrogenase C-Reactive Protein Total Protein Albumin 3.1 L 3.0 L Arterial Blood Glucose Coronavirus (PCR) 11/08/20 11/08/20 11/08/20 06:02 06:02 18:25 WBC Hgb MCH MCHC 35 H RDW 12.9 L Plt Count [place] % (Auto) Lymph # (Auto) Seg Neutrophils % Seg Neuts % (Manual) Lymphocytes % (Manual) Seg Neutrophils # Man Lymphocytes # (Manual) D-Dimer ABG Sodium ABG Potassium ABG Chloride ABG Glucose Carboxyhemoglobin Sodium 135 L Potassium Chloride BUN Creatinine 0.7 L Glucose 138 H POC Glucose Lactic Acid Calcium 7.5 L Magnesium Ferritin 2864.0 H Direct Bilirubin AST 45 H Alkaline Phosphatase 30 L Lactate Dehydrogenase C-Reactive Protein Total Protein Albumin 3.0 L Arterial Blood Glucose Coronavirus (PCR) 11/08/20 11/09/20 11/10/20 18:25 05:44 06:46 WBC Hgb MCH MCHC RDW Plt Count [place] % (Auto) Lymph # (Auto) Seg Neutrophils % Seg Neuts % (Manual) Lymphocytes % (Manual) Seg Neutrophils # Man Lymphocytes # (Manual) D-Dimer ABG Sodium ABG Potassium ABG Chloride ABG Glucose Carboxyhemoglobin Sodium Potassium Chloride BUN Creatinine 0.5 L 0.5 L Glucose 150 H 140 H POC Glucose Lactic Acid Calcium 7.5 L 7.7 L Magnesium Ferritin Direct Bilirubin AST Alkaline Phosphatase Lactate Dehydrogenase 538 H C-Reactive Protein 3.00 H Total Protein 6.1 L Albumin 3.3 L 2.9 L Arterial Blood Glucose Coronavirus (PCR) 11/10/20 11/10/20 11/11/20 16:09 16:09 10:51 WBC Hgb MCH MCHC RDW Plt Count [place] % (Auto) Lymph # (Auto) Seg Neutrophils % Seg Neuts % (Manual) Lymphocytes % (Manual) Seg Neutrophils # Man Lymphocytes # (Manual) D-Dimer ABG Sodium ABG Potassium ABG Chloride ABG Glucose Carboxyhemoglobin Sodium Potassium Chloride BUN Creatinine Glucose POC Glucose Lactic Acid Calcium Magnesium Ferritin 2483.0 H 2486.0 H Direct Bilirubin AST Alkaline Phosphatase Lactate Dehydrogenase 586 H C-Reactive Protein 1.50 H Total Protein Albumin Arterial Blood Glucose Coronavirus (PCR) 11/11/20 11/11/20 11/11/20 10:51 10:51 15:45 WBC Hgb MCH MCHC RDW Plt Count [place] % (Auto) Lymph # (Auto) Seg Neutrophils % Seg Neuts % (Manual) Lymphocytes % (Manual) Seg Neutrophils # Man Lymphocytes # (Manual) D-Dimer ABG Sodium ABG Potassium ABG Chloride ABG Glucose Carboxyhemoglobin Sodium Potassium Chloride BUN Creatinine Glucose 149 H POC Glucose Lactic Acid Calcium Magnesium Ferritin 2573.0 H Direct Bilirubin AST Alkaline Phosphatase Lactate Dehydrogenase 624 H C-Reactive Protein 4.30 H Total Protein Albumin Arterial Blood Glucose Coronavirus (PCR) 11/11/20 11/12/20 11/12/20 15:45 07:52 11:33 WBC Hgb MCH MCHC RDW Plt Count [place] % (Auto) Lymph # (Auto) Seg Neutrophils % Seg Neuts % (Manual) Lymphocytes % (Manual) Seg Neutrophils # Man Lymphocytes # (Manual) D-Dimer ABG Sodium ABG Potassium ABG Chloride ABG Glucose Carboxyhemoglobin Sodium Potassium Chloride BUN Creatinine Glucose POC Glucose 147 H 120 H Lactic Acid Calcium Magnesium Ferritin Direct Bilirubin AST Alkaline Phosphatase Lactate Dehydrogenase 627 H C-Reactive Protein 4.90 H Total Protein Albumin Arterial Blood Glucose Coronavirus (PCR) 11/12/20 11/13/20 11/13/20 15:40 05:28 10:59 WBC Hgb MCH MCHC RDW Plt Count [place] % (Auto) Lymph # (Auto) Seg Neutrophils % Seg Neuts % (Manual) Lymphocytes % (Manual) Seg Neutrophils # Man Lymphocytes # (Manual) D-Dimer 370.02 H ABG Sodium ABG Potassium ABG Chloride ABG Glucose Carboxyhemoglobin Sodium Potassium Chloride BUN Creatinine Glucose POC Glucose 119 H 166 H Lactic Acid Calcium Magnesium Ferritin Direct Bilirubin AST Alkaline Phosphatase Lactate Dehydrogenase C-Reactive Protein Total Protein Albumin Arterial Blood Glucose Coronavirus (PCR) 11/13/20 11/13/20 11/14/20 10:59 10:59 11:52 WBC Hgb MCH MCHC RDW Plt Count [place] % (Auto) Lymph # (Auto) Seg Neutrophils % Seg Neuts % (Manual) Lymphocytes % (Manual) Seg Neutrophils # Man Lymphocytes # (Manual) D-Dimer ABG Sodium ABG Potassium ABG Chloride ABG Glucose Carboxyhemoglobin Sodium Potassium Chloride BUN Creatinine Glucose POC Glucose 259 H Lactic Acid Calcium Magnesium Ferritin 1996.0 H Direct Bilirubin AST Alkaline Phosphatase Lactate Dehydrogenase 535 H C-Reactive Protein 13.00 H Total Protein Albumin Arterial Blood Glucose Coronavirus (PCR) 11/14/20 11/15/20 11/15/20 17:15 04:41 04:41 WBC Hgb 15.5 H MCH 33 H MCHC 37 H RDW 13.0 L Plt Count [place] % (Auto) Lymph # (Auto) Seg Neutrophils % Seg Neuts % (Manual) 95.0 H Lymphocytes % (Manual) 1.0 L Seg Neutrophils # Man 9.1 H Lymphocytes # (Manual) 0.1 L D-Dimer ABG Sodium ABG Potassium ABG Chloride ABG Glucose Carboxyhemoglobin Sodium 134 L Potassium Chloride 95.2 L BUN 27 H Creatinine 0.6 L Glucose 165 H POC Glucose 166 H Lactic Acid Calcium Magnesium Ferritin Direct Bilirubin AST Alkaline Phosphatase Lactate Dehydrogenase C-Reactive Protein Total Protein Albumin Arterial Blood Glucose Coronavirus (PCR) 11/16/20 11/16/20 11/16/20 08:58 08:58 12:13 WBC Hgb MCH MCHC RDW Plt Count [place] % (Auto) Lymph # (Auto) Seg Neutrophils % Seg Neuts % (Manual) Lymphocytes % (Manual) Seg Neutrophils # Man Lymphocytes # (Manual) D-Dimer 353.41 H ABG Sodium ABG Potassium ABG Chloride ABG Glucose Carboxyhemoglobin Sodium Potassium Chloride BUN Creatinine Glucose POC Glucose Lactic Acid Calcium Magnesium Ferritin 2413.0 H Direct Bilirubin AST Alkaline Phosphatase Lactate Dehydrogenase 407 H C-Reactive Protein 2.00 H Total Protein Albumin Arterial Blood Glucose Coronavirus (PCR) 11/17/20 11/18/20 17:48 01:14 WBC Hgb MCH MCHC RDW Plt Count [place] % (Auto) Lymph # (Auto) Seg Neutrophils % Seg Neuts % (Manual) Lymphocytes % (Manual) Seg Neutrophils # Man Lymphocytes # (Manual) D-Dimer ABG Sodium 131.5 L ABG Potassium 4.6 H ABG Chloride 97.0 L ABG Glucose 212 H Carboxyhemoglobin 3 H Sodium Potassium Chloride BUN Creatinine Glucose POC Glucose 229 H Lactic Acid Calcium Magnesium Ferritin Direct Bilirubin AST Alkaline Phosphatase Lactate Dehydrogenase C-Reactive Protein Total Protein Albumin Arterial Blood Glucose 212 H Coronavirus (PCR)
--- NOTE | 2020-11-18 13:32 | Progress Note ---
Assessment and Plan Cultures: SARS-CoV-2 PCR positive. Blood culture 11/06/2020 no growth today. Assessment: 65-year-old male with history of hypertension, follows first dose of COVID-19 vaccine 10 days before admission, admitted on 11/06/2020 secondary to cough, shortness of breath generalized malaise for 48 hours: #Acute sepsis: Present on admission with mild fever, tachycardia, hypoxia, elevated lactate; likely secondary to COVID-19 infection. #Severe COVID-19 pneumonia: Chest x-ray with bilateral infiltrates. Inflammatory markers elevated. Markers worsening. #Acute hypoxemic respiratory failure: Worsening, now on high flow nasal cannula 100%, impending intubation #Thrombocytopenia: Mild likely secondary to COVID-19, resolved. #Transaminitis: Likely due to COVID-19. Resolved. #Acute encephalopathy: Patient is now lethargic likely due to hypoxia Recommendations: -s/p tocilizumab -Complete 10 days steroids -Completed remdesivir -No need for antibiotics, procalcitonin is normal -Prone positioning -Anticoagulation per protocol Will follow. OK for DC to LTACH from ID perspective Cj Webster MD [facility] ([facility] O: [phone] F: [phone] Subjective Date of service: 11/18/20 Principal diagnosis: COVID Interval history: Afebrile, normal white count. No changes. Objective - Exam Narrative Exam: General appearance: On high flow nasal cannula Eyes: anicteric sclerae, moist conjunctivae; no lid-lag; PERRLA HENT: Normocephalic, Atraumatic; normal external ears, nares open, oropharynx limited Neck: supple, tracheal midline, no JVD Lungs: Bilateral crackles CV: RRR no murmur Abdomen: Soft, non-tender; no masses or hepatosplenomegaly Extremities: no edema, no cyanosis Skin: No rash. Psych: Lethargic Neuro: Lethargic - Constitutional Vitals: Vital Signs Temp Pulse Resp BP Pulse Ox 97.9 F 91 H 34 H 107/75 92 11/18/20 12:00 11/18/20 12:00 11/18/20 12:00 11/18/20 12:00 11/18/20 12:00 Temperature -Last 24 Hours Temperature 97.9 F Temperature 98.1 F Temperature 98.2 F - Labs CBC & Chem 7: 11/15/20 04:41 11/15/20 04:41 Labs: Abnormal lab results 11/17/20 11/18/20 11/18/20 Range/Units 17:48 01:14 11:54 ABG Sodium 131.5 L (136.0-145.0) mmol/L ABG Potassium 4.6 H (3.40-4.50) mmol/L ABG Chloride 97.0 L (98-107) mmol/L ABG Glucose 212 H (65-95) mg/dL Carboxyhemoglobin 3 H (0.5-1.5) POC Glucose 229 H 223 H (70-105) mg/dL Arterial Blood Glucose 212 H (65-95) mg/dL
[2020-11-18] MEDS: INSULIN LISPRO 100 UNIT/ML SUB-Q SCH (17:18)
--- NOTE | 2020-11-18 17:38 | Progress Note ---
Assessment and Plan Assessment and plan: --Acute hypoxic respiratory failure; Requiring high flow nasal cannula oxygen 40 L/FiO2 100% nonrebreather Unable to wean, Prone positioning as tolerated Pulmonary and ID following --Elevated D-dimers; due to COVID-19 CTA chest negative for PE lower extremity venous Doppler negative for DVT --Sepsis due to COVID-19 pneumonia Procalcitonin low, no need for antibiotics --Severe, COVID-19 infection; Completed remdesivir Received Tocilizumab Continue IV steroids Monitor inflammatory markers Home oxygen evaluation prior to discharge Guarded prognosis --Diabetes mellitus type 2; moderate control today,A1c 10.3 Accu-Chek sliding scale coverage ADA diet and long-acting insulin Diabetic education,diet education when patient is more stable --Elevated LFTs probably Covid related; Present on admission, resolved. That patient is appointed by by the [facility] to be seen by you just --DVT prophylaxis; Lovenox Closely monitor the patient and adjust the management as needed Marketing Rep recommendations noted and appreciated Critical care time 33 minutes 11/08/2020. Follow-up COVID-19 testing. Continue to trend inflammatory markers. Continue dexamethasone. ID and pulmonary consultation pending. Patient currently with 6 L/min O2 FiO2 44%. 11/09/2020. COVID-19 testing found to be positive. Continue to trend inflammatory markers. Continue dexamethasone. Patient requiring more oxygen with high flow nasal cannula 30 L/min and FiO2 100%. ID and pulmonary following. 11/10/2020. Patient with increasing oxygen requirements with high flow nasal cannula 40 L/min with FiO2 100%. Continue dexamethasone per ID recommendations. We will transfer to IM for closer monitoring. 11/11/2020. Patient was transferred to IMCU for closer monitoring yesterday. Patient currently requiring BiPAP with IPAP 16 and EPAP of 8 with FiO2 100%. Continue dexamethasone and remdesivir. Continue to trend inflammatory markers. Continue anticoagulation. Prone position as possible. Continue ceftriaxone and azithromycin per ID recommendations. 11/12/2020. Patient currently requiring BiPAP with IPAP 16 and EPAP of 8 with FiO2 100%. Continue IV steroids of Solu-Medrol 60 mg every 8 hour and remdesivir. Continue to trend inflammatory markers. Continue anticoagulation with Lovenox. Prone position as possible. Continue ceftriaxone and azithromycin per ID recommendations. Prognosis is guarded. 11/13/2020 BG not controlled with glipizide. Start Lantus at bedtime for BG control. Elevated BG likely secondary to IV steroid. Patient currently requiring BiPAP with IPAP 18 and EPAP of 10 with FiO2 100%. Continue IV steroids of Solu-Medrol 60 mg every 8 hour and remdesivir. Continue to trend inflammatory markers. Continue anticoagulation with Lovenox. Prone position as possible. Continue ceftriaxone and azithromycin per ID recommendations. Prognosis is guarded. 11/14/2020. Blood glucose is improved but not optimal. Therefore, increase Lantus to 14 units at bedtime. Elevated BG likely secondary to IV steroid. Patient currently requiring BiPAP with IPAP 18 and EPAP of 10 with FiO2 100%. Continue IV steroids of Solu-Medrol 60 mg every 8 hour and remdesivir. Continue to trend inflammatory markers. Continue anticoagulation with Lovenox. Prone position as possible. Continue ceftriaxone and azithromycin per ID recommendations. Prognosis is guarded. 11/15/2020; patient's blood sugars are uncontrolled, secondary to noncompliance, partly due to high-dose steroids [place] hypoxic on continuous BiPAP Will DC Lantus patient does not have resources had 70/30 Novolin 20 units twice a day adjust as needed Patient's A1c 10.3, diabetic education nutrition education 11/16/2020; patient continues to be hypoxemic requiring continuous BiPAP Worsening D-dimers, CTA negative for PE, venous Doppler negative DVT 11/17/2020; patient is agitated and trying to remove the oxygen mask, already on Xanax Consider low-dose IV Ativan as needed Patient continues to require high flow oxygen, 100% nonrebreather ID pulmonary following, poor prognosis 11/18/2020; initially patient was accepted by LTAC yesterday Due to staffing reasons at [facility], patient was not accepted Today case management assistant reports that they denied LTAC admission due to Concerns regarding continuous 100% oxygen requirement. We will continue current management. Patient is critically ill with guarded prognosis History Interval history: I have seen and examined the patient at the bedside in IMCU this morning Patient remains on high flow nasal cannula oxygen requiring 40 L /100% FiO2/91% O2 sats Patient was accepted for LTAC placement, yesterday however due to staffing issues at LTAC facility, patient could not be transferred Today again LTAC has not accepted the patient, indicating that concerned about patient's requirements of 100% oxygen. Patient is chronically ill looking, in severe distress, on high flow oxygen Restraint for safety because of agitation and pulling of the mask Patient is Covid positive on contact and droplet isolation Vital signs noted Hospitalist Physical - Constitutional Vitals: Temp Pulse Resp BP Pulse Ox 97.9 F 98 H 40 H 111/83 90 11/18/20 17:21 11/18/20 17:00 11/18/20 17:00 11/18/20 17:00 11/18/20 17:00 General appearance: Present: mild distress, well-nourished, other (High flow oxygen and 100% nonrebreather) - EENT Eyes: Present: PERRL, EOM intact - Neck Neck: Present: supple, normal ROM - Respiratory Respiratory effort: labored Respiratory: bilateral: diminished, rhonchi, negative: rales, wheezing - Cardiovascular Rhythm: regular Heart Sounds: Present: S1 & S2 - Extremities Extremities: no ischemia, No edema - Abdominal General gastrointestinal: soft, non-tender, non-distended, normal bowel sounds - Integumentary Integumentary: Present: clear, warm - Psychiatric Psychiatric: other (Confused and agitated) - Neurologic Neurologic: moves all extremities HEART Score - HEART Score Troponin: Troponin T < 0.010 ng/mL (0.00-0.029) 11/06/20 11:26 Results - Labs CBC & Chem 7: 11/15/20 04:41 11/15/20 04:41 Labs: Laboratory Last Values WBC 9.6 K/mm3 (4.5-11.0) 11/15/20 04:41 RBC 4.72 M/mm3 (3.65-5.03) 11/15/20 04:41 Hgb 15.5 gm/dl (11.8-15.2) H 11/15/20 04:41 Hct 42.6 % (35.5-45.6) 11/15/20 04:41 MCV 90 fl (84-94) 11/15/20 04:41 MCH 33 pg (28-32) H 11/15/20 04:41 MCHC 37 % (32-34) H 11/15/20 04:41 RDW 13.0 % (13.2-15.2) L 11/15/20 04:41 Plt Count 322 K/mm3 (140-440) 11/15/20 04:41 Lymph % (Auto) 14.4 % (13.4-35.0) 11/07/20 07:26 [place] % (Auto) 7.3 % (0.0-7.3) 11/07/20 07: Eos % (Auto) 0.0 % (0.0-4.3) 11/07/20 07: Baso % (Auto) 0.2 % (0.0-1.8) 11/07/20 07: Lymph # (Auto) 0.5 K/mm3 (1.2-5.4) L 11/07/20 07: [place] # (Auto) 0.3 K/mm3 (0.0-0.8) 11/07/20 07: Eos # (Auto) 0.0 K/mm3 (0.0-0.4) 11/07/20 07: Baso # (Auto) 0.0 K/mm3 (0.0-0.1) 11/07/20 07:26 Add Manual Diff Complete 11/15/20 04:41 Total Counted 100 11/15/20 04:41 Seg Neutrophils % Sustainability Director 11/15/20 04:41 Seg Neuts % (Manual) 95.0 % (40.0-70.0) H 11/15/20 04:41 Lymphocytes % (Manual) 1.0 % (13.4-35.0) L 11/15/20 04:41 Monocytes % (Manual) 4.0 % (0.0-7.3) 11/15/20 04:41 Nucleated RBC % Not Reportable 11/15/20 04:41 Seg Neutrophils # 2.8 K/mm3 (1.8-7.7) 11/07/20 07:26 Seg Neutrophils # Man 9.1 K/mm3 (1.8-7.7) H 11/15/20 04:41 Band Neutrophils # 0.0 K/mm3 11/15/20 04:41 Lymphocytes # (Manual) 0.1 K/mm3 (1.2-5.4) L 11/15/20 04:41 Abs React Lymphs (Man) 0.0 K/mm3 11/15/20 04:41 Monocytes # (Manual) 0.4 K/mm3 (0.0-0.8) 11/15/20 04:41 Eosinophils # (Manual) 0.0 K/mm3 (0.0-0.4) 11/15/20 04:41 Basophils # (Manual) 0.0 K/mm3 (0.0-0.1) 11/15/20 04:41 Metamyelocytes # 0.0 K/mm3 11/15/20 04:41 Myelocytes # 0.0 K/mm3 11/15/20 04:41 Promyelocytes # 0.0 K/mm3 11/15/20 04:41 Blast Cells # 0.0 K/mm3 11/15/20 04:41 WBC Morphology Not Reportable 11/15/20 04:41 Hypersegmented Neuts Not Reportable 11/15/20 04:41 Hyposegmented Neuts Not Reportable 11/15/20 04:41 Hypogranular Neuts Not Reportable 11/15/20 04:41 Smudge Cells Not Reportable 11/15/20 04:41 Toxic Granulation Not Reportable 11/15/20 04:41 Toxic Vacuolation Not Reportable 11/15/20 04:41 Dohle Bodies Not Reportable 11/15/20 04:41 Pelger-Huet Anomaly Not Reportable 11/15/20 04:41 [place] Rods Not Reportable 11/15/20 04:41 Platelet Estimate Consistent w auto 11/15/20 04:41 Clumped Platelets Not Reportable 11/15/20 04:41 Plt Clumps, EDTA Not Reportable 11/15/20 04:41 Large Platelets Few 11/15/20 04:41 Giant Platelets Not Reportable 11/15/20 04:41 Platelet Satelliting Not Reportable 11/15/20 04:41 Plt Morphology Comment Not Reportable 11/15/20 04:41 RBC Morphology Normal 11/15/20 04:41 Dimorphic RBCs Not Reportable 11/15/20 04:41 Polychromasia Not Reportable 11/15/20 04:41 Hypochromasia Not Reportable 11/15/20 04:41 Poikilocytosis Not Reportable 11/15/20 04:41 Anisocytosis Not Reportable 11/15/20 04:41 Microcytosis Not Reportable 11/15/20 04:41 Macrocytosis Not Reportable 11/15/20 04:41 Spherocytes Not Reportable 11/15/20 04:41 Pappenheimer Bodies Not Reportable 11/15/20 04:41 Sickle Cells Not Reportable 11/15/20 04:41 Target Cells Not Reportable 11/15/20 04:41 Tear Drop Cells Not Reportable 11/15/20 04:41 Ovalocytes Not Reportable 11/15/20 04:41 Helmet Cells Not Reportable 11/15/20 04:41 [place] Bodies Not Reportable 11/15/20 04:41 [place] Rings Not Reportable 11/15/20 04:41 Clear Cells Not Reportable 11/15/20 04:41 Bite Cells Not Reportable 11/15/20 04:41 Crenated Cell Not Reportable 11/15/20 04:41 Elliptocytes Not Reportable 11/15/20 04:41 Acanthocytes (Spur) Not Reportable 11/15/20 04:41 Rouleaux Not Reportable 11/15/20 04:41 Hemoglobin C Crystals Not Reportable 11/15/20 04:41 Schistocytes Not Reportable 11/15/20 04:41 Malaria parasites Not Reportable 11/15/20 04:41 [place] Bodies Not Reportable 11/15/20 04:41 Hem Pathologist Commnt No 11/15/20 04:41 PT 12.4 Sec. (12.2-14.9) 11/06/20 08:57 INR 0.94 (0.87-1.13) 11/06/20 08:57 APTT 33.5 Sec. (24.2-36.6) 11/06/20 08:57 D-Dimer 353.41 ng/mlDDU (0-234) H 11/16/20 12:13 ABG pH 7.433 (7.320-7.450) 11/17/20 17:48 POC ABG pCO2 33.1 mmHg (32.0-48.0) 11/17/20 17:48 POC ABG pO2 93.9 mmHg (83-108) 11/17/20 17:48 POC ABG HCO3 21.6 11/17/20 17:48 ABG O2 Saturation 97.1 (0-100) 11/17/20 17:48 POC ABG Base Excess -1.6 11/17/20 17:48 ABG Hemoglobin 17.2 (12.0-17.5) 11/17/20 17:48 ABG Oxyhemoglobin 96.5 (94-98) 11/17/20 17:48 ABG Methemoglobin 0.3 (0.0-1.5) 11/17/20 17:48 ABG Sodium 131.5 mmol/L (136.0-145.0) L 11/17/20 17:48 ABG Potassium 4.6 mmol/L (3.40-4.50) H 11/17/20 17:48 ABG Chloride 97.0 mmol/L (98-107) L 11/17/20 17:48 ABG Glucose 212 mg/dL (65-95) H 11/17/20 17:48 Carboxyhemoglobin 3 (0.5-1.5) H 11/17/20 17:48 FiO2 % 100 11/17/20 17:48 Sodium 134 mmol/L (137-145) L 11/15/20 04:41 Potassium 4.1 mmol/L (3.6-5.0) 11/15/20 04:41 Chloride 95.2 mmol/L (98-107) L 11/15/20 04:41 Carbon Dioxide 26 mmol/L (22-30) 11/15/20 04:41 Anion Gap 17 mmol/L 11/15/20 04:41 BUN 27 mg/dL (9-20) H 11/15/20 04:41 Creatinine 0.6 mg/dL (0.8-1.3) L 11/15/20 04:41 Estimated GFR > 60 ml/min 11/15/20 04:41 BUN/Creatinine Ratio 45 % 11/15/20 04:41 Glucose 165 mg/dL (75-100) H 11/15/20 04:41 POC Glucose 218 mg/dL (70-105) H 11/18/20 17:09 Hemoglobin A1c 5.6 % (4-6) 11/07/20 07:26 Lactic Acid 1.50 mmol/L (0.7-2.0) 11/06/20 11:26 Calcium 8.6 mg/dL (8.4-10.2) 11/15/20 04:41 Magnesium 2.40 mg/dL (1.7-2.3) H 11/06/20 08:57 Ferritin 2413.0 ng/mL (30.0-300.0) H 11/16/20 08:58 Total Bilirubin 0.50 mg/dL (0.1-1.2) 11/10/20 06:46 Direct Bilirubin 0.3 mg/dL (0-0.2) H 11/06/20 09:11 Indirect Bilirubin 0.5 mg/dL 11/06/20 09:11 AST 34 units/L (5-40) 11/10/20 06:46 ALT 21 units/L (7-56) 11/10/20 06:46 Alkaline Phosphatase 35 units/L (35-129) 11/10/20 06:46 Lactate Dehydrogenase 407 units/L (91-180) H 11/16/20 08:58 Troponin T < 0.010 ng/mL (0.00-0.029) 11/06/20 11:26 C-Reactive Protein 2.00 mg/dL (0.00-1.30) H 11/16/20 08:58 Total Protein 6.3 g/dL (6.3-8.2) 11/10/20 06:46 Albumin 2.9 g/dL (3.9-5) L 11/10/20 06:46 Albumin/Globulin Ratio 0.9 % 11/10/20 06:46 Lipase 39 units/L (13-60) 11/06/20 08:57 Procalcitonin 0.07 ng/mL (<0.15) 11/13/20 10:59 Arterial Blood Glucose 212 mg/dL (65-95) H 11/17/20 17:48 Arterial Blood Ionized Calcium 4.8 mg/dL (4.6-5.3) 11/17/20 17:48 Urine Color [place] (Yellow) 11/06/20 17:14 Urine Turbidity Clear (Clear) 11/06/20 17:14 Urine pH 6.0 (5.0-7.0) 11/06/20 17:14 Ur Specific [place] 1.024 (1.003-1.030) 11/06/20 17:14 Urine Protein 100 mg/dl mg/dL (Negative) 11/06/20 17:14 Urine Glucose (UA) Neg mg/dL (Negative) 11/06/20 17:14 Urine Ketones Neg mg/dL (Negative) 11/06/20 17:14 Urine Blood Sm (Negative) 11/06/20 17:14 Urine Nitrite Neg (Negative) 11/06/20 17:14 Urine Bilirubin Neg (Negative) 11/06/20 17:14 Urine Urobilinogen < 2.0 mg/dL (<2.0) 11/06/20 17:14 Ur Leukocyte Esterase Neg (Negative) 11/06/20 17:14 Urine WBC (Auto) 3.0 /HPF (0.0-6.0) 11/06/20 17:14 Urine RBC (Auto) 3.0 /HPF (0.0-6.0) 11/06/20 17:14 Urine Mucus Few /HPF 11/06/20 17:14 Coronavirus (PCR) Positive (Negative) A 11/06/20 09:57 Holt/IV: Voiding Method Incontinent Active Medications - Current Medications Current Medications: Generic Name Dose Route Start Last Admin Trade Name Freq PRN Reason Stop Dose Admin Acetaminophen 650 mg 11/06/20 22:23 11/16/20 23:26 Acetaminophen 325 Mg Tab PO 650 mg Q4H PRN Administration Pain MILD(1-3)/Fever >100.5/CALVILLO Alprazolam 0.25 mg 11/09/20 20:07 11/16/20 23:19 Alprazolam 0.25 Mg Tab PO 0.25 mg Q8H PRN Administration Anxiety Ascorbic Acid 1,000 mg 11/06/20 23:00 11/18/20 09:02 Ascorbic Acid 500 Mg Tab PO 1,000 mg BID BOBBY Administration Cholecalciferol 5,000 unit 11/12/20 11:00 11/18/20 09:02 Cholecalciferol (Vit D3) 5,000 Unit Tab PO 5,000 unit QDAY BOBBY Administration Dexamethasone 5 mg 11/18/20 10:00 11/18/20 09:01 Dexamethasone 4 Mg/Ml Vial IV 11/22/20 22:01 5 mg BID BOBBY Administration Enoxaparin Sodium 40 mg 11/17/20 22:00 11/17/20 22:19 Enoxaparin 40 Mg/0.4 Ml Inj SUB-Q 40 mg QDAY@2200 BOBBY Administration Protocol Famotidine 20 mg 11/06/20 23:00 11/18/20 09:01 Famotidine 20 Mg Tab PO 20 mg BID BOBBY Administration Guaifenesin 200 mg 11/06/20 18:33 11/16/20 23:19 Guaifenesin 100 Mg/5 Ml Oral Liqd PO 200 mg Q4H PRN Administration Cough Hydralazine HCl 10 mg 11/07/20 13:38 Hydralazine 20 Mg/1 Ml Inj IV Q4HR PRN Blood Pressure Insulin Human Lispro 0 unit 11/18/20 16:30 11/18/20 17:18 Insulin Lispro 100 Unit/Ml SUB-Q 3 unit ACHS BOBBY Administration Protocol Lorazepam 2 mg 11/17/20 13:48 11/18/20 05:42 Lorazepam 2 Mg/Ml Vial IV 2 mg Q4H PRN Administration Agitation Ondansetron HCl 4 mg 11/06/20 22:23 11/12/20 20:29 Ondansetron 4 Mg/2 Ml Inj IV 4 mg Q8H PRN Administration Nausea And Vomiting Sodium Chloride 10 ml 11/06/20 23:00 11/18/20 09:01 Sodium Chloride 0.9% 10 Ml Flush Syringe IV 10 ml BID BOBBY Administration Sodium Chloride 10 ml 11/06/20 22:23 Sodium Chloride 0.9% 10 Ml Flush Syringe IV PRN PRN LINE FLUSH Zinc Sulfate 220 mg 11/06/20 23:00 11/18/20 09:02 Zinc Sulfate 220 Mg Cap PO 220 mg BID BOBBY Administration Nutrition/Malnutrition Assess - Dietary Evaluation Nutrition/Malnutrition Findings: Nutrition Notes Start: 11/11/20 09:00 Freq: Status: Active Protocol: Document 11/15/20 12:36 MARLENY (Rec: 11/15/20 12:40 MARLENY [email or web address]) Co-Sign 11/15/20 12:36 HALIMA Nutrition Notes Initial or Follow up Reassessment Current Diagnosis Hypertension,Respiratory Failure Other Pertinent Diagnosis SOB, Bilat pneu, COVID-19(+), Centrilobular Emphysema Current Diet Cardiac Diet Labs/Tests Na 134 BUN 27 Cr 0.6 BG 165 Pertinent Medications Reglan Zinc Sulfate Vitamin C Vitamin D3 Decadron Height 5 ft 4 in Weight 68.7 kg [place] Body Weight (kg) 59.09 BMI 25.9 Weight Status Appropriate Subjective/Other Information F/U for stable intakes and ONS tolerance. Per RN, pt is consuming 100% PO/ONS. Percent of energy/protein needs met: 100%/100% (PO only) Burn Absent Trauma Absent GI Symptoms Nausea,Vomiting Current % PO Good (75-100%) Minimum of two criteria No physical signs of malnutrition #1 Nutrition Diagnosis Inadequate oral intake As Evidenced by Signs and Symptoms pt meeting 100% energy/protein needs Diagnosis Progress(for reassessment Improved documentation) Is patient on ventilator? No Is Patient Ambulatory and/or Out of Bed Yes REE-([facility]-ambulatory/OOB) [ [id number] [id number]] Calculation Used for Recommendations [facility] Additional Notes PRO needs: 69-82g (1-1.2g/kg) Fluid needs: 1 mL/kcal or per MD Nutrition Intervention Change Diet Order: Continue diet as ordered Add Supplement/Snack (indicate name/kcal Ensure High Protein daily /protein ) Provides kCal: 160 Provides Protein (gm) 16 Goal #1 Meet at least 80% of EER and protein needs via diet and ONS Anticipated Discharge Needs: Cardiac Diet Follow-Up By: 11/22/20 Additional Comments F/U for stable intakes
[2020-11-18] MEDS: ENOXAPARIN 40 MG/0.4 ML INJ SUB-Q SCH (21:08)
[2020-11-18] MEDS ORDERED: SUCCINYLCHOLINE CHLORIDE 200 MG/10 ML INJ MDV ONE (22:50)
[2020-11-18] MEDS ORDERED: ETOMIDATE 20 MG/10 ML INJ IV ONE (22:50)
[2020-11-18] MEDS ORDERED: SODIUM CHLORIDE 0.9% 1000 ML 1,000 ML ONE (22:51)
[2020-11-18] MEDS ORDERED: SODIUM CHLORIDE 0.9% 500 ML IVPB IV PRN (23:11)
[2020-11-18] MEDS ORDERED: MINERAL OIL/PETROLATUM, WHITE OPHTH OINT 3.5 GM OU PRN (23:11)
[2020-11-18] MEDS ORDERED: LIP THERAPY VASELINE TP PRN (23:11)
--- NOTE | 2020-11-19 00:26 | Event Note ---
Date: 11/19/20 At 2300 I was called to the ICU by the charge nurse requesting intubation for this patient with hypoxemic respiratory failure. Patient is noted to be satting in the low 80s on nonrebreather. All of the relevant equipment was prepared. Rapid sequence intubation was performed. The patient received 20 mg of etomidate for induction and 100 mg of succinylcholine for paralysis. Using a 4- 0 Mac laryngoscope and a size 7.0 endotracheal tube, the patient was intubated on the first attempt. The stylette was removed and the cuff balloon was infla shyann. Appropriate endotracheal tube position was confirmed by direct visualization of vocal cord passage fogging of the tube and CO2 colorometric indicator. Bilateral breath sounds were confirmed. The tube was secured at 22 cm at the lip post intubation chest x-ray is pending.
--- NOTE | 2020-11-19 00:40 | XRay Report ---
CHEST 1 VIEW 0009 INDICATION / CLINICAL INFORMATION: ETT placement COMPARISON: 11/06/2020 FINDINGS: SUPPORT DEVICES: Endotracheal tube is now seen which appears to be in satisfactory position at the mi d sternal notch level, roughly 7.3 cm above the ayah. A nasogastric tube now extends well into the stomach. HEART / MEDIASTINUM: Stable LUNGS / PLEURA: Bilateral mostly interstitial pulmonary infiltrates appear mildly worse. These are mo st noticeable in the lung bases and mid lungs. There now appears to be a minimal right apical pneumot horax at less than 5%. ADDITIONAL FINDINGS: Right subcutaneous emphysema is now seen. IMPORTANT FINDING: Time of Communication (BUTT PRESSER/CDT): 2335 Central daylight time Licensed Practitioner Receiving Report: Nurse [place] in CCU Signer Name: Art Bravo MD Signed: 11/19/2020 12:36 AM Workstation Name: [id number]
[2020-11-19] MEDS: LORazepam 2 MG/ML VIAL IV PRN (01:10)
[2020-11-19] MEDS: fentaNYL 100 MCG/2 ML INJ IV PRN ×3 (03:40→08:30)
[2020-11-19] MEDS: INSULIN LISPRO 100 UNIT/ML SUB-Q SCH ×5 (06:30→22:37)
--- NOTE | 2020-11-19 07:36 | Progress Note ---
Assessment and Plan Assessment and plan: --Hyperkalemia; K6.7 Calcium gluconate 2 g IV stat IV regular insulin 10 units stat x1 D 50% IV start, may repeat again Kayexalate 30 g Dobbhoff x1 Twelve-lead EKG ,closely monitor electrolytes --Acute hypoxic respiratory failure; due to severe Covid pneumonia Requiring intubation and ventilatory support Treat the underlying cause, supportive care Pulmonary critical following Wean as tolerated and extubate Very poor prognosis --Mild apical pneumothorax/subcutaneous emphysema; Serial chest x-rays, supportive care Pulmonary following --Significant subcutaneous emphysema; Supportive care --Severe COVID-19 infection; Completed remdesivir Received Tocilizumab Continue IV steroids Monitor inflammatory markers Patient was on very high flow oxygen 40 L/100% nonrebreather Now intubated on ventilatory support Follow inflammatory markers ID following --Elevated D-dimers; due to COVID-19 CTA chest negative for PE lower extremity venous Doppler negative for DVT --Sepsis due to COVID-19 pneumonia Procalcitonin low, no need for antibiotics --Diabetes mellitus type 2; moderate control today,A1c 10.3 Accu-Chek sliding scale coverage ADA diet and long-acting insulin Diabetic education,diet education when patient is more stable --Elevated LFTs probably Covid related; Present on admission, resolved. That patient is appointed by [facility] to be seen by you just --DVT prophylaxis; Lovenox --Full code status Patient is critically ill with poor prognosis Plan of care discussed in detail with the patient's nurse I called patient's son Mr. Graham head and updated patient's condition, poor prognosis, and discussed about the CODE STATUS Critical care time 35 minutes The high probability of a clinically significant, sudden or life threatening deterioration of the [multi] system(s) required my full and direct attention, intervention and personal management. The aggregate critical care time was [35] minutes. This time is in addition to time spent performing reported procedures but includes the following: [x] Data Review and interpretation [x] Patient assessment and monitoring of vital signs [x] Documentation [x] Medication orders and management Brief history and hospital course: 65-year-old patient male patient with significant past medical history of hypertension, received vaccination 10 days prior to admission was admitted to [facility] on 11/06/2020 with a complaints of worsening shortness of breath and generalized weakness of 2 days duration. Initial evaluation in the ED was consistent with acute respiratory failure with hypoxia O2 sats of 82% elevated D-dimers elevated ferritin. Patient was admitted at this PUI high suspicion for Covid placed in isolation subsequently braga PCR test came back positive on 11/06/2020 Patient was evaluated by ID received all the treatment per COVID-19 guidelines, evaluated by pulmonary critical, respiratory status closely monitored Patient continues to require high flow nasal cannula oxygen as well as 100% nonrebreather. Case management has set up evaluation for LTAC placement, and patient was accepted by this point LTAC, 11/08/2020. Follow-up COVID-19 testing. Continue to trend inflammatory markers. Continue dexamethasone. ID and pulmonary consultation pending. Patient currently with 6 L/min O2 FiO2 44%. 11/09/2020. COVID-19 testing found to be positive. Continue to trend inflammatory markers. Continue dexamethasone. Patient requiring more oxygen with high flow nasal cannula 30 L/min and FiO2 100%. ID and pulmonary following. 11/10/2020. Patient with increasing oxygen requirements with high flow nasal cannula 40 L/min with FiO2 100%. Continue dexamethasone per ID recommendations. We will transfer to IMCU for closer monitoring. 11/11/2020. Patient was transferred to IMCU for closer monitoring yesterday. Patient currently requiring BiPAP with IPAP 16 and EPAP of 8 with FiO2 100%. C ontinue dexamethasone and remdesivir. Continue to trend inflammatory markers. Continue anticoagulation. Prone position as possible. Continue ceftriaxone and azithromycin per ID recommendations. 11/12/2020. Patient currently requiring BiPAP with IPAP 16 and EPAP of 8 with FiO2 100%. Continue IV steroids of Solu-Medrol 60 mg every 8 hour and remdesivir. Continue to trend inflammatory markers. Continue anticoagulation with Lovenox. Prone position as possible. Continue ceftriaxone and azit hromycin per ID recommendations. Prognosis is guarded. 11/13/2020 BG not controlled with glipizide. Start Lantus at bedtime for BG control. Elevated BG likely secondary to IV steroid. Patient currently requiring BiPAP with IPAP 18 and EPAP of 10 with FiO2 100%. Continue IV steroids of Solu-Medrol 60 mg every 8 hour and remdesivir. Continue to trend inflammatory markers. Continue anticoagulation with Lovenox. Prone position as possible. Continue ceftriaxone and azithromycin per ID recommendations. Prognosis is guarded. 11/14/2020. Blood glucose is improved but not optimal. Therefore, increase Lantus to 14 units at bedtime. Elevated BG likely secondary to IV steroid. Patient currently requiring BiPAP with IPAP 18 and EPAP of 10 with FiO2 100%. Continue IV steroids of Solu-Medrol 60 mg every 8 hour and remdesivir. Continue to trend inflammatory markers. Continue anticoagulation with Lovenox. Prone position as possible. Continue ceftriaxone and azithromycin per ID myra mmendations. Prognosis is guarded. 11/15/2020; patient's blood sugars are uncontrolled, secondary to noncompliance, partly due to high-dose steroids Bandar hypoxic on continuous BiPAP Will DC Lantus patient does not have resources had 70/30 Novolin 20 units twice a day adjust as needed Patient's A1c 10.3, diabetic education nutrition education 11/16/2020; patient continues to be hypoxemic requiring continuous BiPAP Worsening D-dimers, CTA negative for PE, venous Doppler negative DVT 11/17/2020; patient is agitated and trying to remove the oxygen mask, already on Xanax Consider low-dose IV Ativan as needed Patient continues to require high flow oxygen, 100% nonrebreather ID pulmonary following, poor prognosis 11/18/2020; initially patient was accepted by LTAC yesterday Due to staffing reasons at LTAC, patient was not accepted Today outsole caser reports that they denied LTAC admission due to Concerns regarding continuous 100% oxygen requirement. We will continue current management. Patient is critically ill per protocol guarded prognosis 11/19/2020; patient suddenly went into acute hypoxic respiratory failure on 100% nonrebreather oxygen Was promptly intubated by ID, on ventilatory support, mild pneumothorax and subcu emphysema Hyperkalemia; K6.7, correction per protocols Patient transferred to ICU, critically ill poor prognosis I called patient's son Kale,Calm and updated last night events and patient's critical condition. Discussed advanced directives, full code History Interval history: Last night events noted patient went into severe hypoxic respiratory failure even on 100% O2 nonrebreather, agitated, ED physician was called and was promptly intubated placed on ventilatory support, and transfer the patient to ICU. Nurse try to contact family was unsuccessful. Patient was waiting for LTAC placement on 08/20/2020 patient was accepted, however unable to transfer due to staffing issues at LTAC facility Yesterday 08/21/2020 outsole caser reported that LTAC is denied transfer due to patient's continuous requirement of 100% nonrebreather oxygen. I have seen and examined the patient at the bedside in ICU this morning I strictly followed isolation precautions, PPE protocols per COVID-19 guidelines while evaluating the patient. Patient is orally intubated on ventilatory support In mild distress, slightly agitated Hypotensive Vital signs reviewed Hospitalist Physical - Constitutional Vitals: Temp Pulse Resp BP Pulse Ox 97.6 F 101 H 23 101/72 91 11/19/20 04:00 11/19/20 06:16 11/19/20 06:16 11/19/20 06:16 11/19/20 06:16 General appearance: Present: mild distress, well-nourished, other (Intubated on ventilatory support) - EENT Eyes: Present: PERRL, EOM intact ENT: other - Respiratory Respiratory effort: labored, accessory muscle use Respiratory: bilateral: diminished, rhonchi, negative: rales, wheezing - Cardiovascular Rhythm: regular Heart Sounds: Present: S1 & S2 - Extremities Extremities: no ischemia, No edema - Abdominal General gastrointestinal: soft, non-tender, non-distended, normal bowel sounds - Integumentary Integumentary: Present: clear, warm - Psychiatric Psychiatric: other (Intubated on vent) - Neurologic Neurologic: other (Intubated on vent) HEART Score - HEART Score Troponin: Troponin T < 0.010 ng/mL (0.00-0.029) 11/06/20 11:26 Results - Labs CBC & Chem 7: 11/19/20 08:54 11/19/20 10:49 Labs: Laboratory Last Values WBC 9.6 K/mm3 (4.5-11.0) 11/15/20 04:41 RBC 4.72 M/mm3 (3.65-5.03) 11/15/20 04:41 Hgb 15.5 gm/dl (11.8-15.2) H 11/15/20 04:41 Hct 42.6 % (35.5-45.6) 11/15/20 04:41 MCV 90 fl (84-94) 11/15/20 04:41 MCH 33 pg (28-32) H 11/15/20 04:41 MCHC 37 % (32-34) H 11/15/20 04:41 RDW 13.0 % (13.2-15.2) L 11/15/20 04:41 Plt Count 322 K/mm3 (140-440) 11/15/20 04:41 Lymph % (Auto) 14.4 % (13.4-35.0) 11/07/20 07:26 [place] % (Auto) 7.3 % (0.0-7.3) 11/07/20 07:26 Eos % (Auto) 0.0 % (0.0-4.3) 11/07/20 07:26 Baso % (Auto) 0.2 % (0.0-1.8) 11/07/20 07:26 Lymph # (Auto) 0.5 K/mm3 (1.2-5.4) L 11/07/20 07:26 [place] # (Auto) 0.3 K/mm3 (0.0-0.8) 11/07/20 07:26 Eos # (Auto) 0.0 K/mm3 (0.0-0.4) 11/07/20 07:26 Baso # (Auto) 0.0 K/mm3 (0.0-0.1) 11/07/20 07:26 Add Manual Diff Complete 11/15/20 04:41 Total Counted 100 11/15/20 04:41 Seg Neutrophils % Business Development Intern 11/15/20 04:41 Seg Neuts % (Manual) 95.0 % (40.0-70.0) H 11/15/20 04:41 Lymphocytes % (Manual) 1.0 % (13.4-35.0) L 11/15/20 04:41 Monocytes % (Manual) 4.0 % (0.0-7.3) 11/15/20 04:41 Nucleated RBC % Not Reportable 11/15/20 04:41 Seg Neutrophils # 2.8 K/mm3 (1.8-7.7) 11/07/20 07:26 Seg Neutrophils # Man 9.1 K/mm3 (1.8-7.7) H 11/15/20 04:41 Band Neutrophils # 0.0 K/mm3 11/15/20 04:41 Lymphocytes # (Manual) 0.1 K/mm3 (1.2-5.4) L 11/15/20 04:41 Abs React Lymphs (Man) 0.0 K/mm3 11/15/20 04:41 Monocytes # (Manual) 0.4 K/mm3 (0.0-0.8) 11/15/20 04:41 Eosinophils # (Manual) 0.0 K/mm3 (0.0-0.4) 11/15/20 04:41 Basophils # (Manual) 0.0 K/mm3 (0.0-0.1) 11/15/20 04:41 Metamyelocytes # 0.0 K/mm3 11/15/20 04:41 Myelocytes # 0.0 K/mm3 11/15/20 04:41 Promyelocytes # 0.0 K/mm3 11/15/20 04:41 Blast Cells # 0.0 K/mm3 11/15/20 04:41 WBC Morphology Not Reportable 11/15/20 04:41 Hypersegmented Neuts Not Reportable 11/15/20 04:41 Hyposegmented Neuts Not Reportable 11/15/20 04:41 Hypogranular Neuts Not Reportable 11/15/20 04:41 Smudge Cells Not Reportable 11/15/20 04:41 Toxic Granulation Not Reportable 11/15/20 04:41 Toxic Vacuolation Not Reportable 11/15/20 04:41 Dohle Bodies Not Reportable 11/15/20 04:41 Pelger-Huet Anomaly Not Reportable 11/15/20 04:41 [place] Rods Not Reportable 11/15/20 04:41 Platelet Estimate Consistent w auto 11/15/20 04:41 Clumped Platelets Not Reportable 11/15/20 04:41 Plt Clumps, EDTA Not Reportable 11/15/20 04:41 Large Platelets Few 11/15/20 04:41 Giant Platelets Not Reportable 11/15/20 04:41 Platelet Satelliting Not Reportable 11/15/20 04:41 Plt Morphology Comment Not Reportable 11/15/20 04:41 RBC Morphology Normal 11/15/20 04:41 Dimorphic RBCs Not Reportable 11/15/20 04:41 Polychromasia Not Reportable 11/15/20 04:41 Hypochromasia Not Reportable 11/15/20 04:41 Poikilocytosis Not Reportable 11/15/20 04:41 Anisocytosis Not Reportable 11/15/20 04:41 Microcytosis Not Reportable 11/15/20 04:41 Macrocytosis Not Reportable 11/15/20 04:41 Spherocytes Not Reportable 11/15/20 04:41 Pappenheimer Bodies Not Reportable 11/15/20 04:41 Sickle Cells Not Reportable 11/15/20 04:41 Target Cells Not Reportable 11/15/20 04:41 Tear Drop Cells Not Reportable 11/15/20 04:41 Ovalocytes Not Reportable 11/15/20 04:41 Helmet Cells Not Reportable 11/15/20 04:41 [place] Bodies Not Reportable 11/15/20 04:41 [place] Rings Not Reportable 11/15/20 04:41 Scarlet Cells Not Reportable 11/15/20 04:41 Bite Cells Not Reportable 11/15/20 04:41 Crenated Cell Not Reportable 11/15/20 04:41 Elliptocytes Not Reportable 11/15/20 04:41 Acanthocytes (Spur) Not Reportable 11/15/20 04:41 Rouleaux Not Reportable 11/15/20 04:41 Hemoglobin C Crystals Not Reportable 11/15/20 04:41 Schistocytes Not Reportable 11/15/20 04:41 Malaria parasites Not Reportable 11/15/20 04:41 [place] Bodies Not Reportable 11/15/20 04:41 Hem Pathologist Commnt No 11/15/20 04:41 PT 12.4 Sec. (12.2-14.9) 11/06/20 08:57 INR 0.94 (0.87-1.13) 11/06/20 08:57 APTT 33.5 Sec. (24.2-36.6) 11/06/20 08:57 D-Dimer 353.41 ng/mlDDU (0-234) H 11/16/20 12:13 ABG pH 7.365 (7.320-7.450) 11/19/20 03:57 POC ABG pCO2 35.5 mmHg (32.0-48.0) 11/19/20 03:57 POC ABG pO2 105.2 mmHg (83-108) 11/19/20 03:57 POC ABG HCO3 19.8 11/19/20 03:57 ABG O2 Saturation 97.5 (0-100) 11/19/20 03:57 POC ABG Base Excess -4.5 11/19/20 03:57 ABG Hemoglobin 19.5 (12.0-17.5) H 11/19/20 03:57 ABG Oxyhemoglobin 97.0 (94-98) 11/19/20 03:57 ABG Methemoglobin 0.3 (0.0-1.5) 11/19/20 03:57 ABG Sodium 133.1 mmol/L (136.0-145.0) L 11/19/20 03:57 ABG Potassium 5.6 mmol/L (3.40-4.50) H 11/19/20 03:57 ABG Chloride 99.0 mmol/L (98-107) 11/19/20 03:57 ABG Glucose 207 mg/dL (65-95) H 11/19/20 03:57 Carboxyhemoglobin 0.2 (0.5-1.5) L 11/19/20 03:57 FiO2 % 100.0 11/19/20 03:57 Sodium 134 mmol/L (137-145) L 11/15/20 04:41 Potassium 4.1 mmol/L (3.6-5.0) 11/15/20 04:41 Chloride 95.2 mmol/L (98-107) L 11/15/20 04:41 Carbon Dioxide 26 mmol/L (22-30) 11/15/20 04:41 Anion Gap 17 mmol/L 11/15/20 04:41 BUN 27 mg/dL (9-20) H 11/15/20 04:41 Creatinine 0.6 mg/dL (0.8-1.3) L 11/15/20 04:41 Estimated GFR > 60 ml/min 11/15/20 04:41 BUN/Creatinine Ratio 45 % 11/15/20 04:41 Glucose 165 mg/dL (75-100) H 11/15/20 04:41 POC Glucose 204 mg/dL (70-105) H 11/19/20 05:52 Hemoglobin A1c 5.6 % (4-6) 11/07/20 07:26 Lactic Acid 1.50 mmol/L (0.7-2.0) 11/06/20 11:26 Calcium 8.6 mg/dL (8.4-10.2) 11/15/20 04:41 Magnesium 2.40 mg/dL (1.7-2.3) H 11/06/20 08:57 Ferritin 2413.0 ng/mL (30.0-300.0) H 11/16/20 08:58 Total Bilirubin 0.50 mg/dL (0.1-1.2) 11/10/20 06:46 Direct Bilirubin 0.3 mg/dL (0-0.2) H 11/06/20 09:11 Indirect Bilirubin 0.5 mg/dL 11/06/20 09:11 AST 34 units/L (5-40) 11/10/20 06:46 ALT 21 units/L (7-56) 11/10/20 06:46 Alkaline Phosphatase 35 units/L (35-129) 11/10/20 06:46 Lactate Dehydrogenase 407 units/L (91-180) H 11/16/20 08:58 Troponin T < 0.010 ng/mL (0.00-0.029) 11/06/20 11:26 C-Reactive Protein 2.00 mg/dL (0.00-1.30) H 11/16/20 08:58 Total Protein 6.3 g/dL (6.3-8.2) 11/10/20 06:46 Albumin 2.9 g/dL (3.9-5) L 11/10/20 06:46 Albumin/Globulin Ratio 0.9 % 11/10/20 06:46 Lipase 39 units/L (13-60) 11/06/20 08:57 Procalcitonin 0.07 ng/mL (<0.15) 11/13/20 10:59 Arterial Blood Glucose 207 mg/dL (65-95) H 11/19/20 03:57 Arterial Blood Ionized Calcium 4.9 mg/dL (4.6-5.3) 11/19/20 03:57 Urine Color [place] (Yellow) 11/06/20 17:14 Urine Turbidity Clear (Clear) 11/06/20 17:14 Urine pH 6.0 (5.0-7.0) 11/06/20 17:14 Ur Specific [place] 1.024 (1.003-1.030) 11/06/20 17:14 Urine Protein 100 mg/dl mg/dL (Negative) 11/06/20 17:14 Urine Glucose (UA) Neg mg/dL (Negative) 11/06/20 17:14 Urine Ketones Neg mg/dL (Negative) 11/06/20 17:14 Urine Blood Sm (Negative) 11/06/20 17:14 Urine Nitrite Neg (Negative) 11/06/20 17:14 Urine Bilirubin Neg (Negative) 11/06/20 17:14 Urine Urobilinogen < 2.0 mg/dL (<2.0) 11/06/20 17:14 Ur Leukocyte Esterase Neg (Negative) 11/06/20 17:14 Urine WBC (Auto) 3.0 /HPF (0.0-6.0) 11/06/20 17:14 Urine RBC (Auto) 3.0 /HPF (0.0-6.0) 11/06/20 17:14 Urine Mucus Few /HPF 11/06/20 17:14 Coronavirus (PCR) Positive (Negative) A 11/06/20 09:57 Holt/IV: Voiding Method Condom Catheter Active Medications - Current Medications Current Medications: Generic Name Dose Route Start Last Admin Trade Name Freq PRN Reason Stop Dose Admin Acetaminophen 650 mg 11/06/20 22:23 11/16/20 23:26 Acetaminophen 325 Mg Tab PO 650 mg Q4H PRN Administration Pain MILD(1-3)/Fever >100.5/CALVILLO Alprazolam 0.25 mg 11/09/20 20:07 11/16/20 23:19 Alprazolam 0.25 Mg Tab PO 0.25 mg Q8H PRN Administration Anxiety Ascorbic Acid 1,000 mg 11/06/20 23:00 11/18/20 21:09 Ascorbic Acid 500 Mg Tab PO 1,000 mg BID BOBBY Administration Cholecalciferol 5,000 unit 11/12/20 11:00 11/18/20 09:02 Cholecalciferol (Vit D3) 5,000 Unit Tab PO 5,000 unit QDAY BOBBY Administration Dexamethasone 5 mg 11/18/20 10:00 11/18/20 21:07 Dexamethasone 4 Mg/Ml Vial IV 11/22/20 22:01 5 mg BID BOBBY Administration Enoxaparin Sodium 40 mg 11/17/20 22:00 11/18/20 21:08 Enoxaparin 40 Mg/0.4 Ml Inj SUB-Q 40 mg QDAY@2200 BOBBY Administration Protocol Famotidine 20 mg 11/06/20 23:00 11/18/20 21:08 Famotidine 20 Mg Tab PO 20 mg BID BOBBY Administration Fentanyl 50 mcg 11/19/20 01:00 11/19/20 06:12 Fentanyl 100 Mcg/2 Ml Inj IV 50 mcg Q2H PRN Administration MAINTAIN RASS OF 0 TO -2 Guaifenesin 200 mg 11/06/20 18:33 11/16/20 23:19 Guaifenesin 100 Mg/5 Ml Oral Liqd PO 200 mg Q4H PRN Administration Cough Hydralazine HCl 10 mg 11/07/20 13:38 Hydralazine 20 Mg/1 Ml Inj IV Q4HR PRN Blood Pressure Hydrophilic Ointment 1 applic 11/18/20 23:11 Lip Therapy Vaseline TP Q2HR PRN Dry Lips Propofol 1,000 mg in 100 mls @ 2.061 mls/hr 11/18/20 23:45 11/19/20 06:12 Diprivan 10 Mg/Ml IV 10 mcg/kg/min TITR BOBBY 4.122 mls/hr Administration Protocol 5 MCG/KG/MIN Insulin Human Lispro 0 unit 11/18/20 16:30 11/19/20 06:30 Insulin Lispro 100 Unit/Ml SUB-Q 3 unit ACHS [facility] Administration Protocol Lorazepam 2 mg 11/17/20 13:48 11/19/20 01:10 Lorazepam 2 Mg/Ml Vial IV 2 mg Q4H PRN Administration Agitation Multi-Ingred Cream/Lotion/Oil/Oint 1 applic 11/18/20 23:11 Mineral Oil/Petrolatum, White Ophth Oint 3.5 Gm OU Q4HR PRN Dry Eye(s) Ondansetron HCl 4 mg 11/06/20 22:23 11/12/20 20:29 Ondansetron 4 Mg/2 Ml Inj IV 4 mg Q8H PRN Administration Nausea And Vomiting Sodium Chloride 10 ml 11/06/20 23:00 11/18/20 21:09 Sodium Chloride 0.9% 10 Ml Flush Syringe IV 10 ml BID BOBBY Administration Sodium Chloride 10 ml 11/06/20 22:23 Sodium Chloride 0.9% 10 Ml Flush Syringe IV PRN PRN LINE FLUSH Sodium Chloride 5 ml 11/18/20 23:11 Sodium Chloride 0.9% 500 Ml Ivpb IV DIRECT PRN ARTERIAL BLOOD COORDINATOR Zinc Sulfate 220 mg 11/06/20 23:00 11/18/20 21:09 Zinc Sulfate 220 Mg Cap PO 220 mg BID BOBBY Administration Nutrition/Malnutrition Assess - Dietary Evaluation Nutrition/Malnutrition Findings: Nutrition Notes Start: 11/11/20 09:00 Freq: Status: Active Protocol: Document 11/15/20 12:36 MARLENY (Rec: 11/15/20 12:40 MARLENY [id number]) Co-Sign 11/15/20 12:36 HALIMA Nutrition Notes Initial or Follow up Reassessment Current Diagnosis Hypertension,Respiratory Failure Other Pertinent Diagnosis SOB, Bilat pneu, COVID-19(+), Centrilobular Emphysema Current Diet Cardiac Diet Labs/Tests Na 134 BUN 27 Cr 0.6 BG 165 Pertinent Medications Reglan Zinc Sulfate Vitamin C Vitamin D3 Decadron Height 5 ft 4 in Weight 68.7 kg [place] Body Weight (kg) 59.09 BMI 25.9 Weight Status Appropriate Subjective/Other Information F/U for stable intakes and ONS tolerance. Per RN, pt is consuming 100% PO/ONS. Percent of energy/protein needs met: 100%/100% (PO only) Burn Absent Trauma Absent GI Symptoms Nausea,Vomiting Current % PO Good (75-100%) Minimum of two criteria No physical signs of malnutrition #1 Nutrition Diagnosis Inadequate oral intake As Evidenced by Signs and Symptoms pt meeting 100% energy/protein needs Diagnosis Progress(for reassessment Improved documentation) Is patient on ventilator? No Is Patient Ambulatory and/or Out of Bed Yes REE-([facility]-ambulatory/OOB) [ [id number] [id number]] Calculation Used for Recommendations [facility] Additional Notes PRO needs: 69-82g (1-1.2g/kg) Fluid needs: 1 mL/kcal or per MD Nutrition Intervention Change Diet Order: Continue diet as ordered Add Supplement/Snack (indicate name/kcal Ensure High Protein daily /protein ) Provides kCal: 160 Provides Protein (gm) 16 Goal #1 Meet at least 80% of EER and protein needs via diet and ONS Anticipated Discharge Needs: Cardiac Diet Follow-Up By: 11/22/20 Additional Comments F/U for stable intakes
[2020-11-19] MEDS: ALPRAZolam 0.25 MG TAB PO PRN (08:31)
--- NOTE | 2020-11-19 09:05 | Event Note ---
Date: 11/19/20 I called and discussed with patient's son Mr. Kale Stevenson at [phone] and discussed in detail last night events, patient's condition, tests and reports, consultants recommendations, treatment plan, poor prognosis, and advanced directives and CODE STATUS. Patient had many questions, answered all of them, he requests full CODE STATUS at this point, however will discuss with his older brother and other family members. Full CODE STATUS
[2020-11-19 09:24] LABS: Hematocrit 54.4 % (35.5-45.6); Hemoglobin 18.9 gm/dl (11.8-15.2); Mean Corpuscular HGB Conc 35 % (32-34); Mean Corpuscular Volume 93 fl (84-94); Platelet Count 238 K/mm3 (140-440); Red Blood Count 5.88 M/mm3 (3.65-5.03)
[2020-11-19 09:29] LABS: Alanine Aminotransferase 36 units/L (7-56); Albumin 2.8 g/dL (3.9-5); BUN/Creatinine Ratio 55; Blood Urea Nitrogen 61 mg/dL (9-20); Hemolysis Index 112
[2020-11-19] MEDS ORDERED: fentaNYL 100 MCG/2 ML INJ IV PRN (10:39)
[2020-11-19] MEDS: ZINC SULFATE 220 MG CAP PO SCH ×2 (10:43→21:22)
[2020-11-19] MEDS: dexAMETHasone 4 MG/ML VIAL IV SCH ×2 (10:43→21:23)
[2020-11-19] MEDS: FAMOTIDINE 20 MG TAB PO SCH ×2 (10:43→21:22)
[2020-11-19] MEDS: ASCORBIC ACID 500 MG TAB PO SCH ×2 (10:44→21:22)
[2020-11-19] MEDS ORDERED: fentaNYL DRIP Premix 2,000 MCG/100 ML BAG IV SCH (11:00)
[2020-11-19] MEDS ORDERED: SODIUM POLYSTYRENE 15 GM/60 ML ORAL LIQD PR NR (11:34)
[2020-11-19] MEDS ORDERED: DEXTROSE 50% IN WATER (25GM) 50 ML VIAL IV ONE (11:40)
[2020-11-19] MEDS ORDERED: INSULIN REGULAR, HUMAN 100 UNITS/1 ML IV ONE (11:44)
[2020-11-19] MEDS ORDERED: DEXTROSE 50% IN WATER (25GM) 50 ML SYRINGE IV ONE (12:00)
--- NOTE | 2020-11-19 12:01 | Progress Note ---
Assessment and Plan 65 y/o male with acute respiratory failure secondary to COVID 19 11/19/20: Wean FiO2 for sats >88%. Consider proning if not able to wean in the next 24 hours. May need third sedative agent. Continue diuresis PRN. Will order PICC line for today. Reviewed IMS note, family remains set on full code. Prognosis is guarded. Agree with putting back on steroids. 11/18/20: Hopeful LTACH today, continue anxiolytic therapy to help with co mpliance. Lasix again today. 11/17/20: LTACH today, continue supportive management 11/16/20: LTACH agreeable to take patient as he will be a jail wean. Suggest another dosing of lasix today. 11/15/20: Lasix 40mg IV x1 again today. Will ask for strict i/O. Prone as tolerated. Will speak with RT about weaning attempts today. Prognosis remains guarded. Continue steroids 1. Will give lasix 40mg IV x1 today 2. Prone as tolerated during the day and sleep prone at night 3. Finished Remdesivir and got Actemra 4. Wean FiO2 for sats >88% 5. Daily net negative state 6. Guarded prognosis. Subjective Date of service: 11/19/20 Principal diagnosis: COVID Interval history: Called by RT last night that patient needed to be intubated. States that patient is desatting on HFNC and NRB but not able to do bipap as he has to be restrained. Charge called ED and they came up to do RSI intubation. THis am sedated on Propofol. Has been requiring frequent Fent so now starting drip. Sats are in the mid 90's on 100%. Remainder is negative. Objective Vital Signs - 12hr 11/19/20 11/19/20 11/19/20 00:00 00:04 00:05 Temperature Pulse Rate 95 H 105 H 101 H Pulse Rate [ 95 H Apical] Pulse Rate [ 95 H From Monitor] Respiratory 29 H 36 H 36 H Rate Blood Pressure 121/94 O2 Sat by Pulse 89 83 L 86 Oximetry 11/19/20 11/19/20 11/19/20 00:10 00:15 00:20 Temperature Pulse Rate 106 H 106 H 104 H Pulse Rate [ Apical] Pulse Rate [ From Monitor] Respiratory 31 H 37 H 32 H Rate Blood Pressure 103/76 93/62 99/73 O2 Sat by Pulse 89 88 91 Oximetry 11/19/20 11/19/20 11/19/20 00:25 00:30 00:35 Temperature Pulse Rate 104 H 102 H 103 H Pulse Rate [ Apical] Pulse Rate [ From Monitor] Respiratory 31 H 31 H 34 H Rate Blood Pressure 94/58 85/62 83/60 O2 Sat by Pulse 92 92 90 Oximetry 11/19/20 11/19/20 11/19/20 00:40 00:45 00:50 Temperature Pulse Rate 100 H 100 H 101 H Pulse Rate [ Apical] Pulse Rate [ From Monitor] Respiratory 34 H 34 H 34 H Rate Blood Pressure 84/55 88/50 82/55 O2 Sat by Pulse 90 90 90 Oximetry 11/19/20 11/19/20 11/19/20 00:55 01:00 01:05 Temperature Pulse Rate 101 H 100 H 98 H Pulse Rate [ Apical] Pulse Rate [ From Monitor] Respiratory 34 H 34 H 31 H Rate Blood Pressure 82/58 83/59 78/59 O2 Sat by Pulse 89 88 90 Oximetry 11/19/20 11/19/20 11/19/20 01:10 01:16 01:20 Temperature Pulse Rate 97 H 95 H 94 H Pulse Rate [ Apical] Pulse Rate [ From Monitor] Respiratory 33 H 32 H 30 H Rate Blood Pressure 78/54 76/51 78/48 O2 Sat by Pulse 89 89 89 Oximetry 11/19/20 11/19/20 11/19/20 01:25 01:30 01:35 Temperature Pulse Rate 95 H 95 H 95 H Pulse Rate [ Apical] Pulse Rate [ From Monitor] Respiratory 33 H 32 H 31 H Rate Blood Pressure 79/56 78/59 O2 Sat by Pulse 90 90 93 Oximetry 11/19/20 11/19/20 11/19/20 01:40 01:45 01:50 Temperature Pulse Rate 95 H 93 H 92 H Pulse Rate [ Apical] Pulse Rate [ From Monitor] Respiratory 31 H 32 H 27 H Rate Blood Pressure 82/49 84/63 91/61 O2 Sat by Pulse 93 92 93 Oximetry 11/19/20 11/19/20 11/19/20 01:55 02:00 02:05 Temperature Pulse Rate 92 H 92 H 88 Pulse Rate [ Apical] Pulse Rate [ From Monitor] Respiratory 29 H 33 H 27 H Rate Blood Pressure 88/66 86/65 91/62 O2 Sat by Pulse 94 93 94 Oximetry 11/19/20 11/19/20 11/19/20 02:10 02:15 02:20 Temperature Pulse Rate 88 89 89 Pulse Rate [ Apical] Pulse Rate [ From Monitor] Respiratory 29 H 28 H 30 H Rate Blood Pressure 95/72 87/67 87/69 O2 Sat by Pulse 93 95 93 Oximetry 11/19/20 11/19/20 11/19/20 02:25 02:30 02:35 Temperature Pulse Rate 90 91 H 91 H Pulse Rate [ Apical] Pulse Rate [ From Monitor] Respiratory 29 H 24 24 Rate Blood Pressure 86/66 86/66 79/55 O2 Sat by Pulse 93 95 94 Oximetry 11/19/20 11/19/20 11/19/20 02:40 02:46 02:50 Temperature Pulse Rate 88 90 Pulse Rate [ Apical] Pulse Rate [ From Monitor] Respiratory 28 H 28 H Rate Blood Pressure 82/60 73/48 86/61 O2 Sat by Pulse 96 97 97 Oximetry 11/19/20 11/19/20 11/19/20 02:55 03:00 03:05 Temperature Pulse Rate 89 85 91 H Pulse Rate [ Apical] Pulse Rate [ From Monitor] Respiratory 30 H 33 H 32 H Rate Blood Pressure 73/55 79/57 81/58 O2 Sat by Pulse 93 92 94 Oximetry 11/19/20 11/19/20 11/19/20 03:10 03:15 03:20 Temperature Pulse Rate 92 H 92 H 92 H Pulse Rate [ Apical] Pulse Rate [ From Monitor] Respiratory 34 H 32 H 34 H Rate Blood Pressure 96/69 100/72 100/72 O2 Sat by Pulse 96 97 95 Oximetry 11/19/20 11/19/20 11/19/20 03:25 03:30 03:35 Temperature Pulse Rate 89 92 H 93 H Pulse Rate [ Apical] Pulse Rate [ From Monitor] Respiratory 31 H 34 H 34 H Rate Blood Pressure 95/69 104/73 109/69 O2 Sat by Pulse 95 96 95 Oximetry 11/19/20 11/19/20 11/19/20 03:40 03:44 03:46 Temperature Pulse Rate 92 H 94 H 95 H Pulse Rate [ Apical] Pulse Rate [ From Monitor] Respiratory 28 H 26 H Rate Blood Pressure 122/52 104/73 90/66 O2 Sat by Pulse 94 96 94 Oximetry 11/19/20 11/19/20 11/19/20 03:50 03:56 04:00 Temperature 97.6 F Pulse Rate 94 H 96 H 96 H Pulse Rate [ 95 H Apical] Pulse Rate [ 95 H From Monitor] Respiratory 25 H 26 H 25 H Rate Blood Pressure 90/66 90/66 90/64 O2 Sat by Pulse 94 95 94 Oximetry 11/19/20 11/19/20 11/19/20 04:06 04:10 04:15 Temperature Pulse Rate 96 H 95 H 94 H Pulse Rate [ Apical] Pulse Rate [ From Monitor] Respiratory 26 H 25 H 25 H Rate Blood Pressure 90/64 90/64 85/63 O2 Sat by Pulse 94 94 94 Oximetry 11/19/20 11/19/20 11/19/20 04:30 04:45 05:00 Temperature Pulse Rate 94 H 92 H 93 H Pulse Rate [ Apical] Pulse Rate [ From Monitor] Respiratory 26 H 27 H 25 H Rate Blood Pressure 91/66 82/63 88/69 O2 Sat by Pulse 95 93 95 Oximetry 11/19/20 11/19/20 11/19/20 05:15 05:30 05:45 Temperature Pulse Rate 93 H 95 H 96 H Pulse Rate [ Apical] Pulse Rate [ From Monitor] Respiratory 26 H 26 H 27 H Rate Blood Pressure 98/78 102/74 101/75 O2 Sat by Pulse 95 95 95 Oximetry 11/19/20 11/19/20 11/19/20 06:00 06:12 06:16 Temperature Pulse Rate 95 H 101 H Pulse Rate [ Apical] Pulse Rate [ From Monitor] Respiratory 26 H 36 H 23 Rate Blood Pressure 101/72 101/72 O2 Sat by Pulse 94 91 Oximetry 11/19/20 11/19/20 11/19/20 06:30 06:45 07:00 Temperature Pulse Rate 105 H 102 H 103 H Pulse Rate [ Apical] Pulse Rate [ From Monitor] Respiratory 23 24 25 H Rate Blood Pressure 101/74 101/72 102/68 O2 Sat by Pulse 92 93 93 Oximetry 11/19/20 11/19/20 11/19/20 07:16 07:30 07:40 Temperature Pulse Rate 99 H 100 H 96 H Pulse Rate [ Apical] Pulse Rate [ From Monitor] Respiratory 25 H 25 H Rate Blood Pressure 102/68 46/21 O2 Sat by Pulse 93 93 94 Oximetry 0511/19/20 11/19/20 07:46 08:00 08:16 Temperature Pulse Rate 102 H 112 H 116 H Pulse Rate [ Apical] Pulse Rate [ From Monitor] Respiratory 37 H 34 H 42 H Rate Blood Pressure 46/21 142/107 142/107 O2 Sat by Pulse 91 88 86 Oximetry 11/19/20 11/19/20 11/19/20 08:30 08:45 09:00 Temperature Pulse Rate 114 H 112 H 113 H Pulse Rate [ Apical] Pulse Rate [ From Monitor] Respiratory 26 H 27 H 27 H Rate Blood Pressure 92/63 107/73 107/73 O2 Sat by Pulse 91 93 93 Oximetry 11/19/20 11/19/20 11/19/20 09:16 09:30 09:45 Temperature Pulse Rate 111 H 109 H 110 H Pulse Rate [ Apical] Pulse Rate [ From Monitor] Respiratory 26 H 27 H 26 H Rate Blood Pressure 94/71 93/71 100/72 O2 Sat by Pulse 93 94 94 Oximetry 11/19/20 11/19/20 11/19/20 10:00 10:16 10:30 Temperature Pulse Rate 109 H 112 H 116 H Pulse Rate [ Apical] Pulse Rate [ From Monitor] Respiratory 26 H 36 H 35 H Rate Blood Pressure 94/72 170/92 153/108 O2 Sat by Pulse 94 93 92 Oximetry 11/19/20 11/19/20 11/19/20 10:46 11:00 11:10 Temperature Pulse Rate 120 H 119 H 115 H Pulse Rate [ Apical] Pulse Rate [ From Monitor] Respiratory 35 H 25 H Rate Blood Pressure 153/108 153/108 97/62 O2 Sat by Pulse 93 91 92 Oximetry 11/19/20 11/19/20 11:15 11:30 Temperature Pulse Rate 114 H 114 H Pulse Rate [ Apical] Pulse Rate [ From Monitor] Respiratory 24 24 Rate Blood Pressure 93/63 102/69 O2 Sat by Pulse 93 94 Oximetry Constitutional: no acute distress, alert, other (on hiflo o2) Eyes: non-icteric ENT: oropharynx moist Neck: supple Effort: normal Ascultation: Bilateral: clear Cardiovascular: regular rate and rhythm (no mrg) Gastrointestinal: normoactive bowel sounds, soft, non-tender, non-distended Integumentary: normal Extremities: no cyanosis, no edema, pink and warm Neurologic: non-focal exam, pupils equal and round, CN II-XII normal, other (sleepy but arousable) Psychiatric: mood appropriate, affect normal CBC and BMP: 11/19/20 08:54 11/19/20 10:49 ABG, PT/INR, D-dimer: ABG ABG pH 7.365 (7.320-7.450) 11/19/20 03:57 POC ABG pCO2 35.5 mmHg (32.0-48.0) 11/19/20 03:57 POC ABG pO2 105.2 mmHg (83-108) 11/19/20 03:57 POC ABG HCO3 19.8 11/19/20 03:57 ABG O2 Saturation 97.5 (0-100) 11/19/20 03:57 PT/INR, D-dimer PT 12.4 Sec. (12.2-14.9) 11/06/20 08:57 INR 0.94 (0.87-1.13) 11/06/20 08:57 D-Dimer 353.41 ng/mlDDU (0-234) H 11/16/20 12:13 Abnormal lab findings: Abnormal Labs 11/06/20 11/06/20 11/06/20 08:57 08:57 08:57 WBC RBC Hgb Hct MCH MCHC 35 H RDW 12.8 L Plt Count 131 L Piatt % (Auto) 11.4 H Lymph # (Auto) 0.8 L Seg Neutrophils % Seg Neuts % (Manual) Lymphocytes % (Manual) Seg Neutrophils # Man Lymphocytes # (Manual) D-Dimer 661.18 H POC ABG pO2 ABG Hemoglobin ABG Oxyhemoglobin ABG Sodium ABG Potassium ABG Chloride ABG Glucose Carboxyhemoglobin Sodium Potassium Chloride Carbon Dioxide BUN Creatinine Glucose POC Glucose Lactic Acid Calcium Phosphorus Magnesium 2.40 H Ferritin Direct Bilirubin AST Alkaline Phosphatase Lactate Dehydrogenase C-Reactive Protein Total Protein Albumin Arterial Blood Glucose Coronavirus (PCR) 11/06/20 11/06/20 11/06/20 08:57 09:11 09:11 WBC RBC Hgb Hct MCH MCHC RDW Plt Count Piatt % (Auto) Lymph # (Auto) Seg Neutrophils % Seg Neuts % (Manual) Lymphocytes % (Manual) Seg Neutrophils # Man Lymphocytes # (Manual) D-Dimer 600.32 H POC ABG pO2 ABG Hemoglobin ABG Oxyhemoglobin ABG Sodium ABG Potassium ABG Chloride ABG Glucose Carboxyhemoglobin Sodium Potassium Chloride Carbon Dioxide BUN Creatinine Glucose 112 H POC Glucose Lactic Acid 2.20 H* Calcium Phosphorus Magnesium Ferritin Direct Bilirubin AST Alkaline Phosphatase Lactate Dehydrogenase 509 H C-Reactive Protein 8.90 H Total Protein Albumin Arterial Blood Glucose Coronavirus (PCR) 11/06/20 11/06/20 11/06/20 09:11 09:11 09:57 WBC RBC Hgb Hct MCH MCHC RDW Plt Count Piatt % (Auto) Lymph # (Auto) Seg Neutrophils % Seg Neuts % (Manual) Lymphocytes % (Manual) Seg Neutrophils # Man Lymphocytes # (Manual) D-Dimer POC ABG pO2 ABG Hemoglobin ABG Oxyhemoglobin ABG Sodium ABG Potassium ABG Chloride ABG Glucose Carboxyhemoglobin Sodium 133 L Potassium 3.2 L Chloride 93.3 L Carbon Dioxide BUN 22 H Creatinine Glucose 113 H POC Glucose Lactic Acid Calcium 8.2 L Phosphorus Magnesium Ferritin 3934.0 H Direct Bilirubin 0.3 H AST 69 H Alkaline Phosphatase 30 L Lactate Dehydrogenase C-Reactive Protein Total Protein Albumin 3.4 L Arterial Blood Glucose Coronavirus (PCR) Positive A 11/07/20 11/07/20 11/07/20 07:26 07:26 19:10 WBC 3.6 L RBC Hgb Hct MCH MCHC 35 H RDW 12.9 L Plt Count 139 L Piatt % (Auto) Lymph # (Auto) 0.5 L Seg Neutrophils % 78.1 H Seg Neuts % (Manual) Lymphocytes % (Manual) Seg Neutrophils # Man Lymphocytes # (Manual) D-Dimer POC ABG pO2 ABG Hemoglobin ABG Oxyhemoglobin ABG Sodium ABG Potassium ABG Chloride ABG Glucose Carboxyhemoglobin Sodium 135 L Potassium Chloride Carbon Dioxide BUN Creatinine 0.6 L 0.6 L Glucose 143 H 117 H POC Glucose Lactic Acid Calcium 7.8 L 7.7 L Phosphorus Magnesium Ferritin Direct Bilirubin AST 55 H 50 H Alkaline Phosphatase 29 L 31 L Lactate Dehydrogenase C-Reactive Protein Total Protein Albumin 3.1 L 3.0 L Arterial Blood Glucose Coronavirus (PCR) 11/08/20 11/08/20 11/08/20 06:02 06:02 18:25 WBC RBC Hgb Hct MCH MCHC 35 H RDW 12.9 L Plt Count Piatt % (Auto) Lymph # (Auto) Seg Neutrophils % Seg Neuts % (Manual) Lymphocytes % (Manual) Seg Neutrophils # Man Lymphocytes # (Manual) D-Dimer POC ABG pO2 ABG Hemoglobin ABG Oxyhemoglobin ABG Sodium ABG Potassium ABG Chloride ABG Glucose Carboxyhemoglobin Sodium 135 L Potassium Chloride Carbon Dioxide BUN Creatinine 0.7 L Glucose 138 H POC Glucose Lactic Acid Calcium 7.5 L Phosphorus Magnesium Ferritin 2864.0 H Direct Bilirubin AST 45 H Alkaline Phosphatase 30 L Lactate Dehydrogenase C-Reactive Protein Total Protein Albumin 3.0 L Arterial Blood Glucose Coronavirus (PCR) 11/08/20 11/09/20 11/10/20 18:25 05:44 06:46 WBC RBC Hgb Hct MCH MCHC RDW Plt Count Piatt % (Auto) Lymph # (Auto) Seg Neutrophils % Seg Neuts % (Manual) Lymphocytes % (Manual) Seg Neutrophils # Man Lymphocytes # (Manual) D-Dimer POC ABG pO2 ABG Hemoglobin ABG Oxyhemoglobin ABG Sodium ABG Potassium ABG Chloride ABG Glucose Carboxyhemoglobin Sodium Potassium Chloride Carbon Dioxide BUN Creatinine 0.5 L 0.5 L Glucose 150 H 140 H POC Glucose Lactic Acid Calcium 7.5 L 7.7 L Phosphorus Magnesium Ferritin Direct Bilirubin AST Alkaline Phosphatase Lactate Dehydrogenase 538 H C-Reactive Protein 3.00 H Total Protein 6.1 L Albumin 3.3 L 2.9 L Arterial Blood Glucose Coronavirus (PCR) 11/10/20 11/10/20 11/11/20 16:09 16:09 10:51 WBC RBC Hgb Hct MCH MCHC RDW Plt Count Piatt % (Auto) Lymph # (Auto) Seg Neutrophils % Seg Neuts % (Manual) Lymphocytes % (Manual) Seg Neutrophils # Man Lymphocytes # (Manual) D-Dimer POC ABG pO2 ABG Hemoglobin ABG Oxyhemoglobin ABG Sodium ABG Potassium ABG Chloride ABG Glucose Carboxyhemoglobin Sodium Potassium Chloride Carbon Dioxide BUN Creatinine Glucose POC Glucose Lactic Acid Calcium Phosphorus Magnesium Ferritin 2483.0 H 2486.0 H Direct Bilirubin AST Alkaline Phosphatase Lactate Dehydrogenase 586 H C-Reactive Protein 1.50 H Total Protein Albumin Arterial Blood Glucose Coronavirus (PCR) 11/11/20 11/11/20 11/11/20 10:51 10:51 15:45 WBC RBC Hgb Hct MCH MCHC RDW Plt Count Piatt % (Auto) Lymph # (Auto) Seg Neutrophils % Seg Neuts % (Manual) Lymphocytes % (Manual) Seg Neutrophils # Man Lymphocytes # (Manual) D-Dimer POC ABG pO2 ABG Hemoglobin ABG Oxyhemoglobin ABG Sodium ABG Potassium ABG Chloride ABG Glucose Carboxyhemoglobin Sodium Potassium Chloride Carbon Dioxide BUN Creatinine Glucose 149 H POC Glucose Lactic Acid Calcium Phosphorus Magnesium Ferritin 2573.0 H Direct Bilirubin AST Alkaline Phosphatase Lactate Dehydrogenase 624 H C-Reactive Protein 4.30 H Total Protein Albumin Arterial Blood Glucose Coronavirus (PCR) 11/11/20 11/12/20 11/12/20 15:45 07:52 11:33 WBC RBC Hgb Hct MCH MCHC RDW Plt Count Piatt % (Auto) Lymph # (Auto) Seg Neutrophils % Seg Neuts % (Manual) Lymphocytes % (Manual) Seg Neutrophils # Man Lymphocytes # (Manual) D-Dimer POC ABG pO2 ABG Hemoglobin ABG Oxyhemoglobin ABG Sodium ABG Potassium ABG Chloride ABG Glucose Carboxyhemoglobin Sodium Potassium Chloride Carbon Dioxide BUN Creatinine Glucose POC Glucose 147 H 120 H Lactic Acid Calcium Phosphorus Magnesium Ferritin Direct Bilirubin AST Alkaline Phosphatase Lactate Dehydrogenase 627 H C-Reactive Protein 4.90 H Total Protein Albumin Arterial Blood Glucose Coronavirus (PCR) 11/12/20 11/13/20 11/13/20 15:40 05:28 10:59 WBC RBC Hgb Hct MCH MCHC RDW Plt Count Piatt % (Auto) Lymph # (Auto) Seg Neutrophils % Seg Neuts % (Manual) Lymphocytes % (Manual) Seg Neutrophils # Man Lymphocytes # (Manual) D-Dimer 370.02 H POC ABG pO2 ABG Hemoglobin ABG Oxyhemoglobin ABG Sodium ABG Potassium ABG Chloride ABG Glucose Carboxyhemoglobin Sodium Potassium Chloride Carbon Dioxide BUN Creatinine Glucose POC Glucose 119 H 166 H Lactic Acid Calcium Phosphorus Magnesium Ferritin Direct Bilirubin AST Alkaline Phosphatase Lactate Dehydrogenase C-Reactive Protein Total Protein Albumin Arterial Blood Glucose Coronavirus (PCR) 11/13/20 11/13/20 11/14/20 10:59 10:59 11:52 WBC RBC Hgb Hct MCH MCHC RDW Plt Count Piatt % (Auto) Lymph # (Auto) Seg Neutrophils % Seg Neuts % (Manual) Lymphocytes % (Manual) Seg Neutrophils # Man Lymphocytes # (Manual) D-Dimer POC ABG pO2 ABG Hemoglobin ABG Oxyhemoglobin ABG Sodium ABG Potassium ABG Chloride ABG Glucose Carboxyhemoglobin Sodium Potassium Chloride Carbon Dioxide BUN Creatinine Glucose POC Glucose 259 H Lactic Acid Calcium Phosphorus Magnesium Ferritin 1996.0 H Direct Bilirubin AST Alkaline Phosphatase Lactate Dehydrogenase 535 H C-Reactive Protein 13.00 H Total Protein Albumin Arterial Blood Glucose Coronavirus (PCR) 11/14/20 11/15/20 11/15/20 17:15 04:41 04:41 WBC RBC Hgb 15.5 H Hct MCH 33 H MCHC 37 H RDW 13.0 L Plt Count Piatt % (Auto) Lymph # (Auto) Seg Neutrophils % Seg Neuts % (Manual) 95.0 H Lymphocytes % (Manual) 1.0 L Seg Neutrophils # Man 9.1 H Lymphocytes # (Manual) 0.1 L D-Dimer POC ABG pO2 ABG Hemoglobin ABG Oxyhemoglobin ABG Sodium ABG Potassium ABG Chloride ABG Glucose Carboxyhemoglobin Sodium 134 L Potassium Chloride 95.2 L Carbon Dioxide BUN 27 H Creatinine 0.6 L Glucose 165 H POC Glucose 166 H Lactic Acid Calcium Phosphorus Magnesium Ferritin Direct Bilirubin AST Alkaline Phosphatase Lactate Dehydrogenase C-Reactive Protein Total Protein Albumin Arterial Blood Glucose Coronavirus (PCR) 11/16/20 11/16/20 11/16/20 08:58 08:58 12:13 WBC RBC Hgb Hct MCH MCHC RDW Plt Count Piatt % (Auto) Lymph # (Auto) Seg Neutrophils % Seg Neuts % (Manual) Lymphocytes % (Manual) Seg Neutrophils # Man Lymphocytes # (Manual) D-Dimer 353.41 H POC ABG pO2 ABG Hemoglobin ABG Oxyhemoglobin ABG Sodium ABG Potassium ABG Chloride ABG Glucose Carboxyhemoglobin Sodium Potassium Chloride Carbon Dioxide BUN Creatinine Glucose POC Glucose Lactic Acid Calcium Phosphorus Magnesium Ferritin 2413.0 H Direct Bilirubin AST Alkaline Phosphatase Lactate Dehydrogenase 407 H C-Reactive Protein 2.00 H Total Protein Albumin Arterial Blood Glucose Coronavirus (PCR) 11/17/20 11/18/20 11/18/20 17:48 01:14 11:54 WBC RBC Hgb Hct MCH MCHC RDW Plt Count Piatt % (Auto) Lymph # (Auto) Seg Neutrophils % Seg Neuts % (Manual) Lymphocytes % (Manual) Seg Neutrophils # Man Lymphocytes # (Manual) D-Dimer POC ABG pO2 ABG Hemoglobin ABG Oxyhemoglobin ABG Sodium 131.5 L ABG Potassium 4.6 H ABG Chloride 97.0 L ABG Glucose 212 H Carboxyhemoglobin 3 H Sodium Potassium Chloride Carbon Dioxide BUN Creatinine Glucose POC Glucose 229 H 223 H Lactic Acid Calcium Phosphorus Magnesium Ferritin Direct Bilirubin AST Alkaline Phosphatase Lactate Dehydrogenase C-Reactive Protein Total Protein Albumin Arterial Blood Glucose 212 H Coronavirus (PCR) 11/18/20 11/18/20 11/19/20 17:09 23:16 00:45 WBC RBC Hgb Hct MCH MCHC RDW Plt Count Piatt % (Auto) Lymph # (Auto) Seg Neutrophils % Seg Neuts % (Manual) Lymphocytes % (Manual) Seg Neutrophils # Man Lymphocytes # (Manual) D-Dimer POC ABG pO2 72.6 L ABG Hemoglobin 19.2 H ABG Oxyhemoglobin 92.4 L ABG Sodium 133.9 L ABG Potassium 5.6 H ABG Chloride ABG Glucose 242 H Carboxyhemoglobin 0.3 L Sodium Potassium Chloride Carbon Dioxide BUN Creatinine Glucose POC Glucose 218 H 235 H Lactic Acid Calcium Phosphorus Magnesium Ferritin Direct Bilirubin AST Alkaline Phosphatase Lactate Dehydrogenase C-Reactive Protein Total Protein Albumin Arterial Blood Glucose 242 H Coronavirus (PCR) 11/19/20 11/19/20 11/19/20 03:57 05:52 08:54 WBC 41.0 H* RBC 5.88 H Hgb 18.9 H Hct 54.4 H MCH MCHC 35 H RDW 13.0 L Plt Count Piatt % (Auto) Lymph # (Auto) Seg Neutrophils % Seg Neuts % (Manual) Lymphocytes % (Manual) Seg Neutrophils # Man Lymphocytes # (Manual) D-Dimer POC ABG pO2 ABG Hemoglobin 19.5 H ABG Oxyhemoglobin ABG Sodium 133.1 L ABG Potassium 5.6 H ABG Chloride ABG Glucose 207 H Carboxyhemoglobin 0.2 L Sodium Potassium Chloride Carbon Dioxide BUN Creatinine Glucose POC Glucose 204 H Lactic Acid Calcium Phosphorus Magnesium Ferritin Direct Bilirubin AST Alkaline Phosphatase Lactate Dehydrogenase C-Reactive Protein Total Protein Albumin Arterial Blood Glucose 207 H Coronavirus (PCR) 11/19/20 11/19/20 08:54 10:49 WBC RBC Hgb Hct MCH MCHC RDW Plt Count Piatt % (Auto) Lymph # (Auto) Seg Neutrophils % Seg Neuts % (Manual) Lymphocytes % (Manual) Seg Neutrophils # Man Lymphocytes # (Manual) D-Dimer POC ABG pO2 ABG Hemoglobin ABG Oxyhemoglobin ABG Sodium ABG Potassium ABG Chloride ABG Glucose Carboxyhemoglobin Sodium 132 L Potassium 6.1 H* D 6.7 H* Chloride 97.8 L Carbon Dioxide 15 L D BUN 61 H Creatinine Glucose 194 H POC Glucose Lactic Acid Calcium Phosphorus 8.10 H Magnesium 3.40 H Ferritin Direct Bilirubin AST Alkaline Phosphatase Lactate Dehydrogenase C-Reactive Protein Total Protein Albumin 2.8 L Arterial Blood Glucose Coronavirus (PCR)
[2020-11-19 12:11] LABS: Band Neutrophils # (Manual) 0.4 K/mm3; Myelocytes # (Manual) 0.4 K/mm3; Total Cells Counted 100
[2020-11-19 12:12] LABS: Platelet Estimate Consistent w Auto; RBC Morphology Normal
[2020-11-19] MEDS ORDERED: CALCIUM GLUCONATE 2,000 MG in SODIUM CHLORIDE 0.9% 100 ML IV ONE (12:30)
[2020-11-19] MEDS: CHOLECALCIFEROL (VIT D3) 5,000 UNIT TAB PO SCH (13:24)
--- NOTE | 2020-11-19 16:50 | XRay Report ---
ABDOMEN 1 VIEW(S) 11/19/2020 3:31 PM INDICATION / CLINICAL INFORMATION: NGT placement.. COMPARISON: None available. FINDINGS: The tip of an esophagogastric tube projects over the body of the stomach in expected position. Signer Name: Philip Phelps MD Signed: 11/19/2020 4:45 PM Workstation Name: [id number]
[2020-11-19] MEDS: NORepinephrine/NS 4 MG-250 ML 4 MG/250 ML BAG IV SCH (18:46)
[2020-11-19] MEDS: ENOXAPARIN 40 MG/0.4 ML INJ SUB-Q SCH (21:23)
--- NOTE | 2020-11-19 21:28 | Event Note ---
Date: 11/18/20 At 2300 on 11/18/2020 I was called by the ICU charge nurse requesting intubation for this patient with hypoxemic respiratory failure. Patient is noted to be satting in the low 80s on nonrebreather. I called the ER physician to help with the intubation.
[2020-11-20 01:41] VITALS: BP 62/34
[2020-11-20] MEDS: NORepinephrine/NS 4 MG-250 ML 4 MG/250 ML BAG IV SCH (02:23)
[2020-11-20] MEDS ORDERED: SODIUM BICARB 8.4% 50 MEQ/50 ML SYRINGE IV ONE (02:47)
[2020-11-20] MEDS ORDERED: CALCIUM CHLORIDE 1,000 MG/10 ML SYRINGE IV ONE (02:47)
[2020-11-20] MEDS ORDERED: EPINEPHrine 1 MG/10 ML SYRINGE ONE (02:47)
[2020-11-20] MEDS ORDERED: ATROPINE 0.1% (1 MG/10 ML) CARDIAC SYRINGE ONE (02:47)
[2020-11-20] MEDS ORDERED: DOPamine/D5W 800 MG/250 ML DRIP IV ONE (02:47)
[2020-11-20] MEDS ORDERED: VASOPRESSIN 20 UNIT in SODIUM CHLORIDE 0.9% 100 ML IV SCH (03:00)
--- NOTE | 2020-11-20 03:31 | Event Note ---
Date: 11/20/20 Gagan Supa called at 0244. Pt had asystole arrest. ACLS protocol initiated, Epi x4, Sodium Bicard x1, Calcium x1, Atropine x2, unable to achieve ROSC. Time of 311. On assessment no spontaneous respirations, no heart sounds, no response to tactile stimulation, pupils are fixed and dilated. called pt's son Graham Henley ([phone]) and advised of current situation.
--- NOTE | 2020-11-20 03:32 | Death Note ---
Note Date of : 11/20/20 Time of : 03:12 Time Pronounced: 03:12 - Preliminary Cause of (problem) (1) Cardiac arrest Preliminary cause of At approximately 0244 this morning patient went into asystole cardiac arrest. Around 9:30 PM on 11/19/20 patient was intubated by ED physician after showing signs of respiratory distress on NRB mask. Patient was on Levophed and vasopressin drip to help maintain BP. (2) COVID-19 Preliminary cause of (3) Acute respiratory failure with hypoxia Preliminary cause of (4) Bilateral interstitial pneumonia Preliminary cause of
--- NOTE | 2020-11-20 07:46 | Death Summary ---
Summary - Providers Date of service: 11/20/20 Consults: 11/06/20 22:23 Consult to Physician [CONS] Routine Comment: Consulting Provider: WANDA AMADOR Physician Instructions: Reason For Exam: Covid PUI 11/07/20 12:23 Consult to Physician [CONS] Routine Comment: Consulting Provider: NASIR MALCOLM Physician Instructions: Reason For Exam: acute respiratory failure with hypoxia. PUI COVID 11/18/20 23:12 Consult to Dietitian/Nutrition [CONS] Routine Physician Instructions: Reason For Exam: Reason for Consult: Evaluate nutritional intake 11/19/20 11:55 Consult to PICC Line RN [CONS] Urgent Reason For Exam: No IV access, difficult stick, longterm managing Type Line:: PICC Attending: HILDA POLK - summary Date of admission: 11/06/20 14:13 Date of : 11/20/20 (at 03:12) Reason for admission: Acute hypoxic respiratory failure, generalized weakness, PUI Significant findings: 65-year-old patient male patient with significant past medical history of hypertension, received vaccination 10 days prior to admission was admitted to [facility] on 11/06/2020 with a complaints of worsening shortness of breath and generalized weakness of 2 days duration. Initial evaluation in the ED was consistent with acute respiratory failure with hypoxia O2 sats of 82% elevated D-dimers elevated ferritin. Patient was admitted at this [facility] high suspicion for Covid placed in isolation subsequently braga PCR test came back positive on 11/06/2020 Patient was evaluated by ID received all the treatment per COVID-19 guidelines, evaluated by pulmonary critical, respiratory status closely monitored Patient continues to require high flow nasal cannula oxygen as well as 100% nonrebreather. Case management has set up evaluation for LTAC placement, and patient was accepted for LTAC placement. Today patient remained hypoxemic requiring high flow nasal cannula oxygen and 100% nonrebreather with barely saturating 89 to 92% Patient is waiting to be transferred to LTAC patient was critically ill, remained hypoxemic in spite of high flow oxygen. Patient remained hypoxemic and around 9:30 PM on 11/19/20 patient was in acute respiratory failure ,intubated by ED physician, patient was in shock requiring vasopressors Levophed and vasopressin drip to help maintain BP. Patient continued to deteriorate, and approximately around 0244 this morning patient went into asystole cardiac arrest CODE PRISCILA was called, referred to code sheet for details, and patient around 03:12 on 11/20/2020, pronounced by on-call licensing engineer Dr. Rodrigez. I was not present when the patient , details were obtained from the medical records. Time of : 03:12 on 11/20/2020 Pronounced by on-call licensing engineer Dr. Rodrigez. Final diagnosis: Acute hypoxic respiratory failure Sepsis due to COVID-19 pneumonia Cardiopulmonary arrest Transaminitis Severe COVID-19 infection Type 2 diabetes mellitus Elevated D-dimers Transaminitis Severe protein calorie malnutrition Total time spent 45 minutes Procedures/treatments rendered: Intubation and chemical ventilation CPR per ACLS protocol Pertinent studies: Multiple chest x-rays CTA chest Lower extremity venous Doppler Disposition: Patient - Final diagnosis (1) Acute respiratory failure with hypoxia Note: Final diagnosis: (2) Severe acute respiratory syndrome coronavirus 2 (SARS-CoV-2) RNA test result positive at limit of detection Note: Final diagnosis: (3) Cardiac arrest Note: Final diagnosis: (4) Sepsis due to COVID-19 Note: Final diagnosis: (5) Transaminitis Note: Final diagnosis: (6) Severe protein-calorie malnutrition Note: Final diagnosis:
--- NOTE | 2020-11-22 10:22 | Electrocardiograph Report ---
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 Electronically Signed On 11-22-2020 10:21:55 EDT by Melquiades Hodges
== END 2020-11-20 05:19 | DRG 871 ==
LOC: ED 08:32 → 3A 14:13 → IMCU 11-11 15:14 → CC1 11-18 23:44
PROVIDERS: ADMIT Internal Medicine; ATTEND Internal Medicine
PROC: XW033E5 Introduction of Remdesivir Anti-infective into Peripheral Vein, Percutaneous Approach, New Technology Group 5 (ICD-10-PCS; principal; 2020-11-07)
PROC: 4A033R1 Measurement of Arterial Saturation, Peripheral, Percutaneous Approach (ICD-10-PCS; 2020-11-17)
PROC: 5A1945Z Respiratory Ventilation, 24-96 Consecutive Hours (ICD-10-PCS; 2020-11-18)
PROC: 0BH17EZ Insertion of Endotracheal Airway into Trachea, Via Natural or Artificial Opening (ICD-10-PCS; 2020-11-18)
PROC: 05HY33Z Insertion of Infusion Device into Upper Vein, Percutaneous Approach (ICD-10-PCS; 2020-11-19)
DX: A41.89 Other specified sepsis (principal); U07.1 COVID-19; J96.01 Acute respiratory failure with hypoxia; J12.82 Pneumonia due to coronavirus disease 2019; E87.1 Hypo-osmolality and hyponatremia; E44.1 Mild protein-calorie malnutrition; R74.01 Elevation of levels of liver transaminase levels; I10 Essential (primary) hypertension; E11.9 Type 2 diabetes mellitus without complications; J43.2 Centrilobular emphysema; D72.819 Decreased white blood cell count, unspecified; D69.6 Thrombocytopenia, unspecified; E87.6 Hypokalemia; I46.9 Cardiac arrest, cause unspecified; Z68.26 Body mass index [BMI] 26.0-26.9, adult; Z72.89 Other problems related to lifestyle
CPT/HCPCS: 36415; 36600; 71045; 71275; 74018; 80048; 80053; 80076; 81001; 82140; 82728; 82805; 82947; 82962; 83036; 83615; 83690; 83735; 84100; 84132; 84145; 84484; 85007; 85025; 85027; 85379; 85610; 85730; 86140; 87040; 87070; 87205; 92950; 93005; 93970; 94002; 94003; 96365; G0378; C9113; J0171; J0330; J0456; J0461; J0610; J0696; J1100; J1265; J1650; J1720; J1815; J1940; J2060; J2270; J2405; J2704; J2765; J3010; J3262; J7030; Q9967; U0003